=== PATIENT | female | born 1940 | race Caucasian/White ===

== ENCOUNTER 2017-09-12 12:08 | Inpatient (IN) | payer MEDICARE, SELFPAY ==
--- NOTE | 2017-09-12 11:11 | XR_ITS ---
XR chest 2V Ordering Physician: Tobias Healy Patient Age: 76 years: Female HISTORY: ITS.REASON: S/P FLU, COUGH, LT CHEST PAIN HISTORY of colon Ca & lungs CA TECHNIQUE: PA and lateral chest COMPARISON :July 04, 2017 FINDINGS Heart is normal in size if not slightly smaller than on previous June 2017 CXR . Tayla and mediastinal structures appear satisfactory. . Chest wall unremarkable. T-spine intact stable No pleural effusion. No pneumothorax. . Slight coarsening markings bilaterally particularly at the right midlung but this has a similar appearance to previous study from June 2014 with nothing definitely acute. Mild elevation right hemidiaphragm again noted. Appear to be postsurgical changes right lung base and possibly right midlung of these is seen on prior CT 2014 CT chest. . Postsurgical changes are seen at the right epigastric region. Unchanged. IMPRESSION: Stable chest with nothing definitely acute. Stable mild chronic changes . Stable postsurgical changesPosterior right lung base
[2017-09-12 12:56] VITALS: BP 141/60; PULSE 61; RESP 20; TEMP 36.3; O2SAT 96
[2017-09-12 13:25] VITALS: BMI 28.4
[2017-09-12 13:38] VITALS: BMI 25.7
[2017-09-12 15:06] LABS: Troponin I < 0.02 ng/ml (0.00-0.06)
--- NOTE | 2017-09-12 16:58 | HMH.HP ---
*Admission Date: 09/12/17 *Chief complaint: Fatigue/cough *History of present illness: 76-year-old white female, patient of Dr. Tobias Healy, who came to his office today with a chief complaint of coughing, back pain, malaise, orthostasis and fatigue. Last week she was treated for influenza type B with Tamiflu and defervesced, but continued to have lots of weakness and fatigue along with some low-grade fevers. In the office today she was found to have evidence of urinary tract infection, and admitted to hospital for IV antibiotics, IV fluids and supportive care. [facility] History I have reviewed the patient's past medical history: Yes Medical History: Reports:: Cancer (Liver (2000), Lung (2000), Colon (1996)), Hypertension, Myocardial Infarction Denies:: Diabetes Mellitus Type 1, Diabetes Mellitus Type 2, MRSA Other Medical History: Reports: Arthritis, Hypothyroidism, Liver Disease (Liver CA 2000), Thyroid Disease Other Surgeries: Yes: Cancer Surgery (Colon resection), Colon Resection, Hysterectomy-Total, Other (Cholecystectomy, laser surgery for kidney stones) Amputation: No Fractures: Yes ((L) wrist,) - *Social History Educational Level: Attended High School Smoking Status: Former smoker Tobacco Type: cigarettes #Yrs smoked (if former smoker): 20 Smoking End Date: 1979 Alcohol Intake: never Occupational Status: retired Housing: house Household Members: spouse - Psychiatric History Expresses thoughts of harming self/others: None Suicide Plan Description: No Plan *Family Hx:: Cancer, Coronary Artery Disease, Diabetes, Heart Attack, Hypertension Review of Systems - Review of Systems Review of systems:: unable to obtain, other, pertinent systems reviewed and negative unless documented below - Constitutional Reports body ache(s), Reports chills, Reports fatigue - *Respiratory Reports cough - *Gastrointestinal Reports abdominal pain, Denies change in bowel habits, Denies change in stools Meds Home Medications Medication Instructions Recorded Confirmed Type Aspirin [Aspirin 81mg EC Tab] 81 mg PO DAILY 09/12/17 09/12/17 History Atorvastatin Calcium [Lipitor 40mg 20 mg PO HS 09/12/17 09/12/17 History Tablet] LORazepam [Ativan] 1 mg PO BID 09/12/17 09/12/17 History Levothyroxine Sodium 50 mcg PO DAILY 09/12/17 09/12/17 History [Levothyroxine 50mcg (0.05mg) Tab] Lisinopril/Hydrochlorothiazide 1 tab PO DAILY 09/12/17 09/12/17 History [Lisinopril-Hctz 10-12.5 mg Tab] Nadolol [Corgard] 20 mg PO BID 09/12/17 09/12/17 History Pantoprazole Sodium [Protonix 40mg 40 mg PO HS 09/12/17 09/12/17 History tablet] Spironolactone [Spironolactone 25 mg PO DIRECTED 09/12/17 09/12/17 History 25mg Tab] Allergies Allergy/AdvReac Type Severity Reaction Status Date / Time codeine [CODEINE] Allergy Mild HEART RACE Verified 09/12/17 13:15 meloxicam [From MOBIC] Allergy Mild HEART RACE Verified 09/12/17 13:15 oxycodone [OXYCODONE] Allergy Mild HEART RACE Verified 09/12/17 13:15 propoxyphene Allergy Mild HEART RACE Verified 09/12/17 13:15 [From DARVOCET-N] sulfamethoxazole Allergy Mild HEART RACE Verified 09/12/17 13:15 [From BACTRIM] trimethoprim [From BACTRIM] Allergy Mild HEART RACE Verified 09/12/17 13:15 diphenhydramine Allergy Unknown HEART RACE Verified 09/12/17 13:15 [DIPHENHYDRAMINE] doxycycline [DOXYCYCLINE] Allergy Unknown HEART RACE Verified 09/12/17 13:15 levofloxacin [From LEVAQUIN] Allergy Unknown Heart Races Verified 09/12/17 13:15 metoclopramide [From REGLAN] Allergy Unknown HEART RACE Verified 09/12/17 13:15 phenazopyridine Allergy Unknown HEART RACE Verified 09/12/17 13:15 [From PYRIDIUM] QUINOLONES Allergy Unknown HEART RACE Uncoded 08/16/17 14:45 Exam Vital signs and Labs for Last 24 Hours: Temp Pulse Resp BP Pulse Ox 97.3 F L 61 20 141/60 96 09/12/17 12:56 09/12/17 12:56 09/12/17 12:56 09/12/17 12:56 09/12/17 12:56 Laboratory Results - last 24 hr
--- NOTE | 2017-09-12 18:02 | PC.NURSE ---
PT ADMITTED TO 201 VIA WHEELCHAIR. PT IS A&Ox3. PT C/O (L) SCAPULAR PAIN RANGING 3-10 ON A 0-10 PAIN SCALE. HEART RATE REG. LUNGS WITH RHONCHI SCATTERED. ABD SOFT AND NONTENDER /C ACTIVE BOWEL SOUNDS. (R) AC IV INFUSING D5NS @ 100 ML/HR; NO S/S OF INFECTION/INFILTRATION. K-THERMIA PAD IN PLACE TO (L) UPPER BACK TO ASSIST WITH PAIN MANAGEMENT. PT HAS BEEN MEDICATED PER MAR FOR MANAGMENT OF SYMPTOMS. PT AMBULATES TO BR WITH ASSISTANCE X1. PT REFUSES ALISE HOSE. WILL CONTINUE TO MONITOR.
[2017-09-12 20:00] VITALS: BP 137/53; PULSE 56; RESP 18; TEMP 36.3; O2SAT 96
[2017-09-12 23:35] VITALS: BP 121/70; PULSE 66; RESP 20; TEMP 37; O2SAT 94
--- NOTE | 2017-09-13 03:54 | PC.NURSE ---
PT C/O PAIN IN LT UPPER BACK T/O THE NIGHT, K PAP TO AREA AND PRN MEDICATION ADMINISTERED. PT HAS RESTED WELL THIS SHIFT. CANDY FEEDER LUNG AUSCULTATION. BS ACTIVE IN ALL 4 QAUDS. A&OX3. VSS. FAMILY AT BEDSIDE. NO ACUTE DISTRESS NOTED. WILL CONTINUE TO MONITOR.
[2017-09-13 04:00] VITALS: BP 107/51; PULSE 27; RESP 16; TEMP 36.8; O2SAT 94
--- NOTE | 2017-09-13 05:52 | PC.NURSE ---
PT WANTS HER BATH AFTER BREAKFAST. NURSE NOTIFIED
[2017-09-13 06:51] LABS: Basophils % 0.5 % (0.1-2.0); Eosinophils # 0.1 K/mm3 (0.0-0.4); Eosinophils % 1.2 % (0.1-12.0); Hemoglobin 10.6 g/dL (12.2-16.2); Lymphocytes # 1.2 K/mm3 (0.7-4.5); Lymphocytes % 18.8 K/mm3 (10-50); Mean Corpuscular HGB Conc 34.1 g/dL (31.8-35.4); Mean Corpuscular Hemoglobin 29.1 pg (27.0-31.2); Mean Corpuscular Volume 85.5 fl (81-99); Monocytes # 0.7 K/mm3 (0.1-1.0); Monocytes % 10.4 % (1.7-9.3); Neutrophils # 4.4 K/mm3 (1.8-7.8); Neutrophils % 69.2 % (37.0-80.0); Platelet Count 334 K/mm3 (142-424); Red Blood Count 3.63 M/mm3 (4.20-5.40); Red Cell Distribution Width 12.4 % (11.5-17.5); White Blood Count 6.4 K/mm3 (4.8-10.8)
[2017-09-13 06:58] LABS: Anion Gap 6.5 mEq/L (5-15); Blood Urea Nitrogen 8 mg/dL (7-18); Carbon Dioxide 32 mmol/L (21.0-32.0); Chloride 97 mmol/L (98-107); Creatinine Clearance Estimated 51 mL/min (0-300); Creatinine,Serum 0.84 mg/dL (0.55-1.02); Estimated Glomerular Filt Rate 66 ml/min (>60); GFR (African American) 80 ML/MIN (>60); Glucose 154 mg/dL (74-106); Sodium 133 mmol/L (136-145)
[2017-09-13 07:04] LABS: Potassium 2.5 mmoL/L (3.5-5.1)
--- NOTE | 2017-09-13 07:29 | PC.NURSE ---
REPORT GIVEN TO Chris QUINTANILLA
--- NOTE | 2017-09-13 07:34 | PC.NURSE ---
(WALTER) NOTIFIED OF CRITICAL K+ 2.5 BY Axel PRITCHARD, RN @ [phone]
--- NOTE | 2017-09-13 07:35 | PC.NURSE ---
REPORT GIVEN TO Axel PRITCHARD
--- NOTE | 2017-09-13 07:45 | P.PN_ITS ---
Internal Medicine - PN: Subj *Date: 09/13/17 *Time: 07:43 Interval history: States she feels better although is still somewhat grumpy about her sickness. Breathing well. Minimal coughing. Positive serology for influenza A noted last night. Exam Vital signs and Labs for Last 24 Hours: Temp Pulse Resp BP Pulse Ox 98.2 F 27 L 16 107/51 94 L 09/13/17 04:00 09/13/17 04:00 09/13/17 04:00 09/13/17 04:00 09/13/17 04:00 Laboratory Results - last 24 hr 09/12/17 14:30: Troponin I < 0.02 09/13/17 00:00: Influenza Type A Ag Positive A, Influenza Type B Ag Negative 09/13/17 06:15: WBC 6.4, RBC 3.63 L, Hgb 10.6 L, Hct 31.0 L, MCV 85.5, MCH 29.1 , MCHC 34.1, RDW 12.4, Plt Count 334, MPV 7.0 L, Neut % (Auto) 69.2, Lymph % ( Auto) 18.8, [place] % (Auto) 10.4 H, Eos % (Auto) 1.2, Baso % (Auto) 0.5, Neut # ( Auto) 4.4, Lymph # (Auto) 1.2, [place] # (Auto) 0.7, Eos # (Auto) 0.1, Baso # (Auto ) 0.0 09/13/17 06:15: Sodium 133 L, Potassium 2.5 L*, Chloride 97 L, Carbon Dioxide 32 , Anion Gap 6.5, BUN 8, Creatinine 0.84, Estimated Creat Clear 51, Estimated GFR 66, Est GFR ( Amer) 80, Glucose 154 H I & O for Last 24 hours: Intake & Output 09/10/17 09/11/17 09/12/17 09/13/17 11:59 11:59 11:59 11:59 Intake Total 1956 / 1956 Output Total 1200 / 1200 Balance 757 / 757 Weight 145 lb 7 oz Narrative: Patient with good air movement, minimal rhonchi, heart rate regular, abdomen soft. Assessment and Plan (1) Urinary tract infection Current visit: Yes Status: Acute Category: Medical Code(s): N39.0 - Urinary tract infection, site not specified (2) Influenza A Current visit: Yes Status: Acute Category: Medical Code(s): J10.1 - Influenza due to other identified influenza virus with other respiratory manifestations (3) Hypokalemia Current visit: Yes Status: Acute Category: Medical Code(s): E87.6 - Hypokalemia - Assessment and plan all Dx Assessment and Plan for all problems:: Patient is improving. Initiate Tamiflu for a second round given length of time after treatment of influenza B last week. Continue antibiotics, await UTI cultures. Replace potassium orally.
[2017-09-13 08:00] VITALS: BP 140/61; PULSE 64; PULSE 66; RESP 16; RESP 18; TEMP 36.8; O2SAT 96
--- NOTE | 2017-09-13 08:21 | HMH.PHAVTE ---
[facility] Pharm[facility] VTE Monitoring - Patient Demographics Admission date: 09/12/17 Report Date: 09/13/17 Time: 08:21 Allergies/Adverse Reactions: codeine [CODEINE] Allergy (Mild, Verified 09/12/17 13:15) HEART RACE meloxicam [From MOBIC] Allergy (Mild, Verified 09/12/17 13:15) HEART RACE oxycodone [OXYCODONE] Allergy (Mild, Verified 09/12/17 13:15) HEART RACE propoxyphene [From DARVOCET-N] Allergy (Mild, Verified 09/12/17 13:15) HEART RACE sulfamethoxazole [From BACTRIM] Allergy (Mild, Verified 09/12/17 13:15) HEART RACE trimethoprim [From BACTRIM] Allergy (Mild, Verified 09/12/17 13:15) HEART RACE diphenhydramine [DIPHENHYDRAMINE] Allergy (Unknown, Verified 09/12/17 13:15) HEART RACE doxycycline [DOXYCYCLINE] Allergy (Unknown, Verified 09/12/17 13:15) HEART RACE levofloxacin [From LEVAQUIN] Allergy (Unknown, Verified 09/12/17 13:15) Heart Races metoclopramide [From REGLAN] Allergy (Unknown, Verified 09/12/17 13:15) HEART RACE phenazopyridine [From PYRIDIUM] Allergy (Unknown, Verified 09/12/17 13:15) HEART RACE QUINOLONES Allergy (Unknown, Uncoded 08/16/17 14:45) HEART RACE Height: 1.6 m Weight: 65.969 kg Patient Problems: Current Active Problems Urinary tract infection (Acute) Influenza A (Acute) Hypokalemia (Acute) - VTE Risk Labs: VTE Related Lab Results Hgb 10.6 g/dL (12.2-16.2) L 09/13/17 06:15 Hct 31.0 % (37.0-47.0) L 09/13/17 06:15 Plt Count 334 K/mm3 (142-424) 09/13/17 06:15 BUN 8 mg/dL (7-18) 09/13/17 06:15 Creatinine 0.84 mg/dL (0.55-1.02) 09/13/17 06:15 Estimated Creat Clear 51 mL/min (0-300) 09/13/17 06:15 Was VTE Risk Assessment Performed: Yes VTE Score: 1 VTE Risk Level: Very Low Risk - Prophylaxis VTE Prophylaxis Ordered?: Yes Types of VTE Prophylaxis: TEDS Knee High Location of Applied Device: Bilateral Lower Extremeties - VTE Diagnosis Confirmed Treatment or plan recommended: Continue Current Treatment
[2017-09-13 11:46] VITALS: BP 106/52; PULSE 599; RESP 18; TEMP 36.8; O2SAT 92
[2017-09-13 15:37] VITALS: BP 144/71; PULSE 69; RESP 18; TEMP 36.6; O2SAT 94
--- NOTE | 2017-09-13 17:34 | PC.NURSE ---
Pt A&O x3. Rhonchi and wheezes noted to lungs. O2 sats remain in the 90's on room air. Pt has ambulated around her room independently. She states she has reflux from a hernia. notified and maalobarbara ordered prn. Pt also reports pain in her shoulder area from torn muscle . Kpad in place and prn flexerill and lortab administered x1. No other concerns at this time. Will continue to monitor.
--- NOTE | 2017-09-13 18:51 | PC.NURSE ---
report to be given to Maxine Cool RN
[2017-09-13 19:41] VITALS: BP 151/64; PULSE 76; RESP 20; TEMP 37.4; O2SAT 97
[2017-09-14] VITALS: BP 153/70; PULSE 69; RESP 18; TEMP 37; O2SAT 96
--- NOTE | 2017-09-14 03:10 | PC.NURSE ---
PT RESTED WELL THIS SHIFT. COMPLAINED OF PAIN IN LEFT UPPER BACK AT BEGINNING OF SHIFT. MEDICATED PER OCT. KPAD NOTED TO LEFT UPPER BACK. A&OX3. WHEEZING NOTED DURING LUNG AUSCULTATION. BOWEL SOUNDS ACTIVE IN ALL FOUR QUADRANTS. PATIENT CONTINUES TO REFUSE TEDS. VSS. NO ACUTE DISTRESS NOTED. CONTINUE TO MONITOR.
[2017-09-14 04:00] VITALS: BP 121/57; PULSE 67; RESP 20; TEMP 36.7; O2SAT 95
[2017-09-14 06:40] LABS: Basophils % 0.5 % (0.1-2.0); Eosinophils # 0.1 K/mm3 (0.0-0.4); Eosinophils % 1.3 % (0.1-12.0); Hematocrit 31.6 % (37.0-47.0); Hemoglobin 10.6 g/dL (12.2-16.2); Lymphocytes # 0.9 K/mm3 (0.7-4.5); Lymphocytes % 14.6 K/mm3 (10-50); Mean Corpuscular HGB Conc 33.6 g/dL (31.8-35.4); Mean Corpuscular Hemoglobin 28.9 pg (27.0-31.2); Monocytes # 0.5 K/mm3 (0.1-1.0); Monocytes % 7.9 % (1.7-9.3); Neutrophils # 4.5 K/mm3 (1.8-7.8); Neutrophils % 75.7 % (37.0-80.0); Platelet Count 341 K/mm3 (142-424); Red Blood Count 3.68 M/mm3 (4.20-5.40); Red Cell Distribution Width 12.3 % (11.5-17.5); White Blood Count 5.9 K/mm3 (4.8-10.8)
[2017-09-14 06:45] LABS: Anion Gap 5.1 mEq/L (5-15); Blood Urea Nitrogen 8 mg/dL (7-18); Carbon Dioxide 31 mmol/L (21.0-32.0); Chloride 102 mmol/L (98-107); Creatinine Clearance Estimated 51 mL/min (0-300); Creatinine,Serum 0.73 mg/dL (0.55-1.02); Estimated Glomerular Filt Rate 78 ml/min (>60); GFR (African American) 94 ML/MIN (>60); Glucose 128 mg/dL (74-106); Potassium 3.1 mmoL/L (3.5-5.1); Sodium 135 mmol/L (136-145)
--- NOTE | 2017-09-14 07:23 | PC.NURSE ---
REPORT GIVEN TO Julisa QUINTANILLA
--- NOTE | 2017-09-14 07:27 | PC.NURSE ---
REPORT GIVEN TO Chris PRITCHARD RN
[2017-09-14 07:43] VITALS: BP 149/79; PULSE 71; RESP 20; TEMP 36.6; O2SAT 97
[2017-09-14 08:00] VITALS: RESP 20; O2SAT 97
--- NOTE | 2017-09-14 08:17 | HMH.DCSUM ---
General - General Admission date: 09/12/17 Discharge date: 09/14/17 HPI HPI: 76-year-old white female, patient of Dr. Tobias Healy, who came to his office today with a chief complaint of coughing, back pain, malaise, orthostasis and fatigue. Last week she was treated for influenza type B with Tamiflu and defervesced, but continued to have lots of weakness and fatigue along with some low-grade fevers. In the office today she was found to have evidence of urinary tract infection, and admitted to hospital for IV antibiotics, IV fluids and supportive care. Objective Vital signs: Temp Pulse Resp BP Pulse Ox 97.8 F 71 20 149/79 97 09/14/17 07:43 09/14/17 07:43 09/14/17 07:43 09/14/17 07:43 09/14/17 07:43 Narrative: Patient's exam this morning is normalized, with better air movement, minimal back pain when she moves and twists. No fever. Heart rate regular, lungs clear, abdomen soft. Hospital Course Hospital Course: Patient was admitted, placed on antibiotics for urinary tract infection. Had gram-negative rods but no organism identification or sensitivities at this point. Tamiflu was readministered because serologic testing showed the presence of influenza A and she improved very nicely. This morning she was doing well, feeling better. Reached maximal medical improvement. She will be discharged home with antibiotics, antiviral, and short-term analgesia for her pain and cough respectively. Results Labs on day of discharge: Labs from last 24 hours 09/14/17 09/14/17 06:05 06:05 WBC 5.9 RBC 3.68 L Hgb 10.6 L Hct 31.6 L MCV 86.0 MCH 28.9 MCHC 33.6 RDW 12.3 Plt Count 341 MPV 7.0 L Neut % (Auto) 75.7 Lymph % (Auto) 14.6 [place] % (Auto) 7.9 Eos % (Auto) 1.3 Baso % (Auto) 0.5 Neut # (Auto) 4.5 Lymph # (Auto) 0.9 [place] # (Auto) 0.5 Eos # (Auto) 0.1 Baso # (Auto) 0.0 Sodium 135 L Potassium 3.1 L D Chloride 102 Carbon Dioxide 31 Anion Gap 5.1 BUN 8 Creatinine 0.73 Estimated Creat Clear 51 Estimated GFR 78 Est GFR ( Amer) 94 Glucose 128 H Preliminary micro results at discharge 09/12/17 15:00 Blood Culture - Preliminary Blood NO GROWTH AFTER 24 HOURS 09/12/17 14:30 Blood Culture - Preliminary Blood NO GROWTH AFTER 24 HOURS DS: Diagnosis - Discharge Diagnosis (1) Urinary tract infection Status: Acute (2) Influenza A Status: Acute (3) Hypokalemia Status: Acute Meds Home Medications Medication Instructions Recorded Confirmed Type Aspirin [Aspirin 81mg EC Tab] 81 mg PO DAILY 09/12/17 09/12/17 History Atorvastatin Calcium [Lipitor 40mg 20 mg PO HS 09/12/17 09/12/17 History Tablet] LORazepam [Ativan] 1 mg PO BID 09/12/17 09/12/17 History Levothyroxine Sodium 50 mcg PO DAILY 09/12/17 09/12/17 History [Levothyroxine 50mcg (0.05mg) Tab] Lisinopril/Hydrochlorothiazide 1 tab PO DAILY 09/12/17 09/12/17 History [Lisinopril-Hctz 10-12.5 mg Tab] Nadolol [Corgard] 20 mg PO BID 09/12/17 09/12/17 History Pantoprazole Sodium [Protonix 40mg 40 mg PO HS 09/12/17 09/12/17 History tablet] Spironolactone [Spironolactone 25 mg PO DIRECTED 09/12/17 09/12/17 History 25mg Tab] Allergies Allergy/AdvReac Type Severity Reaction Status Date / Time codeine [CODEINE] Allergy Mild HEART RACE Verified 09/12/17 13:15 meloxicam [From MOBIC] Allergy Mild HEART RACE Verified 09/12/17 13:15 oxycodone [OXYCODONE] Allergy Mild HEART RACE Verified 09/12/17 13:15 propoxyphene Allergy Mild HEART RACE Verified 09/12/17 13:15 [From DARVOCET-N] sulfamethoxazole Allergy Mild HEART RACE Verified 09/12/17 13:15 [From BACTRIM] trimethoprim [From BACTRIM] Allergy Mild HEART RACE Verified 09/12/17 13:15 diphenhydramine Allergy Unknown HEART RACE Verified 09/12/17 13:15 [DIPHENHYDRAMINE] doxycycline [DOXYCYCLINE] Allergy Unknown HEART RACE Verified 09/12/17 13:15
--- NOTE | 2017-09-14 08:23 | P.DS_ITS ---
General - General Admission date: 09/12/17 Discharge date: 09/14/17 HPI HPI: 76-year-old white female, patient of Dr. Tobias Healy, who came to his office today with a chief complaint of coughing, back pain, malaise, orthostasis and fatigue. Last week she was treated for influenza type B with Tamiflu and defervesced, but continued to have lots of weakness and fatigue along with some low-grade fevers. In the office today she was found to have evidence of urinary tract infection, and admitted to hospital for IV antibiotics, IV fluids and supportive care. Objective Vital signs: Temp Pulse Resp BP Pulse Ox 97.8 F 71 20 149/79 97 09/14/17 07:43 09/14/17 07:43 09/14/17 07:43 09/14/17 07:43 09/14/17 07:43 Narrative: Patient's exam this morning is normalized, with better air movement, minimal back pain when she moves and twists. No fever. Heart rate regular, lungs clear, abdomen soft. Hospital Course Hospital Course: Patient was admitted, placed on antibiotics for urinary tract infection. Had gram-negative rods but no organism identification or sensitivities at this point. Tamiflu was readministered because serologic testing showed the presence of influenza A and she improved very nicely. This morning she was doing well, feeling better. Reached maximal medical improvement. She will be discharged home with antibiotics, antiviral, and short -term analgesia for her pain and cough respectively. Results Labs on day of discharge: Labs from last 24 hours 09/14/17 09/14/17 06:05 06:05 WBC 5.9 RBC 3.68 L Hgb 10.6 L Hct 31.6 L MCV 86.0 MCH 28.9 MCHC 33.6 RDW 12.3 Plt Count 341 MPV 7.0 L Neut % (Auto) 75.7 Lymph % (Auto) 14.6 [place] % (Auto) 7.9 Eos % (Auto) 1.3 Baso % (Auto) 0.5 Neut # (Auto) 4.5 Lymph # (Auto) 0.9 [place] # (Auto) 0.5 Eos # (Auto) 0.1 Baso # (Auto) 0.0 Sodium 135 L Potassium 3.1 L D Chloride 102 Carbon Dioxide 31 Anion Gap 5.1 BUN 8 Creatinine 0.73 Estimated Creat Clear 51 Estimated GFR 78 Est GFR ( Amer) 94 Glucose 128 H Preliminary micro results at discharge 09/12/17 15:00 Blood Culture - Preliminary Blood NO GROWTH AFTER 24 HOURS 09/12/17 14:30 Blood Culture - Preliminary Blood NO GROWTH AFTER 24 HOURS DS: Diagnosis - Discharge Diagnosis (1) Urinary tract infection Status: Acute (2) Influenza A Status: Acute (3) Hypokalemia Status: Acute Meds Home Medications Medication Instructions Recorded Confirmed Type Aspirin [Aspirin 81mg EC Tab] 81 mg PO DAILY 09/12/17 09/12/17 History Atorvastatin Calcium [Lipitor 40mg 20 mg PO HS 09/12/17 09/12/17 History Tablet] LORazepam [Ativan] 1 mg PO BID 09/12/17 09/12/17 History Levothyroxine Sodium 50 mcg PO DAILY 09/12/17 09/12/17 History [Levothyroxine 50mcg (0.05mg) Tab] Lisinopril/Hydrochlorothiazide 1 tab PO DAILY 09/12/17 09/12/17 History [Lisinopril-Hctz 10-12.5 mg Tab] Nadolol [Corgard] 20 mg PO BID 09/12/17 09/12/17 History P
[2017-09-14 11:25] VITALS: BP 143/66; PULSE 67; RESP 18; TEMP 36.7; O2SAT 96
== END 2017-09-14 13:30 | disposition home or self-care (01) | DRG 194 ==
LOC: 2ND 12:11
PROVIDERS: Admitting Provider Internal Medicine Adolescent Medicine; PCP Internal Medicine; Visit Provider Internal Medicine Adolescent Medicine
DX: J10.1 Influenza due to other identified influenza virus with other respiratory manifestations; N39.0 Urinary tract infection, site not specified; E87.6 Hypokalemia
CPT/HCPCS: 36415; 71046; 80048; 84484; 85025; 87040; 87086; 87088; 87186; 87275; 87276; 93005; G0378

== ENCOUNTER → 2017-09-12 13:20 | Outpatient (REF) | payer MEDICARE, SELFPAY | LOC: LAB 13:20 | PROVIDERS: Visit Provider Internal Medicine | DX: N39.0 Urinary tract infection, site not specified (principal) | CPT/HCPCS: 87086 ==

== ENCOUNTER → 2017-09-19 11:19 | Outpatient (CLI) | payer MEDICARE, SELFPAY ==
--- NOTE | 2017-09-19 11:34 | XR_ITS ---
XR chest 2V Ordering Physician: Tobias Healy Patient Age: 76 years: Female HISTORY: ITS.REASON: COUGH,SPUTUM,S/P FLU SYNDROME Cough fluid. TECHNIQUE: 2 view chest PA and lateral COMPARISON :Previous September 12, 2017 CXR also CXR 07/04/2017 FINDINGS No prominent areas of consolidation, but but the patient appears to have may have developed minimal patchy area of lingular infiltrate, which now partially obscures the left cardiac apex. This is Change since prior listed comparison studies. The upper normal markings and subtle density seen at right infrahilar region which question early reflect a very subtle wispy infiltrate here right infrahilar area. Equivocal feature.. Postsurgical changes towards right base again noted. Upper lung dunlap are clear bilateral . Heart georgette and mediastinal structures stable.. Chest wall unremarkable. IMPRESSION: -------- New subtle minimal lingular infiltrate evident- which now partially obscures left cardiac apex shadow Question possible subtle wispy infiltrate right infrahilar region.
== END ==
PROVIDERS: PCP Internal Medicine; Visit Provider Internal Medicine
DX: R05 Cough (principal); Z09 Encounter for follow-up examination after completed treatment for conditions other than malignant neoplasm
CPT/HCPCS: 71046

== ENCOUNTER → 2017-10-11 14:13 | Outpatient (CLI) | payer MEDICARE, SELFPAY ==
--- NOTE | 2017-10-11 14:15 | CT_ITS ---
CT chest wo con HISTORY: Pulmonary nodule, follow-up abnormal radiograph ITS.REASON: COUGH, CHEST PAIN, productive cough, ORDERING PHYSICIAN: Tobias Healy PATIENT AGE: 76 years TECHNIQUE: Axial images obtained. Sagittal and coronal reformatted images are also generated and reviewed. CONTRAST: None COMPARISON: 09/19/[address] of -15 FINDINGS: Scattered small nodes are present in the mediastinum and georgette some of which are calcified. No adenopathy. Coronary artery calcifications are present. Normal heart size without pericardial effusion. There is a small hiatal hernia. Fibrotic changes are present in the lung apices. There is an 8 mm parenchymal opacity in the right upper lobe anteriorly this is not significantly changed from -. Patchy density is however present adjacent to this nodular area and posterior and right upper lobe suspicious for patchy infiltrate. Minimal atelectasis or infiltrate is present in the right middle lobe. There are fibrotic/postsurgical changes in the right lower lobe. Subpleural nodular density left apex at 3 mm. There are mild atelectatic changes within the inferior lingula accounting for the radiographic abnormality. Upper abdominal images show at least 2 hepatic isodense lesions the largest anterior in the right hepatic lobe at 16 mm. An additional lesion is present in the posterior aspect of the right hepatic lobe at 8 mm. These are nonspecific likely related to cyst not significant changed from prior abdomen CT of 03/24/2012. There are surgical clips in the right upper quadrant. IMPRESSION: 1. Overall stable appearance of subpleural nodular opacity in the right upper lobe. Radiographic abnormality in the lingula spelled to be due to atelectatic or fibrotic change 2. Patchy density is present in right upper lobe posteriorly suspicious for mild pneumonia. 3. Postsurgical changes right lower lobe. 4. No significant change hepatic cysts
== END ==
PROVIDERS: PCP Internal Medicine; Visit Provider Internal Medicine
DX: R05 Cough (principal); R07.9 Chest pain, unspecified; Z85.118 Personal history of other malignant neoplasm of bronchus and lung
CPT/HCPCS: 71250

== ENCOUNTER → 2017-11-10 08:02 | Outpatient (CLI) | payer MEDICARE, SELFPAY ==
--- NOTE | 2017-11-10 08:05 | CT_ITS ---
CT abdomen pelvis wo con CLINICAL INDICATION: Left-sided abdominal pain, history of colon cancer ITS.REASON: ABD PAIN ORDERING PHYSICIAN: Tobias Healy PATIENT AGE: 77 years COMPARISON: 04/23/2014 TECHNIQUE: Axial images obtained with sagittal and coronal reformats. PROCEDURE: Oral Contrast: None IV Contrast: None. FINDINGS: Postsurgical changes right lung base. Prior cholecystectomy. There are 2 isodense lesions of the liver the largest in the right hepatic lobe anteriorly at 19 x 16 mm previously 17 x 16 mm. There is been prior partial hepatectomy with left lobectomy. No new liver lesions are evident. There is a small hiatal hernia. The spleen, adrenal glands, and pancreas are unremarkable There is a nonobstructing 5 mm stone in the lower pole left kidney. No intestinal obstruction or free air. There is a lipomatous ileocecal valve as previously described. No evidence of appendicitis or diverticulitis. Prior hysterectomy. No pelvic mass or abnormal fluid collection. Postsurgical changes noted of the rectum No acute bony findings. IMPRESSION: 1. Overall stable CT appearance of the abdomen and pelvis. No significant change isodense lesions of the liver, prior partial hepatectomy, postsurgical changes of the rectum 2. Nonobstructing left renal stone. 3. No acute finding
== END ==
PROVIDERS: PCP Internal Medicine; Visit Provider Internal Medicine
DX: R10.9 Unspecified abdominal pain (principal)
CPT/HCPCS: 74176

== ENCOUNTER → 2018-01-30 12:10 | Outpatient (CLI) | payer MEDICARE, SELFPAY ==
[2018-01-30 12:33] LABS: Basophils % 0.5 % (0.1-2.0); Eosinophils # 0.1 K/mm3 (0.0-0.4); Eosinophils % 1.3 % (0.1-12.0); Hematocrit 42.6 % (37.0-47.0); Hemoglobin 13.9 g/dL (12.2-16.2); Lymphocytes # 1.2 K/mm3 (0.7-4.5); Lymphocytes % 17.9 K/mm3 (10-50); Mean Corpuscular HGB Conc 32.7 g/dL (31.8-35.4); Mean Corpuscular Hemoglobin 28.2 pg (27.0-31.2); Mean Corpuscular Volume 86.3 fl (81-99); Mean Platelet Volume 7.4 fl (7.4-10.4); Monocytes # 0.5 K/mm3 (0.1-1.0); Monocytes % 7.2 % (1.7-9.3); Neutrophils % 73.1 % (37.0-80.0); Platelet Count 235 K/mm3 (142-424); Red Blood Count 4.93 M/mm3 (4.20-5.40); Red Cell Distribution Width 13.5 % (11.5-17.5); White Blood Count 6.8 K/mm3 (4.8-10.8)
[2018-01-30 13:23] LABS: Alanine Aminotransferase 28 U/L (12-78); Albumin Level 3.8 gm/dL (3.4-5.0); Albumin/Globulin Ratio 1.2 (1.1-1.8); Alkaline Phosphatase 117 U/L (46-116); Anion Gap 11.5 mEq/L (5-15); Aspartate Amino Transferase 19 U/L (15-37); Bilirubin,Total 0.9 mg/dL (0.2-1.0); Blood Urea Nitrogen 14 mg/dL (7-18); Carbon Dioxide 30 mmol/L (21.0-32.0); Chloride 100 mmol/L (98-107); Chol/HDL Ratio 3.1 (1-3.5); Cholesterol 111 mg/dL (140-200); Creatinine,Serum 0.84 mg/dL (0.55-1.02); Estimated Glomerular Filt Rate 66 ml/min (>60); GFR (African American) 80 ML/MIN (>60); Globulin 3.1 gm/dl (1.3-3.2); Glucose 131 mg/dL (74-106); HDL Cholesterol 36 mg/dL (29-89); LDL Cholesterol 49 mg/dL (0-130); Potassium 3.5 mmoL/L (3.5-5.1); Sodium 138 mmol/L (136-145); Thyroid Stimulating Hormone 0.73 uIU/ml (0.358-3.740); Total Protein,Serum 6.9 gm/dL (6.4-8.2); Triglycerides 128 mg/dL (30-200); VLDL Cholesterol 26 mg/dL (0-40)
[2018-02-02 11:16] LABS: CEA 1.7 ng/mL (0.0-4.7)
== END ==
PROVIDERS: Visit Provider Internal Medicine
DX: I10 Essential (primary) hypertension (principal); E78.5 Hyperlipidemia, unspecified; E03.9 Hypothyroidism, unspecified; M15.0 Primary generalized (osteo)arthritis; Z85.038 Personal history of other malignant neoplasm of large intestine; Z85.118 Personal history of other malignant neoplasm of bronchus and lung
CPT/HCPCS: 36415; 80053; 80061; 82378; 84443; 85025

== ENCOUNTER → 2018-05-24 10:52 | Outpatient (CLI) | payer MEDICARE, SELFPAY ==
--- NOTE | 2018-05-24 11:03 | XR_ITS ---
XR chest 2V HISTORY: ITS.REASON: ATYPICAL CP, HX COLON CA ORDERING PHYSICIAN: Tobias Healy PATIENT AGE: 77 years COMPARISON: 09/19/2017 FINDINGS: Unremarkable cardiovascular structures. Postsurgical changes are present in the right lower lobe. Increasing faint opacity is noted in the right midlung laterally. Previous CT scan of 10/11/2017 showed a subpleural pleural density at this area. The fact that is more prominent on the radiograph is concerning for developing nodule. Chest CT therefore may be of more thorough evaluation. The remaining lungs are clear. IMPRESSION: Enlarging nodular opacity in the right midlung laterally at 2.8 x 1.[address] for further evaluation
== END ==
PROVIDERS: PCP Internal Medicine; Visit Provider Internal Medicine
DX: R07.89 Other chest pain (principal); Z85.038 Personal history of other malignant neoplasm of large intestine; Z90.49 Acquired absence of other specified parts of digestive tract
CPT/HCPCS: 71046; 93005

== ENCOUNTER → 2018-05-29 12:09 | Outpatient (CLI) | payer MEDICARE, SELFPAY ==
[2018-05-29 12:45] LABS: Blood Urea Nitrogen 13 mg/dL (7-18); Creatinine,Serum 0.86 mg/dL (0.55-1.02); Estimated Glomerular Filt Rate 64 ml/min (>60); GFR (African American) 78 ML/MIN (>60)
== END ==
PROVIDERS: PCP Internal Medicine; Visit Provider Internal Medicine
DX: N63.10 Unspecified lump in the right breast, unspecified quadrant (principal)
CPT/HCPCS: 36415; 82565; 84520

== ENCOUNTER → 2018-06-07 09:30 | Outpatient (CLI) | payer MEDICARE, SELFPAY ==
--- NOTE | 2018-06-07 09:34 | CT_ITS ---
CT chest w con HISTORY: Follow-up pulmonary nodule ITS.REASON: RT BREAST NODULE ORDERING PHYSICIAN: Tobias Healy PATIENT AGE: 77 years COMPARISON: 10/11/2017 TECHNIQUE: Axial images obtained following the administration of 75 mL of Isovue 370 . Sagittal, and coronal reformatted images are also generated and reviewed. All CT scans at the facility use one or more dose reduction, viz: automated exposure control, ma/kV adjustment per patient size (including targeted exams where dose is matched to indication, i.e. head), or iterative reconstruction technique. FINDINGS: No mediastinal or hilar mass or adenopathy. Small mediastinal lymph nodes which are stable. Normal heart size. No evidence of pericardial effusion. No evidence of aortic aneurysm or dissection or central pulmonary embolus. There is a new subpleural parenchymal opacity in the right upper lobe anteriorly which measures approximately 9 x 8 mm. The margins are slightly irregular medially. Persistent mixed parenchymal opacity is present in right upper lobe laterally. This is more prominent when compared to the previous exam with some lucency noted centrally and questionable bronchial thickening posteriorly. There are fibrotic changes in the right lung base posteriorly not significantly changed. Subpleural nodular opacity is present in the left upper lobe laterally at 4 mm unchanged. No effusions are evident. There is a small hiatal hernia. Upper abdominal images show a stable isodense lesion in the right hepatic lobe anteriorly at 1.3 cm and one in the right lobe of the liver posteriorly 7 mm.. There has been prior hepatic surgery. No acute bony anomalies. There is atheromatous plaque at the ostium of the brachiocephalic artery which is a common trunk to both the right brachiocephalic and left carotid. IMPRESSION: 1. New subpleural opacity in the right upper lobe 9 x 8 mm with increasing opacification in the right upper lobe laterally. These changes could be postinflammatory or fibrotic. Cannot exclude the possibility of neoplasm. Suggest 3 month follow up to confirm short-term stability. 2. Fibrotic changes in the right lung base.
== END ==
PROVIDERS: PCP Internal Medicine; Visit Provider Internal Medicine
DX: N63.10 Unspecified lump in the right breast, unspecified quadrant (principal)
CPT/HCPCS: 71260; Q9967

== ENCOUNTER → 2018-09-11 11:41 | Outpatient (CLI) | payer MEDICARE, SELFPAY ==
--- NOTE | 2018-09-11 14:09 | CT_ITS ---
CT abdomen pelvis wo con CLINICAL INDICATION: Left lower quadrant pain and constipation ITS.REASON: ABD PAIN,LT LOWER QUAD PAIN,CONSTIPATION ORDERING PHYSICIAN: Tobias Healy PATIENT AGE: 77 years COMPARISON: None TECHNIQUE: Axial images obtained with sagittal and coronal reformats. All CT scans at the facility use one or more dose reduction, viz: automated exposure control, ma/kV adjustment per patient size (including targeted exams where dose is matched to indication, i.e. head), or iterative reconstruction technique. PROCEDURE: Oral Contrast: Gastroview IV Contrast: None . FINDINGS: There are chronic changes in the lung bases with postsurgical changes in the right lower lobe. There is an 18 mm isodense lesion in the right hepatic lobe inferiorly. An additional 9 mm isodensity present in right hepatic lobe posteriorly. Postcholecystectomy changes. Prior left hepatectomy. Small hiatal hernia. Spleen, adrenal glands, and pancreas have an unremarkable appearance. There is a 5 mm nonobstructing stone in the lower pole the left kidney. No obstructing ureteral calculi. No hydronephrosis. No intestinal obstruction or free air. There is mild thickening of the terminal ileum. A small amount fluid is present in the pelvis.. There has been a prior hysterectomy. Small amount gas is present in the urinary bladder and could be due to recent catheterization. Please correlate with patient's history. No evidence of diverticulitis No acute bony anomalies. IMPRESSION: 1. No change in hypodense lesions of the liver. 2. Nonobstructing 5 mm left renal stone. 3. Mild thickening of the terminal ileum suggesting enteritis. There is a small amount fluid in the pelvis.
== END ==
PROVIDERS: PCP Internal Medicine; Visit Provider Internal Medicine
DX: R10.32 Left lower quadrant pain; K59.00 Constipation, unspecified
CPT/HCPCS: 74176

== ENCOUNTER → 2018-10-30 14:56 | Outpatient (CLI) | payer MEDICARE, SELFPAY ==
[2018-10-30 15:28] LABS: Troponin I < 0.02 ng/ml (0.00-0.06)
== END ==
PROVIDERS: Visit Provider Internal Medicine
DX: R07.9 Chest pain, unspecified (principal)
CPT/HCPCS: 36415; 84484; 93005

== ENCOUNTER → 2018-11-06 10:01 | Outpatient (CLI) | payer MEDICARE, SELFPAY ==
--- NOTE | 2018-11-06 | CA_ITS ---
PROCEDURE: 2-D M-mode and color Doppler study INDICATIONS FOR THE TEST: Chest pain + COPD Heart Murmur Tobacco Smoking Palpitations Fatigue Syncope Edema Hypertension+Diabetes Mellitus Rheumatic Fever SOB MARTINEZ Obesity Hyperlipidemia Family History HD Additional History PATIENT INFORMATION HEIGHT: 63 WEIGHT:150 GENDER: Female B/P:138/78 2-D/M-MODE INTERPRETATION: 2-D MEASUREMENTS OBSERVED VALUES IN CMS Right Ventricular Dimension (RVDd) 2.3 Interventricular Septum (Thickness)(IVsd) 0.6 Left Ventricular Internal Dimensions(LVIDd) 3.7 Left Ventricular Posterior Wall (Thickness)(LVPWd) 0.7 Aortic Root 2.8 Aortic Cusp Separation 2.3 Left Atrial Dimensions (LAD) 4.3 2D 1. Left atrium is mildly enlarged, left ventricle is normal size, mild concentric left ventricular hypertrophy, visually estimated ejection fraction 55% with no regional wall motion abnormality. 2. The right atrium and right ventricle are normal size and contractility. 3. The aortic valve is minimally thickened and fibrosed. 4. The mitral and tricuspid valve leaflets are minimally thickened. 5. The pulmonic valve is poorly visualized. 6. No significant pericardial effusion noted. DOPPLER INTERROGATION: Doppler interrogation of the aortic, mitral and tricuspid valvular presence of mild mitral and tricuspid regurgitation, tricuspid regurgitation jet velocity is inadequate for calculation of the right ventricular systolic pressure, grade 1 diastolic dysfunction seen without tissue Doppler evidence of raised left atrial pressure. CONCLUSION: 1. Mildly enlarged left atrium, normal left ventricular size, mild concentric left ventricular hypertrophy, visually estimated ejection fraction 55% with no regional wall motion abnormality, grade 1 diastolic dysfunction seen without tissue Doppler evidence of raised left atrial pressure. 2. Mild mitral and tricuspid regurgitation 3. No significant pericardial effusion noted.
== END ==
PROVIDERS: PCP Internal Medicine; Visit Provider Internal Medicine
DX: R07.9 Chest pain, unspecified (principal)
CPT/HCPCS: 93306

== ENCOUNTER → 2019-03-02 14:51 | Outpatient (CLI) | payer MEDICARE, SELFPAY ==
--- NOTE | 2019-03-02 14:54 | MR_ITS ---
MR head/brain wo con HISTORY: Severe headache on the left in the left frontal and temporal area ITS.REASON: HEADACHES, HX OF CANCER, TRIGEMINAL NEURALGIA ORDERING PHYSICIAN: Tobias Healy PATIENT AGE: 78 years Comparison: 04/25/2013 TECHNIQUE: Standard multiplanar multiecho sequences are performed without contrast. FINDINGS: No midline shift, mass effect, intracranial hemorrhage, or hydrocephalus is evident. There are scattered periventricular and subcortical T2 white matter hyperintensities. The largest of these areas is in the left parietal lobe measuring 12 x 8 mm and was present on the previous study. These findings are consistent with ischemic gliotic change from microvascular disease with some mild progression compared to the previous exam. The cerebellopontine angles, cerebellum, and brainstem are unremarkable. The pituitary, optic chiasm, and craniocervical junction are unremarkable. There are bilateral mastoid effusions. No sinus air-fluid level. IMPRESSION: 1. No acute intracranial findings. 2. Periventricular ischemic gliotic changes which is somewhat progressed compared to the previous exam. 3. Bilateral mastoid sinus disease IMPRESSION:
== END ==
PROVIDERS: PCP Internal Medicine; Visit Provider Internal Medicine
DX: R51 Headache (principal); G50.8 Other disorders of trigeminal nerve; Z85.9 Personal history of malignant neoplasm, unspecified
CPT/HCPCS: 70551

== ENCOUNTER → 2019-03-14 14:31 | Outpatient (POV) | payer MEDICARE, SELFPAY | DX: Z00.00 Encounter for general adult medical examination without abnormal findings (principal) ==

== ENCOUNTER → 2019-06-11 15:49 | Outpatient (CLI) | payer MEDICARE, SELFPAY ==
--- NOTE | 2019-06-11 | XR_ITS ---
PROCEDURE: XR KNEE LT 3V CLINICAL INDICATION: Knee pain COMPARISON: No exams were available for comparison FINDINGS: No fracture or dislocation. No lytic or blastic change. There is normal mineralization. There is mild tricompartmental osteoarthritic change Other findings:None. IMPRESSION: Mild osteoarthritic change otherwise negative Dictated by: Pantera Ayala MD 06/11/2019 16:37 Electronically signed by Pantera Ayala MD in [facility] 06/11/2019 16:37
--- NOTE | 2019-06-11 | XR_ITS ---
PROCEDURE: XR KNEE RT 3V CLINICAL INDICATION: Right knee pain COMPARISON: No exams were available for comparison FINDINGS: No fracture or dislocation. No lytic or blastic change. There is normal mineralization. There are mild osteoarthritic changes of the right knee at the medial and lateral compartment and patellofemoral joint. There is some minimal spurring. A small area of calcification is present along the lateral aspect of the medial joint space and may represent a small spur or loose body. Other findings:None. IMPRESSION: Mild osteoarthritic change Dictated by: Pantera Ayala MD 06/11/2019 16:37 Electronically signed by Pantera Ayala MD in [facility] 06/11/2019 16:37
[2019-06-11 17:46] LABS: Basophils % 0.7 % (0.1-2.0); Eosinophils # 0.1 K/mm3 (0.0-0.4); Hematocrit 40.8 % (37.0-47.0); Hemoglobin 13.3 g/dL (12.2-16.2); Lymphocytes # 1.1 K/mm3 (0.7-4.5); Lymphocytes % 18.9 % (10-50); Mean Corpuscular HGB Conc 32.5 g/dL (31.8-35.4); Mean Corpuscular Volume 89.1 fl (81-99); Mean Platelet Volume 7.9 fl (7.4-10.4); Monocytes # 0.4 K/mm3 (0.1-1.0); Monocytes % 7.1 % (1.7-9.3); Neutrophils # 4.3 K/mm3 (1.8-7.8); Neutrophils % 71.4 % (37.0-80.0); Platelet Count 227 K/mm3 (142-424); Red Blood Count 4.58 M/mm3 (4.20-5.40)
[2019-06-11 18:34] LABS: Erythrocyte Sedimentation Rate 20 mm/hr (0-30)
[2019-06-11 19:07] LABS: Alanine Aminotransferase 37 U/L (12-78); Albumin/Globulin Ratio 1.2 (1.1-1.8); Alkaline Phosphatase 118 U/L (46-116); Anion Gap 12.7 mEq/L (5-15); Aspartate Amino Transferase 29 U/L (15-37); Bilirubin,Total 0.9 mg/dL (0.2-1.0); Blood Urea Nitrogen 15 mg/dL (7-18); Calcium 8.9 mg/dL (8.5-10.1); Carbon Dioxide 30 mmol/L (21.0-32.0); Chloride 102 mmol/L (98-107); Chol/HDL Ratio 2.6 (1-3.5); Cholesterol 105 mg/dL (140-200); Creatinine,Serum 0.94 mg/dL (0.55-1.02); Estimated Glomerular Filt Rate 58 ml/min (>60); GFR (African American) 70 ML/MIN (>60); Globulin 3.3 gm/dl (1.3-3.2); Glucose 96 mg/dL (74-106); HDL Cholesterol 41 mg/dL (29-89); LDL Cholesterol 45 mg/dL (0-130); Potassium 3.7 mmoL/L (3.5-5.1); Sodium 141 mmol/L (136-145); Thyroid Stimulating Hormone 0.79 uIU/ml (0.358-3.740); Total Protein,Serum 7.3 gm/dL (6.4-8.2); Triglycerides 95 mg/dL (30-200); VLDL Cholesterol 19 mg/dL (0-40)
[2019-06-11 20:41] LABS: Hemoglobin A1C 6.2 % (0.0-7.0)
[2019-06-14 17:05] LABS: CEA 1.3 ng/mL (0.0-4.7)
== END ==
PROVIDERS: PCP Internal Medicine; Visit Provider Internal Medicine
DX: M25.562 Pain in left knee (principal); M25.561 Pain in right knee; I10 Essential (primary) hypertension; E78.5 Hyperlipidemia, unspecified; R73.01 Impaired fasting glucose; R07.9 Chest pain, unspecified; E03.9 Hypothyroidism, unspecified; M17.0 Bilateral primary osteoarthritis of knee; Z85.118 Personal history of other malignant neoplasm of bronchus and lung; Z85.038 Personal history of other malignant neoplasm of large intestine
CPT/HCPCS: 73562; 80053; 80061; 82378; 83036; 84443; 85025; 85651

== ENCOUNTER → 2019-06-18 08:49 | Outpatient (CLI) | payer MEDICARE, SELFPAY ==
--- NOTE | 2019-06-18 08:51 | FL_ITS ---
PROCEDURE: FL SMALL BOWEL FOLLOW THROUGH CLINICAL INDICATION: CHRONIC HEARTBURN, ABD PAIN, GAS, BLOATING COMPARISON: No exams were available for comparison FINDINGS: Fluoroscopy time: 33 seconds Catheter Builder exam shows surgical clips in the right upper quadrant. There is a 4 mm stone along the lower pole of the left kidney. Sclerosis is present at the symphysis pubis. Small bowel has an unremarkable appearance. No obstructing lesions, mucosal abnormalities, or masses are identified. Spot views of the terminal ileum are unremarkable. Incidental note is made of a small hiatal hernia with reflux. IMPRESSION: 1. Unremarkable small bowel series. 2. Small hiatal hernia with gastroesophageal reflux Dictated by: Pantera Ayala MD 06/18/2019 10:27 Electronically signed by Pantera Ayala MD in [facility] 06/18/2019 10:27
== END ==
PROVIDERS: PCP Internal Medicine; Visit Provider Internal Medicine
DX: K21.9 Gastro-esophageal reflux disease without esophagitis (principal); R12 Heartburn; R10.9 Unspecified abdominal pain; R14.0 Abdominal distension (gaseous)
CPT/HCPCS: 74250

== ENCOUNTER → 2019-08-01 14:00 | Outpatient (CLI) | payer MEDICARE, SELFPAY | PROVIDERS: Visit Provider Obstetrics & Gynecology | DX: R10.9 Unspecified abdominal pain (principal) | CPT/HCPCS: 87086 ==

== ENCOUNTER → 2019-10-24 09:54 | Outpatient (CLI) | payer MEDICARE, SELFPAY ==
--- NOTE | 2019-10-24 10:06 | XR_ITS ---
PROCEDURE: XR ACUTE ABDOMEN SERIES CLINICAL INDICATION: ABD PAIN, ABNORMAL LIVER TEST COMPARISON: CXR2V XR chest 2V from 05/24/[address] abdomen pelvis wo con from 11/11/2018 FINDINGS: Frontal view of the chest shows unremarkable cardiovascular structures. Postsurgical changes are present in the right lower lobe the and there are chronic changes in the right midlung laterally. Upright and supine views of the abdomen show surgical clips in the right upper quadrant. The bowel gas pattern is nonspecific. No intestinal obstruction or free air. Sutures are present over the symphysis pubis. There is sclerosis of the symphysis pubis with subarticular cystic changes. A 3 mm stone is present overlying the lower pole of the left kidney IMPRESSION: 1. No acute finding. 2. Left nephrolithiasis. Dictated by: Pantera Ayala MD 10/24/2019 11:33 Electronically signed by Pantera Ayala MD in [facility] 10/24/2019 11:33
[2019-10-24 10:23] LABS: Basophils % 0.5 % (0.1-2.0); Eosinophils # 0.1 K/mm3 (0.0-0.4); Eosinophils % 2.3 % (0.1-12.0); Hematocrit 42.4 % (37.0-47.0); Hemoglobin 14.1 g/dL (12.2-16.2); Lymphocytes # 0.8 K/mm3 (0.7-4.5); Lymphocytes % 17.8 % (10-50); Mean Corpuscular HGB Conc 33.2 g/dL (31.8-35.4); Mean Corpuscular Hemoglobin 29.1 pg (27.0-31.2); Mean Corpuscular Volume 87.6 fl (81-99); Mean Platelet Volume 8.1 fl (7.4-10.4); Monocytes # 0.4 K/mm3 (0.1-1.0); Monocytes % 9.3 % (1.7-9.3); Neutrophils # 3.2 K/mm3 (1.8-7.8); Platelet Count 241 K/mm3 (142-424); Red Blood Count 4.84 M/mm3 (4.20-5.40); Red Cell Distribution Width 13.3 % (11.5-17.5); White Blood Count 4.5 K/mm3 (4.8-10.8)
[2019-10-24 10:31] LABS: Chloride 99 mmol/L (98-107); Potassium 4.4 mmoL/L (3.5-5.1); Sodium 135 mmol/L (136-145)
[2019-10-24 10:34] LABS: Alanine Aminotransferase 61 U/L (12-78); Albumin Level 4.3 g/dl (3.5-5.0); Albumin/Globulin Ratio 1.4 (1.1-1.8); Alkaline Phosphatase 114 U/L (38-126); Anion Gap 10.4 mEq/L (5-15); Aspartate Amino Transferase 60 U/L (14-36); Bilirubin,Total 0.9 mg/dl (0.2-1.3); Blood Urea Nitrogen 13 mg/dl (7-17); Calcium 9.6 mg/dl (8.4-10.2); Carbon Dioxide 30 mmol/L (22.0-30.0); Estimated Glomerular Filt Rate 54 ml/min (>60); GFR (African American) 65 ML/MIN (>60); Globulin 3.1 g/dL (1.3-3.2); Glucose 136 mg/dl (74-100); Total Protein,Serum 7.4 g/dl (6.3-8.2)
== END ==
PROVIDERS: Visit Provider Internal Medicine
DX: R10.11 Right upper quadrant pain (principal); R10.32 Left lower quadrant pain; E87.6 Hypokalemia; R74.8 Abnormal levels of other serum enzymes
CPT/HCPCS: 36415; 74021; 80053; 85025

== ENCOUNTER → 2019-11-02 08:31 | Outpatient (CLI) | payer MEDICARE, SELFPAY ==
--- NOTE | 2019-11-02 08:36 | NM_ITS ---
PROCEDURE: NM BONE SCAN WHOLE BODY CLINICAL INDICATION: COLON CA,WIDESPREAD BODY PAIN COMPARISON: No exams were available for comparison TECHNIQUE: Dose: 25.5 mCi technetium MDP IV FINDINGS: Nonspecific periarticular activity is present in the shoulders, knees, and feet. There is slight increased activity involving the right facet region at L4-L5, C5-C6, and C3-C4 on the left consistent with arthritic changes. No convincing evidence of metastatic disease. IMPRESSION: No convincing evidence of metastatic disease Dictated by: Pantera Ayala MD 11/03/2019 08:48 Electronically signed by Pantera Ayala MD in [facility] 11/03/2019 08:48
== END ==
PROVIDERS: PCP Internal Medicine; Visit Provider Internal Medicine
DX: M79.18 Myalgia, other site (principal); Z85.038 Personal history of other malignant neoplasm of large intestine
CPT/HCPCS: 78306; 78803; A9503

== ENCOUNTER → 2020-03-28 11:37 | Outpatient (POV) | payer MEDICARE, SELFPAY ==
--- NOTE | 2020-03-28 11:49 | ECG_ITS ---
APPROVED REPORT Exam: Resting ECG HR:54 bpm ECG Measurements Heart Rate 54 AXES IA 228 P 22 QRSd 90 QRS 50 QT 408 T 56 QTc 386 <Conclusion> Sinus bradycardia with 1st degree AV block Otherwise normal ECG Electronically signed by : Tobias Healy, 03/28/2020 12:28:34
[2020-03-28 12:32] LABS: Troponin I < 0.01 ng/ml (0.00-0.034)
== END ==
PROVIDERS: PCP Internal Medicine; Visit Provider Internal Medicine
DX: R07.9 Chest pain, unspecified (principal)
CPT/HCPCS: 36415; 84484; 93005

== ENCOUNTER 2020-07-05 10:59 | Emergency (ER) | payer MEDICARE, SELFPAY ==
[2020-07-05 11:02] VITALS: BP 174/86; PULSE 68; RESP 16; TEMP 36.7; O2SAT 97; BMI 26.7
--- NOTE | 2020-07-05 11:12 | CT_ITS ---
PROCEDURE: CT CHEST W CON CLINCAL INDICATION: pain Lung liver and colon cancer with chest pain COMPARISON: CT CHESTW CT chest w con from 06/07/2018 TECHNIQUE: IV Contrast: 75ml Isovue 370 Axial images obtained with sagittal and coronal reformats. All CT scans at the facility use one or more dose reduction, viz: automated exposure control, ma/kV adjustment per patient size (including targeted exams where dose is matched to indication, i.e. head), or iterative reconstruction technique. FINDINGS: No mediastinal or hilar mass or adenopathy. No evidence of pulmonary embolus aortic aneurysm or dissection. There is mild right apical pleural thickening not significantly changed. Increased density is present in the right mid lung laterally. This was present on the previous exam and is somewhat more prominent on today's exam and may be due to progressive fibrotic changes. Scarring is present in the right lower lobe with a suture line in this area. There is a faint ground-glass nodule in the right lower lobe posteriorly at 5 mm. A 4 mm noncalcified nodules present in the left apex. Degenerative changes thoracic spine. Upper abdominal images demonstrates a 14 mm hypodensity in the right hepatic lobe anteriorly and may be due to cyst not significantly changed. There is a small hiatal hernia. Prior left martin hepatectomy IMPRESSION: Postsurgical changes on the right. There is an irregular area of increased density in the right upper lobe laterally which may be due to scarring but is slightly more prominent. PET CT may provide further evaluation. Dictated by: Pantera Ayala MD 07/05/2020 18:15 Pantera Ayala MD in [facility] 07/05/2020 18:15
--- NOTE | 2020-07-05 11:25 | PC.NURSE ---
notified rad of ct order
[2020-07-05 11:32] LABS: Basophils # 0.1 K/mm3 (0-0.2); Eosinophils # 0.1 K/mm3 (0.0-0.4); Eosinophils % 1.7 % (0.1-12.0); Hematocrit 42.5 % (37.0-47.0); Hemoglobin 14.4 g/dL (12.2-16.2); Lymphocytes # 0.7 K/mm3 (0.7-4.5); Mean Corpuscular Hemoglobin 29.9 pg (27.0-31.2); Mean Corpuscular Volume 88.1 fl (81-99); Mean Platelet Volume 15.8 fl (7.4-10.4); Monocytes # 0.4 K/mm3 (0.1-1.0); Monocytes % 6.5 % (1.7-9.3); Neutrophils # 4.5 K/mm3 (1.8-7.8); Neutrophils % 77.7 % (37.0-80.0); Platelet Count 228 K/mm3 (142-424); Red Blood Count 4.82 M/mm3 (4.20-5.40); Red Cell Distribution Width 16.9 % (11.5-17.5); White Blood Count 5.8 K/mm3 (4.8-10.8)
[2020-07-05 11:36] LABS: Potassium 4.2 mmoL/L (3.5-5.1); Sodium 134 mmol/L (136-145)
[2020-07-05 11:39] LABS: Alanine Aminotransferase 133 U/L (12-78); Albumin Level 4.4 g/dl (3.5-5.0); Albumin/Globulin Ratio 1.4 (1.1-1.8); Alkaline Phosphatase 145 U/L (38-126); Aspartate Amino Transferase 89 U/L (14-36); Blood Urea Nitrogen 13 mg/dl (7-17); Calcium 9.5 mg/dl (8.4-10.2); Carbon Dioxide 28 mmol/L (22.0-30.0); Creatinine Clearance Estimated 51 mL/min (50-200); Estimated Glomerular Filt Rate 54 ml/min (>60); GFR (African American) 65 ML/MIN (>60); Globulin 3.2 g/dL (1.3-3.2); Glucose 132 mg/dl (74-100); Total Protein,Serum 7.6 g/dl (6.3-8.2)
[2020-07-05 11:51] LABS: Anion Gap 11.2 mEq/L (5-15); Chloride 99 mmol/L (98-107)
--- NOTE | 2020-07-05 12:00 | PC.NURSE ---
pt to CT
--- NOTE | 2020-07-05 12:27 | [facility].EDGENADL ---
ED Disposition Clinical Impression: Degenerative disc disease, thoracic, Transaminitis Disposition: Home, Self-Care Condition on Discharge: Good Additional Instructions: You were seen on an emergency basis. It is very important that you follow up with your primary care provider and/or specialist as we discussed within 2 days. All labs and imaging were obtained and interpreted here to rule out life threatening emergencies, but your final results should be reviewed by your primary doctor at your follow up appointment. Please return to the emergency department if any of your symptoms worsen, or if they do not improve as we discussed. Referrals: Tobias Healy [Primary Care Provider] - - Critical Care Critical Care Time: No Attestation: On 07/05/20, the high probability of a clinically significant, sudden or life threatening deterioration of the following system(s) required my full and direct attention, intervention and personal management. The time I documented below is in addition to time spent performing reported procedures but includes the following listed in this critical care notation. Medical Decision Making - Medical Records Medical records reviewed: Yes: I reviewed the patient's medical records. - Pantera Inquiry Pt receiving controlled substance: No Vital Signs: 07/05/20 11:02 Temperature 98.0 F Temperature Source Oral Pulse Rate [Right Radial] 68 Respiratory Rate 16 Blood Pressure [Right Arm] 174/86 H Blood Pressure Mean [Right Arm] 115 Blood Pressure Source [Right Arm] Automatic Cuff Blood Pressure Position [Right Arm] Sitting 02 Sat by Pulse Oximetry 97 Oxygen Delivery Method Room Air - Lab Data Lab results reviewed: Yes: I reviewed the patient's lab results. Lab Results 07/05/20 11:26: WBC 5.8, RBC 4.82, Hgb 14.4, Hct 42.5, MCV 88.1, MCH 29.9, MCHC 34.0, RDW 16.9, Plt Count 228, MPV 15.8 H, Neut % (Auto) 77.7, Lymph % (Auto) 12.0, Worth % (Auto) 6.5, Eos % (Auto) 1.7, Baso % (Auto) 2.0, Neut # (Auto) 4.5, Lymph # (Auto) 0.7, Worth # (Auto) 0.4, Eos # (Auto) 0.1, Baso # (Auto) 0.1 07/05/20 11:26: Sodium 134 L, Potassium 4.2, Chloride 99, Carbon Dioxide 28, Anion Gap 11.2, BUN 13, Creatinine 1.00, Estimated Creat Clear 51, Estimated GFR 54 L, Est GFR ( Amer) 65, Glucose 132 H, Calcium 9.5, Total Bilirubin 1.0, AST 89 H, ALT 133 H, Alkaline Phosphatase 145 H, Total Protein 7.6, Albumin 4.4, Globulin 3.2, Albumin/Globulin Ratio 1.4 Result diagrams: 07/05/20 11:26 07/05/20 11:26 Orders (Tests/Meds): ED MEDICATIONS Discontinued Medications Generic Name Dose Route Start Last Admin Trade Name Freq PRN Reason Stop Dose Admin Iopamidol 75 ml 07/05/20 12:33 07/05/20 12:34 Iopamidol-370 (76%);100ml Bottle IV 07/05/20 12:34 75 ml ONCE ONE Administration Sodium Chloride 10 ml 07/05/20 12:33 07/05/20 12:34 Sodium Chloride 0.9% 10ml Syr (Rad Only) IV 07/05/20 12:34 10 ml ONCE ONE Administration ORDERS Category Date Time Status CT chest w con Stat Cat Scan 07/05/20 11:12 Taken Medical Decision Narrative: 79-year-old female with history of lung cancer, liver cancer, colon cancer presenting with mild thoracic back pain. She also has a known diagnosis of osteoarthritis. CT chest was obtained demonstrating arthritis of the T-spine for which she takes Tylenol at home and says this helps. She is declining additional pain medicine including Lidoderm patches. She, at discharge is mostly concerned with her electrolytes which are normal on her CMP here. She does have a transaminitis consistent with her known liver disease. Her labs are otherwise nonactionable and she is asymptomatic. Nontoxic, afebrile, hemodynamically stable. She has close follow-up but her oncologist and has a PET scan scheduled. Will follow up accordingly. General Adult HPI - General Chief complaint: PAIN Stated complaint: back pain, numb spine Time Seen by Provider: 07/05/20 11:02 Mode of
[2020-07-05 14:38] VITALS: BP 165/76; PULSE 70; RESP 17; TEMP 36.7; O2SAT 99
== END 2020-07-05 14:39 | disposition home or self-care (01) ==
PROVIDERS: Emergency Provider Physician Assistant; PCP Internal Medicine
DX: M51.34 Other intervertebral disc degeneration, thoracic region (principal); R74.01 Elevation of levels of liver transaminase levels; E03.9 Hypothyroidism, unspecified; F41.9 Anxiety disorder, unspecified; I25.2 Old myocardial infarction; I25.10 Atherosclerotic heart disease of native coronary artery without angina pectoris; I10 Essential (primary) hypertension; E78.5 Hyperlipidemia, unspecified; K21.9 Gastro-esophageal reflux disease without esophagitis; Z87.891 Personal history of nicotine dependence; Z87.442 Personal history of urinary calculi; Z85.038 Personal history of other malignant neoplasm of large intestine; Z85.05 Personal history of malignant neoplasm of liver; Z85.118 Personal history of other malignant neoplasm of bronchus and lung
CPT/HCPCS: 71260; 80053; 85025; 99282; Q9967

== ENCOUNTER → 2020-09-17 11:46 | Outpatient (CLI) | payer MEDICARE, SELFPAY ==
--- NOTE | 2020-09-17 11:53 | CT_ITS ---
PROCEDURE: CT ABDOMEN PELVIS WO CON CLINICAL INDICATION: LT FLANK PAIN, HX OF COLON CANCER, HX OF KIDNEY STONES COMPARISON: CT ABDPELWO CT abdomen pelvis wo con from 11/11/2018 TECHNIQUE: Axial images obtained with sagittal and coronal reformats. All CT scans at the facility use one or more dose reduction, viz: automated exposure control, ma/kV adjustment per patient size (including targeted exams where dose is matched to indication, i.e. head), or iterative reconstruction technique. FINDINGS: LOWER THORAX: There are postsurgical changes in the right lung base with some scarring. Scarring also noted in the left lung base. ABDOMEN & PELVIS: There is a 19 mm hypodensity in the right hepatic lobe anteriorly and may represent a hepatic cyst not significantly changed. There has been a prior left hepatectomy and cholecystectomy. There is a small hiatal hernia.. The spleen, adrenal glands, pancreas have an unremarkable appearance. There is a nonobstructing 5 mm stone in the lower pole of the left kidney. No ureteral calculi are evident. There is scarring in the upper pole of the left kidney. No intestinal obstruction or free air. The appendix is not clearly delineated. No evidence of appendicitis. No in evidence of diverticulitis. Prior hysterectomy. Multiple unopacified bowel loops in the abdomen or pelvis which could obscure or mimic pathology. If symptoms persist, consider repeat exam with IV and oral contrast. There are degenerative changes in the lumbar spine. IMPRESSION: 1. No acute finding. 2. Nonobstructing left nephrolithiasis. 3. Status post left hepatectomy and cholecystectomy with stable low-dense liver lesions 4. Multiple unopacified bowel loops in the abdomen or pelvis which could obscure or mimic pathology. If symptoms persist, consider repeat exam with IV and oral contrast. Dictated by: Pantera Ayala MD 09/17/2020 13:45 Pantera Ayala MD in [facility] 09/17/2020 13:45
== END ==
PROVIDERS: PCP Internal Medicine; Visit Provider Internal Medicine
DX: R10.814 Left lower quadrant abdominal tenderness (principal); Z85.038 Personal history of other malignant neoplasm of large intestine; Z87.442 Personal history of urinary calculi
CPT/HCPCS: 74176

== ENCOUNTER → 2020-10-01 11:15 | Outpatient (CLI) | payer MEDICARE, SELFPAY ==
--- NOTE | 2020-10-01 11:28 | XR_ITS ---
PROCEDURE: XR CHEST 2V CLINICAL HISTORY: COUGH,LOW grade FEVER COMPARISON: CR CXR2V XR chest 2V from 09/12/2017 CR CXR2V XR chest 2V from 09/19/2017 CR CXR2V XR chest 2V from 05/24/[address] CHEST W CON from 07/05/2020 FINDINGS: Borderline cardiomegaly without failure. Chronic changes are present in the right upper and right lower lobe with postsurgical changes and suture lines noted in the right lower lobe. Vertical clips are present in the right upper quadrant anteriorly. No acute bony abnormalities. IMPRESSION: As above, no acute finding Dictated by: Pantera Ayala MD 10/01/2020 12:13 Pantera Ayala MD in [facility] 10/01/2020 12:13
== END ==
PROVIDERS: PCP Internal Medicine; Visit Provider Internal Medicine
DX: R05 Cough (principal); R50.9 Fever, unspecified
CPT/HCPCS: 71046

== ENCOUNTER → 2020-11-10 14:57 | Outpatient (CLI) | payer MEDICARE, SELFPAY ==
--- NOTE | 2020-11-10 15:03 | CA_ITS ---
APPROVED REPORT Bilateral Lower Extremity Venous Study for DVT. Website Developer: [email or web address] Indications Lower Extremity Pain: Right ptatient complains of leg heaviness and right posterior knee pain. Findings Color flow duplex of the bilateral lower extremities demonstrates no evidence of superficial venous thrombophlebitis. Color flow duplex demonstrates no evidence of DVT of the following bilateral lower extremity Veins:Common Femoral Vein, Femoral Vein, Popliteal Vein, Posterior Tibial Veins, Peroneal Veins, Deep Femoral Veins. Negative for dvt. Conclusion Color flow duplex of the bilateral lower extremities demonstrates no evidence of superficial venous thrombophlebitis. Color flow duplex demonstrates no evidence of DVT of the following bilateral lower extremity Veins:Common Femoral Vein, Femoral Vein, Popliteal Vein, Posterior Tibial Veins, Peroneal Veins, Deep Femoral Veins. Negative for dvt. Electronically signed by : Pantera Ayala MD 11/11/2020 16:45:43
== END ==
PROVIDERS: PCP Internal Medicine; Visit Provider Internal Medicine
DX: M79.605 Pain in left leg (principal); M79.604 Pain in right leg
CPT/HCPCS: 93970

== ENCOUNTER → 2020-11-12 16:33 | Outpatient (CLI) | payer MEDICARE, SELFPAY ==
[2020-11-12 17:19] LABS: Potassium 3.8 mmoL/L (3.5-5.1)
== END ==
PROVIDERS: Visit Provider Internal Medicine
DX: E87.5 Hyperkalemia (principal)
CPT/HCPCS: 36415; 84132

== ENCOUNTER → 2020-11-13 10:33 | Outpatient (CLI) | payer MEDICARE, SELFPAY ==
--- NOTE | 2020-11-13 10:35 | XR_ITS ---
PROCEDURE: XR DEXA AXIAL SKELETON CLINICAL HISTORY: POST MENOPAUSAL COMPARISON: CR,DX BONE3 BONE DENSITOMETRY(HIP:LT SPINE from 07/11/2017 FINDINGS: The right hip BMD is 0.698 with a T-score of -1.4. The left hip BMD is 0.724 with a T-score of -1.8. The lumbar spine BMD is 1.000 with a T-score of -0.4. Previously the lowest density was in the right femoral neck with a T-score of -1.8 IMPRESSION: This patient is considered osteopenic according to the World Health Organization criteria. Bone density is between 10 and 25 percent below young normal. Fracture risk is moderate. Treatment is advised. Based on these results a follow-up exam is recommended in 2 year. Dictated by: Pantera Ayala MD 11/14/2020 11:51 Pantera Ayala MD in [facility] 11/14/2020 11:51
== END ==
PROVIDERS: PCP Internal Medicine; Visit Provider Internal Medicine
DX: Z78.0 Asymptomatic menopausal state (principal)
CPT/HCPCS: 77080

== ENCOUNTER → 2020-12-15 11:37 | Outpatient (CLI) | payer MEDICARE, SELFPAY ==
--- NOTE | 2020-12-15 11:42 | XR_ITS ---
PROCEDURE: XR CHEST 2V CLINICAL HISTORY: CHEST PAIN Left-sided chest pain, history of lung cancer COMPARISON: CR CXR2V XR chest 2V from 09/19/2017 CR CXR2V XR chest 2V from 05/24/[address] CHEST W CON from 07/05/2020 CR XR CHEST 2V from 10/01/2020 FINDINGS: The cardiomediastinal silhouette and pulmonary vascularity are within normal limits. Suture lines are present in the right lower lobe. Linear density is present in the right midlung laterally may be due to an area of scarring. Surgical clips are present in the right epigastric region. No lobar consolidation or collapse is evident. No acute bony abnormalities. IMPRESSION: Postsurgical change, no acute finding Dictated by: Pantera Ayala MD 12/15/2020 12:17 Pantera Ayala MD in [facility] 12/15/2020 12:17
--- NOTE | 2020-12-15 12:11 | ECG_ITS ---
APPROVED REPORT Exam: Resting ECG HR:49 bpm ECG Measurements Heart Rate 49 AXES SC 186 P 20 QRSd 98 QRS -1 QT 440 T 31 QTc 397 Conclusion Marked sinus bradycardia Otherwise a normal ekg Electronically signed by : Tobias Healy, 12/15/2020 12:23:32
== END ==
PROVIDERS: PCP Internal Medicine; Visit Provider Internal Medicine
DX: R07.9 Chest pain, unspecified (principal)
CPT/HCPCS: 71046; 93005

== ENCOUNTER → 2020-12-17 11:15 | Outpatient (CLI) | payer MEDICARE, SELFPAY ==
[2020-12-17 12:34] LABS: Free T4 (Free Thyroxine) 1.39 ng/dl (0.78-2.19)
[2020-12-17 12:47] LABS: Thyroid Stimulating Hormone 1.12 uIU/mL (0.465-4.68)
== END ==
PROVIDERS: Visit Provider Otolaryngology
DX: R13.10 Dysphagia, unspecified (principal)
CPT/HCPCS: 36415; 84439; 84443

== ENCOUNTER → 2021-01-20 13:41 | Outpatient (CLI) | payer MEDICARE, SELFPAY ==
--- NOTE | 2021-01-20 13:45 | US_ITS ---
PROCEDURE: US EXTREMITY RT LIMITED CLINICAL INDICATION: ?BAKERS CYST,RT KNEE PAIN COMPARISON: No exams were available for comparison FINDINGS: Ultrasound performed of the popliteal fossa shows no evidence of Morley's cyst or other significant anomaly. IMPRESSION: No evidence of Morley's cyst. Dictated by: Pantera Ayala MD 01/20/2021 17:14 Pantera Ayala MD in [facility] 01/20/2021 17:14
== END ==
PROVIDERS: PCP Internal Medicine; Visit Provider Internal Medicine
DX: M71.21 Synovial cyst of popliteal space [Baker], right knee (principal); M25.561 Pain in right knee
CPT/HCPCS: 76882

== ENCOUNTER → 2021-02-06 13:05 | Outpatient (CLI) | payer MEDICARE, SELFPAY ==
[2021-02-06 13:41] LABS: Basophils % 0.2 % (0.1-2.0); Eosinophils # 0.1 K/mm3 (0.0-0.4); Eosinophils % 1.7 % (0.1-12.0); Hemoglobin 12.7 g/dL (12.2-16.2); Lymphocytes # 0.6 K/mm3 (0.7-4.5); Lymphocytes % 12.3 % (10-50); Mean Corpuscular HGB Conc 35.3 g/dL (31.8-35.4); Mean Corpuscular Hemoglobin 29.1 pg (27.0-31.2); Mean Corpuscular Volume 82.4 fl (81-99); Mean Platelet Volume 7.4 fl (7.4-10.4); Monocytes # 0.4 K/mm3 (0.1-1.0); Monocytes % 6.8 % (1.7-9.3); Neutrophils # 4.1 K/mm3 (1.8-7.8); Neutrophils % 79.1 % (37.0-80.0); Platelet Count 194 K/mm3 (142-424); Red Blood Count 4.37 M/mm3 (4.20-5.40); Red Cell Distribution Width 13.2 % (11.5-17.5); White Blood Count 5.1 K/mm3 (4.8-10.8)
[2021-02-06 14:05] LABS: Alanine Aminotransferase 16 U/L (12-78); Albumin Level 4.1 g/dl (3.5-5.0); Albumin/Globulin Ratio 1.6 (1.1-1.8); Alkaline Phosphatase 103 U/L (38-126); Amylase 64 U/L (30-110); Aspartate Amino Transferase 27 U/L (14-36); Bilirubin,Total 1.1 mg/dl (0.2-1.3); Blood Urea Nitrogen 10 mg/dl (7-17); Calcium 8.9 mg/dl (8.4-10.2); Carbon Dioxide 31 mmol/L (22.0-30.0); Chloride 99 mmol/L (98-107); Estimated Glomerular Filt Rate 69 ml/min (>60); GFR (African American) 84 ML/MIN (>60); Globulin 2.6 g/dL (1.3-3.2); Glucose 110 mg/dl (74-100); Lipase 134 U/L (23-300); Sodium 136 mmol/L (136-145); Total Protein,Serum 6.7 g/dl (6.3-8.2)
[2021-02-06 14:13] LABS: C-Reactive Protein 8.4 mg/L (0-4)
[2021-02-06 14:37] LABS: Thyroid Stimulating Hormone 0.87 uIU/mL (0.465-4.68)
[2021-02-06 14:54] LABS: Vitamin B12 212 pg/mL (239-931)
[2021-02-07 18:01] LABS: Deamidated Gliadin Abs, IgA 4 units (0-19); Deamidated Gliadin Abs, IgG 2 units (0-19); Tissue Transglutaminase IgA Ab <2 U/mL (0-3); Tissue Transglutaminase IgG Ab 3 U/mL (0-5)
[2021-02-09 10:16] LABS: Endomysial IgA Antibody Negative (Negative)
[2021-02-11 07:03] LABS: Reticulin IgA Antibody Negative titer (Neg:<1:2.5)
== END ==
PROVIDERS: Visit Provider Internal Medicine Gastroenterology
DX: R10.9 Unspecified abdominal pain (principal); R19.7 Diarrhea, unspecified
CPT/HCPCS: 36415; 80053; 82150; 82607; 83516; 83690; 84443; 85025; 86140; 86255; 86256

== ENCOUNTER → 2021-02-18 15:47 | Outpatient (CLI) | payer MEDICARE, SELFPAY ==
--- NOTE | 2021-02-18 15:57 | XR_ITS ---
PROCEDURE: XR CHEST 2V CLINICAL HISTORY: PLEURISY, LT CHEST PAIN COMPARISON: CR CXR2V XR chest 2V from 05/24/[address] CHEST W CON from 07/05/2020 CR XR CHEST 2V from 10/01/2020 CR XR CHEST 2V from 12/15/2020 FINDINGS: The cardiomediastinal silhouette and pulmonary vascularity are within normal limits. The lungs are clear without infiltrates or suspicious nodules., there is minimal blunting of the left costophrenic angle and a tiny left pleural effusion is a possibility. There is minimal atelectasis or scarring at the right lung base laterally. No acute bony abnormalities. IMPRESSION: Minimal right basilar atelectasis or scarring, question a tiny left pleural effusion versus pleural scarring at the left costophrenic angle, otherwise unremarkable chest Dictated by: Dr. Fabiano Paredes MD 02/18/2021 16:20 Dr. Fabiano Paredes MD in [facility] 02/18/2021 16:20
[2021-02-18 16:08] LABS: Basophils % 0.6 % (0.1-2.0); Eosinophils # 0.1 K/mm3 (0.0-0.4); Eosinophils % 1.9 % (0.1-12.0); Hematocrit 35.7 % (37.0-47.0); Hemoglobin 12.6 g/dL (12.2-16.2); Lymphocytes # 0.8 K/mm3 (0.7-4.5); Lymphocytes % 12.4 % (10-50); Mean Corpuscular HGB Conc 35.1 g/dL (31.8-35.4); Mean Corpuscular Hemoglobin 29.4 pg (27.0-31.2); Mean Corpuscular Volume 83.8 fl (81-99); Mean Platelet Volume 7.5 fl (7.4-10.4); Monocytes # 0.4 K/mm3 (0.1-1.0); Monocytes % 5.7 % (1.7-9.3); Neutrophils % 79.3 % (37.0-80.0); Platelet Count 314 K/mm3 (142-424); Red Blood Count 4.26 M/mm3 (4.20-5.40); Red Cell Distribution Width 12.7 % (11.5-17.5); White Blood Count 6.4 K/mm3 (4.8-10.8)
[2021-02-18 16:16] LABS: Anion Gap 12.5 mEq/L (5-15); Blood Urea Nitrogen 15 mg/dl (7-17); Carbon Dioxide 32 mmol/L (22.0-30.0); Chloride 94 mmol/L (98-107); Estimated Glomerular Filt Rate 61 ml/min (>60); GFR (African American) 73 ML/MIN (>60); Glucose 98 mg/dl (74-100); Potassium 3.5 mmoL/L (3.5-5.1); Sodium 135 mmol/L (136-145)
[2021-02-18 16:22] LABS: D-Dimer 0.93 ug/mL (0.0-0.5)
--- NOTE | 2021-02-18 16:46 | CT_ITS ---
PROCEDURE INFORMATION: Exam: CTA Chest With Contrast Exam date and time: 02/18/2021 4:46 PM Age: 80 years old Clinical indication: On breathing and left-sided; Prior surgery; Surgery date: 6+ months; Surgery type: Lung surgery on right side; Patient HX: Left sided chest pain with breathing; Additional info: Lt velasco TECHNIQUE: Imaging protocol: Computed tomographic angiography of the chest with contrast. 3D rendering (Not supervised by radiologist): MIP and/or 3D reconstructed images were created by the technologist. Radiation optimization: All CT scans at this facility use at least one of these dose optimization techniques: automated exposure control; mA and/or kV adjustment per patient size (includes targeted exams where dose is matched to clinical indication); or iterative reconstruction. Contrast material: ISOVUE 370; Contrast volume: 70 ml; Contrast route: INTRAVENOUS (IV); COMPARISON: 1. CT CHEST W CON 07/05/2020 12:[address] chest w con 06/07/2018 9:43 AM FINDINGS: Pulmonary arteries: Normal. No pulmonary emboli. Aorta: The aorta demonstrates moderate atherosclerotic calcification. No acute aortic pathology. Other arteries: Left vertebral artery arises directly from the aortic arch, a normal variant. Thyroid: 1.8 cm nodule with internal calcification in the right thyroid lobe for which ultrasound correlation is recommended in a nonemergent setting. Lungs: Prior surgery and surgical sutures in the right lower lobe with associated scarring and atelectasis. Stable focal area of platelike scarring in the right middle lobe (image 131 series 2). This area has been stable since back to 2018 and is favored to be benign. Linear scarring and reticulation in the bilateral lung bases, as well as in the lingula. Chronic scarring in the bilateral lung apices with mild paraseptal emphysema. No acute interstitial or airspace disease is appreciated. Mild upper lobe predominant centrilobular emphysema is also noted. The airways are patent. Pleural spaces: Unremarkable. No pneumothorax. No pleural effusion. Heart: There is calcification of the aortic valve annulus. There is mild atherosclerotic calcification of the coronary arteries. The heart is mildly enlarged. No pericardial thickening or effusion. Mediastinal space: A small hiatal hernia is present. Lymph nodes: Unremarkable. No enlarged lymph nodes. Liver: Status post left liver lobectomy without discrete complications. Gallbladder and bile ducts: Prior cholecystectomy. Bones/joints: No acute skeletal pathology. Mild multilevel degenerative changes of the spine, as manifested by multilevel anterior osteophytes and multilevel decrease in intervertebral disc space. Focal linear area of sclerosis in the anterior vertebral body of T11 is chronic in etiology and of no concern. Soft tissues: Unremarkable. Other findings: The visualized intra-abdominal structures demonstrate no acute findings. IMPRESSION: 1. Negative for acute thoracic pathology. 2. Stable/incidental findings as detailed above. COMMENTS: Consistent with the [employer]'s Incidental Findings Committee white paper (J Am Juan Radiol 2015): In patients aged 35 years and older with an incidental thyroid nodule equal to or greater than 1.[address], MRI or extrathyroidal US, further evaluation with dedicated thyroid US is recommended for patients with normal life expectancy and without comorbidities. For smaller nodules without suspicious features, no further evaluation or follow up is recommended.
== END ==
PROVIDERS: Visit Provider Internal Medicine
DX: R09.1 Pleurisy (principal)
CPT/HCPCS: 36415; 71046; 71275; 80048; 85025; 85378; Q9967

== ENCOUNTER → 2021-03-03 11:37 | Outpatient (CLI) | payer MEDICARE, SELFPAY ==
[2021-03-03 12:21] LABS: Chloride 93 mmol/L (98-107); Potassium 4.2 mmoL/L (3.5-5.1); Sodium 127 mmol/L (136-145)
[2021-03-03 12:24] LABS: Anion Gap 13.2 mEq/L (5-15); Blood Urea Nitrogen 13 mg/dl (7-17); Calcium 8.4 mg/dl (8.4-10.2); Carbon Dioxide 25 mmol/L (22.0-30.0); Estimated Glomerular Filt Rate 69 ml/min (>60); GFR (African American) 84 ML/MIN (>60); Glucose 116 mg/dl (74-100)
[2021-03-03 12:55] LABS: Thyroid Stimulating Hormone 1.75 uIU/mL (0.465-4.68)
== END ==
PROVIDERS: Visit Provider Internal Medicine
DX: I10 Essential (primary) hypertension (principal); E87.1 Hypo-osmolality and hyponatremia
CPT/HCPCS: 36415; 80048; 82533; 84443

== ENCOUNTER → 2021-03-04 18:10 | Outpatient (CLI) | payer MEDICARE, SELFPAY ==
[2021-03-04 18:16] LABS: Adenovirus F 40/41, stool Not Detected (NotDetected); Astrovirus Not Detected (NotDetected); Campylobacter Not Detected (NotDetected); Cryptosporidium Not Detected (NotDetected); Cyclospora Cayetanesis Not Detected (NotDetected); Entamoeba histolytica Not Detected (NotDetected); Enteroaggregative E coli Not Detected (NotDetected); Enteropathogenic E coli Not Detected (NotDetected); Enterotoxigenic E coli Not Detected (NotDetected); Giardia lamblia Not Detected (NotDetected); Norovirus Not Detected (NotDetected); Plesimonas Shigalloides, PCR Not Detected (NotDetected); Rotavirus A Not Detected (NotDetected); Salmonella, PCR Not Detected (NotDetected); Sapovirus Not Detected (NotDetected); Shiga-like toxin E coli Not Detected (NotDetected); Shigella Enterovasive E coli Not Detected (NotDetected); Vibrio Cholerae Not Detected (NotDetected); Vibrio, PCR Not Detected (NotDetected); Yersinia Entercolitica, PCR Not Detected (NotDetected)
[2021-03-04 18:35] LABS: Anion Gap 14.4 mEq/L (5-15); Blood Urea Nitrogen 15 mg/dl (7-17); Carbon Dioxide 25 mmol/L (22.0-30.0); Chloride 92 mmol/L (98-107); Estimated Glomerular Filt Rate 81 ml/min (>60); GFR (African American) 98 ML/MIN (>60); Glucose 76 mg/dl (74-100); Potassium 4.4 mmoL/L (3.5-5.1); Sodium 127 mmol/L (136-145)
[2021-03-04 20:06] LABS: Clostridium Difficile A/B, PCR Detected (NotDetected)
== END ==
PROVIDERS: Visit Provider Internal Medicine
DX: R19.7 Diarrhea, unspecified (principal); A04.72 Enterocolitis due to Clostridium difficile, not specified as recurrent
CPT/HCPCS: 80048; 87506

== ENCOUNTER 2021-03-08 03:26 | Observation (INO) | payer MEDICARE, SELFPAY ==
[2021-03-08] VITALS (13 sets, daily range): BP systolic 123–171; BP diastolic 55–76; PULSE 60–79; RESP 16–24; TEMP 36.4–36.7; O2SAT 93–96; BMI 26.5; BMI 24.7
--- NOTE | 2021-03-08 03:43 | XR_ITS ---
PROCEDURE INFORMATION: Exam: XR Chest Exam date and time: 03/08/2021 3:43 AM Age: 80 years old Clinical indication: Shortness of breath; Patient HX: SOA TECHNIQUE: Imaging protocol: XR of the chest. Views: 2 views. COMPARISON: CR XR CHEST 2V 02/18/2021 4:04 PM FINDINGS: Lungs: Unremarkable. No consolidation. Pleural spaces: Unremarkable. No pleural effusion. No pneumothorax. Heart/Mediastinum: Unremarkable. No cardiomegaly. Bones/joints: Unremarkable. IMPRESSION: No acute findings.
--- NOTE | 2021-03-08 03:49 | ECG_ITS ---
APPROVED REPORT Exam: Resting ECG HR:73 bpm ECG Measurements Heart Rate 73 AXES MT 200 P 31 QRSd 96 QRS 9 QT 372 T 31 QTc 409 Conclusion Normal sinus rhythm Normal ECG Electronically signed by : Adonay Kaur, 03/08/2021 13:46:31
[2021-03-08 03:59] LABS: Basophils % 0.4 % (0.1-2.0); Eosinophils # 0.1 K/mm3 (0.0-0.4); Eosinophils % 1.9 % (0.1-12.0); Hematocrit 30.3 % (37.0-47.0); Hemoglobin 10.9 g/dL (12.2-16.2); Lymphocytes # 0.4 K/mm3 (0.7-4.5); Lymphocytes % 7.8 % (10-50); Mean Corpuscular HGB Conc 35.9 g/dL (31.8-35.4); Mean Corpuscular Hemoglobin 28.4 pg (27.0-31.2); Mean Corpuscular Volume 79.1 fl (81-99); Mean Platelet Volume 7.5 fl (7.4-10.4); Monocytes # 0.2 K/mm3 (0.1-1.0); Monocytes % 4.4 % (1.7-9.3); Neutrophils # 4.1 K/mm3 (1.8-7.8); Neutrophils % 85.5 % (37.0-80.0); Platelet Count 231 K/mm3 (142-424); Red Blood Count 3.83 M/mm3 (4.20-5.40); Red Cell Distribution Width 13.7 % (11.5-17.5); White Blood Count 4.8 K/mm3 (4.8-10.8)
[2021-03-08 04:00] LABS: Alanine Aminotransferase 16 U/L (12-78); Albumin Level 3.1 g/dl (3.5-5.0); Albumin/Globulin Ratio 1.1 (1.1-1.8); Alkaline Phosphatase 87 U/L (38-126); Amylase 87 U/L (30-110); Aspartate Amino Transferase 28 U/L (14-36); Bilirubin,Total 0.8 mg/dl (0.2-1.3); Blood Urea Nitrogen 11 mg/dl (7-17); Calcium 7.7 mg/dl (8.4-10.2); Carbon Dioxide 23 mmol/L (22.0-30.0); Chloride 88 mmol/L (98-107); Creatinine Clearance Estimated 50 mL/min (50-200); Estimated Glomerular Filt Rate 81 ml/min (>60); GFR (African American) 98 ML/MIN (>60); Globulin 2.9 g/dL (1.3-3.2); Glucose 84 mg/dl (74-100); Lipase 245 U/L (23-300); Sodium 120 mmol/L (136-145)
[2021-03-08 04:04] LABS: MANUAL DIFFERENTIAL MANUAL DIFFERENTIAL (MANUAL DIFF)
[2021-03-08 04:05] LABS: C-Reactive Protein 57.1 mg/L (0-4)
[2021-03-08 04:15] LABS: NT Pro Brain Natriuretic Pep. 396 pg/mL (0-450)
[2021-03-08 04:17] LABS: Troponin I < 0.01 ng/ml (0.00-0.034)
[2021-03-08 04:20] LABS: Procalcitonin 0.112 ng/mL (0.0-2.0); T4 (Thyroxine) 10.9 ug/dl (5.53-11.0)
[2021-03-08 04:21] LABS: Eosinophils % 1 % (0-3); Lymphocytes % 5 % (10-50); Monocytes % 2 % (2-9); Neutrophils % 92 % (42-76); Platelet Estimate Normal; RBC Morphology Normal; Total Cells Counted 100
[2021-03-08 04:29] LABS: Lactic Acid 0.9 mmol/L (0.7-2.1)
[2021-03-08 04:33] LABS: Thyroid Stimulating Hormone 1.55 uIU/mL (0.465-4.68)
[2021-03-08 04:34] LABS: Erythrocyte Sedimentation Rate 61 mm/hr (0-30)
[2021-03-08 06:40] LABS: Microscopic, Urine URINE MICROSCOPIC (MICROSCOPIC)
[2021-03-08 07:02] LABS: Appearance,Urine CLEAR (Clear); Bilirubin,Urine Negative (Negative); Blood, Urine Negative (Negative); Color,Urine YELLOW (Yellow); Glucose,Urine (UA) Negative (Negative); Ketones,Urine TRACE (Negative); Leukocyte Esterase,Urine Negative (Negative); Nitrate,Urine Negative (Negative); PH,Urine 6.5 (5.0-8.5); Protein,Urine Negative (Negative); Specific Gravity, Urine 1.015 (1.005-1.030); Urobilinogen,Urine 0.2 EU/dl (0.2)
[2021-03-08 07:13] LABS: RBC,Urine Occasional #/hpf (0-3); Squamous Epithelial Cell,Urine Occasional #/hpf (0-5)
[2021-03-08 07:24] LABS: Troponin I < 0.01 ng/ml (0.00-0.034)
[2021-03-08 07:31] LABS: Coronavirus 19, PCR Not Detected (NotDetected); Influenza A, PCR Not Detected (NotDetected); Influenza B, PCR Not Detected (NotDetected)
--- NOTE | 2021-03-08 07:50 | HMH.EDSOB ---
ED Disposition Clinical Impression: Hyponatremia Congestive heart failure Qualifiers: Heart failure type: unspecified Heart failure chronicity: acute on chronic Qualified Code(s): I50.9 - Heart failure, unspecified Anemia Qualifiers: Anemia type: unspecified type Qualified Code(s): D64.9 - Anemia, unspecified Disposition: Admitted as Observation Condition on Discharge: Good Referrals: Tobias Healy [Primary Care Provider] - - Critical Care Critical Care Time: No Attestation: On 03/08/21, the high probability of a clinically significant, sudden or life threatening deterioration of the following system(s) required my full and direct attention, intervention and personal management. The time I documented below is in addition to time spent performing reported procedures but includes the following listed in this critical care notation. Medical Decision Making - Medical Records Medical records reviewed: Yes: I reviewed the patient's medical records. - [place] Inquiry Pt receiving controlled substance: No Vital Signs: 03/08/21 03:30 03/08/21 03:32 03/08/21 04:00 Temperature 98.1 F Temperature Source Oral Pulse Rate 72 68 Pulse Rate [Right] 75 Respiratory Rate 16 24 16 Blood Pressure 138/59 L 147/62 H Blood Pressure [Right Arm] 171/76 H Blood Pressure Mean [Right Arm] 107 Blood Pressure Source Blood Pressure Source [Right Arm] Automatic Cuff Blood Pressure Position Blood Pressure Position [Right Arm] Supine 02 Sat by Pulse Oximetry 95 94 L 95 Oxygen Delivery Method Room Air 03/08/21 04:30 03/08/21 05:00 03/08/21 05:30 Temperature Temperature Source Pulse Rate 71 67 68 Pulse Rate [Right] Respiratory Rate Blood Pressure 151/75 H 140/65 133/55 L Blood Pressure [Right Arm] Blood Pressure Mean [Right Arm] Blood Pressure Source Blood Pressure Source [Right Arm] Blood Pressure Position Blood Pressure Position [Right Arm] 02 Sat by Pulse Oximetry 94 L 93 L 94 L Oxygen Delivery Method 03/08/21 06:00 03/08/21 07:42 Temperature Temperature Source Pulse Rate 71 79 Pulse Rate [Right] Respiratory Rate Blood Pressure 148/63 H 123/62 Blood Pressure [Right Arm] Blood Pressure Mean [Right Arm] Blood Pressure Source Automatic Cuff Blood Pressure Source [Right Arm] Blood Pressure Position Sitting Blood Pressure Position [Right Arm] 02 Sat by Pulse Oximetry 94 L 94 L Oxygen Delivery Method Room Air - Lab Data Lab results reviewed: Yes: I reviewed the patient's lab results. Lab Results 03/08/21 03:28: WBC 4.8, RBC 3.83 L, Hgb 10.9 L, Hct 30.3 L, MCV 79.1 L, MCH 28.4, MCHC 35.9 H, RDW 13.7, Plt Count 231, MPV 7.5, Neut % (Auto) 85.5 H, Lymph % (Auto) 7.8 L, [place] % (Auto) 4.4, Eos % (Auto) 1.9, Baso % (Auto) 0.4, Neut # (Auto) 4.1, Lymph # (Auto) 0.4 L, [place] # (Auto) 0.2, Eos # (Auto) 0.1, Baso # (Auto) 0.0, Total Counted 100, Neutrophils % (Manual) 92 H, Lymphocytes % (Manual) 5 L, Monocytes % (Manual) 2, Eosinophils % (Manual) 1, Platelet Estimate Normal, RBC Morphology Normal, ESR 61 H 03/08/21 03:28: Sodium 120 L, Potassium 4.0, Chloride 88 L, Carbon Dioxide 23, Anion Gap 13.0, BUN 11, Creatinine 0.70, Estimated Creat Clear 50, Estimated GFR 81, Est GFR ( Amer) 98, Glucose 84, Calcium 7.7 L, Total Bilirubin 0.8, AST 28, ALT 16, Alkaline Phosphatase 87, Troponin I < 0.01, C-Reactive Protein 57.1 H, NT-Pro-B Natriuret Pep 396, Total Protein 6.0 L, Albumin 3.1 L, Globulin 2.9, Albumin/Globulin Ratio 1.1, Amylase 87, Lipase 245, Procalcitonin 0.112, TSH 1.55, Thyroxine (T4) 10.9 03/08/21 03:28: Lactate 0.9 03/08/21 06:40: Urine Color Yellow, Urine Appearance Clear, Urine pH 6.5, Ur Specific [place] 1.015, Urine Protein Negative, Urine Glucose (UA) Negative, Urine Ketones Trace, Urine Blood Negative, Urine Nitrate Negative, Urine Bilirubin Negative, Urine Urobilinogen 0.2, Ur Leukocyte Esterase Negative, Urine RBC Occasional, Urine WBC 3
--- NOTE | 2021-03-08 09:06 | HMH.PHAVTE ---
[facility] Pharmacy VTE Monitoring - Patient Demographics Admission date: 03/08/21 Report Date: 03/08/21 Time: 09:06 Allergies/Adverse Reactions: Patient Allergies codeine [CODEINE] Allergy (Mild, Verified 01/01/21 10:23) HEART RACE meloxicam [From MOBIC] Allergy (Mild, Verified 01/01/21 10:23) HEART RACE oxycodone [OXYCODONE] Allergy (Mild, Verified 01/01/21 10:23) HEART RACE propoxyphene [From DARVOCET-N] Allergy (Mild, Verified 01/01/21 10:23) HEART RACE sulfamethoxazole [From BACTRIM] Allergy (Mild, Verified 01/01/21 10:23) HEART RACE trimethoprim [From BACTRIM] Allergy (Mild, Verified 01/01/21 10:23) HEART RACE diphenhydramine [DIPHENHYDRAMINE] Allergy (Unknown, Verified 01/01/21 10:23) HEART RACE doxycycline [DOXYCYCLINE] Allergy (Unknown, Verified 01/01/21 10:23) HEART RACE levofloxacin [From LEVAQUIN] Allergy (Unknown, Verified 01/01/21 10:23) Heart Races metoclopramide [From REGLAN] Allergy (Unknown, Verified 01/01/21 10:23) HEART RACE phenazopyridine [From PYRIDIUM] Allergy (Unknown, Verified 01/01/21 10:23) HEART RACE ciprofloxacin Allergy (Verified 01/01/21 10:23) Quinolones Allergy (Verified 01/01/21 10:23) QUINOLONES Allergy (Unknown, Uncoded 09/25/19 09:33) HEART RACE Height: 1.6 m Weight: 68.039 kg Patient Problems: Current Active Problems Congestive heart failure (Acute) Hyponatremia (Acute) Anemia (Acute) - VTE Risk Labs: VTE Related Lab Results Hgb 10.9 g/dL (12.2-16.2) L 03/08/21 03:28 Hct 30.3 % (37.0-47.0) L 03/08/21 03:28 Plt Count 231 K/mm3 (142-424) 03/08/21 03:28 BUN 11 mg/dl (7-17) 03/08/21 03:28 Creatinine 0.70 mg/dl (0.52-1.04) 03/08/21 03:28 Estimated Creat Clear 50 mL/min (50-200) 03/08/21 03:28 Clinical Trial Participant: No - Prophylaxis VTE Prophylaxis Ordered?: Yes Types of VTE Prophylaxis: TEDS Knee High
[2021-03-08 09:23] LABS: D-Dimer 1.84 ug/mL (0.0-0.5)
--- NOTE | 2021-03-08 10:14 | PC.NURSE ---
lab at bedside
--- NOTE | 2021-03-08 10:27 | PC.NURSE ---
report called to Lilly BENTLEY
--- NOTE | 2021-03-08 10:47 | PC.NURSE ---
Pt arrived to the floor at this time
[2021-03-08 10:51] LABS: Troponin I < 0.01 ng/ml (0.00-0.034)
--- NOTE | 2021-03-08 16:59 | HMH.HP ---
*Admission Date: 03/08/21 *Chief complaint: Leg swelling and dyspnea *History of present illness: 80-year-old female who has a history of CHF arrived at hospital with chief complaint of lower leg swelling and confusion and dyspnea. Work-up in the ER revealed that she had evidence of CHF with vascular congestion, hyponatremia and leg edema. Chest x-ray also revealed vascular congestion. She is unable to give much more of a history and her medical records are not accessible at this point. Patient was admitted to floor after diuresis with IV Lasix in the ER and some improvement. When I made rounds this afternoon she was able to tell me she felt much better but continued to be somewhat weak and is a bit confused about the details of the sequence of her illness. She seems fixated on some sort of at home colon Test that home health did and some type of medicine that was provided to her as an outpatient for possibly a UTI. [facility] History I have reviewed the patient's past medical history: Yes Medical History: Reports:: Anxiety, Cancer (colon,lung and liver cancer), Cardiomyopathy, Congestive Heart Failure, Coronary Artery Disease, Gastroesophageal Reflux Disease(GERD), Hiatal Hernia, Hyperlipidemia, Hypertension, Kidney Stones, Myocardial Infarction Denies:: Diabetes Mellitus Type 1, Diabetes Mellitus Type 2, Internal Pacemaker, Lung Disease, MRSA, Seizures *Have you ever received a pneumonia vaccine?: No *Have you received a flu vaccine this season?: No Other Medical History: Reports: Anemia, Arthritis, Hypothyroidism, Liver Disease, Thyroid Disease. Denies: Blood Transfusion Reaction Laterality Cases: Bilateral: Other Other Surgeries: Yes: Appendectomy, Cancer Surgery (Colon resection), Cardiac Catheterization, Cholecystectomy, Colonoscopy, Colon Resection, Hysterectomy-Total, Hysterectomy-Partial, Other. No: Pacemaker Amputation: No Fractures: No - *Social History Smoking Status: Never smoker Tobacco Type: cigarettes #Yrs smoked (if former smoker): 20 Alcohol Intake: never Substance Use Type: denies use *Occupational Status:: retired Housing: house Household Members: spouse *Travel in the last 8 weeks: None - Psychiatric History Pschychiatric History:: Reports:: Anxiety Family Hx:: No significant family history Review of Systems - Review of Systems Review of systems:: pertinent systems reviewed and negative unless documented below Patient is pleasant, a little bit confused about the course of her illness. Denies palpitations, chest pain, does report the leg swelling as above. Denies or GI symptoms. Otherwise 10 point review of systems negative except as outlined in the HPI - *Neurologic Denies seizure-like activity Meds Home Medications Medication Instructions Recorded Confirmed Type Atorvastatin Calcium [Lipitor 40mg 40 mg PO HS 09/12/17 03/08/21 History Tablet*] LORazepam [Lorazepam 1mg Tablet] 1 mg PO TIDP PRN 09/12/17 03/08/21 History Levothyroxine Sodium 50 mcg PO DAILY 09/12/17 03/08/21 History [Levothyroxine 50mcg (0.05mg) Tab] Lisinopril/Hydrochlorothiazide 1 tab PO DAILY 09/12/17 03/08/21 History [Lisinopril-Hctz 10-12.5 mg Tab*] nadoloL [Corgard] 20 mg PO BID 09/12/17 03/08/21 History spironolactone 25 mg tablet 25 mg PO .3 times weekly tab 08/08/19 03/08/21 History Allergies Allergy/AdvReac Type Severity Reaction Status Date / Time codeine [CODEINE] Allergy Mild HEART RACE Verified 01/01/21 10:23 meloxicam [From MOBIC] Allergy Mild HEART RACE Verified 01/01/21 10:23 oxycodone [OXYCODONE] Allergy Mild HEART RACE Verified 01/01/21 10:23 propoxyphene Allergy Mild HEART RACE Verified 01/01/21 10:23 [From DARVOCET-N] sulfamethoxazole Allergy Mild HEART RACE Verified 01/01/21 10:23 [From BACTRIM] trimethoprim [From BACTRIM] Allergy Mild HEART RACE Verified 01/01/21 10:23 diphenhydramine Allergy Unknown HEART RACE Verified 01/01/21 10:23 [DIPHENHYDRAMINE] doxycycline [DOXYCYCLINE]
--- NOTE | 2021-03-08 18:19 | PC.NURSE ---
PT IS RESTING IN BED. NO ISSUES SINCE ARRIVING TO THE FLOOR. NO COMPLAINTS OF DISCOMFORT OR SOA. ALERT AND ORIENTED X4. PT HAS DIURESED WELL THIS SHIFT. PT HAS AMBULATED TO THE BATHROOM WITH WALKER AND STANDBY ASSIST. LUNG SOUNDS DIMINISHED. ABDOMEN SOFT/NON TENDER WITH ACTIVE BOWEL SOUNDS. PT REFUSES TO EAT VERY MUCH B/C SHE FEARS AFTER SHE EATS SHE WILL HAVE AN ACCIDENT IN THE BED. VSS. WILL CONTINUE TO MONITOR.
--- NOTE | 2021-03-08 21:17 | PC.NURSE ---
RN went into patients room and patient verbalized that her family had brought her home medications. RN verified medications and lorazepam was among the medications. Lorazepam counted with Gissel Egan RN and patient. Patient verbalized no discrepancies. All home medications locked in drawer and patient verbalized no further concerns.
[2021-03-09] VITALS: BP 140/66; PULSE 50; PULSE 80; RESP 20; TEMP 36.9; O2SAT 98
--- NOTE | 2021-03-09 03:14 | PC.NURSE ---
Patient is A&Ox4. no complaints of pain. Patient seems very anxious when staff is around. VSS. Patient ambulated in room multiple times. Ghotra is still present. NO further concerns voiced to RN. Patient rested well throughout shift.
[2021-03-09 04:00] VITALS: BP 110/46; PULSE 50; PULSE 56; RESP 20; TEMP 36.4; O2SAT 96
[2021-03-09 05:18] VITALS: BMI 24.7
[2021-03-09 06:48] LABS: Anion Gap 10.7 mEq/L (5-15); Blood Urea Nitrogen 17 mg/dl (7-17); Carbon Dioxide 28 mmol/L (22.0-30.0); Chloride 90 mmol/L (98-107); Chol/HDL Ratio 3.5 (1-3.5); Cholesterol 67 mg/dl (140-200); Creatinine Clearance Estimated 46 mL/min (50-200); Estimated Glomerular Filt Rate 81 ml/min (>60); GFR (African American) 98 ML/MIN (>60); Glucose 136 mg/dl (74-100); HDL Cholesterol 19 mg/dl (40-60); Magnesium 1.8 mg/dl (1.6-2.3); Potassium 3.7 mmoL/L (3.5-5.1); Sodium 125 mmol/L (136-145); Triglycerides 97 mg/dl (30-150); VLDL Cholesterol 19 mg/dL (0-40)
[2021-03-09 06:51] LABS: Basophils % 0.1 % (0.1-2.0); Eosinophils % 0.2 % (0.1-12.0); Hematocrit 30.3 % (37.0-47.0); Hemoglobin 10.6 g/dL (12.2-16.2); Lymphocytes # 0.5 K/mm3 (0.7-4.5); Lymphocytes % 11.7 % (10-50); Mean Corpuscular Hemoglobin 27.7 pg (27.0-31.2); Mean Corpuscular Volume 79.2 fl (81-99); Mean Platelet Volume 7.6 fl (7.4-10.4); Monocytes # 0.3 K/mm3 (0.1-1.0); Monocytes % 6.3 % (1.7-9.3); Neutrophils # 3.6 K/mm3 (1.8-7.8); Neutrophils % 81.6 % (37.0-80.0); Platelet Count 274 K/mm3 (142-424); Red Blood Count 3.82 M/mm3 (4.20-5.40); Red Cell Distribution Width 13.9 % (11.5-17.5); White Blood Count 4.4 K/mm3 (4.8-10.8)
[2021-03-09 06:59] LABS: Direct LDL Cholesterol < 30.00 mg/dL (100-129)
[2021-03-09 08:00] VITALS: BP 149/73; PULSE 50; PULSE 55; RESP 19; TEMP 36.9; O2SAT 95
--- NOTE | 2021-03-09 08:00 | CA_ITS ---
APPROVED REPORT EXAM: Comprehensive 2D, Doppler, and color-flow Echocardiogram Interface Developer: Maryann Perdomo RVT Ht: 5 ft 3 in Wt: 150lbs BSA: 1.71 BP: 139/63 mmHg Indications: SOA,CHF,CAD,GERD,CA,EDEMA,HTN,HLD 2D Dimensions LVOT 2.50 cm (M/F) 1.5-2.5 LA Volume 31.00 mL LA Volume Index 18.12 mL/m2 (M/F) 16-34 M-Mode Dimensions LA Diam 4.30 cm (1.9-4.0) LVDd 5.90 cm (3.5-5.7) Ao Diam 3.20 cm (2.0-3.7) LVDs 4.20 cm (3.5-5.7) AV Cusp 2.10 cm (1.5-2.6) IVSd 0.70 cm (0.6-1.1) PWd 1.50 cm (0.6-1.1) EF (Teich) 54.60% FS 28.80% EDV (Teich) 173.00 mL ESV (Teich) 78.60 mL LV Diastology E/A Ratio 1.3 MED E' 5.17 (< 7 cm/sec) E'/MED E' Ratio 17.60 (>14) LAT E' 5.85 (<10 cm/sec) E/LAT E' Ratio 15.50 (>14) Aortic Valve AoV Peak Avinash. 114.00 (50-130 cm/s) AI PHT 596.00 ms AO Peak GR. 5.00 mmHg Mitral Valve MV E Max Avinash. 90.80 (40-130 cm/s) MV A Velocity 71.10 (40-130 cm/s) E/A Ratio 1.30 Pulmonary Valve PV Peak Velocity 74.00 (50-150 cm/s) Tricuspid Valve TR P. Velocity 225.00 cm/s RAP Estimate 10.00 mmHg RVSP 30.00 mmHg Left Ventricle Left atrium is mildly enlarged, left ventricle is normal size, mild concentric left ventricular hypertrophy, visually estimated ejection fraction 55% with no regional wall motion abnormality, grade 1 diastolic dysfunction seen with tissue Doppler evidence of raise left atrial pressure. Right Ventricle Right atrium and right ventricle are mildly enlarged with normal contractility. Aortic Valve Aortic valve is thickened and calcified without Doppler evidence of aortic stenosis, there is trace aortic insufficiency. Mitral Valve Mitral valve is grossly normal, there is mild mitral regurgitation. Tricuspid Valve Tricuspid valve grossly normal, there is mild tricuspid regurgitation, tricuspid regurgitation jet velocity is inadequate for calculation of the right ventricular systolic pressure. Pulmonic Valve Pulmonic valve is poorly visualized. Great Vessels Aortic root is normal size. Inferior vena cava is mildly dilated without significant inspiratory collapse. Pericardium No significant pericardial effusion noted. Conclusion 1. Mild biatrial enlargement, normal left ventricular size, mild concentric left ventricular hypertrophy, visually estimated ejection fraction 55% with no regional wall motion abnormality, grade 1 diastolic dysfunction seen with tissue Doppler evidence of raise left atrial pressure. 2. Mildly enlarged right ventricle with normal contractility. 3. Thickened and calcified aortic valve without aortic stenosis, there is trace aortic insufficiency. 4. Mild mitral and tricuspid regurgitation. 5. No significant pericardial effusion noted 6. Inferior vena cava is mildly enlarged without significant inspiratory collapse. Electronically signed by : Rodrigo Lopez, 03/09/2021 22:46:04
--- NOTE | 2021-03-09 08:19 | HMH.ACPN2 ---
Internal Medicine - PN: Subj *Date: 03/09/21 *Time: 08:19 Interval history: Patient reports that she feels better this morning. Has been up and around to the restroom without complications. Ghotra bag remains in place. On discussion with patient she informs me that she was actually hospitalized at [facility] in their observation unit perhaps as recently as a couple of days ago and she states she was there for hyponatremia. She states she left because she was down in the emergency department without a real hospital room and needed to get home. She states that they adjusted her medication and remembers that they stopped her lisinopril/HCTZ. I am not sure if she had still been taking that at home as it was on her reconciliation list. We have no records from this hospitalization and we will try to get those today. Otherwise feels better, breathing is much improved. Exam Vital signs and Labs for Last 24 Hours: Temp Pulse Resp BP Pulse Ox 97.6 F 56 L 20 110/46 L 96 03/09/21 04:00 03/09/21 04:00 03/09/21 04:00 03/09/21 04:00 03/09/21 04:00 Laboratory Results - last 24 hr 03/08/21 03:28: D-Dimer 1.84 H 03/08/21 10:10: Troponin I < 0.01 03/09/21 06:19: WBC 4.4 L, RBC 3.82 L, Hgb 10.6 L, Hct 30.3 L, MCV 79.2 L, MCH 27.7, MCHC 35.0, RDW 13.9, Plt Count 274, MPV 7.6, Neut % (Auto) 81.6 H, Lymph % (Auto) 11.7, [place] % (Auto) 6.3, Eos % (Auto) 0.2, Baso % (Auto) 0.1, Neut # (Auto) 3.6, Lymph # (Auto) 0.5 L, [place] # (Auto) 0.3, Eos # (Auto) 0.0, Baso # (Auto) 0.0 03/09/21 06:19: Sodium 125 L, Potassium 3.7, Chloride 90 L, Carbon Dioxide 28 D, Anion Gap 10.7, BUN 17 D, Creatinine 0.70, Estimated Creat Clear 46, Estimated GFR 81, Est GFR ( Amer) 98, Glucose 136 H, Calcium 8.0 L, Magnesium 1.8, Triglycerides 97, Cholesterol 67 L, LDL Cholesterol Direct < 30.00 L, VLDL Cholesterol 19, HDL Cholesterol 19 L, Cholesterol/HDL Ratio 3.5 I & O for Last 24 hours: Intake & Output 03/06/21 03/07/21 03/08/21 03/09/21 11:59 11:59 11:59 11:59 Intake Total 840 / 840 Output Total 650 / 650 1900 / 1900 Balance -650 / -650 -1060 / -1060 Weight 150 lb 140 lb - Constitutional no acute distress Comments: Patient is talkative and pleasant, her memory of events is somewhat scattered and she cannot recall dates of when she was at but overall seems to have a reasonable grasp of her medication list. - *Routine HEENT Exam Head: Present: normocephalic Eye: Present: EOMI, PERRL ENT: Present: mucous membranes moist - *Routine Neck Exam Present: supple. Absent: lymphadenopathy - *Routine Respiratory Exam Present: CTA bilaterally Comments: Lungs are much clearer with less crackles in the bases. - *Routine Cardiovascular Exam Present: RRR - *Routine Abdominal Exam Present: soft, normoactive bowel sounds. Absent: tenderness - *Routine Exam Comments: Ghotra catheter is draining clear yellow urine - *Routine Extremities Exam Absent: cyanosis, clubbing, edema - *Routine Skin Exam Present: warm. Absent: rash - *Routine Neurological Exam Present: alert Assessment and Plan (1) Congestive heart failure Status: Acute Qualifiers: Heart failure type: unspecified Heart failure chronicity: acute on chronic Qualified Code(s): I50.9 - Heart failure, unspecified Category: Medical Code(s): I50.9 - Heart failure, unspecified (2) Hyponatremia Status: Acute Category: Medical Code(s): E87.1 - Hypo-osmolality and hyponatremia - Assessment and plan all Dx Assessment and Plan for all problems:: Hyponatremia is improving. Plan will be to do very low-dose normal saline today as her volume status is better. We will stop lisinopril/HCTZ and change to plain lisinopril and review what other changes may have recommended. Check echo results today to evaluate cardiac function given her clinical scenario of CHF with pulmonary edema. Record deficit Re: admission-care manag
--- NOTE | 2021-03-09 09:02 | HMH.PTEV ---
Physical Therapy Evaluation Rehab PT IP Evaluation Start: 03/09/21 07:54 Freq: ONCE Status: Active Protocol: Document 03/09/21 08:58 MARLIN (Rec: 03/09/21 09:02 MARLIN [id number]) Subjective/History History History 80-year-old female who has a history of CHF arrived at hospital with chief complaint of lower leg swelling and confusion and dyspnea. Work-up in the ER revealed that she had evidence of CHF with vascular congestion, hyponatremia and leg edema. Chest x-ray also revealed vascular congestion. Copied from H&P Subjective Subjective Pt reports no complaints - reports she lives in [facility] w / - pt states she did not use assistive device for ambulation at home. Pt reports she was I w/ ADL's Rehab PT IP Eval Objective Appearance Patient Behavior Appropriate,Cooperative Patient Orientation Person,Place,Time Difficulty following instructions none Speech Pattern Clear,Appropriate Ambulation Patient Able to Ambulate Yes Ambulation Observation IP General Gait Pattern Observation No Deviations/Normal Ambulation Distance (feet) 100 Ambulation Assistive Device Rolling Walker Ambulation Ability Supervision/Stand by Balance Ability to Arise Able, uses arms to help Sitting Balance Steady, safe Standing Balance Narrow stance w/o support Dynamic Sitting Balance Ability Normal Dynamic Standing Balance Ability Good Transfers Bed Transfer Ability Independent Chair Transfer Ability Independent Sit to Stand Bed Transfer Ability Independent Sit to Stand Chair Transfer Ability Independent ROM All Extremities PT ROM Status WFL MMT All Extremities PT MMT WFL Rehab PT IP prob,goals,plan Problems Date of Evaluation: 03/09/21 Rehab Potential Rehab Potential Innapropriate for Skilled Therapy Equipment Needs Assistive Devices None / NA Discharge Plan PT Discharge Plan Pt safe to return home once medically stable - pt does not have need for skilled therapy at this time - if pt has a functional decline therapy
--- NOTE | 2021-03-09 09:48 | HMH.PHAINT ---
HOME MEDICATION LIST VERIFIED USING LIST FROM DR. BLACK' OFFICE
--- NOTE | 2021-03-09 10:08 | HMH.OTEV ---
OT Inpatient Evaluation Rehab OT IP Evaluation Start: 03/09/21 07:54 Freq: ONCE Status: Complete Protocol: Document 03/09/21 10:04 LUIS (Rec: 03/09/21 10:08 [facility] [id number]) Rehab OT IP Assessment Subjective History Pt oriented x 3 on arrival. Pt agreeable to engage in therapy evaluation. Pt was admitted via ED on 03/08/21 due to SOB, Dyspnea, and swelling of legs. Pt has a past medical history of Anxiety, Cancer, Cardiomyopathy, Coronary Artery Disease, Gastroesophageal Reflux Disease(GERD), Hiatal Hernia, Hyperlipidemia, Hypertension, Kidney Stones, Myocardial Infarction. Pt reports she lives at home with her . Pt claims she is still independent with all ADLs and IADLs up until recently when she started feeling bad. Pt claims she does not use a walker during ambulation. Subjective I have been doing fine, until my legs started swelling. Objective Patient Orientation Person,Place,Birthday Upper Extremity Gross ROM WFL Bed Mobility bed mobility-scooting,bed mobility - supine/sit,bed mobility - rolling Assist Level Supervision/Stand by Transfer Training Sit/Stand Transfer Assist Level Supervision/Stand by Feeding Ability Independent Lower Body Dressing Ability Standby Assistance Upper Body Dressing Ability Standby Assistance Rehab OT IP prob,goals,plan Problems Date of Evaluation: 03/09/21 Rehab Potential Rehab Potential Innapropriate for Skilled Therapy Discharge Plan OT Discharge Plan Pt appears to be at her functional baseline at this time. Pt is safe to return home once medically stable per physician. If pt does appear to decline functionally while in hosptial, OT can reassess. Eval Complexity Eval Charge Codes 96511 - Moderate Complexity G Codes G -code Required No
[2021-03-09 12:00] VITALS: BP 140/68; PULSE 55; PULSE 78; RESP 18; TEMP 37; O2SAT 97
--- NOTE | 2021-03-09 13:36 | HMH.PHAINT ---
POSITIVE BLOOD CULTURE RESULT FOR STAPHYLOCOCCUS CALLED TO DR WATSON'S OFFICE. DR WATSON ORDERED ONE TIME DOSE OF VANCOMYCIN TO BE DOSED BY PHARMACY. DOSED AT 20 MG/KG = 1270 MG, ROUNDED TO 1250 MG.
[2021-03-09 13:59] VITALS: BMI 25.0
--- NOTE | 2021-03-09 15:26 | PC.NURSE ---
PT IS AOX4, ABLE TO MAKE NEEDS KNOWN TO STAFF, SHE HAS BEEN UP TO CHAIR FOR MOST OF SHIFT, TOLERATING DIET WELL. LUNGS ARE CTA, SHE DENIES DIFFICULTY BREATHING. ESCOTO CATH REMOVED THIS AM AND PT HAS URINATED MULTIPLE TIMES SINCE REMOVAL. HER VSS AND SHE DENIES PAIN.
[2021-03-09 16:00] VITALS: BP 126/50; PULSE 52; PULSE 56; RESP 17; TEMP 36.6; O2SAT 96
[2021-03-09 20:00] VITALS: BP 146/71; PULSE 60; PULSE 61; RESP 16; TEMP 36.7; O2SAT 94
--- NOTE | 2021-03-09 20:37 | PC.NURSE ---
Trash pulled and snack offered at this time
[2021-03-10] VITALS: BP 160/67; PULSE 69; PULSE 70; RESP 18; TEMP 36.5; O2SAT 96
[2021-03-10 03:30] VITALS: BP 126/52; PULSE 58; RESP 16; TEMP 36.8; O2SAT 95
--- NOTE | 2021-03-10 04:48 | PC.NURSE ---
Patient is A&OX4. No complaints of pain. RN and SRNA in patients room multiple times throughout the night due to patients anxiety and restlessness. Patient is very fixated on IV and IV fluids to the point where she will not move her left arm or body at all and was soiling the bed because she fears the IV will mess up and she will not receive her fluids, so she does not want to get out of bed to go to bathroom or move her body at all. Patient states she doesn't have incontinent episodes at home and says she is pretty much independent. Also, the call light was in reach of patient to call out if she needed assistance going to the bathroom and she was A&O at this time. Patient was also reoriented to the call light multiple times as well. Patient will not reposition herself independently even though she states she is independent at home and requires little assistance. RN educated patient on the importance of ambulating to the bathroom, and maintaining as much independence as she physically can while here at the hospital. Patient was reassured multiple times the IV was functioning properly and the IV pump was not malfunctioning. Patient voiced bathroom needs towards end of shift and ambulated to bathroom with standby assist. VSS. No further concerns voiced to RN.
[2021-03-10 06:44] LABS: Basophils % 0.2 % (0.1-2.0); Eosinophils # 0.1 K/mm3 (0.0-0.4); Eosinophils % 0.8 % (0.1-12.0); Hematocrit 32.2 % (37.0-47.0); Hemoglobin 11.2 g/dL (12.2-16.2); Lymphocytes # 0.4 K/mm3 (0.7-4.5); Lymphocytes % 6.3 % (10-50); Mean Corpuscular HGB Conc 34.9 g/dL (31.8-35.4); Mean Corpuscular Volume 80.1 fl (81-99); Mean Platelet Volume 7.2 fl (7.4-10.4); Monocytes # 0.3 K/mm3 (0.1-1.0); Monocytes % 4.8 % (1.7-9.3); Neutrophils # 5.5 K/mm3 (1.8-7.8); Neutrophils % 87.9 % (37.0-80.0); Platelet Count 305 K/mm3 (142-424); Red Blood Count 4.02 M/mm3 (4.20-5.40); Red Cell Distribution Width 13.8 % (11.5-17.5); White Blood Count 6.3 K/mm3 (4.8-10.8)
[2021-03-10 06:45] LABS: MANUAL DIFFERENTIAL MANUAL DIFFERENTIAL (MANUAL DIFF)
[2021-03-10 06:50] LABS: Alanine Aminotransferase 20 U/L (12-78); Alkaline Phosphatase 89 U/L (38-126); Anion Gap 9.7 mEq/L (5-15); Aspartate Amino Transferase 29 U/L (14-36); Bilirubin,Total 0.6 mg/dl (0.2-1.3); Blood Urea Nitrogen 17 mg/dl (7-17); Calcium 7.7 mg/dl (8.4-10.2); Carbon Dioxide 29 mmol/L (22.0-30.0); Chloride 91 mmol/L (98-107); Creatinine Clearance Estimated 47 mL/min (50-200); Estimated Glomerular Filt Rate 81 ml/min (>60); GFR (African American) 98 ML/MIN (>60); Globulin 2.9 g/dL (1.3-3.2); Glucose 98 mg/dl (74-100); Potassium 3.7 mmoL/L (3.5-5.1); Sodium 126 mmol/L (136-145); Total Protein,Serum 5.9 g/dl (6.3-8.2)
[2021-03-10 07:58] VITALS: BP 152/65; PULSE 60; RESP 17; TEMP 36.6; O2SAT 94
[2021-03-10 08:20] LABS: Hypochromasia 1+; Lymphocytes % 6 % (10-50); Microcytosis 1+; Monocytes % 7 % (2-9); Neutrophils % 87 % (42-76); Platelet Estimate Normal; Total Cells Counted 100
--- NOTE | 2021-03-10 10:09 | SW/DCPLANNER ---
ATTEMPTED TO CALL THE SON MULTIPLE TIMES TO SEE WHAT THE DISCHARGE PLAN IS FOR HIS MOTHER... SHE IS ESTABLISHED WITH BRENDA AND WAS SET UP LAST WEEK FROM DR BLACK OFFICE.. WILL DO A RESUMPTION OF SERVICES AND I HAVE CALLED THE SINCE I COULDN'T GET AHOLD OF THE SON TO LET HIM KNOW SHE MAY DISCHARGE LATER IN THE AFTERNOON, HE STATED HE WOULD CALL HIS DAUGHTER IN LAW SINCE THE SON WORKS.. I WILL NOTIFY BRENDA OF HER DISCHARGING HOME FOR SERVICES TO START AND SEND A RESUMPTION OF CARE...
[2021-03-10 11:31] VITALS: BP 155/80; PULSE 65; RESP 17; TEMP 36.6; O2SAT 96
--- NOTE | 2021-03-10 12:05 | HMH.DCSUM ---
General - General Admission date:: 03/08/21 Discharge date: 03/10/21 HPI HPI: 80-year-old female who has a history of CHF arrived at hospital with chief complaint of lower leg swelling and confusion and dyspnea. Work-up in the ER revealed that she had evidence of CHF with vascular congestion, hyponatremia and leg edema. Chest x-ray also revealed vascular congestion. She is unable to give much more of a history and her medical records are not accessible at this point. Patient was admitted to floor after diuresis with IV Lasix in the ER and some improvement. When I made rounds this afternoon she was able to tell me she felt much better but continued to be somewhat weak and is a bit confused about the details of the sequence of her illness. She seems fixated on some sort of at home colon Test that home health did and some type of medicine that was provided to her as an outpatient for possibly a UTI. Hospital Course Hospital Course: 80-year-old female who admitted for hyponatremia, diarrhea, concern for mild CHF exacerbation. Hyponatremia improved during admission with holding HCTZ and giving normal saline fluid resuscitation -We will continue lisinopril at discharge. Close follow-up to assess response. Echo obtained during admission, findings as follows: Conclusion 1. Mild biatrial enlargement, normal left ventricular size, mild concentric left ventricular hypertrophy, visually estimated ejection fraction 55% with no regional wall motion abnormality, grade 1 diastolic dysfunction seen with tissue Doppler evidence of raise left atrial pressure. 2. Mildly enlarged right ventricle with normal contractility. 3. Thickened and calcified aortic valve without aortic stenosis, there is trace aortic insufficiency. 4. Mild mitral and tricuspid regurgitation. 5. No significant pericardial effusion noted 6. Inferior vena cava is mildly enlarged without significant inspiratory collapse. Blood culture was positive x1 bottle for gram-positive cocci. Positive at greater than 24 hours. Given single bottle and pathogen identified, suspect it is contaminant. No treatment initiated based on this finding. Of note, patient is also had regular diarrhea. Was diagnosed with C. difficile on 03/04 by her primary care in the outpatient setting. Metronidazole was ordered but she denies ever starting it. Will initiate vancomycin today for more appropriate goal-directed therapy. Plan to take 125 mg 4 times a day for 10 days. Close follow-up with her primary care. Recommend seeing him in the next week to assess response to vancomycin orally and adjustment in blood pressure regimen along with repeat labs to monitor hyponatremia. Resume home health at discharge. Case management assisted in care Objective Vital signs: Temp Pulse Resp BP Pulse Ox 97.9 F 65 17 155/80 H 96 03/10/21 11:31 03/10/21 11:31 03/10/21 11:31 03/10/21 11:31 03/10/21 11:31 Narrative: Asked numerous questions, fixated on her bowels and diarrhea. Pleasant on interview; confirmed return for some short-term memory impairment, does not recall things that were discussed yesterday - *Routine HEENT Exam Head: Present: normocephalic Eye: Present: EOMI, PERRL ENT: Present: mucous membranes moist - *Routine Neck Exam Present: supple. Absent: lymphadenopathy - *Routine Respiratory Exam Present: CTA bilaterally; no crackles in bases - *Routine Cardiovascular Exam Present: RRR - *Routine Abdominal Exam Present: soft, normoactive bowel sounds. Absent: tenderness - *Routine Extremities Exam Absent: cyanosis, clubbing, edema - *Routine Skin Exam Present: warm. Absent: rash - *Routine Neurological Exam Present: alert Results Labs on day of discharge: Labs from last 24 hours 03/10/21 03/10/21 06:19 06:19 WBC 6.3 D RBC 4.02 L Hgb 11.2 L Hct 32.2 L MCV 80.1 L MCH 28.0 MCHC 34.9 RDW 13.8 Plt Count 305 MPV
[2021-03-10 15:19] VITALS: BP 152/71; PULSE 70; RESP 16; TEMP 36.9; O2SAT 96
== END 2021-03-10 17:45 | disposition home health service (06) ==
LOC: ER 08:14 → 2ND 15:19
PROVIDERS: Admitting Provider Internal Medicine Adolescent Medicine; Emergency Provider Emergency Medicine; PCP Internal Medicine; Visit Provider Internal Medicine Adolescent Medicine
DX: I11.0 Hypertensive heart disease with heart failure (principal); I50.9 Heart failure, unspecified; I25.2 Old myocardial infarction; I42.9 Cardiomyopathy, unspecified; N39.0 Urinary tract infection, site not specified; Z88.8 Allergy status to other drugs, medicaments and biological substances; Z79.899 Other long term (current) drug therapy; Z20.822 Contact with and (suspected) exposure to COVID-19; A04.72 Enterocolitis due to Clostridium difficile, not specified as recurrent; D64.9 Anemia, unspecified; E87.1 Hypo-osmolality and hyponatremia
CPT/HCPCS: 36415; 71046; 80048; 80053; 80061; 81001; 82150; 83605; 83690; 83735; 83880; 84145; 84436; 84443; 84484; 85007; 85025; 85378; 85651; 86140; 87040; 87077; 93005; 93306; 96365; 96375; 97161; 97166; 99284; 99291; G0378; J2405; J3370; U0003

== ENCOUNTER → 2021-03-11 15:59 | Outpatient (CLI) | payer MEDICARE, SELFPAY ==
[2021-03-11 17:21] LABS: Blood Urea Nitrogen 16 mg/dl (7-17); Carbon Dioxide 29 mmol/L (22.0-30.0); Chloride 85 mmol/L (98-107); Estimated Glomerular Filt Rate 81 ml/min (>60); GFR (African American) 98 ML/MIN (>60); Glucose 96 mg/dl (74-100); Sodium 120 mmol/L (136-145)
== END ==
PROVIDERS: Visit Provider Internal Medicine
DX: R19.7 Diarrhea, unspecified (principal)
CPT/HCPCS: 80048

== ENCOUNTER 2021-03-15 18:51 | Inpatient (IN) | payer MEDICARE, SELFPAY ==
[2021-03-15] VITALS (7 sets, daily range): BP systolic 143–207; BP diastolic 74–95; PULSE 64–83; RESP 18–22; TEMP 36.7–37.1; O2SAT 93–97; BMI 24.7; BMI 26.5
--- NOTE | 2021-03-15 19:09 | ECG_ITS ---
APPROVED REPORT Exam: Resting ECG HR:71 bpm ECG Measurements Heart Rate 71 AXES QRSd 94 QRS -4 QT 366 T 23 QTc 397 Conclusion Accelerated Junctional rhythm Minimal voltage criteria for LVH, may be normal variant Abnormal ECG Electronically signed by : Adonay Kaur, 03/16/2021 22:11:14
--- NOTE | 2021-03-15 19:11 | XR_ITS ---
PROCEDURE INFORMATION: Exam: XR Chest Exam date and time: 03/15/2021 7:11 PM Age: 80 years old Clinical indication: Shortness of breath; Patient HX: SOA; Additional info: Dehydration TECHNIQUE: Imaging protocol: XR of the chest. Views: 1 view. COMPARISON: CR XR CHEST 2V 03/08/2021 4:12 AM FINDINGS: Lungs: The lungs are hyperinflated, consistent with underlying small airways disease. Atelectatic changes noted within both lung bases. Atelectasis and/or early infiltrative changes noted within the right upper lobe. Pleural spaces: Unremarkable. No pleural effusion. No pneumothorax. Heart/Mediastinum: Unremarkable. No cardiomegaly. Bones/joints: Unremarkable. IMPRESSION: 1. The lungs are hyperinflated, consistent with underlying small airways disease. 2. Atelectasis and/or early infiltrative changes noted within the right upper lobe.
--- NOTE | 2021-03-15 19:11 | CT_ITS ---
PROCEDURE INFORMATION: Exam: CT Abdomen And Pelvis With Contrast Exam date and time: 03/15/2021 7:11 PM Age: 80 years old Clinical indication: Abdominal pain; Prior surgery; Additional info: Abd discomfort TECHNIQUE: Imaging protocol: Computed tomography of the abdomen and pelvis with contrast. Radiation optimization: All CT scans at this facility use at least one of these dose optimization techniques: automated exposure control; mA and/or kV adjustment per patient size (includes targeted exams where dose is matched to clinical indication); or iterative reconstruction. Contrast material: ISOVUE; Contrast volume: 75 ml; Contrast route: IV; COMPARISON: CT ABDOMEN PELVIS WO CON 09/17/2020 12:02 PM FINDINGS: Lungs: Atelectatic changes noted within the right lung base. Heart: The heart demonstrates mild diffuse enlargement. Mediastinal space: A small hiatal hernia is present. Liver: There is a diffuse decrease in hepatic parenchymal density, consistent with mild fatty infiltration. Hepatic cysts again noted within the right lobe measuring up to 8 mm. Status post left hepatectomy. Gallbladder and bile ducts: There has been a cholecystectomy. Pancreas: Normal. No ductal dilation. Spleen: Normal. No splenomegaly. Adrenal glands: Normal. No mass. Kidneys and ureters: Nonobstructing 2 mm calcification present within the left kidney. The right kidney is normal. Bilateral renal scarring is noted. Stomach and bowel: Several fluid-filled large bowel loops are present consistent with ileus. No definite obstruction. Appendix: No evidence of appendicitis. Intraperitoneal space: There is a small amount of free pelvic fluid present. Vasculature: The vasculature demonstrates diffuse moderate atherosclerotic calcification. Lymph nodes: Unremarkable. No enlarged lymph nodes. Urinary bladder: Bladder is distended. Reproductive: There has been a hysterectomy. Bones/joints: The lumbar spine demonstrates mild degenerative changes at multiple levels. Soft tissues: Soft tissues are normal. IMPRESSION: 1. Nonobstructing 2 mm calcification present within the left kidney. 2. Bilateral renal scarring is noted. 3. There is a small amount of free pelvic fluid present. 4. Several fluid-filled large bowel loops are present consistent with ileus. No definite obstruction.
[2021-03-15 19:22] LABS: Basophils % 0.3 % (0.1-2.0); Eosinophils # 0.1 K/mm3 (0.0-0.4); Eosinophils % 2.1 % (0.1-12.0); Hematocrit 30.9 % (37.0-47.0); Hemoglobin 11.4 g/dL (12.2-16.2); Lymphocytes # 0.4 K/mm3 (0.7-4.5); Lymphocytes % 6.8 % (10-50); Mean Corpuscular HGB Conc 36.9 g/dL (31.8-35.4); Mean Corpuscular Hemoglobin 28.7 pg (27.0-31.2); Mean Corpuscular Volume 77.8 fl (81-99); Mean Platelet Volume 8.4 fl (7.4-10.4); Monocytes # 0.2 K/mm3 (0.1-1.0); Monocytes % 3.5 % (1.7-9.3); Neutrophils # 5.4 K/mm3 (1.8-7.8); Neutrophils % 87.2 % (37.0-80.0); Platelet Count 268 K/mm3 (142-424); Red Blood Count 3.98 M/mm3 (4.20-5.40); Red Cell Distribution Width 14.3 % (11.5-17.5); White Blood Count 6.2 K/mm3 (4.8-10.8)
[2021-03-15 19:24] LABS: MANUAL DIFFERENTIAL MANUAL DIFFERENTIAL (MANUAL DIFF)
[2021-03-15 19:34] LABS: Alanine Aminotransferase 17 U/L (12-78); Albumin Level 3.4 g/dl (3.5-5.0); Albumin/Globulin Ratio 1.1 (1.1-1.8); Alkaline Phosphatase 93 U/L (38-126); Amylase 128 U/L (30-110); Anion Gap 11.6 mEq/L (5-15); Aspartate Amino Transferase 34 U/L (14-36); Bilirubin,Total 1.1 mg/dl (0.2-1.3); Blood Urea Nitrogen 11 mg/dl (7-17); Carbon Dioxide 26 mmol/L (22.0-30.0); Creatinine Clearance Estimated 46 mL/min (50-200); Estimated Glomerular Filt Rate 97 ml/min (>60); GFR (African American) 117 ML/MIN (>60); Globulin 3.1 g/dL (1.3-3.2); Glucose 81 mg/dl (74-100); Lipase 421 U/L (23-300); Magnesium 1.3 mg/dl (1.6-2.3); Phosphorous 3.6 mg/dl (2.5-4.5); Potassium 4.6 mmoL/L (3.5-5.1); Total Protein,Serum 6.5 g/dl (6.3-8.2)
[2021-03-15 19:39] LABS: Eosinophils % 1 % (0-3); Lymphocytes % 7 % (10-50); Monocytes % 3 % (2-9); Neutrophils % 87 % (42-76); Platelet Estimate Normal; RBC Morphology Normal; Total Cells Counted 100
[2021-03-15 19:40] LABS: Chloride 79 mmol/L (98-107)
[2021-03-15 19:41] LABS: Sodium 112 mmol/L (136-145)
--- NOTE | 2021-03-15 19:42 | PC.NURSE ---
received critical notification of hyponatremia. seizure precautions in place.
[2021-03-15 19:51] LABS: Troponin I < 0.01 ng/ml (0.00-0.034)
[2021-03-15 19:56] LABS: C-Reactive Protein 49.3 mg/L (0-4)
--- NOTE | 2021-03-15 19:57 | PC.NURSE ---
received notification of IV not working from rad. house shorer up to attempt access
--- NOTE | 2021-03-15 20:10 | HMH.EDNVD ---
ED Disposition Clinical Impression: Hyponatremia, Clostridium difficile infection Disposition: Admitted as Observation Condition on Discharge: Good Referrals: Tobias Healy [Primary Care Provider] - - Critical Care Critical Care Time: No Attestation: On 03/15/21, the high probability of a clinically significant, sudden or life threatening deterioration of the following system(s) required my full and direct attention, intervention and personal management. The time I documented below is in addition to time spent performing reported procedures but includes the following listed in this critical care notation. Medical Decision Making - Medical Records Medical records reviewed: Yes: I reviewed the patient's medical records. - [facility] Inquiry Pt receiving controlled substance: No Vital Signs: 03/15/21 19:03 03/15/21 19:30 03/15/21 20:25 Temperature 98.1 F Temperature Source Oral Pulse Rate 64 83 Pulse Rate [Right Brachial] 75 Respiratory Rate 22 Blood Pressure 143/83 H 160/81 H Blood Pressure [Right Arm] 207/95 H Blood Pressure Mean [Right Arm] 132 Blood Pressure Source [Right Arm] Automatic Cuff Blood Pressure Position [Right Arm] Sitting 02 Sat by Pulse Oximetry 93 L 97 93 L Oxygen Delivery Method Room Air 03/15/21 20:45 Temperature Temperature Source Pulse Rate Pulse Rate [Right Brachial] Respiratory Rate 22 Blood Pressure 157/75 H Blood Pressure [Right Arm] Blood Pressure Mean [Right Arm] Blood Pressure Source [Right Arm] Blood Pressure Position [Right Arm] 02 Sat by Pulse Oximetry Oxygen Delivery Method - Lab Data Lab results reviewed: Yes: I reviewed the patient's lab results. Lab Results 03/15/21 19:10: WBC 6.2, RBC 3.98 L, Hgb 11.4 L, Hct 30.9 L, MCV 77.8 L, MCH 28.7, MCHC 36.9 H, RDW 14.3, Plt Count 268, MPV 8.4, Neut % (Auto) 87.2 H, Lymph % (Auto) 6.8 L, Barron % (Auto) 3.5, Eos % (Auto) 2.1, Baso % (Auto) 0.3, Neut # (Auto) 5.4, Lymph # (Auto) 0.4 L, Barron # (Auto) 0.2, Eos # (Auto) 0.1, Baso # (Auto) 0.0, Total Counted 100, Neutrophils % (Manual) 87 H, Band Neutrophils % 2.0, Lymphocytes % (Manual) 7 L, Monocytes % (Manual) 3, Eosinophils % (Manual) 1, Platelet Estimate Normal, RBC Morphology Normal 03/15/21 19:10: Sodium 112 L*, Potassium 4.6, Chloride 79 L, Carbon Dioxide 26, Anion Gap 11.6, BUN 11, Creatinine 0.60, Estimated Creat Clear 46, Estimated GFR 97, Est GFR ( Amer) 117, Glucose 81, Calcium 8.0 L, Phosphorus 3.6, Magnesium 1.3 L, Total Bilirubin 1.1, AST 34, ALT 17, Alkaline Phosphatase 93, Troponin I < 0.01, Total Protein 6.5, Albumin 3.4 L, Globulin 3.1, Albumin/Globulin Ratio 1.1, Amylase 128 H, Lipase 421 H 03/15/21 19:10: ESR 46 H 03/15/21 19:10: C-Reactive Protein 49.3 H 03/15/21 19:10: TSH 2.01, Thyroxine (T4) 12.6 H 03/15/21 19:10: NT-Pro-B Natriuret Pep 356 03/15/21 20:40: Urine Color Yellow, Urine Appearance Clear, Urine pH 6.0, Ur Specific [place] 1.015, Urine Protein Negative, Urine Glucose (UA) Negative, Urine Ketones Negative, Urine Blood Negative, Urine Nitrate Negative, Urine Bilirubin Negative, Urine Urobilinogen 0.2, Ur Leukocyte Esterase Negative Result diagrams: 03/15/21 19:10 03/15/21 19:10 Orders (Tests/Meds): ED MEDICATIONS Generic Name Dose Route Start Last Admin Trade Name Jose De Jesus PRN Reason Stop Dose Admin Sodium Chloride 1,000 mls @ 999 mls/hr 03/15/21 20:15 03/15/21 20:18 Sod Chlor 0.9% 1000ml Bag IV 03/15/21 21:15 999 mls/hr .Q1H1M JONY Administration Sodium Chloride 1,000 mls @ 100 mls/hr 03/15/21 20:30 Sod Chlor 0.45% 1000ml Bag IV 04/14/21 20:29 .Q10H JONY Sodium Chloride 8 ml 03/15/21 20:06 Sodium Chloride 0.9% 10ml Vial IV 04/14/21 20:05 NEEDED PRN dilute pepcid Discontinued Medications Generic Name Dose Route Start Last Admin Trade Name Freq PRN Reason Stop Dose Admin Famotidine 20 mg 03/15/21 20:06 03/15/21 20:18 Famotidine 20mg/2ml Vial IV 03/15/21 2
[2021-03-15 20:16] LABS: Erythrocyte Sedimentation Rate 46 mm/hr (0-30)
[2021-03-15 20:40] LABS: T4 (Thyroxine) 12.6 ug/dl (5.53-11.0)
[2021-03-15 20:42] LABS: NT Pro Brain Natriuretic Pep. 356 pg/mL (0-450)
[2021-03-15 20:47] LABS: Microscopic, Urine URINE MICROSCOPIC (MICROSCOPIC)
[2021-03-15 20:52] LABS: Appearance,Urine CLEAR (Clear); Bilirubin,Urine Negative (Negative); Blood, Urine Negative (Negative); Color,Urine YELLOW (Yellow); Glucose,Urine (UA) Negative (Negative); Ketones,Urine Negative (Negative); Leukocyte Esterase,Urine Negative (Negative); Nitrate,Urine Negative (Negative); Protein,Urine Negative (Negative); Specific Gravity, Urine 1.015 (1.005-1.030); Urobilinogen,Urine 0.2 EU/dl (0.2)
[2021-03-15 20:54] LABS: Thyroid Stimulating Hormone 2.01 uIU/mL (0.465-4.68)
--- NOTE | 2021-03-15 21:02 | PC.NURSE ---
MD Carol speaking with MD Kasi at this time
[2021-03-15 21:04] LABS: Bacteria,Urine Trace /lpf; Squamous Epithelial Cell,Urine Occasional #/hpf (0-5)
[2021-03-15 21:13] LABS: Coronavirus 19, PCR Not Detected (NotDetected); Influenza A, PCR Not Detected (NotDetected); Influenza B, PCR Not Detected (NotDetected)
--- NOTE | 2021-03-15 21:15 | PC.NURSE ---
pt on bedside commode.
--- NOTE | 2021-03-15 21:17 | PC.NURSE ---
Assisted pt to BSC
--- NOTE | 2021-03-15 22:17 | PC.NURSE ---
PT ARRIVED TO FLOOR VIA STRETCHER FROM ED W/STAFF AT [id number]
--- NOTE | 2021-03-16 00:28 | PC.NURSE ---
pt was unable to verify home meds, med rec was not completed.
--- NOTE | 2021-03-16 03:35 | PC.NURSE ---
Pt is A/O x4. Pt was restless and did not sleep well this shift. Ghotra draining yellow, clear, urine. Pt denies N/V. Pt is on room air with stats >90's. IV patent infusing 0.45% NS @ 75ml/hr. Pt had a productive cough t/o shift. Pt is able to make needs known to staff, VSS, No concerns at this time.
[2021-03-16 04:00] VITALS: BP 150/67; PULSE 65; RESP 24; TEMP 36.6; O2SAT 93
[2021-03-16 05:17] VITALS: BMI 26.6
--- NOTE | 2021-03-16 07:17 | HMH.HP ---
*Admission Date: 03/15/21 *Chief complaint: Weakness *History of present illness: 80-year-old female with recent hospitalization for hyponatremia believed to be due to hydrochlorothiazide and C. difficile diarrhea return to the ER yesterday with increasing weakness, nausea, vomiting, and continued diarrhea. Patient was brought in by family. Hyponatremia had worsened since discharge with sodium level now being 112. Patient complained of general malaise and aches. With her hyponatremia and inability to keep down solids or liquids decision was made to admit the patient for monitoring. Labs performed in the ER was suggestive of chronic hyponatremia. Patient was started on normal saline at 75 mL's per hour. This morning she reports not resting well overnight and hurting all over. She has a cough that she describes as bronchitis . Her cough has been present for the last 3 to 4 days and occurs primarily at night. She denies fevers or chills. She denies shortness of breath. [facility] History I have reviewed the patient's past medical history: Yes Medical History: Reports:: Anxiety, Cancer (Lung, Colon, Liver), Cardiomyopathy, Congestive Heart Failure, Coronary Artery Disease, Gastroesophageal Reflux Disease(GERD), Hiatal Hernia, Hyperlipidemia, Hypertension, Kidney Stones, Myocardial Infarction Denies:: Diabetes Mellitus Type 1, Diabetes Mellitus Type 2, Internal Pacemaker, Lung Disease, MRSA, Seizures *Have you ever received a pneumonia vaccine?: No *Have you received a flu vaccine this season?: No Other Medical History: Reports: Anemia, Arthritis, Cataracts, Hypothyroidism, Liver Disease, Thyroid Disease. Denies: Blood Transfusion Reaction Laterality Cases: Bilateral: Other Other Surgeries: Yes: Appendectomy, Cancer Surgery (Colon resection), Cardiac Catheterization, Cholecystectomy, Colonoscopy, Colon Resection, Hysterectomy-Total, Hysterectomy-Partial, Other. No: Pacemaker Amputation: No Fractures: No - *Social History Last grade of school completed: 9th or 10th Smoking Status: Never smoker Tobacco Type: cigarettes #Yrs smoked (if former smoker): 20 Alcohol Intake: never Substance Use Type: denies use *Occupational Status:: retired Housing: house Household Members: spouse *Travel in the last 8 weeks: None - Psychiatric History Pschychiatric History:: Reports:: Anxiety Family Hx:: No significant family history Review of Systems - Constitutional Reports body ache(s), Reports lack of energy, Denies chills - Eyes Denies blurry vision - ENT Denies bleeding gums, Denies difficulty swallowing - *Cardiovascular Denies chest pain, Denies chest pain at rest, Denies chest pain with activity, Denies shortness of breath with activity, Denies generalized swelling - *Respiratory Denies change in phlegm color - *Gastrointestinal Reports loose stools, Denies abdominal pain - *Genitourinary Denies painful urination - *Musculoskeletal Denies abnormal walking, Denies joint pain - Integumentary/Breasts Denies hair loss - *Neurologic Reports confusion, Reports weakness, Denies localized weakness, Denies headache(s), Denies seizure-like activity - Psychiatric Reports abnormal sleep pattern Meds Home Medications Medication Instructions Recorded Confirmed Type Atorvastatin Calcium [Lipitor 40mg 40 mg PO HS 09/12/17 03/15/21 History Tablet*] LORazepam [Lorazepam 1mg Tablet] 1 mg PO TIDP PRN 09/12/17 03/15/21 History Levothyroxine Sodium 50 mcg PO DAILY 09/12/17 03/15/21 History [Levothyroxine 50mcg (0.05mg) Tab] nadoloL [Corgard] 20 mg PO BID 09/12/17 03/15/21 History spironolactone 25 mg tablet 25 mg PO DAILY tab 08/08/19 03/15/21 History Vancomycin HCl [Vancomycin 500mg 125 mg PO QID 03/15/21 03/15/21 History vial] lisinopriL [Zestril 10mg Tab] 10 mg PO DAILY 03/15/21 03/15/21 History Allergies Allergy/AdvReac Type Severity Reaction Status Date / Time codeine [CODEINE] Allergy Mild HEART RACE Verified 05
--- NOTE | 2021-03-16 07:40 | HMH.PHAVTE ---
[facility] Pharmacy VTE Monitoring - Patient Demographics Admission date: 03/15/21 Report Date: 03/16/21 Time: 07:40 Allergies/Adverse Reactions: Patient Allergies codeine [CODEINE] Allergy (Mild, Verified 01/01/21 10:23) HEART RACE meloxicam [From MOBIC] Allergy (Mild, Verified 01/01/21 10:23) HEART RACE oxycodone [OXYCODONE] Allergy (Mild, Verified 01/01/21 10:23) HEART RACE propoxyphene [From DARVOCET-N] Allergy (Mild, Verified 01/01/21 10:23) HEART RACE sulfamethoxazole [From BACTRIM] Allergy (Mild, Verified 01/01/21 10:23) HEART RACE trimethoprim [From BACTRIM] Allergy (Mild, Verified 01/01/21 10:23) HEART RACE diphenhydramine [DIPHENHYDRAMINE] Allergy (Unknown, Verified 01/01/21 10:23) HEART RACE doxycycline [DOXYCYCLINE] Allergy (Unknown, Verified 01/01/21 10:23) HEART RACE levofloxacin [From LEVAQUIN] Allergy (Unknown, Verified 01/01/21 10:23) Heart Races metoclopramide [From REGLAN] Allergy (Unknown, Verified 01/01/21 10:23) HEART RACE phenazopyridine [From PYRIDIUM] Allergy (Unknown, Verified 01/01/21 10:23) HEART RACE ciprofloxacin Allergy (Verified 01/01/21 10:23) Quinolones Allergy (Verified 01/01/21 10:23) QUINOLONES Allergy (Unknown, Uncoded 09/25/19 09:33) HEART RACE Height: 1.6 m Weight: 68.1 kg Patient Problems: Current Active Problems Congestive heart failure (Chronic) Hyponatremia (Acute) Clostridium difficile infection (Acute) Hyponatremia (Acute) C. difficile diarrhea (Acute) Hypertensive disorder (Chronic) - VTE Risk Labs: VTE Related Lab Results Hgb 11.4 g/dL (12.2-16.2) L 03/15/21 19:10 Hct 30.9 % (37.0-47.0) L 03/15/21 19:10 Plt Count 268 K/mm3 (142-424) 03/15/21 19:10 BUN 11 mg/dl (7-17) 03/15/21 19:10 Creatinine 0.60 mg/dl (0.52-1.04) 03/15/21 19:10 Estimated Creat Clear 46 mL/min (50-200) 03/15/21 19:10 Was VTE Risk Assessment Performed: Yes VTE Score: 2 VTE Risk Level: Very Low Risk - Prophylaxis VTE Prophylaxis Ordered?: Yes Types of VTE Prophylaxis: TEDS Knee High Location of Applied Device: Bilateral Lower Extremeties
[2021-03-16 08:00] VITALS: BP 121/67; PULSE 67; RESP 18; TEMP 36.5; O2SAT 94
--- NOTE | 2021-03-16 08:06 | HMH.PHAINT ---
MEDICATION RECONCILIATION COMPLETED ON PATIENT USING EXTERNAL FILL HISTORY FROM PHARMACY AND DISCHARGE SUMMARY FROM PREVIOUS ADMISSION. -CHRISTINA MUROD
[2021-03-16 13:43] VITALS: BMI 26.5
[2021-03-16 15:05] LABS: Potassium 3.6 mmoL/L (3.5-5.1)
[2021-03-16 15:07] LABS: Blood Urea Nitrogen 6 mg/dl (7-17); Creatinine Clearance Estimated 50 mL/min (50-200); Estimated Glomerular Filt Rate 81 ml/min (>60); GFR (African American) 98 ML/MIN (>60)
[2021-03-16 15:08] LABS: Anion Gap 9.6 mEq/L (5-15); Calcium 7.2 mg/dl (8.4-10.2); Carbon Dioxide 30 mmol/L (22.0-30.0); Glucose 165 mg/dl (74-100)
[2021-03-16 15:39] VITALS: BP 153/77; PULSE 70; RESP 18; TEMP 37.1; O2SAT 96
[2021-03-16 15:52] LABS: Chloride 77 mmol/L (98-107)
[2021-03-16 15:54] LABS: Sodium 113 mmol/L (136-145)
--- NOTE | 2021-03-16 16:15 | PC.NURSE ---
1553-Spoke to Negra Schumacher from lab. Pt's Na+ is 113. Verified pt's name, , and room number. 1557- MD Notified of critical value. No new orders at this time.
--- NOTE | 2021-03-16 19:39 | PC.NURSE ---
Pt has had numerous complaints this shift regarding various ailments including cough, stiff toes, earaches, and nausea. Pt has been medicated w/ PRN zofran this shift and reported satisfactory outcomes after administration. Pt has used BSC to have BM's this shift. Ghotra cath is draining clear, light yellow urine per gravity. No other acute changes or concerns at this time. Will continue to monitor.
[2021-03-16 20:00] VITALS: BP 151/63; PULSE 67; RESP 18; TEMP 36.9; O2SAT 95
--- NOTE | 2021-03-17 03:53 | PC.NURSE ---
Pt is A/O x4. Pt has called out numerous times tonight c/o of right earache, feeling stiff and weak. Pt has a peck draining clear, yellow, urine. Pt uses BSC and has had multiple loose BM's this shift. pt denies N/V.
[2021-03-17 04:00] VITALS: BP 123/63; PULSE 57; RESP 16; TEMP 36.6; O2SAT 96
[2021-03-17 05:30] VITALS: BMI 25.0
--- NOTE | 2021-03-17 07:04 | HMH.ACPN2 ---
Internal Medicine - PN: Subj *Date: 03/17/21 *Time: 07:04 Interval history: Patient is extremely worried about her low sodium. Yesterday patient was given IV Lasix due to a noted 10 pound weight gain from last admission to current admission. Patient diuresed over 3 L over the last 24 hours. She did tolerate a liquid diet but denies hunger. She feels quite weak. She did not sleep well. She complains of right ear pain. Exam Vital signs and Labs for Last 24 Hours: Temp Pulse Resp BP Pulse Ox 97.9 F 57 L 16 123/63 96 03/17/21 04:00 03/17/21 04:00 03/17/21 04:00 03/17/21 04:00 03/17/21 04:00 Laboratory Results - last 24 hr 03/16/21 14:53: Sodium 113 L*, Potassium 3.6 D, Chloride 77 L, Carbon Dioxide 30, Anion Gap 9.6, BUN 6 L D, Creatinine 0.70, Estimated Creat Clear 50, Estimated GFR 81, Est GFR ( Amer) 98, Glucose 165 H D, Calcium 7.2 L I & O for Last 24 hours: Intake & Output 03/14/21 03/15/21 03/16/21 03/17/21 11:59 11:59 11:59 11:59 Intake Total 1003 / 1003 480 / 480 Output Total 2100 / 2100 4050 / 4050 Balance -1097 / -1097 -3570 / -3570 Weight 150 lb 2.157 oz 141 lb 0.2 oz Narrative: Patient appears comfortable. Right ear has some soft brown wax in the ear canal that is not obstructing the canal. Lungs are clear. Heart has a regular rate and rhythm. Abdomen is soft with active bowel sounds. Assessment and Plan (1) Hyponatremia Status: Acute Category: Medical Code(s): E87.1 - Hypo-osmolality and hyponatremia (2) C. difficile diarrhea Status: Acute Category: Medical Code(s): A04.72 - Enterocolitis due to Clostridium difficile, not specified as recurrent (3) Congestive heart failure Status: Chronic Qualifiers: Heart failure type: diastolic Heart failure chronicity: acute on chronic Qualified Code(s): I50.33 - Acute on chronic diastolic (congestive) heart failure Category: Medical Code(s): I50.9 - Heart failure, unspecified (4) Hypertensive disorder Status: Chronic Category: Medical Code(s): I10 - Essential (primary) hypertension - Assessment and plan all Dx Assessment and Plan for all problems:: 1. Await morning labs. Patient may be given additional Lasix. Due to her weakness her Ghotra catheter will be maintained. Once Lasix are discontinued Ghotra catheter will be removed 2. PT eval. 3. Continue oral vancomycin for C. difficile.
[2021-03-17 08:00] VITALS: BP 142/61; PULSE 66; RESP 19; TEMP 37; O2SAT 94
[2021-03-17 08:32] LABS: Anion Gap 10.1 mEq/L (5-15); Blood Urea Nitrogen 8 mg/dl (7-17); Calcium 7.3 mg/dl (8.4-10.2); Carbon Dioxide 30 mmol/L (22.0-30.0); Creatinine Clearance Estimated 47 mL/min (50-200); Estimated Glomerular Filt Rate 97 ml/min (>60); GFR (African American) 117 ML/MIN (>60); Glucose 74 mg/dl (74-100); Potassium 4.1 mmoL/L (3.5-5.1)
--- NOTE | 2021-03-17 08:54 | HMH.PTEV ---
Physical Therapy Evaluation Rehab PT IP Evaluation Start: 03/17/21 07:34 Freq: ONCE Status: Active Protocol: Document 03/17/21 08:50 MARLIN (Rec: 03/17/21 08:54 MARLIN [id number]) Subjective/History History History 80-year-old female with recent hospitalization for hyponatremia believed to be due to hydrochlorothiazide and C. difficile diarrhea return to the ER with increasing weakness, nausea, vomiting, and continued diarrhea. Subjective Subjective Pt reports she has been very weak and wishes she felt better - pt is slow to respond to questions Rehab PT IP Eval Objective Appearance Patient Behavior Cooperative Patient Orientation Person,Place,Time Difficulty following instructions none Speech Pattern Appropriate Ambulation Patient Able to Ambulate Yes Ambulation Observation IP General Gait Pattern Observation Shuffling Step Ambulation Distance (feet) 35 Ambulation Assistive Device Standard Walker,Rolling Walker Ambulation Ability Contact Guard/Hand Hold Balance Ability to Arise Able, uses arms to help Sitting Balance Steady, safe Standing Balance Steady, wide stance Dynamic Sitting Balance Ability Good Dynamic Standing Balance Ability Fair Transfers Bed Transfer Ability Independent Chair Transfer Ability Independent Sit to Stand Bed Transfer Ability Contact Guard/Hand Hold Sit to Stand Chair Transfer Ability Contact Guard/Hand Hold ROM All Extremities PT ROM Status WFL Rehab PT IP prob,goals,plan Problems Date of Evaluation: 03/17/21 PT IP Problems Transfers,Gait,Balance,Self care,Safety Rehab Potential Rehab Potential Fair Equipment Needs Assistive Devices Rolling / Wheeled Walker Plan PT Intervention Plan Transfers,Gait,Balance,Self care,Safety,Therapeutic Exercise PT Plan Frequency BID Duration LOS Discharge Goals Bed Transfer Ability Independent Sit to Stand Chair Transfer Ability Supervision/Stand by,Contact Guard/Hand Hold Ambulation Assistive Device Rolling Walker Ambulation Distance (feet) 50 Discharge Plan PT Discharge Plan Due to pt's low level of function and limited support
[2021-03-17 08:58] LABS: Chloride 75 mmol/L (98-107); Sodium 111 mmol/L (136-145)
--- NOTE | 2021-03-17 13:05 | SW/DCPLANNER ---
Addendum entered by Sejal Guerra 03/19/21 07:24: I have notified [facility] that this patient is medically stable for discharge today. Addendum entered by Sejal Guerra 03/18/21 12:30: Updates have been faxed to [facility]: including negative CDiff and COVID from yesterday. Patient is agreeable to discharging to [facility] due to [facility] not having beds. Patient may discharge tomorrow: [facility] is aware. Addendum entered by Sejal Guerra 03/17/21 13:16: Radha with [facility] stated they currently have no female beds available. [facility] has stated that she does have beds open: patient information has been faxed. Original Note: I spoke with this patient regarding discharge plans once medically stable for discharge. Patient stated that she currently resides at home with her . I explained to patient that PT has recommended short term placement at time of discharge. Patient states that she is agreeable to placement at [facility] and if no beds are available then [facility]. I will follow up with facilities then fax patient information. Discharge date is unknown at this time.
[2021-03-17 13:40] LABS: Sodium, Urine 37 mmol/L (Not Estab.)
--- NOTE | 2021-03-17 15:25 | PC.NURSE ---
Pt is A+Ox4. Pt has tolerated RA well t/o shift with sats above 90. Pt has had numerous c/o of earache, stomachache, pressure on bottom, weakness, and nausea. Pt was administered PRN Zofran once during shift at this time. Pt has had multiple loose BMs using BSC. Redness/irritation noted on bottom and powder has been applied to area after each BM. Ghotra catheter in place draining clear yellow urine. Pt is resting comfortably in bed at this time. Call light in reach. Will continue to monitor.
[2021-03-17 15:31] LABS: Coronavirus 19, PCR Not Detected (NotDetected); Influenza A, PCR Not Detected (NotDetected); Influenza B, PCR Not Detected (NotDetected)
[2021-03-17 15:52] VITALS: BP 154/68; PULSE 84; RESP 17; TEMP 36.9; O2SAT 94
[2021-03-17 17:19] LABS: Adenovirus F 40/41, stool Not Detected (NotDetected); Astrovirus Not Detected (NotDetected); Campylobacter Not Detected (NotDetected); Clostridium Difficile A/B, PCR Not Detected (NotDetected); Cryptosporidium Not Detected (NotDetected); Cyclospora Cayetanesis Not Detected (NotDetected); Entamoeba histolytica Not Detected (NotDetected); Enteroaggregative E coli Not Detected (NotDetected); Enteropathogenic E coli Not Detected (NotDetected); Enterotoxigenic E coli Not Detected (NotDetected); Giardia lamblia Not Detected (NotDetected); Norovirus Not Detected (NotDetected); Plesimonas Shigalloides, PCR Not Detected (NotDetected); Rotavirus A Not Detected (NotDetected); Salmonella, PCR Not Detected (NotDetected); Sapovirus Not Detected (NotDetected); Shiga-like toxin E coli Not Detected (NotDetected); Shigella Enterovasive E coli Not Detected (NotDetected); Vibrio Cholerae Not Detected (NotDetected); Vibrio, PCR Not Detected (NotDetected); Yersinia Entercolitica, PCR Not Detected (NotDetected)
--- NOTE | 2021-03-17 18:58 | PC.NURSE ---
Pt encouraged to sit up to recliner for supper, pt stated that her back hurt too much to sit up. Educated pt that getting up from bed may help w/ back pain and that it is good to get out of bed to prevent HCAP. Pt assisted x1 up to BSC then to chair. Pt sat about 1 hour, she hate a small portion of her meal. Pt asked for staff to use a warm wash cloth to wip her back and arms down, when asked if she would like a bath she said no just to be wiped off. Pt encouraged to do as much as she is able to do. Pt assisted back to bed w/ use of walker, repositioned on left side. Pt currently resting in bed, no complaints voiced. Call valdemar w/in reach.
[2021-03-17 20:00] VITALS: BP 147/69; PULSE 78; RESP 16; TEMP 36.9; O2SAT 95
[2021-03-17 21:11] LABS: Sodium 111 mmol/L (136-145)
--- NOTE | 2021-03-18 03:08 | PC.NURSE ---
Pt is A/Ox4. Pt has rested well this shift. Continues to have multiple loose BM's on BSC. IV is patent and infusing NS 3% at 30ml/hr. Lungs are CTA. Pt c/o of nausea x1 this shift admin meds per MAR with relief. VSS, pt is able to make needs known to staff. No concerns at this time.
[2021-03-18 04:00] VITALS: BP 136/70; PULSE 76; RESP 19; TEMP 36.7; O2SAT 95
[2021-03-18 05:08] VITALS: BMI 25.0
[2021-03-18 05:11] LABS: Osmolality, Urine 314 mOsmol/kg (.)
[2021-03-18 07:14] LABS: Anion Gap 10.3 mEq/L (5-15); Blood Urea Nitrogen 4 mg/dl (7-17); Calcium 7.4 mg/dl (8.4-10.2); Carbon Dioxide 25 mmol/L (22.0-30.0); Chloride 88 mmol/L (98-107); Creatinine Clearance Estimated 47 mL/min (50-200); Estimated Glomerular Filt Rate 119 ml/min (>60); GFR (African American) 144 ML/MIN (>60); Glucose 65 mg/dl (74-100); Potassium 4.3 mmoL/L (3.5-5.1); Sodium 119 mmol/L (136-145)
[2021-03-18 07:22] VITALS: BP 174/71; PULSE 69; RESP 18; TEMP 36.8; O2SAT 98
--- NOTE | 2021-03-18 08:02 | HMH.ACPN2 ---
Internal Medicine - PN: Subj *Date: 03/18/21 *Time: 08:02 Interval history: Patient has no new complaints this morning. She endorses weakness. She has been ambulating with assistance. PT evaluated the patient. SNF is a good option. Patient is considering this. Yesterday afternoon patient was started on hypertonic saline at 25 mL an hour after her sodium level had decreased and patient continued to have nausea with profound weakness. Exam Vital signs and Labs for Last 24 Hours: Temp Pulse Resp BP Pulse Ox 98.3 F 69 18 174/71 H 98 03/18/21 07:22 03/18/21 07:22 03/18/21 07:22 03/18/21 07:22 03/18/21 07:22 Laboratory Results - last 24 hr 03/15/21 19:10: Serum Osmolality 226 L 03/15/21 20:40: Urine Osmolality 314 03/15/21 20:40: Urine Sodium 37 03/17/21 07:51: Sodium 111 L*, Potassium 4.1, Chloride 75 L, Carbon Dioxide 30, Anion Gap 10.1, BUN 8 D, Creatinine 0.60, Estimated Creat Clear 47, Estimated GFR 97, Est GFR ( Amer) 117, Glucose 74 D, Calcium 7.3 L 03/17/21 15:24: SARS-CoV-2 (PCR) Not detected, Influenza A Untype (PCR) Not detected, Influenza Type B (PCR) Not detected 03/17/21 17:05: Stl Aeromonas (PCR) Not detected, Stl C. cayetanensis PCR Not detected, Stool Rotavirus (PCR) Not detected, Stl Adenov F 40/41 PCR Not detected, Stool Astrovirus (PCR) Not detected, Stool Campylobacter PCR Not detected, Stl C.difficile Tox PCR Not detected, Stool Cryptosporidium PCR Not detected, Stl E.coli Shiga Tox PCR Not detected, Stool E coli O157 PCR Not detected, Stl Enterotoxigenic E PCR Not detected, Stool EPEC (PCR) Not detected, Stool EAEC (PCR) Not detected, Stl E. histolytica PCR Not detected, Stool Giardia Lamblia PCR Not detected, Stool Salmonella PCR Not detected, Stool Sapovirus (PCR) Not detected, Stl P. shigelloides PCR Not detected, Stl Shigella/EIEC PCR Not detected, St Y.enterocolitica PCR Not detected, Stool Vibrio (PCR) Not detected, Stl Vibrio cholerae PCR Not detected, Stl Norovirus GI/GII PCR Not detected 03/17/21 19:58: Sodium 111 L* 03/18/21 06:58: Sodium 119 L, Potassium 4.3, Chloride 88 L, Carbon Dioxide 25, Anion Gap 10.3, BUN 4 L D, Creatinine 0.50 L, Estimated Creat Clear 47, Estimated GFR 119, Est GFR ( Amer) 144 D, Glucose 65 L, Calcium 7.4 L I & O for Last 24 hours: Intake & Output 03/15/21 03/16/21 03/17/21 03/18/21 11:59 11:59 11:59 11:59 Intake Total 1003 / 1003 480 / 480 1142 / 1142 Output Total 2100 / 2100 4050 / 4050 800 / 800 Balance -1097 / -1097 -3570 / -3570 342 / 342 Weight 150 lb 2.157 oz 141 lb 0.2 oz 141 lb - *Routine Respiratory Exam Present: CTA bilaterally - *Routine Cardiovascular Exam Present: RRR - *Routine Abdominal Exam Present: soft, normoactive bowel sounds. Absent: tenderness - *Routine Extremities Exam Absent: cyanosis, clubbing, edema Assessment and Plan (1) Hyponatremia Status: Acute Category: Medical Code(s): E87.1 - Hypo-osmolality and hyponatremia (2) C. difficile diarrhea Status: Acute Category: Medical Code(s): A04.72 - Enterocolitis due to Clostridium difficile, not specified as recurrent (3) Congestive heart failure Status: Chronic Qualifiers: Heart failure type: diastolic Heart failure chronicity: acute on chronic Qualified Code(s): I50.33 - Acute on chronic diastolic (congestive) heart failure Category: Medical Code(s): I50.9 - Heart failure, unspecified (4) Hypertensive disorder Status: Chronic Category: Medical Code(s): I10 - Essential (primary) hypertension - Assessment and plan all Dx Assessment and Plan for all problems:: 1. Patient sodium level is improving on hypertonic saline. Repeat sodium level around 1 PM. Discussed with patient that her level is improving and anticipate that patient will not require hypertonic saline much longer 2. Had a long discussion with patient about her disposition. There is potential she could be discharged tomorrow. She must choose [facility]
[2021-03-18 13:32] LABS: Sodium 119 mmol/L (136-145)
--- NOTE | 2021-03-18 15:27 | DIET.NUTRFU ---
PO intakes 25%, advanced to bland diet at lunch and tolerated well. Na up to 119. She is receiving Gatorade once daily per her request. She remains unopen to trying energy/protein supplements at this time, she has been encouraged to request them when not eating well. Pt continues with nausea and diarrhea every 3-6h, states she feels her symptoms are unchanged from admission other than decreased emesis. She has had a 9# weight loss rt diuresis. Of note pt states she was supposed to have a scan with her new [employer] before becoming ill, she states this MD thought she may have IBS or SBS rt ileocecal resection which pt had in the 80s dt colon cancer. Pt has received diet edu/counseling for N/V/D and managing adequate intakes, CHF, and altered GI function/possible SBS/IBS and encouraged to f/u with GI.
[2021-03-18 15:47] VITALS: BP 135/59; PULSE 68; RESP 17; TEMP 37.1; O2SAT 96
--- NOTE | 2021-03-18 18:09 | PC.NURSE ---
SHE IS AOX4, ABLE TO MAKE NEEDS KNOWN TO STAFF. SHE HAS AMBULATED MULTIPLE TIMES THIS SHIFT. SHE DENIES PAIN AND N/V/D. VITAL SIGNS HAVE REMAINED STABLE. NO NEEDS AT THIS TIME.
[2021-03-18 20:00] VITALS: BP 155/86; PULSE 70; RESP 18; TEMP 36.8; O2SAT 96
[2021-03-18 21:19] LABS: Anion Gap 7.5 mEq/L (5-15); Blood Urea Nitrogen 5 mg/dl (7-17); Calcium 7.4 mg/dl (8.4-10.2); Carbon Dioxide 24 mmol/L (22.0-30.0); Chloride 90 mmol/L (98-107); Creatinine Clearance Estimated 47 mL/min (50-200); Estimated Glomerular Filt Rate 119 ml/min (>60); GFR (African American) 144 ML/MIN (>60); Glucose 128 mg/dl (74-100); Potassium 4.5 mmoL/L (3.5-5.1); Sodium 117 mmol/L (136-145)
[2021-03-19 03:50] VITALS: BP 147/79; PULSE 56; RESP 18; TEMP 36.4; O2SAT 96
--- NOTE | 2021-03-19 04:00 | PC.NURSE ---
Pt A&O. Able to ambulate with walker to BR with standby assist. PT has requested tylenol x2 this shift. PT able to make needs known to staff. VSS, call light in reach, no concerns at this time.
[2021-03-19 04:57] VITALS: BMI 24.8
[2021-03-19 06:51] LABS: Anion Gap 10.3 mEq/L (5-15); Blood Urea Nitrogen 6 mg/dl (7-17); Calcium 7.5 mg/dl (8.4-10.2); Carbon Dioxide 25 mmol/L (22.0-30.0); Chloride 86 mmol/L (98-107); Creatinine Clearance Estimated 47 mL/min (50-200); Estimated Glomerular Filt Rate 154 ml/min (>60); GFR (African American) 187 ML/MIN (>60); Glucose 113 mg/dl (74-100); Potassium 4.3 mmoL/L (3.5-5.1); Sodium 117 mmol/L (136-145)
--- NOTE | 2021-03-19 07:20 | HMH.DCSUM ---
General - General Admission date:: 03/15/21 Discharge date: 03/19/21 HPI HPI: 80-year-old female with recent hospitalization for hyponatremia believed to be due to hydrochlorothiazide and C. difficile diarrhea return to the ER yesterday with increasing weakness, nausea, vomiting, and continued diarrhea. Patient was brought in by family. Hyponatremia had worsened since discharge with sodium level now being 112. Patient complained of general malaise and aches. With her hyponatremia and inability to keep down solids or liquids decision was made to admit the patient for monitoring. Labs performed in the ER was suggestive of chronic hyponatremia. Patient was started on normal saline at 75 mL's per hour. This morning she reports not resting well overnight and hurting all over. She has a cough that she describes as bronchitis . Her cough has been present for the last 3 to 4 days and occurs primarily at night. She denies fevers or chills. She denies shortness of breath. Hospital Course Hospital Course: Patient was admitted for hyponatremia. She was started on normal saline overnight with no change in patient's sodium level. Clinically patient appears hypervolemic due to pedal edema and presence of cough. Patient has a history of diastolic congestive heart failure. Decision was made to aggressively diurese the patient and over 36 hours patient put out over 3-1/2 L of urine. However patient sodium level remained unchanged. Because of patient's persistent weakness and nausea patient was given hypertonic saline at a low rate for approximately 24 hours which raised her sodium to 119. Patient's weakness improved. PT was consulted and patient participated with therapy but remained weak enough that it was felt she would benefit from [facility] stay. Patient was accepted at [facility]. Patient was discharged to [facility] on March 19. Just 1 month ago patient had normal sodium levels. I do believe the combination of hydrochlorothiazide the patient was on for couple of weeks and her recent C. difficile diarrhea have both contributed to patient's hyponatremia. Patient had low serum osmolality and low serum sodium. Urine sodium and urine osmolality were pending at discharge. Patient should have BMPs weekly beginning Tuesday, March 23. At patient's previous hospitalization the week prior she had been diagnosed with C. difficile diarrhea. Patient had been started on vancomycin. Upon presentation to the ER she reported persistence of diarrhea. Patient was admitted and placed on vancomycin. Her dose was increased to 250 mg every 6 hours. Patient's diarrhea improved and repeat stool study was negative. Patient will finish 3 additional days of vancomycin Objective Vital signs: Temp Pulse Resp BP Pulse Ox 97.5 F L 56 L 18 147/79 H 96 03/19/21 03:50 03/19/21 03:50 03/19/21 03:50 03/19/21 03:50 03/19/21 03:50 no acute distress - *Routine Respiratory Exam Present: CTA bilaterally - *Routine Cardiovascular Exam Present: RRR - *Routine Abdominal Exam Present: soft, normoactive bowel sounds. Absent: tenderness - *Routine Extremities Exam Absent: cyanosis, clubbing, edema Results Labs on day of discharge: Labs from last 24 hours 03/19/21 03/18/21 03/18/21 06:11 20:56 13:11 Sodium 117 L 117 L 119 L Potassium 4.3 4.5 Chloride 86 L 90 L Carbon Dioxide 25 24 Anion Gap 10.3 7.5 BUN 6 L 5 L Creatinine 0.40 L 0.50 L Estimated Creat Clear 47 47 Estimated GFR 154 119 Est GFR ( Amer) 187 D 144 Glucose 113 H 128 H D Calcium 7.5 L 7.4 L DS: Diagnosis - Discharge Diagnosis (1) Hyponatremia Status: Acute (2) C. difficile diarrhea Status: Acute (3) Congestive heart failure Status: Chronic (4) Hypertensive disorder Status: Chronic Discharge Plan - Patient Discharge Instructions ACTIVITY: Continue current activity DIET: continu
[2021-03-19 08:00] VITALS: BP 166/80; PULSE 61; RESP 18; TEMP 36.4; O2SAT 97
--- NOTE | 2021-03-19 08:20 | PC.NURSE ---
Attempted to call report to [facility] but they are unable to take report at this time. I spoke w/Lat[facility] who states they haven't received the discharge summary as of yet. They are having issues with the fax machine.
--- NOTE | 2021-03-19 10:40 | HMH.ACPN2 ---
Internal Medicine - PN: Subj *Date: 03/19/21 *Time: 10:40 Exam Vital signs and Labs for Last 24 Hours: Temp Pulse Resp BP Pulse Ox 97.6 F 61 18 166/80 H 97 03/19/21 08:00 03/19/21 08:00 03/19/21 08:00 03/19/21 08:00 03/19/21 08:00 Laboratory Results - last 24 hr 03/18/21 13:11: Sodium 119 L 03/18/21 20:56: Sodium 117 L, Potassium 4.5, Chloride 90 L, Carbon Dioxide 24, Anion Gap 7.5, BUN 5 L, Creatinine 0.50 L, Estimated Creat Clear 47, Estimated GFR 119, Est GFR ( Amer) 144, Glucose 128 H D, Calcium 7.4 L 03/19/21 06:11: Sodium 117 L, Potassium 4.3, Chloride 86 L, Carbon Dioxide 25, Anion Gap 10.3, BUN 6 L, Creatinine 0.40 L, Estimated Creat Clear 47, Estimated GFR 154, Est GFR ( Amer) 187 D, Glucose 113 H, Calcium 7.5 L I & O for Last 24 hours: Intake & Output 03/16/21 03/17/21 03/18/21 03/19/21 23:59 23:59 23:59 23:59 Intake Total 983 / 983 420 / 420 1198 / 1198 Output Total 4850 / 4850 1999 Balance -3867 / -3867 -1580 / -1580 1198 / 1198 Weight 68 kg 63.962 kg 63.957 kg 63.673 kg Assessment and Plan (1) Hyponatremia Status: Acute Category: Medical Code(s): E87.1 - Hypo-osmolality and hyponatremia (2) C. difficile diarrhea Status: Acute Category: Medical Code(s): A04.72 - Enterocolitis due to Clostridium difficile, not specified as recurrent (3) Congestive heart failure Status: Chronic Qualifiers: Heart failure type: diastolic Heart failure chronicity: acute on chronic Qualified Code(s): I50.33 - Acute on chronic diastolic (congestive) heart failure Category: Medical Code(s): I50.9 - Heart failure, unspecified (4) Hypertensive disorder Status: Chronic Category: Medical Code(s): I10 - Essential (primary) hypertension The patient's infection will respond to the chosen ABx?: Yes (TREATMENT FOR C.DIFF) Is the patient receiving the right drug, dose, and route?: Yes Could a more targeted ABx be ordered?: No
--- NOTE | 2021-03-19 11:45 | PC.NURSE ---
Notified [facility] at [facility] that patient needed a urine omolality and urine sodium as we were unable to collect urine before dc this morning.
== END 2021-03-19 11:00 | DRG 640 ==
LOC: ER 20:05 → 2ND 21:16
PROVIDERS: Emergency Medicine; Admitting Provider Family Medicine; Emergency Provider Emergency Medicine; PCP Internal Medicine; Visit Provider Family Medicine
DX: E87.1 Hypo-osmolality and hyponatremia (principal); I50.33 Acute on chronic diastolic (congestive) heart failure; I42.9 Cardiomyopathy, unspecified; A04.72 Enterocolitis due to Clostridium difficile, not specified as recurrent; F41.9 Anxiety disorder, unspecified; Z85.038 Personal history of other malignant neoplasm of large intestine; Z85.118 Personal history of other malignant neoplasm of bronchus and lung; I25.2 Old myocardial infarction; K21.9 Gastro-esophageal reflux disease without esophagitis; E03.9 Hypothyroidism, unspecified; I11.0 Hypertensive heart disease with heart failure; E78.5 Hyperlipidemia, unspecified; M19.90 Unspecified osteoarthritis, unspecified site; Z88.1 Allergy status to other antibiotic agents; Z88.5 Allergy status to narcotic agent; Z88.2 Allergy status to sulfonamides; Z88.8 Allergy status to other drugs, medicaments and biological substances; T50.2X5A Adverse effect of carbonic-anhydrase inhibitors, benzothiadiazides and other diuretics, initial encounter
CPT/HCPCS: 36415; 71045; 74177; 80048; 80053; 81001; 82150; 83690; 83735; 83880; 83930; 83935; 84100; 84295; 84300; 84436; 84443; 84484; 85007; 85025; 85651; 86140; 87506; 93005; 96365; 96375; 97116; 97162; 97530; 99285; J2405; J3370; Q9967; U0003

== ENCOUNTER → 2021-04-28 17:01 | Outpatient (CLI) | payer MEDICARE, SELFPAY ==
[2021-04-28 17:22] LABS: Basophils % 0.3 % (0.1-2.0); Eosinophils % 1.1 % (0.1-12.0); Hematocrit 25.5 % (37.0-47.0); Hemoglobin 8.1 g/dL (12.2-16.2); Lymphocytes # 0.4 K/mm3 (0.7-4.5); Lymphocytes % 11.5 % (10-50); Mean Corpuscular HGB Conc 31.7 g/dL (31.8-35.4); Mean Corpuscular Volume 85.2 fl (81-99); Mean Platelet Volume 8.5 fl (7.4-10.4); Monocytes # 0.2 K/mm3 (0.1-1.0); Monocytes % 4.8 % (1.7-9.3); Neutrophils # 2.9 K/mm3 (1.8-7.8); Neutrophils % 82.3 % (37.0-80.0); Platelet Count 220 K/mm3 (142-424); Red Blood Count 2.99 M/mm3 (4.20-5.40); Red Cell Distribution Width 17.5 % (11.5-17.5); White Blood Count 3.5 K/mm3 (4.8-10.8)
[2021-04-28 18:53] LABS: Chloride 95 mmol/L (98-107)
[2021-04-28 18:54] LABS: Potassium 3.4 mmoL/L (3.5-5.1); Sodium 125 mmol/L (136-145)
[2021-04-28 18:56] LABS: Alanine Aminotransferase 20 U/L (12-78); Albumin Level 1.9 g/dl (3.5-5.0); Alkaline Phosphatase 116 U/L (38-126); Anion Gap 8.4 mEq/L (5-15); Aspartate Amino Transferase 34 U/L (14-36); Bilirubin,Total 0.2 mg/dl (0.2-1.3); Blood Urea Nitrogen 17 mg/dl (7-17); Carbon Dioxide 25 mmol/L (22.0-30.0); Estimated Glomerular Filt Rate 97 ml/min (>60); GFR (African American) 117 ML/MIN (>60); Total Protein,Serum 3.9 g/dl (6.3-8.2)
[2021-04-28 18:57] LABS: Calcium 6.8 mg/dl (8.4-10.2); Glucose 72 mg/dl (74-100)
== END ==
PROVIDERS: Visit Provider Internal Medicine
DX: I10 Essential (primary) hypertension (principal); Z79.899 Other long term (current) drug therapy
CPT/HCPCS: 80053; 85025

== ENCOUNTER → 2021-05-08 12:02 | Outpatient (CLI) | payer MEDICARE, SELFPAY | PROVIDERS: PCP Internal Medicine; Visit Provider Internal Medicine | DX: Z20.822 Contact with and (suspected) exposure to COVID-19 (principal); U07.1 COVID-19 | CPT/HCPCS: U0003 ==

== ENCOUNTER 2021-05-12 14:08 | Outpatient (CLI) | payer MEDICARE, SELFPAY ==
[2021-05-12 14:00] VITALS: BP 118/49; PULSE 84; RESP 12; TEMP 37.2; O2SAT 93
[2021-05-12 14:15] VITALS: BP 113/51; PULSE 84; RESP 12; TEMP 37.2; O2SAT 93
[2021-05-12 14:30] VITALS: BP 112/50; PULSE 82; RESP 12; TEMP 37.2; O2SAT 92
[2021-05-12 14:45] VITALS: BP 122/52; PULSE 84; RESP 12; TEMP 37.1; O2SAT 94
[2021-05-12 15:00] VITALS: BP 126/65; PULSE 84; RESP 13; TEMP 36.8; O2SAT 92
[2021-05-12 15:15] VITALS: BP 125/55; PULSE 82; RESP 13; TEMP 36.7; O2SAT 93
== END 2021-05-12 15:37 | disposition home or self-care (01) ==
LOC: COVID.OUT 14:09
PROVIDERS: PCP Internal Medicine; Visit Provider Internal Medicine
DX: U07.1 COVID-19 (principal)
CPT/HCPCS: 96365

== ENCOUNTER → 2021-05-18 10:44 | Outpatient (CLI) | payer MEDICARE, SELFPAY ==
--- NOTE | 2021-05-18 10:53 | XR_ITS ---
PROCEDURE: XR CHEST 2V CLINICAL HISTORY: cough, covid COMPARISON: CR XR CHEST 2V from 02/18/[address] ANGIO CHEST from 02/18/2021 CR XR CHEST 2V from 03/08/2021 CR XR CHEST PORTABLE from 03/15/2021 FINDINGS: The cardiomediastinal silhouette and pulmonary vascularity are within normal limits. Postsurgical changes with suture lines in the right infrahilar region and right lung base with scarring in the right midlung laterally. Surgical clips right upper quadrant. No acute bony findings. IMPRESSION: Chronic changes. No change with no acute finding. Dictated by: Pantera Ayala MD 05/18/2021 11:27 Pantera Ayala MD in [facility] 05/18/2021 11:27
[2021-05-18 11:44] LABS: Basophils % 0.1 % (0.1-2.0); Hematocrit 32.2 % (37.0-47.0); Lymphocytes # 0.7 K/mm3 (0.7-4.5); Lymphocytes % 7.2 % (10-50); Mean Corpuscular HGB Conc 31.1 g/dL (31.8-35.4); Mean Corpuscular Volume 83.6 fl (81-99); Mean Platelet Volume 7.5 fl (7.4-10.4); Monocytes # 0.4 K/mm3 (0.1-1.0); Monocytes % 4.3 % (1.7-9.3); Neutrophils # 8.7 K/mm3 (1.8-7.8); Neutrophils % 88.4 % (37.0-80.0); Platelet Count 302 K/mm3 (142-424); Red Blood Count 3.85 M/mm3 (4.20-5.40); Red Cell Distribution Width 16.9 % (11.5-17.5); White Blood Count 9.9 K/mm3 (4.8-10.8)
[2021-05-18 11:48] LABS: MANUAL DIFFERENTIAL MANUAL DIFFERENTIAL (MANUAL DIFF)
[2021-05-18 12:30] LABS: Eosinophils % 1 % (0-3); Lymphocytes % 7 % (10-50); Monocytes % 4 % (2-9); Neutrophils % 85 % (42-76); Platelet Estimate Normal; Total Cells Counted 100
[2021-05-18 12:31] LABS: Hypochromasia 1+
[2021-05-18 12:32] LABS: Alanine Aminotransferase 14 U/L (12-78); Albumin Level 2.7 g/dl (3.5-5.0); Albumin/Globulin Ratio 0.9 (1.1-1.8); Alkaline Phosphatase 121 U/L (38-126); Anion Gap 10.3 mEq/L (5-15); Aspartate Amino Transferase 24 U/L (14-36); Bilirubin,Total 0.7 mg/dl (0.2-1.3); Blood Urea Nitrogen 14 mg/dl (7-17); Calcium 7.1 mg/dl (8.4-10.2); Carbon Dioxide 32 mmol/L (22.0-30.0); Chloride 87 mmol/L (98-107); Estimated Glomerular Filt Rate 81 ml/min (>60); GFR (African American) 98 ML/MIN (>60); Globulin 2.9 g/dL (1.3-3.2); Glucose 71 mg/dl (74-100); Potassium 4.3 mmoL/L (3.5-5.1); Sodium 125 mmol/L (136-145); Total Protein,Serum 5.6 g/dl (6.3-8.2)
[2021-05-18 12:33] LABS: Creatine Kinase < 20 U/L (30-135)
[2021-05-18 13:01] LABS: Thyroid Stimulating Hormone 2.41 uIU/mL (0.465-4.68)
[2021-05-18 13:35] LABS: Vitamin B12 568 pg/mL (239-931)
[2021-05-18 13:36] LABS: Folate 4.46 ng/mL
[2021-05-23 16:34] LABS: Antinuclear Antibodies (ANA) Positive
== END ==
PROVIDERS: PCP Internal Medicine; Visit Provider Nurse Practitioner Family
DX: D64.9 Anemia, unspecified (principal); E87.1 Hypo-osmolality and hyponatremia; G93.40 Encephalopathy, unspecified; R05 Cough; R53.1 Weakness; R63.0 Anorexia; R63.4 Abnormal weight loss; R93.89 Abnormal findings on diagnostic imaging of other specified body structures; U07.1 COVID-19; Z85.9 Personal history of malignant neoplasm, unspecified; Z87.891 Personal history of nicotine dependence
CPT/HCPCS: 36415; 71046; 80053; 82550; 82607; 82746; 84443; 85007; 85025; 86038; 94762

== ENCOUNTER → 2021-05-26 12:45 | Outpatient (CLI) | payer MEDICARE, SELFPAY ==
[2021-05-26 14:00] VITALS: PULSE 71; PULSE 74
== END ==
PROVIDERS: PCP Internal Medicine; Visit Provider Nurse Practitioner Family
DX: U07.1 COVID-19 (principal); R93.89 Abnormal findings on diagnostic imaging of other specified body structures; R05 Cough; R53.1 Weakness
CPT/HCPCS: 94060; 94618; 94640; 94727; 94729

== ENCOUNTER → 2021-06-01 11:37 | Outpatient (CLI) | payer MEDICARE, SELFPAY ==
[2021-06-01 12:24] LABS: Basophils % 0.3 % (0.1-2.0); Eosinophils # 0.1 K/mm3 (0.0-0.4); Hematocrit 31.5 % (37.0-47.0); Hemoglobin 9.7 g/dL (12.2-16.2); Lymphocytes # 1.2 K/mm3 (0.7-4.5); Lymphocytes % 15.8 % (10-50); Mean Corpuscular HGB Conc 30.9 g/dL (31.8-35.4); Mean Corpuscular Hemoglobin 25.6 pg (27.0-31.2); Mean Corpuscular Volume 82.9 fl (81-99); Mean Platelet Volume 9.3 fl (7.4-10.4); Monocytes # 0.3 K/mm3 (0.1-1.0); Monocytes % 3.6 % (1.7-9.3); Neutrophils # 5.8 K/mm3 (1.8-7.8); Neutrophils % 79.4 % (37.0-80.0); Platelet Count 262 K/mm3 (142-424); Red Blood Count 3.79 M/mm3 (4.20-5.40); Red Cell Distribution Width 17.3 % (11.5-17.5); White Blood Count 7.3 K/mm3 (4.8-10.8)
[2021-06-01 12:33] LABS: Chloride 92 mmol/L (98-107); Sodium 125 mmol/L (136-145)
[2021-06-01 12:34] LABS: Potassium 3.9 mmoL/L (3.5-5.1)
[2021-06-01 12:36] LABS: Alanine Aminotransferase 16 U/L (12-78); Alkaline Phosphatase 122 U/L (38-126); Amylase 110 U/L (30-110); Anion Gap 10.9 mEq/L (5-15); Aspartate Amino Transferase 29 U/L (14-36); Bilirubin,Total 0.4 mg/dl (0.2-1.3); Blood Urea Nitrogen 12 mg/dl (7-17); Carbon Dioxide 26 mmol/L (22.0-30.0); Estimated Glomerular Filt Rate 81 ml/min (>60); GFR (African American) 98 ML/MIN (>60)
[2021-06-01 12:37] LABS: Albumin Level 2.7 g/dl (3.5-5.0); Albumin/Globulin Ratio 0.9 (1.1-1.8); Calcium 7.1 mg/dl (8.4-10.2); Globulin 3.1 g/dL (1.3-3.2); Glucose 78 mg/dl (74-100); Lipase 303 U/L (23-300); Total Protein,Serum 5.8 g/dl (6.3-8.2)
[2021-06-01 12:42] LABS: C-Reactive Protein 39.3 mg/L (0-4)
--- NOTE | 2021-06-01 13:00 | MR_ITS ---
PROCEDURE: MR HEAD/BRAIN WO/W CON CLINICAL INDICATION: encephalopathy Headache, dizziness, blurred vision COMPARISON: No exams were available for comparison TECHNIQUE: Routine multiplanar multi echo sequences are performed without and with gadolinium enhancement. FINDINGS: No midline shift, mass effect, intracranial hemorrhage, or hydrocephalus is evident. There is generalized atrophy with scattered periventricular and subcortical T2 white matter hyperintensities suggesting ischemic gliotic changes from microvascular disease. There is slight increased diffusion signal in the left subcortical region of the left parietal lobe. This is felt to be due to T2 shine through in not restricted diffusion. No enhancing lesions are evident. The pituitary, optic chiasm, corpus callosum, and craniocervical junction have an unremarkable appearance. There are bilateral mastoid effusions. Tiny air-fluid levels are present within the maxillary sinuses. IMPRESSION: 1. No acute intracranial findings. 2. Scattered periventricular and subcortical T2 white matter hyperintensities most commonly seen with ischemic gliotic change from microvascular disease. Demyelinating process not excluded. Please correlate with clinical parameters 3. Bilateral mastoid effusions with tiny air-fluid levels in the maxillary sinuses. Dictated by: Pantera Ayala MD 06/02/2021 10:13 Pantera Ayala MD in [facility] 06/02/2021 10:13
[2021-06-01 13:12] LABS: Albumin Level 2.6 g/dl (3.5-5.0); Anion Gap 8.2 mEq/L (5-15); Blood Urea Nitrogen 12 mg/dl (7-17); Calcium 7.1 mg/dl (8.4-10.2); Carbon Dioxide 27 mmol/L (22.0-30.0); Chloride 93 mmol/L (98-107); Estimated Glomerular Filt Rate 97 ml/min (>60); GFR (African American) 117 ML/MIN (>60); Glucose 74 mg/dl (74-100); Phosphorous 3.2 mg/dl (2.5-4.5); Potassium 4.2 mmoL/L (3.5-5.1); Sodium 124 mmol/L (136-145)
[2021-06-01 13:23] LABS: Intact Parathyroid Hormone 75.1 pg/mL (7.5-53.5)
[2021-06-01 14:00] LABS: 25-OH Vitamin D, Total < 12.8 ng/mL (30-100)
[2021-06-01 18:08] LABS: Erythrocyte Sedimentation Rate 41 mm/hr (0-30)
== END ==
PROVIDERS: Internal Medicine Gastroenterology; Internal Medicine Nephrology; PCP Internal Medicine; Visit Provider Nurse Practitioner Family
DX: D64.9 Anemia, unspecified (principal); E87.1 Hypo-osmolality and hyponatremia; G93.40 Encephalopathy, unspecified; R53.1 Weakness; R63.0 Anorexia; R63.4 Abnormal weight loss; R93.89 Abnormal findings on diagnostic imaging of other specified body structures; U07.1 COVID-19; Z85.9 Personal history of malignant neoplasm, unspecified; Z87.891 Personal history of nicotine dependence; R05.9 Cough, unspecified; E55.9 Vitamin D deficiency, unspecified
CPT/HCPCS: 36415; 70553; 80053; 80069; 82150; 82306; 83690; 83930; 83970; 85025; 85651; 86140; A9576

== ENCOUNTER → 2021-06-03 09:48 | Outpatient (CLI) | payer MEDICARE, SELFPAY ==
[2021-06-03 09:57] LABS: Adenovirus F 40/41, stool Not Detected (NotDetected); Astrovirus Not Detected (NotDetected); Campylobacter Not Detected (NotDetected); Cryptosporidium Not Detected (NotDetected); Cyclospora Cayetanesis Not Detected (NotDetected); Entamoeba histolytica Not Detected (NotDetected); Enteroaggregative E coli Not Detected (NotDetected); Enteropathogenic E coli Not Detected (NotDetected); Enterotoxigenic E coli Not Detected (NotDetected); Giardia lamblia Not Detected (NotDetected); Norovirus Not Detected (NotDetected); Plesimonas Shigalloides, PCR Not Detected (NotDetected); Rotavirus A Not Detected (NotDetected); Salmonella, PCR Not Detected (NotDetected); Sapovirus Not Detected (NotDetected); Shiga-like toxin E coli Not Detected (NotDetected); Shigella Enterovasive E coli Not Detected (NotDetected); Vibrio Cholerae Not Detected (NotDetected); Vibrio, PCR Not Detected (NotDetected); Yersinia Entercolitica, PCR Not Detected (NotDetected)
[2021-06-03 09:59] LABS: Microscopic, Urine URINE MICROSCOPIC (MICROSCOPIC)
[2021-06-03 11:26] LABS: Appearance,Urine CLEAR (Clear); Bilirubin,Urine Negative (Negative); Blood, Urine 1+ (Negative); Color,Urine YELLOW (Yellow); Glucose,Urine (UA) Negative (Negative); Ketones,Urine Negative (Negative); Leukocyte Esterase,Urine 2+ (Negative); Nitrate,Urine POSITIVE (Negative); Protein,Urine Negative (Negative); Specific Gravity, Urine <= 1.005 (1.005-1.030); Urobilinogen,Urine 0.2 EU/dl (0.2)
[2021-06-03 11:31] LABS: Amorphous Sediment,Urine 1+ /lpf; Bacteria,Urine 4+ /lpf
[2021-06-03 12:21] LABS: Creatinine,Urine Random 35 mg/dL (Not Estab.)
[2021-06-04 03:36] LABS: Sodium, Urine <20 mmol/L (Not Estab.)
[2021-06-05 08:17] LABS: Osmolality, Urine 179 mOsmol/kg (.)
[2021-06-05 15:21] LABS: Calprotectin, Fecal 162 ug/g (0-120)
[2021-06-09 10:43] LABS: Clostridium Difficile A/B, PCR Detected (NotDetected)
== END ==
PROVIDERS: Visit Provider Internal Medicine Gastroenterology
DX: R10.30 Lower abdominal pain, unspecified (principal); R19.7 Diarrhea, unspecified; R15.9 Full incontinence of feces; A04.72 Enterocolitis due to Clostridium difficile, not specified as recurrent; E87.1 Hypo-osmolality and hyponatremia; E55.9 Vitamin D deficiency, unspecified; N39.0 Urinary tract infection, site not specified; B96.1 Klebsiella pneumoniae [K. pneumoniae] as the cause of diseases classified elsewhere
CPT/HCPCS: 81001; 82570; 83935; 83993; 84155; 84300; 87086; 87088; 87177; 87186; 87506

== ENCOUNTER 2021-06-05 21:00 | Emergency (ER) | payer MEDICARE, SELFPAY ==
[2021-06-05 20:50] VITALS: BP 152/60; PULSE 72; RESP 16; TEMP 36.8; O2SAT 98; BMI 19.5
--- NOTE | 2021-06-05 21:23 | CT_ITS ---
PROCEDURE INFORMATION: Exam: CT Abdomen And Pelvis Without Contrast Exam date and time: 06/05/2021 9:23 PM Age: 80 years old Clinical indication: Nausea and vomiting TECHNIQUE: Imaging protocol: Computed tomography of the abdomen and pelvis without contrast. Radiation optimization: All CT scans at this facility use at least one of these dose optimization techniques: automated exposure control; mA and/or kV adjustment per patient size (includes targeted exams where dose is matched to clinical indication); or iterative reconstruction. COMPARISON: CT ABDOMEN PELVIS W CON 03/15/2021 8:03 PM FINDINGS: Lungs: Mild bibasilar scarring. Mediastinal space: Small hiatal hernia. Distal esophagus appears dilated. Mucosal thickening could also have this appearance. Clinical correlation recommended. Liver: Left lobe resection the liver again noted. Gallbladder and bile ducts: Status post cholecystectomy. Pancreas: Normal. No ductal dilation. Spleen: Normal. No splenomegaly. Adrenal glands: Normal. No mass. Kidneys and ureters: A 5 mm nonobstructing stone is seen in the left kidney lower pole. Stomach and bowel: See Mediastinal space finding. Appendix: No evidence of appendicitis. Intraperitoneal space: Unremarkable. No free air. No significant fluid collection. Vasculature: Coronary artery calcifications. Lymph nodes: Unremarkable. No enlarged lymph nodes. Urinary bladder: Unremarkable as visualized. Reproductive: Unremarkable as visualized. Bones/joints: Unremarkable. No acute fracture. Soft tissues: Unremarkable. IMPRESSION: 1. No obstruction. 2. Dilated distal esophagus and small hiatal hernia. Consider non urgent barium swallow or endoscopy to exclude mucosal thickening.
--- NOTE | 2021-06-05 21:29 | HMH.EDNVD ---
ED Disposition Clinical Impression: Hyponatremia, Hypomagnesemia UTI (urinary tract infection) Qualifiers: Urinary tract infection type: site unspecified Hematuria presence: without hematuria Qualified Code(s): N39.0 - Urinary tract infection, site not specified Anemia Qualifiers: Anemia type: unspecified type Qualified Code(s): D64.9 - Anemia, unspecified Disposition: Home, Self-Care Condition on Discharge: Good Instructions: DI for Nausea -- Adult Additional Instructions: fluids and call pcp for follow up Prescriptions: ondansetron HCL [Zofran 4mg Tab] 4 mg PO TID #21 tab Transmission Status: Pending to Clinic [facility] Referrals: Provider,Referral, [Primary Care Provider] - - Critical Care Critical Care Time: No Attestation: On 06/05/21, the high probability of a clinically significant, sudden or life threatening deterioration of the following system(s) required my full and direct attention, intervention and personal management. The time I documented below is in addition to time spent performing reported procedures but includes the following listed in this critical care notation. Medical Decision Making - Medical Records Medical records reviewed: Yes: I reviewed the patient's medical records. - Pantera Inquiry Pt receiving controlled substance: No Vital Signs: 06/05/21 20:50 06/05/21 21:30 06/05/21 22:00 Temperature 98.2 F Temperature Source Oral Pulse Rate 71 68 Pulse Rate [Right] 72 Respiratory Rate 16 Blood Pressure 129/61 133/53 L Blood Pressure [Right Arm] 152/60 H Blood Pressure Mean [Right Arm] 90 Blood Pressure Source [Right Arm] Automatic Cuff Blood Pressure Position [Right Arm] Sitting 02 Sat by Pulse Oximetry 98 97 99 06/05/21 22:31 06/05/21 23:30 Temperature Temperature Source Pulse Rate 72 73 Pulse Rate [Right] Respiratory Rate Blood Pressure 142/54 H 138/58 L Blood Pressure [Right Arm] Blood Pressure Mean [Right Arm] Blood Pressure Source [Right Arm] Blood Pressure Position [Right Arm] 02 Sat by Pulse Oximetry 99 97 - Lab Data Lab results reviewed: Yes: I reviewed the patient's lab results. Lab Results 06/05/21 21:30: WBC 3.7 L, RBC 3.67 L, Hgb 9.5 L, Hct 30.1 L, MCV 82.1, MCH 25.8 L, MCHC 31.4 L, RDW 17.4, Plt Count 226, MPV 9.0, Neut % (Auto) 71.5, Lymph % (Auto) 23.1, [place] % (Auto) 4.4, Eos % (Auto) 0.4, Baso % (Auto) 0.6, Neut # (Auto) 2.7, Lymph # (Auto) 0.9, [place] # (Auto) 0.2, Eos # (Auto) 0.0, Baso # (Auto) 0.0, Total Counted 100, Neutrophils % (Manual) 74, Band Neutrophils % 5.0, Lymphocytes % (Manual) 19, Monocytes % (Manual) 2, Platelet Estimate Normal, Hypochromasia 1+, Anisocytosis 1+ 06/05/21 21:30: Sodium 125 L, Potassium 3.9, Chloride 94 L, Carbon Dioxide 23, Anion Gap 11.9, BUN 13, Creatinine 0.70, Estimated Creat Clear 37, Estimated GFR 81, Est GFR ( Amer) 98, Glucose 57 L, Calcium 7.2 L, Total Bilirubin 0.4, AST 27, ALT 16, Alkaline Phosphatase 123, Total Protein 5.6 L, Albumin 2.6 L, Globulin 3.0, Albumin/Globulin Ratio 0.9 L, Amylase 81, Lipase 167 06/05/21 21:30: Lactate 0.7 06/05/21 21:30: ESR 41 H 06/05/21 21:30: C-Reactive Protein 14.8 H, Procalcitonin 0.078 06/05/21 21:30: SARS-CoV-2 (PCR) Not detected, Influenza A Untype (PCR) Not detected, Influenza Type B (PCR) Not detected 06/05/21 21:30: Thyroxine (T4) 10.9 06/05/21 21:30: Magnesium 0.7 L, TSH 4.23 Result diagrams: 06/05/21 21:30 06/05/21 21:30 Orders (Tests/Meds): ED MEDICATIONS Generic Name Dose Route Start Last Admin Trade Name Freq PRN Reason Stop Dose Admin Ertapenem 1 gm/ Sodium 50 mls @ 100 mls/hr 06/06/21 01:45 06/06/21 02:37 Chloride IV 06/20/21 01:44 100 mls/hr Q24H JONY Administration Discontinued Medications Generic Name Dose Route Start Last Admin Trade Name Freq PRN Reason Stop Dose Admin Sodium Chloride 1,000 mls @ 999 mls/hr 06/05/21 21:30 06/05/21 21:25 Sod Chlor 0.9% 1000ml Bag IV
[2021-06-05 21:30] VITALS: BP 129/61; PULSE 71; O2SAT 97
[2021-06-05 21:43] LABS: MANUAL DIFFERENTIAL MANUAL DIFFERENTIAL (MANUAL DIFF)
[2021-06-05 21:48] LABS: Basophils % 0.6 % (0.1-2.0); Eosinophils % 0.4 % (0.1-12.0); Hematocrit 30.1 % (37.0-47.0); Hemoglobin 9.5 g/dL (12.2-16.2); Lymphocytes # 0.9 K/mm3 (0.7-4.5); Lymphocytes % 23.1 % (10-50); Mean Corpuscular HGB Conc 31.4 g/dL (31.8-35.4); Mean Corpuscular Hemoglobin 25.8 pg (27.0-31.2); Mean Corpuscular Volume 82.1 fl (81-99); Monocytes # 0.2 K/mm3 (0.1-1.0); Monocytes % 4.4 % (1.7-9.3); Neutrophils # 2.7 K/mm3 (1.8-7.8); Neutrophils % 71.5 % (37.0-80.0); Platelet Count 226 K/mm3 (142-424); Red Blood Count 3.67 M/mm3 (4.20-5.40); Red Cell Distribution Width 17.4 % (11.5-17.5); White Blood Count 3.7 K/mm3 (4.8-10.8)
[2021-06-05 22:00] VITALS: BP 133/53; PULSE 68; O2SAT 99
[2021-06-05 22:01] LABS: Alanine Aminotransferase 16 U/L (12-78); Albumin Level 2.6 g/dl (3.5-5.0); Albumin/Globulin Ratio 0.9 (1.1-1.8); Alkaline Phosphatase 123 U/L (38-126); Amylase 81 U/L (30-110); Anion Gap 11.9 mEq/L (5-15); Anisocytosis 1+; Aspartate Amino Transferase 27 U/L (14-36); Bilirubin,Total 0.4 mg/dl (0.2-1.3); Blood Urea Nitrogen 13 mg/dl (7-17); Calcium 7.2 mg/dl (8.4-10.2); Carbon Dioxide 23 mmol/L (22.0-30.0); Chloride 94 mmol/L (98-107); Creatinine Clearance Estimated 37 mL/min (50-200); Estimated Glomerular Filt Rate 81 ml/min (>60); GFR (African American) 98 ML/MIN (>60); Glucose 57 mg/dl (74-100); Hypochromasia 1+; Lipase 167 U/L (23-300); Lymphocytes % 19 % (10-50); Monocytes % 2 % (2-9); Neutrophils % 74 % (42-76); Platelet Estimate Normal; Potassium 3.9 mmoL/L (3.5-5.1); Sodium 125 mmol/L (136-145); Total Cells Counted 100; Total Protein,Serum 5.6 g/dl (6.3-8.2)
[2021-06-05 22:02] LABS: Lactic Acid 0.7 mmol/L (0.7-2.1)
[2021-06-05 22:04] LABS: C-Reactive Protein 14.8 mg/L (0-4)
[2021-06-05 22:13] LABS: Erythrocyte Sedimentation Rate 41 mm/hr (0-30)
[2021-06-05 22:18] LABS: Procalcitonin 0.078 ng/mL (0.0-2.0)
[2021-06-05 22:31] VITALS: BP 142/54; PULSE 72; O2SAT 99
--- NOTE | 2021-06-05 22:48 | PC.NURSE ---
Pt to CT at this time
--- NOTE | 2021-06-05 23:16 | PC.NURSE ---
Pt back from CT
[2021-06-05 23:30] VITALS: BP 138/58; PULSE 73; O2SAT 97
[2021-06-05 23:36] LABS: Coronavirus 19, PCR Not Detected (NotDetected); Influenza A, PCR Not Detected (NotDetected); Influenza B, PCR Not Detected (NotDetected)
[2021-06-06 00:01] VITALS: BP 121/58; PULSE 73; O2SAT 98
[2021-06-06 01:00] VITALS: BP 123/57; PULSE 70; O2SAT 97
[2021-06-06 01:27] LABS: Magnesium 0.7 mg/dl (1.6-2.3)
--- NOTE | 2021-06-06 01:28 | PC.NURSE ---
Critical mag 0.7. Repeated and verified with Baldomero from lab. Notified
[2021-06-06 01:34] LABS: T4 (Thyroxine) 10.9 ug/dl (5.53-11.0)
[2021-06-06 01:48] LABS: Thyroid Stimulating Hormone 4.23 uIU/mL (0.465-4.68)
[2021-06-06 02:00] VITALS: BP 129/54; PULSE 72; O2SAT 99
[2021-06-06 03:00] VITALS: BP 126/54; PULSE 64; O2SAT 97
[2021-06-06 03:30] VITALS: BP 134/58; PULSE 74; O2SAT 96
[2021-06-06 04:39] VITALS: BP 122/48; PULSE 68; RESP 18; TEMP 36.7; O2SAT 98
== END 2021-06-06 04:46 | disposition home or self-care (01) ==
PROVIDERS: Emergency Provider Emergency Medicine
DX: N30.00 Acute cystitis without hematuria (principal); E78.1 Pure hyperglyceridemia; E83.42 Hypomagnesemia; D64.9 Anemia, unspecified; I10 Essential (primary) hypertension; I25.2 Old myocardial infarction; E78.5 Hyperlipidemia, unspecified; E03.9 Hypothyroidism, unspecified; K21.9 Gastro-esophageal reflux disease without esophagitis; F41.9 Anxiety disorder, unspecified; I25.10 Atherosclerotic heart disease of native coronary artery without angina pectoris; Z79.899 Other long term (current) drug therapy; Z87.891 Personal history of nicotine dependence; Z20.822 Contact with and (suspected) exposure to COVID-19
CPT/HCPCS: 74176; 80053; 82150; 83605; 83690; 83735; 84145; 84436; 84443; 85007; 85014; 85018; 85048; 85049; 85651; 86140; 87040; 96365; 96367; 96375; 99284; C9803; J1335; J2405; U0003; U0005

== ENCOUNTER → 2021-06-24 14:08 | Outpatient (CLI) | payer MEDICARE, SELFPAY ==
[2021-06-24 14:59] LABS: Basophils % 0.3 % (0.1-2.0); Eosinophils % 0.5 % (0.1-12.0); Hematocrit 29.8 % (37.0-47.0); Hemoglobin 9.1 g/dL (12.2-16.2); Lymphocytes # 0.9 K/mm3 (0.7-4.5); Lymphocytes % 16.5 % (10-50); Mean Corpuscular HGB Conc 30.7 g/dL (31.8-35.4); Mean Corpuscular Hemoglobin 25.5 pg (27.0-31.2); Mean Corpuscular Volume 83.1 fl (81-99); Mean Platelet Volume 9.7 fl (7.4-10.4); Monocytes # 0.3 K/mm3 (0.1-1.0); Monocytes % 5.3 % (1.7-9.3); Neutrophils # 4.4 K/mm3 (1.8-7.8); Neutrophils % 77.5 % (37.0-80.0); Platelet Count 395 K/mm3 (142-424); Red Blood Count 3.58 M/mm3 (4.20-5.40); Red Cell Distribution Width 17.8 % (11.5-17.5); White Blood Count 5.6 K/mm3 (4.8-10.8)
[2021-06-24 15:14] LABS: Anion Gap 9.8 mEq/L (5-15); Blood Urea Nitrogen 17 mg/dl (7-17); Calcium 7.1 mg/dl (8.4-10.2); Carbon Dioxide 27 mmol/L (22.0-30.0); Chloride 96 mmol/L (98-107); Estimated Glomerular Filt Rate 97 ml/min (>60); GFR (African American) 117 ML/MIN (>60); Glucose 59 mg/dl (74-100); Potassium 3.8 mmoL/L (3.5-5.1); Sodium 129 mmol/L (136-145)
== END ==
PROVIDERS: Visit Provider Internal Medicine
DX: I10 Essential (primary) hypertension (principal); D64.9 Anemia, unspecified; R60.9 Edema, unspecified; E43 Unspecified severe protein-calorie malnutrition; E22.2 Syndrome of inappropriate secretion of antidiuretic hormone; R53.1 Weakness
CPT/HCPCS: 80048; 85025

== ENCOUNTER → 2021-07-21 13:12 | Outpatient (CLI) | payer MEDICARE, SELFPAY ==
[2021-07-21 13:55] LABS: Basophils % 0.1 % (0.1-2.0); Eosinophils % 0.5 % (0.1-12.0); Hematocrit 29.2 % (37.0-47.0); Hemoglobin 9.5 g/dL (12.2-16.2); Lymphocytes # 0.8 K/mm3 (0.7-4.5); Lymphocytes % 11.8 % (10-50); Mean Corpuscular HGB Conc 32.5 g/dL (31.8-35.4); Mean Corpuscular Hemoglobin 25.2 pg (27.0-31.2); Mean Corpuscular Volume 77.8 fl (81-99); Monocytes # 0.2 K/mm3 (0.1-1.0); Monocytes % 2.8 % (1.7-9.3); Neutrophils # 5.4 K/mm3 (1.8-7.8); Neutrophils % 84.8 % (37.0-80.0); Platelet Count 338 K/mm3 (142-424); Red Blood Count 3.76 M/mm3 (4.20-5.40); Red Cell Distribution Width 17.1 % (11.5-17.5); Reticulocyte % (Auto) 2.1 % (0.9-3.2); White Blood Count 6.4 K/mm3 (4.8-10.8)
[2021-07-21 15:12] LABS: Albumin Level 2.6 g/dl (3.5-5.0); Albumin/Globulin Ratio 0.9 (1.1-1.8); Alkaline Phosphatase 80 U/L (38-126); Anion Gap 8.5 mEq/L (5-15); Aspartate Amino Transferase 31 U/L (14-36); Bilirubin,Total 0.4 mg/dl (0.2-1.3); Blood Urea Nitrogen 15 mg/dl (7-17); Calcium 6.3 mg/dl (8.4-10.2); Carbon Dioxide 35 mmol/L (22.0-30.0); Chloride 89 mmol/L (98-107); Estimated Glomerular Filt Rate 81 ml/min (>60); GFR (African American) 98 ML/MIN (>60); Glucose 61 mg/dl (74-100); Potassium 3.5 mmoL/L (3.5-5.1); Sodium 129 mmol/L (136-145); Total Protein,Serum 5.6 g/dl (6.3-8.2)
[2021-07-21 15:13] LABS: Alanine Aminotransferase < 4 U/L (12-78)
[2021-07-21 15:58] LABS: Vitamin B12 298 pg/mL (239-931)
[2021-07-21 16:34] LABS: Iron 35 ug/dL (37-170)
[2021-07-21 16:45] LABS: Total Iron Binding Capacity 191 ug/dL (265-497)
[2021-07-21 17:11] LABS: Ferritin 384 ng/ml (11.1-264)
[2021-07-24 16:01] LABS: Albumin 2.1 g/dL (2.9-4.4); Alpha-1-Globulin 0.3 g/dL (0.0-0.4); Alpha-2-Globulin 1.1 g/dL (0.4-1.0); Gamma Globulin 1.5 g/dL (0.4-1.8); Protein, Total 5.6 g/dL (6.0-8.5)
== END ==
PROVIDERS: Visit Provider Internal Medicine
DX: I10 Essential (primary) hypertension (principal); R60.9 Edema, unspecified; A04.72 Enterocolitis due to Clostridium difficile, not specified as recurrent; D64.9 Anemia, unspecified; E22.2 Syndrome of inappropriate secretion of antidiuretic hormone; Z85.118 Personal history of other malignant neoplasm of bronchus and lung
CPT/HCPCS: 80053; 82607; 82728; 83540; 83550; 84155; 84165; 85025; 85044

== ENCOUNTER → 2021-08-07 12:43 | Outpatient (CLI) | payer MEDICARE, SELFPAY ==
[2021-08-07 13:44] LABS: Basophils % 0.2 % (0.1-2.0); Eosinophils % 0.6 % (0.1-12.0); Hematocrit 27.9 % (37.0-47.0); Hemoglobin 9.3 g/dL (12.2-16.2); Lymphocytes # 0.6 K/mm3 (0.7-4.5); Mean Corpuscular HGB Conc 33.2 g/dL (31.8-35.4); Mean Corpuscular Hemoglobin 25.4 pg (27.0-31.2); Mean Corpuscular Volume 76.4 fl (81-99); Mean Platelet Volume 8.1 fl (7.4-10.4); Monocytes # 0.3 K/mm3 (0.1-1.0); Monocytes % 5.4 % (1.7-9.3); Neutrophils % 80.9 % (37.0-80.0); Platelet Count 375 K/mm3 (142-424); Red Blood Count 3.65 M/mm3 (4.20-5.40); Red Cell Distribution Width 16.1 % (11.5-17.5)
[2021-08-07 15:29] LABS: Anion Gap 8.2 mEq/L (5-15); Blood Urea Nitrogen 16 mg/dl (7-17); Calcium 6.4 mg/dl (8.4-10.2); Carbon Dioxide 32 mmol/L (22.0-30.0); Chloride 87 mmol/L (98-107); Estimated Glomerular Filt Rate 81 ml/min (>60); GFR (African American) 98 ML/MIN (>60); Glucose 72 mg/dl (74-100); Potassium 3.2 mmoL/L (3.5-5.1); Sodium 124 mmol/L (136-145)
== END ==
PROVIDERS: Visit Provider Internal Medicine
DX: I10 Essential (primary) hypertension (principal); E53.8 Deficiency of other specified B group vitamins; D64.9 Anemia, unspecified; K21.9 Gastro-esophageal reflux disease without esophagitis
CPT/HCPCS: 80048; 85025

== ENCOUNTER 2021-08-25 16:34 | Inpatient (IN) | payer MEDICARE, SELFPAY ==
[2021-08-25 16:35] VITALS: BP 130/62; PULSE 61; RESP 16; TEMP 36.6; O2SAT 95; BMI 19.2
--- NOTE | 2021-08-25 16:48 | CT_ITS ---
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 Radiation optimization: All CT scans at this facility use at least one of these dose optimization techniques: automated exposure control; mA and/or kV adjustment per patient size (includes targeted exams where dose is matched to clinical indication); or iterative reconstruction. COMPARISON: MR HEAD/BRAIN WO/W CON 06/01/2021 1:16 PM FINDINGS: Brain: There is age-appropriate cerebral atrophy. Moderate changes of chronic small vessel ischemia within the cerebral white matter regions bilaterally. No acute infarct or hemorrhage. Cerebral ventricles: No ventriculomegaly. Paranasal sinuses: Visualized sinuses are unremarkable. No fluid levels. Mastoid air cells: Visualized mastoid air cells are well aerated. Bones/joints: Unremarkable. No acute fracture. Soft tissues: Unremarkable. IMPRESSION: No acute intracranial abnormality.
--- NOTE | 2021-08-25 16:50 | HMH.EDGENADL ---
ED Disposition Clinical Impression: Hypokalemia, Weakness Disposition: Admitted as Observation Condition on Discharge: Good Referrals: Tobias Healy [Primary Care Provider] - - Critical Care Critical Care Time: No Attestation: On , the high probability of a clinically significant, sudden or life threatening deterioration of the following system(s) required my full and direct attention, intervention and personal management. The time I documented below is in addition to time spent performing reported procedures but includes the following listed in this critical care notation. Medical Decision Making - Pantera Inquiry Pt receiving controlled substance: No Vital Signs: 08/25/21 16:35 08/25/21 18:05 08/25/21 18:06 Temperature 97.9 F Temperature Source Oral Pulse Rate [Right Radial] 61 61 61 Respiratory Rate 16 Blood Pressure [Orthostatic Lying Right Arm] 131/59 L 131/59 L Blood Pressure [Orthostatic Sitting] 125/59 L Blood Pressure [Orthostatic Standing] 116/54 L Blood Pressure [Right Arm] 130/62 Blood Pressure Mean [Right Arm] 84 Blood Pressure Source [Right Arm] Automatic Cuff Blood Pressure Position [Right Arm] Sitting 02 Sat by Pulse Oximetry 95 Oxygen Delivery Method Room Air - Lab Data Lab Results 08/25/21 16:55: WBC 3.5 L, RBC 3.30 L, Hgb 8.3 L, Hct 25.6 L, MCV 77.4 L, MCH 25.1 L, MCHC 32.5, RDW 18.9 H, Plt Count 220, MPV 8.2, Neut % (Auto) 83.0 H, Lymph % (Auto) 11.3, [place] % (Auto) 4.3, Eos % (Auto) 0.9, Baso % (Auto) 0.5, Neut # (Auto) 2.9, Lymph # (Auto) 0.4 L, [place] # (Auto) 0.2, Eos # (Auto) 0.0, Baso # (Auto) 0.0 08/25/21 16:55: Sodium 124 L, Potassium 2.4 L*, Chloride 83 L, Carbon Dioxide 37 H, Anion Gap 6.4, BUN 11, Creatinine 0.70, Estimated Creat Clear 35, Estimated GFR 81, Est GFR ( Amer) 98, Glucose 79, Calcium 7.0 L, Total Bilirubin 0.6, AST 29, ALT 8 L, Alkaline Phosphatase 96, Total Protein 5.6 L, Albumin 2.5 L, Globulin 3.1, Albumin/Globulin Ratio 0.8 L Result diagrams: 08/25/21 16:55 08/25/21 16:55 Orders (Tests/Meds): ED MEDICATIONS Discontinued Medications Generic Name Dose Route Start Last Admin Trade Name Freq PRN Reason Stop Dose Admin Potassium Chloride 40 meq 08/25/21 17:28 08/25/21 17:45 Potassium Chloride 20meq Tab PO 08/25/21 17:29 40 meq ONCE ONE Administration ORDERS Category Date Time Status Magnesium Stat Lab 08/25/21 18:00 Ordered Urinalysis and Microscopic Stat Lab 08/25/21 18:00 Received Medical Decision Narrative: ekg by me, nsr, qrs narrow, no st e;ev General Adult HPI - General Stated complaint: VOMITING Time Seen by Provider: 08/25/21 16:51 Source of Information: Patient, EMS Limitations: No Limitations - History of Present Illness HPI narrative: sudden onset blurry viz and confusion while on commode today, feels betetr now Onset (ago): hour(s) Radiation: non-radiation Severity: moderate Relieving factors: none Exacerbating factors: none Associated symptoms: denies other symptoms - Related Data Home Medications Medication Instructions Recorded Confirmed Atorvastatin Calcium [Lipitor 40mg 40 mg PO HS 09/12/17 05/18/21 Tablet*] Levothyroxine Sodium 50 mcg PO DAILY 09/12/17 05/18/21 [Levothyroxine 50mcg (0.05mg) Tab] nadoloL [Corgard] 20 mg PO BID 09/12/17 05/18/21 lisinopriL [Zestril 10mg Tab] 10 mg PO DAILY 03/15/21 05/18/21 potassium chloride 10 mEq 10 meq PO ONCE tab 05/18/21 05/18/21 tablet,extended release(part/cryst) torsemide 20 mg tablet 10 mg PO DAILY tab 05/18/21 06/05/21 Previous Rx's Medication Instructions Recorded Acetaminophen [Acetaminophen 8 650 mg PO TID #90 tablet.er 03/19/21 Hour] LORazepam [Lorazepam 1mg Tablet] 1 mg PO TIDP PRN #90 tab 03/19/21 ondansetron HCL [Zofran 4mg Tab] 4 mg PO TID #21 tab 06/06/21 Allergies Allergy/AdvReac Type Severity Reaction Status Date / Time codeine [CODEINE] Allergy Mild HEART RACE Verif
[2021-08-25 17:16] LABS: Basophils % 0.5 % (0.1-2.0); Eosinophils % 0.9 % (0.1-12.0); Hematocrit 25.6 % (37.0-47.0); Hemoglobin 8.3 g/dL (12.2-16.2); Lymphocytes # 0.4 K/mm3 (0.7-4.5); Lymphocytes % 11.3 % (10-50); Mean Corpuscular HGB Conc 32.5 g/dL (31.8-35.4); Mean Corpuscular Hemoglobin 25.1 pg (27.0-31.2); Mean Corpuscular Volume 77.4 fl (81-99); Mean Platelet Volume 8.2 fl (7.4-10.4); Monocytes # 0.2 K/mm3 (0.1-1.0); Monocytes % 4.3 % (1.7-9.3); Neutrophils # 2.9 K/mm3 (1.8-7.8); Platelet Count 220 K/mm3 (142-424); Red Cell Distribution Width 18.9 % (11.5-17.5); White Blood Count 3.5 K/mm3 (4.8-10.8)
[2021-08-25 17:19] LABS: Alanine Aminotransferase 8 U/L (12-78); Albumin Level 2.5 g/dl (3.5-5.0); Albumin/Globulin Ratio 0.8 (1.1-1.8); Alkaline Phosphatase 96 U/L (38-126); Anion Gap 6.4 mEq/L (5-15); Aspartate Amino Transferase 29 U/L (14-36); Bilirubin,Total 0.6 mg/dl (0.2-1.3); Blood Urea Nitrogen 11 mg/dl (7-17); Carbon Dioxide 37 mmol/L (22.0-30.0); Chloride 83 mmol/L (98-107); Creatinine Clearance Estimated 35 mL/min (50-200); Estimated Glomerular Filt Rate 81 ml/min (>60); GFR (African American) 98 ML/MIN (>60); Globulin 3.1 g/dL (1.3-3.2); Glucose 79 mg/dl (74-100); Sodium 124 mmol/L (136-145); Total Protein,Serum 5.6 g/dl (6.3-8.2)
[2021-08-25 17:24] LABS: Potassium 2.4 mmoL/L (3.5-5.1)
--- NOTE | 2021-08-25 17:27 | PC.NURSE ---
Joshua Huggins spoke with Sonny in the lab, whom reported a potassium of 2.4. notified.
[2021-08-25 18:05] VITALS: BP 131/59; PULSE 61
[2021-08-25 18:06] VITALS: BP 116/54; BP 125/59; BP 131/59; PULSE 61
[2021-08-25 18:06] LABS: Microscopic, Urine URINE MICROSCOPIC (MICROSCOPIC)
[2021-08-25 18:13] LABS: Appearance,Urine CLEAR (Clear); Bilirubin,Urine Negative (Negative); Blood, Urine Negative (Negative); Color,Urine YELLOW (Yellow); Glucose,Urine (UA) Negative (Negative); Ketones,Urine Negative (Negative); Leukocyte Esterase,Urine 1+ (Negative); Nitrate,Urine Negative (Negative); Protein,Urine Negative (Negative); Urobilinogen,Urine 0.2 EU/dl (0.2)
[2021-08-25 18:41] LABS: Coronavirus 19, PCR Not Detected (NotDetected); Influenza A, PCR Not Detected (NotDetected); Influenza B, PCR Not Detected (NotDetected)
[2021-08-25 19:00] LABS: Squamous Epithelial Cell,Urine Occasional #/hpf (0-5)
[2021-08-25 19:01] LABS: Magnesium 0.8 mg/dl (1.6-2.3)
[2021-08-25 19:30] VITALS: BP 125/58; PULSE 62; O2SAT 97
[2021-08-25 20:24] VITALS: BP 130/65; PULSE 60; RESP 20; TEMP 36.8; O2SAT 96
--- NOTE | 2021-08-25 20:24 | PC.NURSE ---
Report called to [facility] Perdomo at this time
[2021-08-25 20:25] LABS: Alanine Aminotransferase 6 U/L (12-78); Albumin Level 2.3 g/dl (3.5-5.0); Albumin/Globulin Ratio 0.8 (1.1-1.8); Alkaline Phosphatase 77 U/L (38-126); Aspartate Amino Transferase 26 U/L (14-36); Bilirubin,Total 0.5 mg/dl (0.2-1.3); Blood Urea Nitrogen 11 mg/dl (7-17); Calcium 6.7 mg/dl (8.4-10.2); Carbon Dioxide 36 mmol/L (22.0-30.0); Chloride 85 mmol/L (98-107); Creatinine Clearance Estimated 35 mL/min (50-200); Estimated Glomerular Filt Rate 97 ml/min (>60); GFR (African American) 117 ML/MIN (>60); Globulin 2.9 g/dL (1.3-3.2); Glucose 67 mg/dl (74-100); Sodium 123 mmol/L (136-145); Total Protein,Serum 5.2 g/dl (6.3-8.2)
[2021-08-25 20:45] VITALS: BP 147/62; PULSE 63; RESP 16; TEMP 36.6; O2SAT 95; BMI 20.2
[2021-08-26] VITALS (25 sets, daily range): BP systolic 110–163; BP diastolic 50–91; PULSE 59–98; RESP 16–18; TEMP 36.5–37.1; O2SAT 95–99; BMI 20.2; BMI 21.2
--- NOTE | 2021-08-26 02:52 | PC.NURSE ---
A&OX4. TOLERATING RA WELL. HAS SLEPT SINCE ARRIVAL TO FLOOR. STANDBY ASSIST IN ROOM. VSS WILL CONTINUE TO MONITOR.
[2021-08-26 05:40] LABS: Basophils % 0.4 % (0.1-2.0); Eosinophils % 0.6 % (0.1-12.0); Hemoglobin 7.8 g/dL (12.2-16.2); Lymphocytes # 0.6 K/mm3 (0.7-4.5); Mean Corpuscular Hemoglobin 25.2 pg (27.0-31.2); Mean Corpuscular Volume 81.1 fl (81-99); Mean Platelet Volume 8.7 fl (7.4-10.4); Monocytes # 0.2 K/mm3 (0.1-1.0); Monocytes % 7.2 % (1.7-9.3); Neutrophils # 1.7 K/mm3 (1.8-7.8); Neutrophils % 68.7 % (37.0-80.0); Platelet Count 228 K/mm3 (142-424); Red Blood Count 3.08 M/mm3 (4.20-5.40); Red Cell Distribution Width 19.1 % (11.5-17.5); White Blood Count 2.4 K/mm3 (4.8-10.8)
--- NOTE | 2021-08-26 07:31 | P.CONPHA_ITS ---
[facility] [place] Pharmacy VTE Monitoring - Patient Demographics Admission date: 08/25/21 Report Date: 08/26/21 Time: 07:31 Allergies/Adverse Reactions: Patient Allergies codeine [CODEINE] Allergy (Mild, Verified 05/18/21 08:14) HEART RACE meloxicam [From MOBIC] Allergy (Mild, Verified 05/18/21 08:14) HEART RACE oxycodone [OXYCODONE] Allergy (Mild, Verified 05/18/21 08:14) HEART RACE propoxyphene [From DARVOCET-N] Allergy (Mild, Verified 05/18/21 08:14) HEART RACE sulfamethoxazole [From BACTRIM] Allergy (Mild, Verified 05/18/21 08:14) HEART RACE trimethoprim [From BACTRIM] Allergy (Mild, Verified 05/18/21 08:14) HEART RACE diphenhydramine [DIPHENHYDRAMINE] Allergy (Unknown, Verified 05/18/21 08:14) HEART RACE doxycycline [DOXYCYCLINE] Allergy (Unknown, Verified 05/18/21 08:14) HEART RACE levofloxacin [From LEVAQUIN] Allergy (Unknown, Verified 05/18/21 08:14) Heart Races metoclopramide [From REGLAN] Allergy (Unknown, Verified 05/18/21 08:14) HEART RACE phenazopyridine [From PYRIDIUM] Allergy (Unknown, Verified 05/18/21 08:14) HEART RACE ciprofloxacin Allergy (Verified 05/18/21 08:14) Quinolones Allergy (Verified 05/18/21 08:14) QUINOLONES Allergy (Unknown, Uncoded 09/25/19 09:33) HEART RACE Height: 1.57 m Weight: 49.895 kg Patient Problems: Current Active Problems Weakness (Acute) Hypokalemia (Acute) - VTE Risk Labs: VTE Related Lab Results Hgb 7.8 g/dL (12.2-16.2) L 08/26/21 04:57 Hct 25.0 % (37.0-47.0) L 08/26/21 04:57 Plt Count 228 K/mm3 (142-424) 08/26/21 04:57 BUN 11 mg/dl (7-17) 08/25/21 19:47 Creatinine 0.60 mg/dl (0.52-1.04) 08/25/21 19:47 Estimated Creat Clear 35 mL/min (50-200) 08/25/21 19:47 - Prophylaxis VTE Prophylaxis Ordered?: Yes Types of VTE Prophylaxis: TEDS Knee High Location of Applied Device: Bilateral Lower Extremeties
--- NOTE | 2021-08-26 10:20 | HMH.HP ---
*Admission Date: 08/25/21 *Chief complaint: weakness *History of present illness: 80-year-old white female who presented to the emergency department with complaints of dizziness and weakness. She states that she was on the commode yesterday when she got very blurry vision and felt dizzy. Patient states her was talking to her but she felt like she was in a tunnel and could not comprehend what he was saying. Patient states the weakness became worse with the confusion and she was brought to ed for eval. She denies passing out or syncope. She denies any chest pain or pressure. She denies shortness of breath or edema. She denies any fever, chills, nausea, vomiting, diarrhea, PND or orthopnea. Patient admitted for weakness, uti, anemia H History I have reviewed the patient's past medical history: Yes Medical History: Reports:: Anxiety, Cancer, Cardiomyopathy, Congestive Heart Failure, Coronary Artery Disease, Gastroesophageal Reflux Disease(GERD), Hiatal Hernia, Hyperlipidemia, Hypertension, Kidney Stones, Myocardial Infarction Denies:: Diabetes Mellitus Type 1, Diabetes Mellitus Type 2, Internal Pacemaker, Lung Disease, MRSA, Seizures *Have you ever received a pneumonia vaccine?: No *Have you received a flu vaccine this season?: No Other Medical History: Reports: Anemia, Arthritis, Cataracts, Hypothyroidism, Liver Disease, Thyroid Disease. Denies: Blood Transfusion Reaction Laterality Cases: Bilateral: Other Other Surgeries: Yes: Appendectomy, Cancer Surgery, Cardiac Catheterization, Cholecystectomy, Colonoscopy, Colon Resection, Hysterectomy-Total, Hysterectomy-Partial, Other. No: Pacemaker Amputation: No Fractures: No - *Social History Smoking Status: Former smoker Tobacco Type: cigarettes #Yrs smoked (if former smoker): 20 Alcohol Intake: never Substance Use Type: denies use *Occupational Status:: retired Housing: house Household Members: spouse *Travel in the last 8 weeks: None - Psychiatric History Pschychiatric History:: Reports:: Anxiety Family Hx:: No significant family history Review of Systems - Review of Systems Review of systems:: pertinent systems reviewed and negative unless documented below - Constitutional Reports fatigue, Reports weakness, Denies body ache(s) - Eyes Denies blurry vision - ENT Denies abnormal hearing - *Cardiovascular Denies chest pain, Denies excessive sweating - *Respiratory Denies change in phlegm color - *Gastrointestinal Denies abdominal pain, Denies nausea, Denies vomiting - *Genitourinary Denies abnormal periods - *Musculoskeletal Denies abnormal walking, Denies back pain - Integumentary/Breasts Denies acne - *Neurologic Denies abnormal walking - Psychiatric Denies lack of enjoyment, Denies anxiety - Endocrine Denies cold intolerance - Hematologic/Lymphatic Denies easy bruising - Allergic/Immunologic Denies GI upset with certain foods Meds Home Medications Medication Instructions Recorded Confirmed Type Atorvastatin Calcium [Lipitor 40mg 40 mg PO HS 09/12/17 08/25/21 History Tablet*] Levothyroxine Sodium 50 mcg PO DAILY 09/12/17 08/25/21 History [Levothyroxine 50mcg (0.05mg) Tab] lisinopriL [Zestril 10mg Tab] 10 mg PO DAILY 03/15/21 08/25/21 History potassium chloride 10 mEq 20 meq PO BID tab 05/18/21 08/26/21 History tablet,extended release(part/cryst) torsemide 20 mg tablet 20 mg PO DAILY tab 05/18/21 08/26/21 History Acetaminophen [Acetaminophen 8 650 mg PO TIDP PRN 08/25/21 08/26/21 History Hour] LORazepam [Lorazepam 0.5mg Tablet] 0.5 mg PO TIDP PRN 08/26/21 08/26/21 History Metoprolol Tartrate [Lopressor 50 mg PO BID 08/26/21 08/26/21 History 25mg tablet] Allergies Allergy/AdvReac Type Severity Reaction Status Date / Time codeine [CODEINE] Allergy Mild HEART RACE Verified 05/18/21 08:14 meloxicam [From MOBIC] Allergy Mild HEART RACE Verified 05/18/21 08:14 oxycodone [OXYCODONE] Allergy Mild HEART RACE
--- NOTE | 2021-08-26 10:23 | HMH.PHAINT ---
home medication list verified using list from outpatient pharmacy and Dr Healy' office
--- NOTE | 2021-08-26 10:36 | PC.NURSE ---
Spoke to CLINTON Desai. Pt has had x4 small, watery BM's since the beginning of this RN's shift. Diarrhea panel order put in and stool has been collected and sent to lab at this time.
--- NOTE | 2021-08-26 10:48 | HMH.PTEV ---
Physical Therapy Evaluation Rehab PT IP Evaluation Start: 08/26/21 10:18 Freq: ONCE Status: Active Protocol: Document 08/26/21 10:39 [facility] (Rec: 08/26/21 10:47 [facility] [id number]) Subjective/History History History this is the initial IP PT evaluation for Chidi Matamoros. Pt is a 80 y/o female admitted to [facility] for UTI, weakness and hypokalemia. Pt had complaints of falls at home from possible syncopal episodes Subjective Subjective Pt c/o loose stools and inability to control them. Pt reports she lives w/ at home and uses walker as ambulatory aid. Pt reports she has had trouble walking since whatever happened to me in January Rehab PT IP Eval Objective Appearance Patient Behavior Appropriate,Cooperative, Anxious Patient Orientation Person,Place,Time,Name, Birthday,Year,Situation Difficulty following instructions none Speech Pattern Clear,Appropriate Ambulation Patient Able to Ambulate Yes Ambulation Observation IP General Gait Pattern Observation No Deviations/Normal Ambulation Distance (feet) 5 Ambulation Assistive Device None Ambulation Ability Contact Guard/Hand Hold Balance Ability to Arise Able, uses arms to help Sitting Balance Steady, safe Standing Balance Narrow stance w/o support Dynamic Sitting Balance Ability Normal Dynamic Standing Balance Ability Fair Transfers Bed Transfer Ability Independent Chair Transfer Ability Independent Sit to Stand Bed Transfer Ability Independent Sit to Stand Chair Transfer Ability Independent ROM All Extremities PT ROM Status WFL MMT All Extremities PT MMT WFL Rehab PT IP prob,goals,plan Problems Date of Evaluation: 08/26/21 PT IP Problems Transfers,Gait,Balance,Self care,Safety Rehab Potential Rehab Potential Good Equipment Needs Assistive Devices Rolling / Wheeled Walker Plan PT Intervention Plan Bed Mobility,Transfers,Gait, Self care,Safety,Therapeutic Exercise PT Plan Frequency BID Duration Goals Met Discharge Goals Bed Transf
[2021-08-26 11:29] LABS: Adenovirus F 40/41, stool Not Detected (NotDetected); Astrovirus Not Detected (NotDetected); Campylobacter Not Detected (NotDetected); Cryptosporidium Not Detected (NotDetected); Cyclospora Cayetanesis Not Detected (NotDetected); Entamoeba histolytica Not Detected (NotDetected); Enteroaggregative E coli Not Detected (NotDetected); Enteropathogenic E coli Not Detected (NotDetected); Enterotoxigenic E coli Not Detected (NotDetected); Giardia lamblia Not Detected (NotDetected); Norovirus Not Detected (NotDetected); Plesimonas Shigalloides, PCR Not Detected (NotDetected); Rotavirus A Not Detected (NotDetected); Salmonella, PCR Not Detected (NotDetected); Sapovirus Not Detected (NotDetected); Shiga-like toxin E coli Not Detected (NotDetected); Shigella Enterovasive E coli Not Detected (NotDetected); Vibrio Cholerae Not Detected (NotDetected); Vibrio, PCR Not Detected (NotDetected); Yersinia Entercolitica, PCR Not Detected (NotDetected)
--- NOTE | 2021-08-26 12:13 | HMH.CNCARD ---
History of Present Illness Consult date: 08/26/21 Requesting physician: Hardeep Null Consult reason: known to you Chief complaint: dizziness History of present illness: This is a 80-year-old white female who presented to the emergency department with complaints of dizziness. She states that she was on the commode yesterday when she got very blurry vision and felt dizzy. She denies passing out or syncope. She denies any chest pain or pressure. She denies shortness of breath or edema. She denies any fever, chills, nausea, vomiting, diarrhea, PND or orthopnea. She denies having edema but she does have edema in her bilateral lower extremities on exam. She is somewhat confused. But she is pleasant and reorients very easily and is able to answer most of my questions appropriately. [facility] History I have reviewed the patient's past medical history: Yes Medical History: Reports:: Anxiety, Cancer, Cardiomyopathy, Congestive Heart Failure, Coronary Artery Disease, Gastroesophageal Reflux Disease(GERD), Hiatal Hernia, Hyperlipidemia, Hypertension, Kidney Stones, Myocardial Infarction Denies:: Diabetes Mellitus Type 1, Diabetes Mellitus Type 2, Internal Pacemaker, Lung Disease, MRSA, Seizures *Have you ever received a pneumonia vaccine?: No *Have you received a flu vaccine this season?: No Other Medical History: Reports: Anemia, Arthritis, Cataracts, Hypothyroidism, Liver Disease, Thyroid Disease. Denies: Blood Transfusion Reaction Laterality Cases: Bilateral: Other Other Surgeries: Yes: Appendectomy, Cancer Surgery, Cardiac Catheterization, Cholecystectomy, Colonoscopy, Colon Resection, Hysterectomy-Total, Hysterectomy-Partial, Other. No: Pacemaker Amputation: No Fractures: No - *Social History Smoking Status: Former smoker Tobacco Type: cigarettes #Yrs smoked (if former smoker): 20 Alcohol Intake: never Substance Use Type: denies use *Occupational Status:: retired Housing: house Household Members: spouse *Travel in the last 8 weeks: None - Psychiatric History Pschychiatric History:: Reports:: Anxiety Family Hx:: No significant family history Meds Home Medications Medication Instructions Recorded Confirmed Type Atorvastatin Calcium [Lipitor 40mg 40 mg PO HS 09/12/17 08/25/21 History Tablet*] Levothyroxine Sodium 50 mcg PO DAILY 09/12/17 08/25/21 History [Levothyroxine 50mcg (0.05mg) Tab] lisinopriL [Zestril 10mg Tab] 10 mg PO DAILY 03/15/21 08/25/21 History potassium chloride 10 mEq 20 meq PO BID tab 05/18/21 08/26/21 History tablet,extended release(part/cryst) torsemide 20 mg tablet 20 mg PO DAILY tab 05/18/21 08/26/21 History Acetaminophen [Acetaminophen 8 650 mg PO TIDP PRN 08/25/21 08/26/21 History Hour] LORazepam [Lorazepam 0.5mg Tablet] 0.5 mg PO TIDP PRN 08/26/21 08/26/21 History Metoprolol Tartrate [Lopressor 50 mg PO BID 08/26/21 08/26/21 History 25mg tablet] Allergies Allergy/AdvReac Type Severity Reaction Status Date / Time codeine [CODEINE] Allergy Mild HEART RACE Verified 05/18/21 08:14 meloxicam [From MOBIC] Allergy Mild HEART RACE Verified 05/18/21 08:14 oxycodone [OXYCODONE] Allergy Mild HEART RACE Verified 05/18/21 08:14 propoxyphene Allergy Mild HEART RACE Verified 05/18/21 08:14 [From DARVOCET-N] sulfamethoxazole Allergy Mild HEART RACE Verified 05/18/21 08:14 [From BACTRIM] trimethoprim [From BACTRIM] Allergy Mild HEART RACE Verified 05/18/21 08:14 diphenhydramine Allergy Unknown HEART RACE Verified 05/18/21 08:14 [DIPHENHYDRAMINE] doxycycline [DOXYCYCLINE] Allergy Unknown HEART RACE Verified 05/18/21 08:14 levofloxacin [From LEVAQUIN] Allergy Unknown Heart Races Verified 05/18/21 08:14 metoclopramide [From REGLAN] Allergy Unknown HEART RACE Verified 05/18/21 08:14 phenazopyridine Allergy Unknown HEART RACE Verified 05/18/21 08:14 [From PYRIDIUM] ciprofloxacin Allergy Verified 05/18/21 08:14 Quinolones Allergy Verified 05/18/21 08:14 QUINOLONES Allergy Unknown HEA
[2021-08-26 13:31] LABS: Reticulocyte % (Auto) 2.4 % (0.9-3.2)
[2021-08-26 13:38] LABS: Clostridium Difficile A/B, PCR Detected (NotDetected)
--- NOTE | 2021-08-26 14:03 | PC.NURSE ---
Addendum entered by Tyra Cuevas RN 08/26/21 15:10: 1420-spoke to Conor Oshea APRN- new results being sent to pharmacy Original Note: 1336- result received from Luzma in lab verified name, and room number [id number]-This RN has attempted to call MD Null' office multiple times and has only been able to get medical assistants voicemail. Will continue to attempt to report this result to providers office
[2021-08-26 14:32] LABS: Troponin I < 0.01 ng/ml (0.00-0.034)
[2021-08-26 15:50] LABS: Vitamin B12 890 pg/mL (239-931)
[2021-08-26 15:54] LABS: Folate 3.58 ng/mL
[2021-08-26 16:01] LABS: Iron 56 ug/dL (37-170)
--- NOTE | 2021-08-26 16:02 | HMH.OTEV ---
OT Inpatient Evaluation Rehab OT IP Evaluation Start: 08/26/21 10:18 Freq: ONCE Status: Complete Protocol: Document 08/26/21 15:55 [facility] (Rec: 08/26/21 16:02 [facility] [id number]) Rehab OT IP Assessment Subjective History Pt was oriented x 3 on arrival . Pt agreeable to engage in therapy evaluation. Pt was admitted via ED on 08/25/21 due to weakness and hypokalemia. Pt has a past medical history of Anxiety, Cancer, Cardiomyopathy, Congestive Heart Failure, Coronary Artery Disease, Gastroesophageal Reflux Disease(GERD), Hiatal Hernia, Hyperlipidemia, Hypertension, Kidney Stones, Myocardial Infarction. Pt reports prior to being in the hospital she lived at home with her . Pt claims she was independent with all ADLs such as dressing, bathing, and eating. Pt reports her family usually cleaned her house for her. However, she was able to cook small meals and complete the laundry. Pt did use a walker during ambulation . Subjective I don't have my walker with me. Pt completed supine to sit in bed with cga. Pt sat at eob with good dynamic sitting balance sba. Pt stood from eob with cga. Pt stood for ~ 20 seconds before sitting back down at eob with cga. Min assist required to go from sitting to supine. Pt was left with call aldrich and all other needs in reach. Objective Patient Orientation Person,Place,Birthday Upper Extremity Gross ROM Min Limitation <25% Shoulder ROM Limitations Muscle Weakness Elbow ROM Limitations Muscle Weakness Wrist Limitations of Range of Motion Muscle Weakness Bed Mobility bed mobility-scooting,bed mobility - supine/sit,bed
[2021-08-26 16:10] LABS: Total Iron Binding Capacity 174 ug/dL (265-497)
[2021-08-26 16:38] LABS: Ferritin 403 ng/ml (11.1-264)
[2021-08-26 17:18] LABS: Troponin I < 0.01 ng/ml (0.00-0.034)
--- NOTE | 2021-08-26 18:49 | PC.NURSE ---
pt has been very anxious this shift and has needed frequent reassurance letting her know that everything was ok. Pt has been a standby assist to and from the bedside commode. Since sending her stool sample earlier this shift, pt has has no other loose BM's. 2nd unit of PRBC's are transfusing at this time, no blood transfusion reactions noted. VSS. No other acute changes or complaints, will continue to monitor.
[2021-08-26 19:40] LABS: Troponin I < 0.01 ng/ml (0.00-0.034)
[2021-08-26 22:09] LABS: Hematocrit 36.8 % (37.0-47.0)
[2021-08-26 22:22] LABS: Hemoglobin 12.3 g/dL (12.2-16.2)
[2021-08-27 04:00] VITALS: BP 153/78; PULSE 72; RESP 18; TEMP 36.9; O2SAT 96
--- NOTE | 2021-08-27 04:24 | PC.NURSE ---
A&OX4. TOLERATING RA WELL. PT HAS SLEPT INTERMITTENTLY T/O SHIFT. HAS GOTTEN UP MULTIPLE TIMES TO USE B/C. NO BM THIS SHIFT THUS FAR. PT IS REQUIRING ENCOURAGEMENT TO HELP NURSE WITH TRANSFER AND MOVEMENT IN BED. NO C/O THUS FAR. CONTACT PRECAUTIONS IN PLACE. BLOOD ADMINISTRATION TOLERATED WELL AT BEGINNING OF SHIFT. VSS WILL CONTINUE TO MONITOR.
[2021-08-27 07:35] LABS: Chloride 98 mmol/L (98-107)
[2021-08-27 07:36] LABS: Potassium 4.4 mmoL/L (3.5-5.1); Sodium 128 mmol/L (136-145)
[2021-08-27 07:38] LABS: Blood Urea Nitrogen 7 mg/dl (7-17); Creatinine Clearance Estimated 38 mL/min (50-200); Estimated Glomerular Filt Rate 119 ml/min (>60); GFR (African American) 144 ML/MIN (>60)
[2021-08-27 07:39] LABS: Anion Gap 5.4 mEq/L (5-15); Calcium 6.9 mg/dl (8.4-10.2); Carbon Dioxide 29 mmol/L (22.0-30.0); Glucose 67 mg/dl (74-100)
[2021-08-27 08:00] VITALS: BP 151/71; PULSE 78; RESP 17; TEMP 36.6; O2SAT 96
[2021-08-27 08:38] LABS: Basophils % 0.9 % (0.1-2.0); Eosinophils % 0.7 % (0.1-12.0); Hematocrit 34.6 % (37.0-47.0); Hemoglobin 11.4 g/dL (12.2-16.2); Lymphocytes # 0.6 K/mm3 (0.7-4.5); Lymphocytes % 15.2 % (10-50); Mean Corpuscular Hemoglobin 27.4 pg (27.0-31.2); Mean Corpuscular Volume 83.1 fl (81-99); Mean Platelet Volume 10.1 fl (7.4-10.4); Monocytes # 0.3 K/mm3 (0.1-1.0); Monocytes % 6.2 % (1.7-9.3); Neutrophils # 3.1 K/mm3 (1.8-7.8); Neutrophils % 77.1 % (37.0-80.0); Platelet Count 200 K/mm3 (142-424); Red Blood Count 4.17 M/mm3 (4.20-5.40); White Blood Count 4.1 K/mm3 (4.8-10.8)
--- NOTE | 2021-08-27 09:31 | HMH.ACPN2 ---
Internal Medicine - PN: [place]ila *Date: 08/27/21 *Time: 19:37 Interval history: 80-year-old female patient up in chair, oxygen saturation 94% on room air. She did test positive for C. difficile and vancomycin p.o. was started, urine culture grew Klebsiella pneumonia and she is on ceftriaxone for that. She received 2 units of red blood cells yesterday for a low H&H this morning H/H 11.4/34.5. She reports she is feeling better today than yesterday, no loose bowel movements during the night. She does have a red raised nonitchy/nonpainful rash to upper body, she reports she did not even know she had the rash until found by staff. We believe this may be allergic reaction and will start Benadryl. Patient does report she lives at home alone with her , and he has multiple medical problems such as weakness, diabetes, uses walker. She expresses she would like to be discharged home we will discuss possible short stay at [facility] in future for rehabilitation Exam Vital signs and Labs for Last 24 Hours: Temp Pulse Resp BP Pulse Ox 98.5 F 72 18 153/78 H 96 08/27/21 04:00 08/27/21 04:00 08/27/21 04:00 08/27/21 04:00 08/27/21 04:00 Laboratory Results - last 24 hr 08/26/21 04:57: Blood Type Confirm O Positive 08/26/21 10:30: Stl Aeromonas (PCR) Not detected, Stl C. cayetanensis PCR Not detected, Stool Rotavirus (PCR) Not detected, Stl Adenov F 40/41 PCR Not detected, Stool Astrovirus (PCR) Not detected, Stool Campylobacter PCR Not detected, Stl C.difficile Tox PCR Detected A, Stool Cryptosporidium PCR Not detected, Stl E.coli Shiga Tox PCR Not detected, Stool E coli O157 PCR Not detected, Stl Enterotoxigenic E PCR Not detected, Stool EPEC (PCR) Not detected, Stool EAEC (PCR) Not detected, Stl E. histolytica PCR Not detected, Stool Giardia Lamblia PCR Not detected, Stool Salmonella PCR Not detected, Stool Sapovirus (PCR) Not detected, Stl P. shigelloides PCR Not detected, Stl Shigella/EIEC PCR Not detected, St Y.enterocolitica PCR Not detected, Stool Vibrio (PCR) Not detected, Stl Vibrio cholerae PCR Not detected, Stl Norovirus GI/GII PCR Not detected 08/26/21 11:45: Blood Type O Positive, Antibody Screen Negative, Crossmatch (AHG) See Detail 08/26/21 11:45: Troponin I < 0.01 08/26/21 11:45: Retic Count (auto) 2.4 08/26/21 11:45: Iron 56, TIBC 174 L, Iron Saturation 32.53461, Ferritin 403 H, Vitamin B12 890, Folate 3.58 08/26/21 13:50: Troponin I < 0.01 08/26/21 16:30: Troponin I < 0.01 08/26/21 22:00: Hgb 12.3 D, Hct 36.8 L 08/27/21 06:35: WBC 4.1 L D, RBC 4.17 L D, Hgb 11.4 L, Hct 34.6 L, MCV 83.1, MCH 27.4, MCHC 33.0, RDW 19.0 H, Plt Count 200, MPV 10.1, Neut % (Auto) 77.1, Lymph % (Auto) 15.2, [place] % (Auto) 6.2, Eos % (Auto) 0.7, Baso % (Auto) 0.9, Neut # (Auto) 3.1, Lymph # (Auto) 0.6 L, [place] # (Auto) 0.3, Eos # (Auto) 0.0, Baso # (Auto) 0.0 08/27/21 06:35: Sodium 128 L, Potassium 4.4 D, Chloride 98, Carbon Dioxide 29, Anion Gap 5.4, BUN 7 D, Creatinine 0.50 L, Estimated Creat Clear 38, Estimated GFR 119, Est GFR ( Amer) 144 D, Glucose 67 L, Calcium 6.9 L I & O for Last 24 hours: Intake & Output 08/24/21 08/25/21 08/26/21 08/27/21 23:59 23:59 23:59 23:59 Intake Total 790 / 790 Output Total 200 / 200 Balance 590 / 590 Weight 110 lb 115 lb 11.2 oz Microbiology Reports for the Last 24 Hours: Microbiology 08/25/21 18:00 Urine,Clean Catch Urine Culture - Final Klebsiella pneumoniae - Constitutional no acute distress, chronically ill appearing - *Routine HEENT Exam Head: Present: normocephalic Eye: Present: EOMI ENT: Present: mucous membranes moist - *Routine Neck Exam Present: trachea midline. Absent: tracheal deviation - *Routine Respiratory Exam Present: CTA bilaterally. Absent: accessory muscle use - *Routine Cardiovascular Exam Present: RRR - *Routine Abdominal Exam Present: soft, normoactive bowel sounds. Absent: tenderness, firm - *Rout
--- NOTE | 2021-08-27 10:43 | PC.NURSE ---
report given to antolin anders at this time
--- NOTE | 2021-08-27 11:36 | HMH.PNCARD ---
Subjective Date: 08/27/21 Time: 11:15 Interval history: This is a 80-year-old white female who presented to the emergency department with complaints of dizziness. She states that she was on the commode when she got blurry vision and got really dizzy. She denied any passing out or syncope. She denies any chest pain or pressure. She denies any shortness of breath or edema. She denies any fever, chills, vomiting, diarrhea, PND or orthopnea. She does complain of a little bit of nausea today And just feeling weak and tired. Exam Vital signs and Labs for Last 24 Hours: Temp Pulse Resp BP Pulse Ox 97.9 F 78 17 151/71 H 96 08/27/21 08:00 08/27/21 08:00 08/27/21 08:00 08/27/21 08:00 08/27/21 08:00 Laboratory Results - last 24 hr 08/26/21 04:57: Blood Type Confirm O Positive 08/26/21 10:30: Stl Aeromonas (PCR) Not detected, Stl C. cayetanensis PCR Not detected, Stool Rotavirus (PCR) Not detected, Stl Adenov F 40/41 PCR Not detected, Stool Astrovirus (PCR) Not detected, Stool Campylobacter PCR Not detected, Stl C.difficile Tox PCR Detected A, Stool Cryptosporidium PCR Not detected, Stl E.coli Shiga Tox PCR Not detected, Stool E coli O157 PCR Not detected, Stl Enterotoxigenic E PCR Not detected, Stool EPEC (PCR) Not detected, Stool EAEC (PCR) Not detected, Stl E. histolytica PCR Not detected, Stool Giardia Lamblia PCR Not detected, Stool Salmonella PCR Not detected, Stool Sapovirus (PCR) Not detected, Stl P. shigelloides PCR Not detected, Stl Shigella/EIEC PCR Not detected, St Y.enterocolitica PCR Not detected, Stool Vibrio (PCR) Not detected, Stl Vibrio cholerae PCR Not detected, Stl Norovirus GI/GII PCR Not detected 08/26/21 11:45: Blood Type O Positive, Antibody Screen Negative, Crossmatch (AHG) See Detail 08/26/21 11:45: Troponin I < 0.01 08/26/21 11:45: Retic Count (auto) 2.4 08/26/21 11:45: Iron 56, TIBC 174 L, Iron Saturation 32.44177, Ferritin 403 H, Vitamin B12 890, Folate 3.58 08/26/21 13:50: Troponin I < 0.01 08/26/21 16:30: Troponin I < 0.01 08/26/21 22:00: Hgb 12.3 D, Hct 36.8 L 08/27/21 06:35: WBC 4.1 L D, RBC 4.17 L D, Hgb 11.4 L, Hct 34.6 L, MCV 83.1, MCH 27.4, MCHC 33.0, RDW 19.0 H, Plt Count 200, MPV 10.1, Neut % (Auto) 77.1, Lymph % (Auto) 15.2, [place] % (Auto) 6.2, Eos % (Auto) 0.7, Baso % (Auto) 0.9, Neut # (Auto) 3.1, Lymph # (Auto) 0.6 L, [place] # (Auto) 0.3, Eos # (Auto) 0.0, Baso # (Auto) 0.0 08/27/21 06:35: Sodium 128 L, Potassium 4.4 D, Chloride 98, Carbon Dioxide 29, Anion Gap 5.4, BUN 7 D, Creatinine 0.50 L, Estimated Creat Clear 38, Estimated GFR 119, Est GFR ( Amer) 144 D, Glucose 67 L, Calcium 6.9 L I & O for Last 24 hours: Intake & Output 08/24/21 08/25/21 08/26/21 08/27/21 23:59 23:59 23:59 23:59 Intake Total 790 / 790 240 / 240 Output Total 200 / 200 600 / 600 Balance 590 / 590 -360 / -360 Weight 110 lb 115 lb 11.2 oz Microbiology Reports for the Last 24 Hours: Microbiology 08/25/21 18:00 Urine,Clean Catch Urine Culture - Final Klebsiella pneumoniae - Constitutional no acute distress, average body habitus - *Routine HEENT Exam Head: Present: normocephalic, atraumatic Eye: Present: EOMI, PERRL ENT: Present: mucous membranes moist - *Routine Neck Exam Present: supple, full ROM, normal carotid upstroke. Absent: JVD, carotid bruit, lymphadenopathy - *Routine Respiratory Exam Present: CTA bilaterally - *Routine Cardiovascular Exam Present: RRR, Normal S1, Normal S2, murmur - *Routine Abdominal Exam Present: soft, normoactive bowel sounds. Absent: tenderness, distended - *Routine Extremities Exam Present: edema, full ROM, pulses intact, normal capillary refill. Absent: cyanosis, clubbing - *Routine Skin Exam Present: intact, warm. Absent: erythema, rash - *Routine Neurological Exam Present: alert, oriented X3, CN II-XII intact. Absent: sensory deficit, motor deficit Progress Note: A&P (1) UTI (urinary tract infection)
[2021-08-27 11:39] VITALS: BP 155/77; PULSE 78; RESP 19; TEMP 36.7; O2SAT 98
[2021-08-27 14:14] VITALS: BMI 21.2
[2021-08-27 16:00] VITALS: BP 151/77; PULSE 83; RESP 16; TEMP 36.9; O2SAT 94
[2021-08-27 20:00] VITALS: BP 155/94; PULSE 99; RESP 16; TEMP 36.9; O2SAT 97
[2021-08-27 23:37] VITALS: BP 160/95; PULSE 98; RESP 14; TEMP 36.8; O2SAT 95
[2021-08-28 04:00] VITALS: BP 164/77; PULSE 98; RESP 16; TEMP 36.9; O2SAT 97
[2021-08-28 05:04] VITALS: BMI 20.4
[2021-08-28 06:54] LABS: Basophils % 0.7 % (0.1-2.0); Eosinophils % 0.8 % (0.1-12.0); Lymphocytes # 0.6 K/mm3 (0.7-4.5); Lymphocytes % 11.3 % (10-50); Mean Corpuscular HGB Conc 33.4 g/dL (31.8-35.4); Mean Corpuscular Hemoglobin 27.4 pg (27.0-31.2); Mean Corpuscular Volume 81.9 fl (81-99); Mean Platelet Volume 9.8 fl (7.4-10.4); Monocytes # 0.3 K/mm3 (0.1-1.0); Monocytes % 5.3 % (1.7-9.3); Neutrophils # 4.2 K/mm3 (1.8-7.8); Neutrophils % 81.8 % (37.0-80.0); Platelet Count 131 K/mm3 (142-424); Red Blood Count 5.13 M/mm3 (4.20-5.40); Red Cell Distribution Width 18.8 % (11.5-17.5); White Blood Count 5.1 K/mm3 (4.8-10.8)
--- NOTE | 2021-08-28 06:59 | PC.NURSE ---
No acute changes. Pt requires encouragement to be independent. No BM t/o shift. No complaints voiced to staff. Call aldrich in reach.
[2021-08-28 07:03] LABS: Chloride 100 mmol/L (98-107); Sodium 126 mmol/L (136-145)
[2021-08-28 07:06] LABS: Blood Urea Nitrogen 8 mg/dl (7-17); Creatinine Clearance Estimated 37 mL/min (50-200); Estimated Glomerular Filt Rate 119 ml/min (>60); GFR (African American) 144 ML/MIN (>60)
[2021-08-28 07:07] LABS: Carbon Dioxide 24 mmol/L (22.0-30.0); Glucose 77 mg/dl (74-100)
[2021-08-28 07:47] VITALS: BP 161/87; PULSE 100; RESP 18; TEMP 36.6; O2SAT 97
[2021-08-28 08:00] VITALS: PULSE 100; RESP 18; O2SAT 97
--- NOTE | 2021-08-28 09:48 | HMH.ACPN2 ---
Internal Medicine - PN: Subj *Date: 08/28/21 *Time: 13:16 Interval history: 80-year-old female patient sitting up in room she reports she is feeling better today than yesterday denies any loose bowel movements during the night. She does complain of some mouth and throat soreness, there are no visible issues. Urine has grown Klebsiella pneumoniae and she is on ceftriaxone IV. Discussed possibility of discharging to rehab facility before home, she is agreeable to this and we are currently planning discharge. Exam Vital signs and Labs for Last 24 Hours: Temp Pulse Resp BP Pulse Ox 97.8 F 100 H 18 161/87 H 97 08/28/21 07:47 08/28/21 07:47 08/28/21 07:47 08/28/21 07:47 08/28/21 07:47 Laboratory Results - last 24 hr 08/28/21 06:17: WBC 5.1, RBC 5.13, Hgb 14.0 D, Hct 42.0, MCV 81.9, MCH 27.4, MCHC 33.4, RDW 18.8 H, Plt Count 131 L D, MPV 9.8, Neut % (Auto) 81.8 H, Lymph % (Auto) 11.3, [place] % (Auto) 5.3, Eos % (Auto) 0.8, Baso % (Auto) 0.7, Neut # (Auto) 4.2, Lymph # (Auto) 0.6 L, [place] # (Auto) 0.3, Eos # (Auto) 0.0, Baso # (Auto) 0.0 08/28/21 06:17: Sodium 126 L, Potassium 5.0, Chloride 100, Carbon Dioxide 24, Anion Gap 7.0, BUN 8, Creatinine 0.50 L, Estimated Creat Clear 37, Estimated GFR 119, Est GFR ( Amer) 144, Glucose 77, Calcium 7.0 L I & O for Last 24 hours: Intake & Output 08/25/21 08/26/21 08/27/21 08/28/21 23:59 23:59 23:59 23:59 Intake Total 790 / 790 780 / 780 120 / 120 Output Total 200 / 200 600 / 600 Balance 590 / 590 180 / 180 120 / 120 Weight 110 lb 115 lb 11.2 oz 115 lb 11.177 oz 111 lb Microbiology Reports for the Last 24 Hours: Microbiology 08/25/21 18:00 Urine,Clean Catch Urine Culture - Final Klebsiella pneumoniae - Constitutional no acute distress, chronically ill appearing - *Routine HEENT Exam Head: Present: normocephalic Eye: Present: EOMI ENT: Present: mucous membranes moist - *Routine Neck Exam Present: trachea midline. Absent: tracheal deviation - *Routine Respiratory Exam Present: decreased breath sounds. Absent: accessory muscle use - *Routine Cardiovascular Exam Present: RRR - *Routine Abdominal Exam Present: soft, normoactive bowel sounds. Absent: tenderness - *Routine Extremities Exam Present: full ROM, pulses intact. Absent: cyanosis, clubbing - *Routine Skin Exam Present: intact, dry. Absent: cyanosis, erythema - *Routine Neurological Exam Present: alert, oriented X3. Absent: motor deficit - Routine Psychiatric Exam Present: normal affect, normal thought process. Absent: auditory hallucinations Assessment and Plan (1) UTI (urinary tract infection) Start date: 08/25/21 ( klebsiella pneumonia ) Status: Acute Qualifiers: Urinary tract infection type: acute cystitis Category: Medical Code(s): N39.0 - Urinary tract infection, site not specified (2) Dizziness Status: Acute Category: Medical Code(s): R42 - Dizziness and giddiness (3) Hypokalemia Status: Acute Category: Medical Code(s): E87.6 - Hypokalemia (4) Weakness Status: Acute Category: Medical Code(s): R53.1 - Weakness (5) Anemia Status: Chronic Qualifiers: Anemia type: unspecified type Qualified Code(s): D64.9 - Anemia, unspecified Category: Medical Code(s): D64.9 - Anemia, unspecified (6) C. difficile colitis Status: Acute Category: Medical Code(s): A04.72 - Enterocolitis due to Clostridium difficile, not specified as recurrent (7) Severe protein-calorie malnutrition Status: Acute Category: Medical Code(s): E43 - Unspecified severe protein-calorie malnutrition - Assessment and plan all Dx Assessment and Plan for all problems:: Rounded with Dr. Null, all orders per Dr. Null: 1. Continue current medical regimen 2. Magic mouthwash 3. Plan for discharge to rehab facility
--- NOTE | 2021-08-28 10:07 | SW/DCPLANNER ---
Addendum entered by Latonia De Souza 09/01/21 14:19: PATIENT WAS ACCEPTED TO [facility] BUT HER COVID SWAB CAME BACK POSITIVE.. [facility] CAN NOT TAKE HER SO I HAVE SENT IT TO [facility] AND WAITING TO HEAR BACK.. Addendum entered by Latonia De Souza 09/01/21 06:53: SON REQUESTED [facility] AND I DID SEND REFERRAL AND SHE WAS DECLINED THERE STATING SHE WAS THERE BEFORE AND WANTED TO LEAVE STATING THE CARE WAS HORRIBLE.. WILL SEND IT TO [facility]... Addendum entered by Latonia De Souza 08/31/21 13:13: [facility] DECLINED PATIENT, I ASKED SON ABOUT [facility] AND CALLED THEM AND THEY DON'T HAVE A BED.. SENT IT TO [facility] [place] AND WAITING TO HEAR BACK FROM THEM.. I SENT IT TO [facility] AND WAITING TO HEAR TO WHETHER THEY HAVE A BED OR NOT...PATIENT WAS ADMANT SHE WASN'T GOING ANYWHERE BUT [facility] BUT WHEN I CALLED THE SON HE STATED SHE CAN NOT GO HOME AND HE WORKS AND SHE HAS TO GO SOMEWHERE SO HE RECOMMENDED ME TO TRY AND FIND A BED AND HE WILL COME AND TALK TO HER... Addendum entered by Latonia De Souza 08/31/21 10:01: SENT UPDATES ON THIS PATIENT IN HOPES SHE WILL BE ABLE TO GO TODAY.. WAITING TO HEAR BACK. Addendum entered by Latonia De Souza 08/28/21 13:48: [facility] STATED THEY ARE INTERESTED WHEN A BED OPENS UP.. SHE SAID SHE WILL BE IN TOUCH WITH ME THE FIRST OF NEXT WEEK.. Original Note: SENT REFERRAL TO [facility] TO EVALUATE FOR SHORT TERM PLACEMENT PER PATIENT REQUEST.. MD DISCUSSED PATIENT BEING CLOSE TO READY FOR A DISPOSITION HOWEVER PATIENT STATED SHE WAS NOT ABLE TO GO HOME AND CARE FOR HERSELF... I DID SPEAK WITH [facility] AND SHE SAID THEY DIDN'T HAVE ANY BEDS BUT WOULD HAVE ONE THE FIRST OF THE WEEK. I SENT IT FOR REVIEW AND UPDATES CAN BE GIVEN ON TUESDAY AND IF ACCEPTED AND BED AVAILABLE SHE MAY DISCHARGE PENDING SHE HAS NO SETBACKS OVER THE WEEKEND..
--- NOTE | 2021-08-28 12:53 | DIET.NUTRFU ---
Patient at risk for malnutrition due to previous wt loss of 12% in 6months plus poor po intake during stay secondary to diarrhea and throat hurting. She refuses to try supplements afraid they will cause diarrhea or stomach upset. RD also suggested high calorie choices on trays. She agreed to try sherbet with lunch.
--- NOTE | 2021-08-28 14:48 | PC.NURSE ---
Pt has been pleasant and cooperative this shift, although pt is extremely hesitant to be independent. A&O X4. No complaints of pain. Pt is currently on room air with sats. >90%. Lungs CTA. 1+ pitting edema noted to BLE. Skin is C/D/I. Pt ambulates with stand-by assistance and sat up in the chair for a couple of hours today. Pt uses the BSC to void clear, yellow urine without issue. No BM thus far today. Appetite is fair pt eats about 25-50% of all meals. 20 G peripheral IV in the LT forearm is patent and infusing NS w/ 20 K+ @ 75 ML/HR. VSS. Call light within reach. Will continue to monitor.
[2021-08-28 15:28] VITALS: BP 145/76; PULSE 67; RESP 18; TEMP 36.8; O2SAT 97
[2021-08-28 20:00] VITALS: BP 132/70; PULSE 77; RESP 14; TEMP 36.8; O2SAT 95
[2021-08-29] VITALS: BP 135/75; PULSE 75; RESP 16; TEMP 37.3; O2SAT 94
[2021-08-29 05:24] VITALS: BP 150/72; PULSE 67; RESP 14; TEMP 37.3; O2SAT 95; BMI 20.4
[2021-08-29 06:45] LABS: Occult Blood,Stool Negative (Negative)
[2021-08-29 08:00] VITALS: BP 150/69; PULSE 69; RESP 16; TEMP 36.7; O2SAT 97
[2021-08-29 09:29] LABS: Basophils % 0.6 % (0.1-2.0); Eosinophils # 0.1 K/mm3 (0.0-0.4); Eosinophils % 2.1 % (0.1-12.0); Hematocrit 38.8 % (37.0-47.0); Hemoglobin 12.8 g/dL (12.2-16.2); Lymphocytes # 0.7 K/mm3 (0.7-4.5); Lymphocytes % 10.5 % (10-50); Mean Corpuscular HGB Conc 32.9 g/dL (31.8-35.4); Mean Corpuscular Hemoglobin 27.6 pg (27.0-31.2); Mean Corpuscular Volume 83.8 fl (81-99); Mean Platelet Volume 10.2 fl (7.4-10.4); Monocytes # 0.3 K/mm3 (0.1-1.0); Monocytes % 4.6 % (1.7-9.3); Neutrophils # 5.1 K/mm3 (1.8-7.8); Neutrophils % 82.1 % (37.0-80.0); Platelet Count 164 K/mm3 (142-424); Red Blood Count 4.63 M/mm3 (4.20-5.40); White Blood Count 6.2 K/mm3 (4.8-10.8)
[2021-08-29 10:02] LABS: Anion Gap 10.7 mEq/L (5-15); Blood Urea Nitrogen 7 mg/dl (7-17); Calcium 6.9 mg/dl (8.4-10.2); Carbon Dioxide 21 mmol/L (22.0-30.0); Chloride 98 mmol/L (98-107); Creatinine Clearance Estimated 37 mL/min (50-200); Estimated Glomerular Filt Rate 119 ml/min (>60); GFR (African American) 144 ML/MIN (>60); Glucose 67 mg/dl (74-100); Potassium 5.7 mmoL/L (3.5-5.1); Sodium 124 mmol/L (136-145)
--- NOTE | 2021-08-29 11:22 | HMH.ACPN ---
Internal Medicine - PN: Subj *Date: 08/29/21 *Time: 11:22 Exam Vital signs and Labs for Last 24 Hours: Temp Pulse Resp BP Pulse Ox 98.1 F 69 16 150/69 H 97 08/29/21 08:00 08/29/21 08:00 08/29/21 08:00 08/29/21 08:00 08/29/21 08:00 Laboratory Results - last 24 hr 08/29/21 06:20: Stool Occult Blood Negative 08/29/21 09:10: WBC 6.2, RBC 4.63, Hgb 12.8, Hct 38.8, MCV 83.8, MCH 27.6, MCHC 32.9, RDW 19.0 H, Plt Count 164 D, MPV 10.2, Neut % (Auto) 82.1 H, Lymph % (Auto) 10.5, [place] % (Auto) 4.6, Eos % (Auto) 2.1, Baso % (Auto) 0.6, Neut # (Auto) 5.1, Lymph # (Auto) 0.7, [place] # (Auto) 0.3, Eos # (Auto) 0.1, Baso # (Auto) 0.0 08/29/21 09:10: Sodium 124 L, Potassium 5.7 H, Chloride 98, Carbon Dioxide 21 L, Anion Gap 10.7, BUN 7, Creatinine 0.50 L, Estimated Creat Clear 37, Estimated GFR 119, Est GFR ( Amer) 144, Glucose 67 L, Calcium 6.9 L I & O for Last 24 hours: Intake & Output 08/26/21 08/27/21 08/28/21 08/29/21 23:59 23:59 23:59 23:59 Intake Total 790 / 790 780 / 780 2755 / 2755 Output Total 200 / 200 600 / 600 Balance 590 / 590 180 / 180 2755 / 2755 Weight 52.481 kg 52.48 kg 50.349 kg 50.34 kg Assessment and Plan (1) UTI (urinary tract infection) Start date: 08/25/21 ( klebsiella pneumonia ) Status: Acute Qualifiers: Urinary tract infection type: acute cystitis Category: Medical Code(s): N39.0 - Urinary tract infection, site not specified (2) Dizziness Status: Acute Category: Medical Code(s): R42 - Dizziness and giddiness (3) Hypokalemia Status: Acute Category: Medical Code(s): E87.6 - Hypokalemia (4) Weakness Status: Acute Category: Medical Code(s): R53.1 - Weakness (5) Anemia Status: Chronic Qualifiers: Anemia type: unspecified type Qualified Code(s): D64.9 - Anemia, unspecified Category: Medical Code(s): D64.9 - Anemia, unspecified (6) C. difficile colitis Status: Acute Category: Medical Code(s): A04.72 - Enterocolitis due to Clostridium difficile, not specified as recurrent (7) Severe protein-calorie malnutrition Status: Acute Category: Medical Code(s): E43 - Unspecified severe protein-calorie malnutrition The patient's infection will respond to the chosen ABx?: Yes Is the patient receiving the right drug, dose, and route?: Yes Could a more targeted ABx be ordered?: No (KLEBSIELLA SENSITIVE TO ROCEPHIN)
--- NOTE | 2021-08-29 15:49 | HMH.ACPN2 ---
Internal Medicine - PN: Subj *Date: 08/29/21 *Time: 15:49 Interval history: Patient had a fairly uneventful night. She continues to be globally weak but generally looks better. Urine culture is growing Klebsiella sensitive to Rocephin. Differential is being treated. We are correcting electrolyte aberrations We had discussed with the patient yesterday the possibility of the short-term rehab Exam Vital signs and Labs for Last 24 Hours: Temp Pulse Resp BP Pulse Ox 98.1 F 69 16 150/69 H 97 08/29/21 08:00 08/29/21 08:00 08/29/21 08:00 08/29/21 08:00 08/29/21 08:00 Laboratory Results - last 24 hr 08/29/21 06:20: Stool Occult Blood Negative 08/29/21 09:10: WBC 6.2, RBC 4.63, Hgb 12.8, Hct 38.8, MCV 83.8, MCH 27.6, MCHC 32.9, RDW 19.0 H, Plt Count 164 D, MPV 10.2, Neut % (Auto) 82.1 H, Lymph % (Auto) 10.5, [place] % (Auto) 4.6, Eos % (Auto) 2.1, Baso % (Auto) 0.6, Neut # (Auto) 5.1, Lymph # (Auto) 0.7, [place] # (Auto) 0.3, Eos # (Auto) 0.1, Baso # (Auto) 0.0 08/29/21 09:10: Sodium 124 L, Potassium 5.7 H, Chloride 98, Carbon Dioxide 21 L, Anion Gap 10.7, BUN 7, Creatinine 0.50 L, Estimated Creat Clear 37, Estimated GFR 119, Est GFR ( Amer) 144, Glucose 67 L, Calcium 6.9 L I & O for Last 24 hours: Intake & Output 08/26/21 08/27/21 08/28/21 08/29/21 23:59 23:59 23:59 23:59 Intake Total 790 / 790 780 / 780 2755 / 2755 240 / 240 Output Total 200 / 200 600 / 600 Balance 590 / 590 180 / 180 2755 / 2755 240 / 240 Weight 115 lb 11.2 oz 115 lb 11.177 oz 111 lb 110 lb 15.691 oz - Constitutional no acute distress, thin, chronically ill appearing - *Routine HEENT Exam Head: Present: normocephalic Eye: Present: EOMI, PERRL ENT: Present: mucous membranes moist - *Routine Neck Exam Present: supple. Absent: lymphadenopathy - *Routine Respiratory Exam Present: CTA bilaterally - *Routine Cardiovascular Exam Present: RRR - *Routine Abdominal Exam Present: soft, normoactive bowel sounds. Absent: tenderness - *Routine Extremities Exam Absent: cyanosis, clubbing, edema - *Routine Skin Exam Present: warm. Absent: rash - *Routine Neurological Exam Present: alert, oriented X3, vision grossly intact, hearing grossly intact, normal speech. Absent: tremors Assessment and Plan (1) UTI (urinary tract infection) Start date: 08/25/21 ( klebsiella pneumonia ) Status: Acute Qualifiers: Urinary tract infection type: acute cystitis Category: Medical Code(s): N39.0 - Urinary tract infection, site not specified (2) Dizziness Status: Acute Category: Medical Code(s): R42 - Dizziness and giddiness (3) Hypokalemia Status: Acute Category: Medical Code(s): E87.6 - Hypokalemia (4) Weakness Status: Acute Category: Medical Code(s): R53.1 - Weakness (5) Anemia Status: Chronic Qualifiers: Anemia type: unspecified type Qualified Code(s): D64.9 - Anemia, unspecified Category: Medical Code(s): D64.9 - Anemia, unspecified (6) C. difficile colitis Status: Acute Category: Medical Code(s): A04.72 - Enterocolitis due to Clostridium difficile, not specified as recurrent (7) Severe protein-calorie malnutrition Status: Acute Category: Medical Code(s): E43 - Unspecified severe protein-calorie malnutrition - Assessment and plan all Dx Assessment and Plan for all problems:: Will continue patient's current regimen. Klebsiella pneumonia is source of her UTI and she has had multiple bouts of C. difficile. See chart for further details
[2021-08-29 16:00] VITALS: BP 163/75; PULSE 71; RESP 16; TEMP 37.1; O2SAT 99
[2021-08-29 17:07] LABS: Chloride 99 mmol/L (98-107); Sodium 126 mmol/L (136-145)
[2021-08-29 17:08] LABS: Potassium 5.1 mmoL/L (3.5-5.1)
[2021-08-29 17:10] LABS: Anion Gap 9.1 mEq/L (5-15); Blood Urea Nitrogen 9 mg/dl (7-17); Carbon Dioxide 23 mmol/L (22.0-30.0); Creatinine Clearance Estimated 37 mL/min (50-200); Estimated Glomerular Filt Rate 97 ml/min (>60); GFR (African American) 117 ML/MIN (>60)
[2021-08-29 17:11] LABS: Calcium 6.8 mg/dl (8.4-10.2); Glucose 70 mg/dl (74-100)
[2021-08-29 17:48] LABS: Magnesium 0.9 mg/dl (1.6-2.3)
--- NOTE | 2021-08-29 19:12 | PC.NURSE ---
RN called lab and requested AM lab draw; patients potassium had been trending upward overnight; patient fluids turned off. Provider notified and fluids reordered. Please refer to eMAR. Patient continue to complain of intermittent cramping throughout shift. Labs ordered. Critical Magnesium level of 0.9 was reported to MD Tennille; 2 grams of IV magnesium sulfate were then ordered. Patient continued to have steady bowel movements throughout shift.
--- NOTE | 2021-08-30 01:57 | PC.WOUNDNOTE ---
stage 2 left gluteal. approx. 1cm x 1 cm round in shape. opening in center. reddened gluteal fold
[2021-08-30 04:00] VITALS: BP 140/74; PULSE 61; RESP 15; TEMP 36.9; O2SAT 98
[2021-08-30 06:54] LABS: Basophils % 0.6 % (0.1-2.0); Eosinophils % 1.1 % (0.1-12.0); Hematocrit 30.1 % (37.0-47.0); Lymphocytes # 0.5 K/mm3 (0.7-4.5); Lymphocytes % 12.5 % (10-50); Mean Corpuscular HGB Conc 34.3 g/dL (31.8-35.4); Mean Corpuscular Hemoglobin 28.6 pg (27.0-31.2); Mean Corpuscular Volume 83.4 fl (81-99); Mean Platelet Volume 10.9 fl (7.4-10.4); Monocytes # 0.2 K/mm3 (0.1-1.0); Monocytes % 6.3 % (1.7-9.3); Neutrophils # 3.1 K/mm3 (1.8-7.8); Neutrophils % 79.5 % (37.0-80.0); Platelet Count 162 K/mm3 (142-424); Red Blood Count 3.61 M/mm3 (4.20-5.40); Red Cell Distribution Width 19.3 % (11.5-17.5); White Blood Count 3.9 K/mm3 (4.8-10.8)
[2021-08-30 06:58] LABS: Anion Gap 6.6 mEq/L (5-15); Blood Urea Nitrogen 8 mg/dl (7-17); Calcium 6.7 mg/dl (8.4-10.2); Carbon Dioxide 23 mmol/L (22.0-30.0); Chloride 97 mmol/L (98-107); Creatinine Clearance Estimated 37 mL/min (50-200); Estimated Glomerular Filt Rate 119 ml/min (>60); GFR (African American) 144 ML/MIN (>60); Glucose 69 mg/dl (74-100); Hemoglobin 10.3 g/dL (12.2-16.2); Potassium 4.6 mmoL/L (3.5-5.1); Sodium 122 mmol/L (136-145)
[2021-08-30 08:00] VITALS: BP 127/51; PULSE 68; RESP 16; TEMP 36.9; O2SAT 96
--- NOTE | 2021-08-30 13:52 | HMH.ACPN2 ---
Internal Medicine - PN: Subj *Date: 08/30/21 *Time: 13:52 Interval history: Patient had no significant events overnight. She was noted to have some involuntary muscle twitching yesterday, magnesium was critically low, replaced with 2 g. Muscular symptoms resolved. Overall she feels better, is eating well but continues to be globally weak. Urine has grown out Klebsiella pneumonia sensitive to Rocephin. We are also aware of her recurrent C. difficile situation. Exam Vital signs and Labs for Last 24 Hours: Temp Pulse Resp BP Pulse Ox 98.5 F 68 16 127/51 L 96 08/30/21 08:00 08/30/21 08:00 08/30/21 08:00 08/30/21 08:00 08/30/21 08:00 Laboratory Results - last 24 hr 08/29/21 16:25: Sodium 126 L, Potassium 5.1, Chloride 99, Carbon Dioxide 23, Anion Gap 9.1, BUN 9 D, Creatinine 0.60, Estimated Creat Clear 37, Estimated GFR 97, Est GFR ( Amer) 117, Glucose 70 L, Calcium 6.8 L, Magnesium 0.9 L 08/30/21 06:05: WBC 3.9 L D, RBC 3.61 L, Hgb 10.3 L D, Hct 30.1 L, MCV 83.4, MCH 28.6, MCHC 34.3, RDW 19.3 H, Plt Count 162, MPV 10.9 H, Neut % (Auto) 79.5, Lymph % (Auto) 12.5, [place] % (Auto) 6.3, Eos % (Auto) 1.1, Baso % (Auto) 0.6, Neut # (Auto) 3.1, Lymph # (Auto) 0.5 L, [place] # (Auto) 0.2, Eos # (Auto) 0.0, Baso # (Auto) 0.0 08/30/21 06:05: Sodium 122 L, Potassium 4.6, Chloride 97 L, Carbon Dioxide 23, Anion Gap 6.6, BUN 8, Creatinine 0.50 L, Estimated Creat Clear 37, Estimated GFR 119, Est GFR ( Amer) 144 D, Glucose 69 L, Calcium 6.7 L I & O for Last 24 hours: Intake & Output 08/27/21 08/28/21 08/29/21 08/30/21 23:59 23:59 23:59 23:59 Intake Total 780 / 780 2755 / 2755 1320 / 1320 1500 / 1500 Output Total 600 / 600 200 / 200 Balance 180 / 180 2755 / 2755 1320 / 1320 1300 / 1300 Weight 115 lb 11.177 oz 111 lb 110 lb 15.691 oz - Constitutional no acute distress, chronically ill appearing, cooperative - *Routine HEENT Exam Head: Present: normocephalic Eye: Present: EOMI, PERRL ENT: Present: mucous membranes moist - *Routine Neck Exam Present: supple. Absent: lymphadenopathy - *Routine Respiratory Exam Present: CTA bilaterally - *Routine Cardiovascular Exam Present: RRR - *Routine Abdominal Exam Present: soft, normoactive bowel sounds. Absent: tenderness - *Routine Extremities Exam Absent: cyanosis, clubbing, edema - *Routine Skin Exam Present: warm. Absent: rash - *Routine Neurological Exam Present: alert, oriented X3, normal speech. Absent: clonus, facial asymmetry, tremors Assessment and Plan (1) UTI (urinary tract infection) Start date: 08/25/21 ( klebsiella pneumonia ) Status: Acute Qualifiers: Urinary tract infection type: acute cystitis Category: Medical Code(s): N39.0 - Urinary tract infection, site not specified (2) Dizziness Status: Acute Category: Medical Code(s): R42 - Dizziness and giddiness (3) Hypokalemia Status: Acute Category: Medical Code(s): E87.6 - Hypokalemia (4) Weakness Status: Acute Category: Medical Code(s): R53.1 - Weakness (5) Anemia Status: Chronic Qualifiers: Anemia type: unspecified type Qualified Code(s): D64.9 - Anemia, unspecified Category: Medical Code(s): D64.9 - Anemia, unspecified (6) C. difficile colitis Status: Acute Category: Medical Code(s): A04.72 - Enterocolitis due to Clostridium difficile, not specified as recurrent (7) Severe protein-calorie malnutrition Status: Acute Category: Medical Code(s): E43 - Unspecified severe protein-calorie malnutrition - Assessment and plan all Dx Assessment and Plan for all problems:: Will continue current regimen. See chart for further orders
[2021-08-30 16:00] VITALS: BP 136/71; PULSE 67; RESP 16; TEMP 36.7; O2SAT 96
[2021-08-30 20:00] VITALS: O2SAT 98
[2021-08-31 05:00] VITALS: BP 131/61; PULSE 63; RESP 15; TEMP 36.7; O2SAT 100; BMI 21.4
[2021-08-31 07:33] LABS: Eosinophils # 0.1 K/mm3 (0.0-0.4); Eosinophils % 1.5 % (0.1-12.0); Hematocrit 35.2 % (37.0-47.0); Hemoglobin 11.8 g/dL (12.2-16.2); Lymphocytes # 0.8 K/mm3 (0.7-4.5); Lymphocytes % 20.4 % (10-50); Mean Corpuscular HGB Conc 33.6 g/dL (31.8-35.4); Mean Corpuscular Hemoglobin 27.5 pg (27.0-31.2); Mean Corpuscular Volume 81.8 fl (81-99); Mean Platelet Volume 10.2 fl (7.4-10.4); Monocytes # 0.2 K/mm3 (0.1-1.0); Monocytes % 5.6 % (1.7-9.3); Neutrophils # 2.8 K/mm3 (1.8-7.8); Neutrophils % 71.5 % (37.0-80.0); Platelet Count 165 K/mm3 (142-424); Red Cell Distribution Width 18.9 % (11.5-17.5)
[2021-08-31 08:00] VITALS: BP 138/74; PULSE 64; RESP 17; TEMP 36.4; O2SAT 99
[2021-08-31 08:27] LABS: Alanine Aminotransferase 5 U/L (12-78); Albumin/Globulin Ratio 0.7 (1.1-1.8); Alkaline Phosphatase 69 U/L (38-126); Anion Gap 8.2 mEq/L (5-15); Aspartate Amino Transferase 41 U/L (14-36); Bilirubin,Total 0.7 mg/dl (0.2-1.3); Blood Urea Nitrogen 8 mg/dl (7-17); Calcium 7.1 mg/dl (8.4-10.2); Carbon Dioxide 22 mmol/L (22.0-30.0); Chloride 100 mmol/L (98-107); Creatinine Clearance Estimated 39 mL/min (50-200); Estimated Glomerular Filt Rate 119 ml/min (>60); GFR (African American) 144 ML/MIN (>60); Globulin 2.9 g/dL (1.3-3.2); Glucose 63 mg/dl (74-100); Magnesium 1.3 mg/dl (1.6-2.3); Potassium 4.2 mmoL/L (3.5-5.1); Sodium 126 mmol/L (136-145); Total Protein,Serum 4.9 g/dl (6.3-8.2)
[2021-08-31 15:40] VITALS: BP 143/71; PULSE 67; RESP 16; TEMP 36.4; O2SAT 92
--- NOTE | 2021-08-31 17:13 | P.PN_ITS ---
Internal Medicine - PN: Subj *Date: 08/31/21 *Time: 08:45 Interval history: pt laying in bed states doing well Exam Vital signs and Labs for Last 24 Hours: Temp Pulse Resp BP Pulse Ox 97.6 F 67 16 143/71 H 92 L 08/31/21 15:40 08/31/21 15:40 08/31/21 15:40 08/31/21 15:40 08/31/21 15:40 Laboratory Results - last 24 hr 08/31/21 06:30: WBC 4.0 L, RBC 4.30, Hgb 11.8 L, Hct 35.2 L, MCV 81.8, MCH 27.5, MCHC 33.6, RDW 18.9 H, Plt Count 165, MPV 10.2, Neut % (Auto) 71.5, Lymph % (Auto) 20.4, [place] % (Auto) 5.6, Eos % (Auto) 1.5, Baso % (Auto) 1.0, Neut # (Auto) 2.8, Lymph # (Auto) 0.8, [place] # (Auto) 0.2, Eos # (Auto) 0.1, Baso # (Auto) 0.0 08/31/21 06:30: Sodium 126 L, Potassium 4.2, Chloride 100, Carbon Dioxide 22, Anion Gap 8.2, BUN 8, Creatinine 0.50 L, Estimated Creat Clear 39, Estimated GFR 119, Est GFR ( Amer) 144, Glucose 63 L, Calcium 7.1 L, Magnesium 1.3 L D, Total Bilirubin 0.7, AST 41 H, ALT 5 L, Alkaline Phosphatase 69, Total Protein 4.9 L, Albumin 2.0 L, Globulin 2.9, Albumin/Globulin Ratio 0.7 L I & O for Last 24 hours: Intake & Output 08/29/21 08/30/21 08/31/21 09/01/21 11:59 11:59 11:59 11:59 Intake Total 2875 / 2875 2580 / 2580 960 / 960 Output Total 200 / 200 Balance 2875 / 2875 2380 / 2380 960 / 960 Weight 110 lb 15.691 oz 116 lb 3.2 oz - Constitutional no acute distress - *Routine HEENT Exam Head: Present: normocephalic Eye: Present: PERRL ENT: Present: mucous membranes moist - *Routine Neck Exam Present: supple. Absent: lymphadenopathy - *Routine Respiratory Exam Present: CTA bilaterally - *Routine Cardiovascular Exam Present: RRR - *Routine Abdominal Exam Present: soft, normoactive bowel sounds. Absent: tenderness - *Routine Extremities Exam Absent: cyanosis, clubbing, edema - *Routine Skin Exam Present: warm. Absent: rash - *Routine Neurological Exam Present: alert, oriented X3 Assessment and Plan (1) UTI (urinary tract infection) Start date: 08/25/21 ( klebsiella pneumonia ) Status: Acute Qualifiers: Urinary tract infection type: acute cystitis Category: Medical Code(s): N39.0 - Urinary tract infection, site not specified (2) Dizziness Status: Acute Category: Medical Code(s): R42 - Dizziness and giddiness (3) Hypokalemia Status: Acute Category: Medical Code(s): E87.6 - Hypokalemia (4) Weakness Status: Acute Category: Medical Code(s): R53.1 - Weakness (5) Anemia Status: Chronic Qualifiers: Anemia type: unspecified type Qualified Code(s): D64.9 - Anemia, unspecified Category: Medical Code(s): D64.9 - Anemia, unspecified (6) C. difficile colitis Status: Acute Category: Medical Code(s): A04.72 - Enterocolitis due to Clostridium difficile, not specified as recurrent (7) Severe protein-calorie malnutrition Status: Acute Category: Medical Code(s): E43 - Unspecified severe protein- calorie malnutrition - Assessment and plan all Dx Assessment and Plan for all problems:: rounded with dr tracey all orders per dr tracey waiting for rehab placement at [facility]
[2021-08-31 20:00] VITALS: BP 147/63; PULSE 62; RESP 17; TEMP 36.6; O2SAT 99
[2021-09-01 04:00] VITALS: BP 138/74; PULSE 62; RESP 17; TEMP 36.7; O2SAT 96
[2021-09-01 05:00] VITALS: BMI 21.3
--- NOTE | 2021-09-01 05:31 | PC.NURSE ---
pt alert and oriented with no c/o pain or SOA t/o shift, remains on RA, vital signs stable. Pt has had multiple loose stools t/o shift. Patient is currently without IV access and refuses to let this RN start new IV or get a.m. labs. She states that she will talk to the Dr today but does not need the IV at this time. Pt was educated on the need for labs and fluids but still declines. Call aldrich in reach will continue to monitor.
[2021-09-01 08:00] VITALS: BP 151/68; PULSE 68; RESP 14; TEMP 36.4; O2SAT 98
[2021-09-01 10:20] LABS: Chloride 98 mmol/L (98-107); Potassium 4.1 mmoL/L (3.5-5.1); Sodium 126 mmol/L (136-145)
[2021-09-01 10:23] LABS: Anion Gap 8.1 mEq/L (5-15); Blood Urea Nitrogen 12 mg/dl (7-17); Calcium 7.6 mg/dl (8.4-10.2); Carbon Dioxide 24 mmol/L (22.0-30.0); Creatinine Clearance Estimated 38 mL/min (50-200); Estimated Glomerular Filt Rate 97 ml/min (>60); GFR (African American) 117 ML/MIN (>60); Glucose 100 mg/dl (74-100)
--- NOTE | 2021-09-01 10:28 | HMH.DCSUM ---
General - General Admission date:: 08/26/21 Discharge date: 09/01/21 HPI HPI: 80-year-old white female who presented to the emergency department with complaints of dizziness and weakness. She states that she was on the commode yesterday when she got very blurry vision and felt dizzy. Patient states her was talking to her but she felt like she was in a tunnel and could not comprehend what he was saying. Patient states the weakness became worse with the confusion and she was brought to ed for eval. She denies passing out or syncope. She denies any chest pain or pressure. She denies shortness of breath or edema. She denies any fever, chills, nausea, vomiting, diarrhea, PND or orthopnea. Patient admitted for weakness, uti, anemia Hospital Course Hospital Course: Laboratory Tests 08/25/21 08/25/21 08/25/21 16:50 16:55 16:55 WBC 3.5 L RBC 3.30 L Hgb 8.3 L Hct 25.6 L MCV 77.4 L MCH 25.1 L MCHC 32.5 RDW 18.9 H Plt Count 220 MPV 8.2 Neut % (Auto) 83.0 H Lymph % (Auto) 11.3 [place] % (Auto) 4.3 Eos % (Auto) 0.9 Baso % (Auto) 0.5 Neut # (Auto) 2.9 Lymph # (Auto) 0.4 L [place] # (Auto) 0.2 Eos # (Auto) 0.0 Baso # (Auto) 0.0 Retic Count (auto) Sodium 124 L Potassium 2.4 L* Chloride 83 L Carbon Dioxide 37 H Anion Gap 6.4 BUN 11 Creatinine 0.70 Estimated Creat Clear 35 Estimated GFR 81 Est GFR ( Amer) 98 Glucose 79 Calcium 7.0 L Magnesium 0.8 L Iron TIBC Iron Saturation Ferritin Total Bilirubin 0.6 AST 29 ALT 8 L Alkaline Phosphatase 96 Troponin I Total Protein 5.6 L Albumin 2.5 L Globulin 3.1 Albumin/Globulin Ratio 0.8 L Vitamin B12 Folate Urine Color Urine Appearance Urine pH Ur Specific [place] Urine Protein Urine Glucose (UA) Urine Ketones Urine Blood Urine Nitrate Urine Bilirubin Urine Urobilinogen Ur Leukocyte Esterase Urine RBC Urine WBC Ur Squamous Epith Cells Urine Bacteria Stool Occult Blood Stl Aeromonas (PCR) Stl C. cayetanensis PCR Stool Rotavirus (PCR) Stl Adenov F 40 PCR Stool Astrovirus (PCR) Stool Campylobacter PCR Stl C.difficile Tox PCR Stool Cryptosporidium PCR Stl E.coli Shiga Tox PCR Stool E coli O157 PCR Stl Enterotoxigenic E PCR Stool EPEC (PCR) Stool EAEC (PCR) Stl E. histolytica PCR Stool Giardia Lamblia PCR Stool Salmonella PCR Stool Sapovirus (PCR) Stl P. shigelloides PCR Stl Shigella/EIEC PCR St Y.enterocolitica PCR Stool Vibrio (PCR) Stl Vibrio cholerae PCR Stl Norovirus GI/GII PCR SARS-CoV-2 (PCR) Influenza A Untype (PCR) Influenza Type B (PCR) Blood Type Blood Type Confirm Antibody Screen Crossmatch (AHG) 08/25/21 08/25/21 08/25/21 18:00 18:36 19:47 WBC RBC Hgb Hct MCV MCH MCHC RDW Plt Count MPV Neut % (Auto) Lymph % (Auto) [place] % (Auto) Eos % (Auto) Baso % (Auto) Neut # (Auto) Lymph # (Auto) [place] # (Auto) Eos # (Auto) Baso # (Auto) Retic Count (auto) Sodium 123 L Potassium 3.0 L D Chloride 85 L Carbon Dioxide 36 H Anion Gap 5.0 BUN 11 Creatinine 0.60 Estimated Creat Clear 35 Estimated GFR 97 Est GFR ( Amer) 117 Glucose 67 L Calcium 6.7 L Magnesium Iron TIBC Iron Saturation Ferritin Total Bilirubin 0.5 AST 26 ALT 6 L Alkaline Phosphatase 77 Troponin I Total Protein 5.2 L Albumin 2.3 L Globulin 2.9 Albumin/Globulin Ratio 0.8 L Vitamin B12 Folate Urine Color Yellow Urine Appearance Clear Urine pH 7.0 Ur Specific [place] 1.010 Urine Protein Negative Urine Glucose (UA) Negative Urine Ketones Negative Urine Blood Negative Urine Nitrate Ne
[2021-09-01 11:43] LABS: Basophils % 0.7 % (0.1-2.0); Hematocrit 37.8 % (37.0-47.0); Hemoglobin 12.3 g/dL (12.2-16.2); Lymphocytes # 0.7 K/mm3 (0.7-4.5); Lymphocytes % 17.2 % (10-50); Mean Corpuscular HGB Conc 32.6 g/dL (31.8-35.4); Mean Platelet Volume 11.6 fl (7.4-10.4); Monocytes # 0.2 K/mm3 (0.1-1.0); Monocytes % 5.1 % (1.7-9.3); Neutrophils # 2.9 K/mm3 (1.8-7.8); Neutrophils % 76.1 % (37.0-80.0); Platelet Count 149 K/mm3 (142-424); Red Blood Count 4.55 M/mm3 (4.20-5.40); Red Cell Distribution Width 18.7 % (11.5-17.5); White Blood Count 3.9 K/mm3 (4.8-10.8)
--- NOTE | 2021-09-01 12:39 | PC.NURSE ---
report called to Anastacia at [facility]
[2021-09-01 12:59] LABS: Influenza A, PCR Not Detected (NotDetected); Influenza B, PCR Not Detected (NotDetected)
[2021-09-01 13:31] LABS: Coronavirus 19, PCR Detected (NotDetected)
--- NOTE | 2021-09-01 15:30 | PC.NURSE ---
report called to emmanuel at [facility]
--- NOTE | 2021-09-01 15:31 | PC.NURSE ---
Notified [facility] of need for transport, they stated their truck is on a run at this time but they will be up when they get back
== END 2021-09-01 16:16 | disposition short-term general hospital (02) | DRG 811 ==
LOC: ER 18:09 → ICU 18:25 → 2ND 08-27 15:13
PROVIDERS: Nurse Practitioner Family; Admitting Provider Family Medicine; Emergency Provider Emergency Medicine; PCP Internal Medicine; Visit Provider Family Medicine
DX: D64.9 Anemia, unspecified; E43 Unspecified severe protein-calorie malnutrition; U07.1 COVID-19; N39.0 Urinary tract infection, site not specified; A04.72 Enterocolitis due to Clostridium difficile, not specified as recurrent; I51.81 Takotsubo syndrome; I42.9 Cardiomyopathy, unspecified; E87.6 Hypokalemia; I34.0 Nonrheumatic mitral (valve) insufficiency; I50.9 Heart failure, unspecified; Z68.21 Body mass index [BMI] 21.0-21.9, adult; I11.0 Hypertensive heart disease with heart failure; E03.9 Hypothyroidism, unspecified; I25.2 Old myocardial infarction; Z87.891 Personal history of nicotine dependence; K21.9 Gastro-esophageal reflux disease without esophagitis; B96.1 Klebsiella pneumoniae [K. pneumoniae] as the cause of diseases classified elsewhere; Z88.5 Allergy status to narcotic agent; Z88.1 Allergy status to other antibiotic agents; Z88.8 Allergy status to other drugs, medicaments and biological substances
CPT/HCPCS: 36415; 70450; 80048; 80053; 81001; 82272; 82607; 82728; 82746; 83540; 83550; 83735; 84484; 85014; 85018; 85025; 85044; 86850; 87086; 87088; 87186; 87507; 93005; 93306; 96365; 96375; 97110; 97116; 97162; 97166; 97530; 97535; 99284; C9803; G0328; G0378; J0696; J2405; J3370; P9016; U0003; U0005

== ENCOUNTER 2021-09-16 11:00 | Inpatient (IN) | payer MEDICARE, SELFPAY ==
--- NOTE | 2021-09-16 11:13 | XR_ITS ---
FINAL REPORT CLINICAL HISTORY: concern for infection FINDINGS: The heart size is normal. The mediastinum is normal. There is postoperative change in the right lung base. There is mild scarring. There is a linear opacity in the right mid lung. There are no pleural effusions. There is no pneumothorax. There is no osseous abnormality. IMPRESSION: Right mid lung linear opacity favors atelectasis or scarring over pneumonia. Follow-up radiographs may be helpful. Reviewed, Interpreted and Dictated by Karan Christensen III, MD Transcribed by [place] Authenticated by Karan Christensen III, MD on 09/16/2021 12:34:04 PM [facility]
--- NOTE | 2021-09-16 11:15 | HMH.EDGENADL ---
ED Disposition Clinical Impression: JANETTE (acute kidney injury) Disposition: Admitted As Inpatient Condition on Discharge: Fair - Critical Care Critical Care Time: No Attestation: On 09/16/21, the high probability of a clinically significant, sudden or life threatening deterioration of the following system(s) required my full and direct attention, intervention and personal management. The time I documented below is in addition to time spent performing reported procedures but includes the following listed in this critical care notation. Medical Decision Making - Medical Records Medical records reviewed: Yes: I reviewed the patient's medical records. - [place] Inquiry Pt receiving controlled substance: No Vital Signs: 09/16/21 11:36 09/16/21 15:40 Temperature 97.8 F 98.2 F Temperature Source Oral Oral Pulse Rate 75 Pulse Rate [Left Radial] 66 Respiratory Rate 16 14 Blood Pressure 103/56 L Blood Pressure [Right Arm] 83/40 L Blood Pressure Mean [Right Arm] 54 02 Sat by Pulse Oximetry 96 Oxygen Delivery Method Room Air Room Air - Lab Data Lab results reviewed: Yes: I reviewed the patient's lab results. Lab Results 09/16/21 11:45: WBC 4.3 L, RBC 3.01 L, Hgb 8.4 L, Hct 23.7 L, MCV 78.6 L, MCH 27.9, MCHC 35.4, RDW 18.0 H, Plt Count 212, MPV 9.7, Neut % (Auto) 85.7 H, Lymph % (Auto) 9.3 L, [place] % (Auto) 3.8, Eos % (Auto) 0.7, Baso % (Auto) 0.4, Neut # (Auto) 3.7, Lymph # (Auto) 0.4 L, [place] # (Auto) 0.2, Eos # (Auto) 0.0, Baso # (Auto) 0.0, Total Counted 100, Neutrophils % (Manual) 87 H, Lymphocytes % (Manual) 12, Monocytes % (Manual) 1 L, Platelet Estimate Normal, Poikilocytosis 2+, Microcytosis 1+ 09/16/21 11:45: Sodium 116 L, Potassium 3.0 L, Chloride 80 L, Carbon Dioxide 38 H, Anion Gap 1.0 L, BUN 24 H, Creatinine 1.30 H, Estimated Creat Clear 26, Estimated GFR 40 L, Est GFR ( Amer) 48 L, Glucose 81, Calcium 7.2 L, Total Bilirubin 0.7, AST 26, ALT 10 L, Alkaline Phosphatase 79, Troponin I < 0.01, Total Protein 4.8 L, Albumin 2.1 L, Globulin 2.7, Albumin/Globulin Ratio 0.8 L, Lipase 189 09/16/21 11:45: Magnesium 1.4 L 09/16/21 14:25: Lactate 1.3 09/16/21 14:25: Troponin I < 0.01 09/16/21 14:53: SARS-CoV-2 (PCR) Not detected, Influenza A Untype (PCR) Not detected, Influenza Type B (PCR) Not detected Result diagrams: 09/16/21 11:45 09/16/21 11:45 Orders (Tests/Meds): ED MEDICATIONS Generic Name Dose Route Start Last Admin Trade Name Freq PRN Reason Stop Dose Admin Acetaminophen 650 mg 09/16/21 15:37 Acetaminophen 325mg Tab PO 10/16/21 15:36 Q4HP PRN Fever or Mild Pain Atorvastatin Calcium 40 mg 09/16/21 21:00 09/16/21 20:39 Atorvastatin 40mg Tablet PO 10/16/21 20:59 40 mg HS JONY Administration Enoxaparin Sodium 30 mg 09/17/21 09:00 Enoxaparin 30mg/0.3ml Syringe SQ 10/17/21 08:59 DAILY JONY Lactated Ringer's 1,000 mls @ 75 mls/hr 09/16/21 15:37 09/16/21 18:06 Lactated Ringer's 1000 Ml Bag IV 10/16/21 15:36 75 mls/hr .[id number] JONY Administration Levothyroxine Sodium 50 mcg 09/17/21 07:00 Levothyroxine 50mcg (0.05mg) Tab PO 10/17/21 06:59 DAILYDM JONY Lisinopril 10 mg 09/17/21 09:00 Lisinopril 10mg Tablet PO 10/17/21 08:59 DAILY JONY Lorazepam 0.5 mg 09/16/21 15:37 Lorazepam 0.5mg Tablet PO 10/16/21 15:36 BIDP PRN Anxiety Metoprolol Tartrate 50 mg 09/16/21 21:00 09/16/21 20:39 Metoprolol Tartrate 50mg Tablet PO 10/16/21 20:59 50 mg BID JONY Administration Ondansetron HCl 4 mg 09/16/21 15:37 Ondansetron 4mg/2ml Vial IV 10/16/21 15:36 Q8HP PRN Nausea Torsemide 20 mg 09/17/21 09:00 Torsemide 20mg Tablet PO 10/17/21 08:59 DAILY JONY Discontinued Medications Generic Name Dose Route Start Last Admin Trade Name Freq PRN Reason Stop Dose Admin Lactated Ringer's 1,000 mls @ 999 mls/hr 09/16/21 11:15 09/16/21 12:07 Lactated Ringer's 1000 Ml Bag IV 09/16/21 13:15 99
[2021-09-16 11:36] VITALS: BP 83/40; PULSE 66; RESP 16; TEMP 36.6; O2SAT 96; BMI 17.6
--- NOTE | 2021-09-16 11:59 | ECG_ITS ---
APPROVED REPORT Exam: Resting ECG HR:66 bpm ECG Measurements Heart Rate 66 AXES IN 215 P 70 QRSd 101 QRS 2 QT 425 T 25 QTc 439 Conclusion SINUS RHYTHM WITH FIRST DEGREE AV BLOCK ABNORMAL ECG UNCONFIRMED REPORT Electronically signed by : Adonay Kaur MD 09/16/2021 22:20:06
[2021-09-16 12:02] LABS: Chloride 80 mmol/L (98-107); Sodium 116 mmol/L (136-145)
[2021-09-16 12:05] LABS: Alanine Aminotransferase 10 U/L (12-78); Albumin Level 2.1 g/dl (3.5-5.0); Albumin/Globulin Ratio 0.8 (1.1-1.8); Alkaline Phosphatase 79 U/L (38-126); Aspartate Amino Transferase 26 U/L (14-36); Bilirubin,Total 0.7 mg/dl (0.2-1.3); Blood Urea Nitrogen 24 mg/dl (7-17); Calcium 7.2 mg/dl (8.4-10.2); Carbon Dioxide 38 mmol/L (22.0-30.0); Creatinine Clearance Estimated 26 mL/min (50-200); Estimated Glomerular Filt Rate 40 ml/min (>60); GFR (African American) 48 ML/MIN (>60); Globulin 2.7 g/dL (1.3-3.2); Glucose 81 mg/dl (74-100); Lipase 189 U/L (23-300); Total Protein,Serum 4.8 g/dl (6.3-8.2)
--- NOTE | 2021-09-16 12:08 | PC.NURSE ---
Charu from lab called Critical on patient, Potassium of 3.0, Information was repeated back and verified
[2021-09-16 12:18] LABS: Troponin I < 0.01 ng/ml (0.00-0.034)
[2021-09-16 12:21] LABS: Basophils % 0.4 % (0.1-2.0); Eosinophils % 0.7 % (0.1-12.0); Hematocrit 23.7 % (37.0-47.0); Hemoglobin 8.4 g/dL (12.2-16.2); Lymphocytes # 0.4 K/mm3 (0.7-4.5); Lymphocytes % 9.3 % (10-50); Mean Corpuscular HGB Conc 35.4 g/dL (31.8-35.4); Mean Corpuscular Hemoglobin 27.9 pg (27.0-31.2); Mean Corpuscular Volume 78.6 fl (81-99); Mean Platelet Volume 9.7 fl (7.4-10.4); Monocytes # 0.2 K/mm3 (0.1-1.0); Monocytes % 3.8 % (1.7-9.3); Neutrophils # 3.7 K/mm3 (1.8-7.8); Neutrophils % 85.7 % (37.0-80.0); Platelet Count 212 K/mm3 (142-424); Red Blood Count 3.01 M/mm3 (4.20-5.40); White Blood Count 4.3 K/mm3 (4.8-10.8)
[2021-09-16 12:26] LABS: MANUAL DIFFERENTIAL MANUAL DIFFERENTIAL (MANUAL DIFF)
[2021-09-16 12:27] LABS: Magnesium 1.4 mg/dl (1.6-2.3)
[2021-09-16 13:12] LABS: Lymphocytes % 12 % (10-50); Monocytes % 1 % (2-9); Neutrophils % 87 % (42-76); Platelet Estimate Normal; Total Cells Counted 100
[2021-09-16 13:13] LABS: Microcytosis 1+; Poikilocytosis 2+
--- NOTE | 2021-09-16 14:29 | HMH.PHAINT ---
HOME MEDICATION LIST VERIFIED USING LIST FROM PREVIOUS FACILITY DISCHARGE ON 09/01/21
[2021-09-16 15:00] LABS: Coronavirus 19, PCR Not Detected (NotDetected); Influenza A, PCR Not Detected (NotDetected); Influenza B, PCR Not Detected (NotDetected)
--- NOTE | 2021-09-16 15:01 | SW/DCPLANNER ---
I received notification from Merle Mejia that the plan is for this patient to discharge to [facility] once medically stable for discharge. I will follow up with Miracle at [facility] prior to discharge.
[2021-09-16 15:03] LABS: Lactic Acid 1.3 mmol/L (0.7-2.1)
[2021-09-16 15:20] LABS: Troponin I < 0.01 ng/ml (0.00-0.034)
[2021-09-16 15:40] VITALS: BP 103/56; PULSE 75; RESP 14; TEMP 36.8; O2SAT 97
--- NOTE | 2021-09-16 15:48 | PC.NURSE ---
STAFF HERE TO TRANSPORT PATIENT TO ROOM.
[2021-09-16 16:00] VITALS: BP 117/65; PULSE 75; RESP 19; TEMP 36.6; O2SAT 96; BMI 18.6
--- NOTE | 2021-09-16 16:09 | HMH.PHAVTE ---
[facility] Pharmacy VTE Monitoring - Patient Demographics Admission date: 09/16/21 Report Date: 09/16/21 Time: 16:09 Allergies/Adverse Reactions: Patient Allergies codeine [CODEINE] Allergy (Mild, Verified 05/18/21 08:14) HEART RACE meloxicam [From MOBIC] Allergy (Mild, Verified 05/18/21 08:14) HEART RACE oxycodone [OXYCODONE] Allergy (Mild, Verified 05/18/21 08:14) HEART RACE propoxyphene [From DARVOCET-N] Allergy (Mild, Verified 05/18/21 08:14) HEART RACE sulfamethoxazole [From BACTRIM] Allergy (Mild, Verified 05/18/21 08:14) HEART RACE trimethoprim [From BACTRIM] Allergy (Mild, Verified 05/18/21 08:14) HEART RACE diphenhydramine [DIPHENHYDRAMINE] Allergy (Unknown, Verified 05/18/21 08:14) HEART RACE doxycycline [DOXYCYCLINE] Allergy (Unknown, Verified 05/18/21 08:14) HEART RACE levofloxacin [From LEVAQUIN] Allergy (Unknown, Verified 05/18/21 08:14) Heart Races metoclopramide [From REGLAN] Allergy (Unknown, Verified 05/18/21 08:14) HEART RACE phenazopyridine [From PYRIDIUM] Allergy (Unknown, Verified 05/18/21 08:14) HEART RACE ciprofloxacin Allergy (Verified 05/18/21 08:14) Quinolones Allergy (Verified 05/18/21 08:14) QUINOLONES Allergy (Unknown, Uncoded 09/25/19 09:33) HEART RACE Height: 1.6 m Weight: 45.359 kg Patient Problems: Current Active Problems JANETTE (acute kidney injury) (Acute) - VTE Risk Labs: VTE Related Lab Results Hgb 8.4 g/dL (12.2-16.2) L 09/16/21 11:45 Hct 23.7 % (37.0-47.0) L 09/16/21 11:45 Plt Count 212 K/mm3 (142-424) 09/16/21 11:45 BUN 24 mg/dl (7-17) H 09/16/21 11:45 Creatinine 1.30 mg/dl (0.52-1.04) H 09/16/21 11:45 Estimated Creat Clear 26 mL/min (50-200) 09/16/21 11:45 - Prophylaxis VTE Prophylaxis Ordered?: Yes Types of VTE Prophylaxis: TEDS Knee High, Pharmacological Location of Applied Device: Bilateral Lower Extremeties Pharmacologic Type: Enoxaparin
[2021-09-16 18:16] LABS: Troponin I < 0.01 ng/ml (0.00-0.034)
--- NOTE | 2021-09-16 20:05 | PC.NURSE ---
ED RN Jose stated one bolus had infused and the 2nd was infusing when pt in ED. Mag hung when pt arrived to floor per oct. CB in reach.
--- NOTE | 2021-09-16 20:24 | PC.NURSE ---
Pt confused and poor historian. No information sent in RE to pt's meds of hx from nsg home. CB in reach. VSS
[2021-09-17] VITALS: BP 101/50; PULSE 74; RESP 16; TEMP 36.6; O2SAT 90
[2021-09-17 06:00] VITALS: BMI 17.8
[2021-09-17 07:38] LABS: Adenovirus F 40/41, stool Not Detected (NotDetected); Astrovirus Not Detected (NotDetected); Campylobacter Not Detected (NotDetected); Cryptosporidium Not Detected (NotDetected); Cyclospora Cayetanesis Not Detected (NotDetected); Entamoeba histolytica Not Detected (NotDetected); Enteroaggregative E coli Not Detected (NotDetected); Enteropathogenic E coli Not Detected (NotDetected); Enterotoxigenic E coli Not Detected (NotDetected); Giardia lamblia Not Detected (NotDetected); Norovirus Not Detected (NotDetected); Plesimonas Shigalloides, PCR Not Detected (NotDetected); Rotavirus A Not Detected (NotDetected); Salmonella, PCR Not Detected (NotDetected); Sapovirus Not Detected (NotDetected); Shiga-like toxin E coli Not Detected (NotDetected); Shigella Enterovasive E coli Not Detected (NotDetected); Vibrio Cholerae Not Detected (NotDetected); Vibrio, PCR Not Detected (NotDetected); Yersinia Entercolitica, PCR Not Detected (NotDetected)
[2021-09-17 07:52] LABS: Basophils # 0.1 K/mm3 (0-0.2); Basophils % 1.7 % (0.1-2.0); Eosinophils # 0.1 K/mm3 (0.0-0.4); Eosinophils % 1.4 % (0.1-12.0); Hemoglobin 7.8 g/dL (12.2-16.2); Lymphocytes # 0.8 K/mm3 (0.7-4.5); Lymphocytes % 19.9 % (10-50); Mean Corpuscular Hemoglobin 26.9 pg (27.0-31.2); Mean Corpuscular Volume 79.1 fl (81-99); Mean Platelet Volume 10.7 fl (7.4-10.4); Monocytes # 0.3 K/mm3 (0.1-1.0); Monocytes % 6.4 % (1.7-9.3); Neutrophils # 2.9 K/mm3 (1.8-7.8); Neutrophils % 72.3 % (37.0-80.0); Platelet Count 207 K/mm3 (142-424); Red Cell Distribution Width 18.3 % (11.5-17.5); White Blood Count 4.1 K/mm3 (4.8-10.8)
[2021-09-17 08:00] VITALS: BP 109/49; PULSE 68; RESP 18; TEMP 36.8; O2SAT 94
[2021-09-17 08:31] LABS: Alanine Aminotransferase 8 U/L (12-78); Albumin Level 2.1 g/dl (3.5-5.0); Albumin/Globulin Ratio 0.8 (1.1-1.8); Alkaline Phosphatase 76 U/L (38-126); Anion Gap 4.7 mEq/L (5-15); Aspartate Amino Transferase 31 U/L (14-36); Bilirubin,Total 0.7 mg/dl (0.2-1.3); Blood Urea Nitrogen 20 mg/dl (7-17); Calcium 7.5 mg/dl (8.4-10.2); Carbon Dioxide 28 mmol/L (22.0-30.0); Chloride 93 mmol/L (98-107); Creatinine Clearance Estimated 33 mL/min (50-200); Estimated Glomerular Filt Rate 69 ml/min (>60); GFR (African American) 84 ML/MIN (>60); Globulin 2.5 g/dL (1.3-3.2); Glucose 62 mg/dl (74-100); Potassium 4.7 mmoL/L (3.5-5.1); Sodium 121 mmol/L (136-145); Total Protein,Serum 4.6 g/dl (6.3-8.2)
--- NOTE | 2021-09-17 08:55 | HMH.HP ---
*Admission Date: 09/16/21 *Chief complaint: Weakness *History of present illness: Patient 80-year-old female presenting to emergency department with chief complaint hypotension, weakness, impaired p.o. Report of skilled nursing patient has been declining food and drink for the past few days, and had a lower blood pressure. Today patient called for help with putting on her clothes because she felt too weak to put them on. Patient's son Hilario called and states that she has some psychiatric issues where she is concerned that she has terminal illness and will sometimes stop eating and drinking due to this. Patient is denying headache, nausea, vomiting, dysuria, chest pain, shortness of air. Patient only states that she feels weak all over, denies focal weakness. 09/16/21 CXR: FINDINGS: The heart size is normal. The mediastinum is normal. There is postoperative change in the right lung base. There is mild scarring. There is a linear opacity in the right mid lung. There are no pleural effusions. There is no pneumothorax. There is no osseous abnormality. IMPRESSION: Right mid lung linear opacity favors atelectasis or scarring over pneumonia. Follow-up radiographs may be helpful. Reviewed, Interpreted and Dictated by Karan Christensen III, MD 80-year-old female patient resting quietly in bed she denies any chest pain or shortness of breath during the night. Today's hemoglobin is 7.8 we will transfuse 2 units of packed red blood cells. Creatinine has decreased from 1.3-0.8 [facility] History I have reviewed the patient's past medical history: Yes Medical History: Reports:: Anxiety, Cancer, Cardiomyopathy, Congestive Heart Failure, Coronary Artery Disease, Gastroesophageal Reflux Disease(GERD), Hiatal Hernia, Hyperlipidemia, Hypertension, Kidney Stones, Myocardial Infarction Denies:: Diabetes Mellitus Type 1, Diabetes Mellitus Type 2, Internal Pacemaker, Lung Disease, MRSA, Seizures *Have you ever received a pneumonia vaccine?: Yes (unknown) *Have you received a flu vaccine this season?: Yes (unknown) Other Medical History: Reports: Anemia, Arthritis, Cataracts, Hypothyroidism, Liver Disease, Thyroid Disease. Denies: Blood Transfusion Reaction Laterality Cases: Bilateral: Other Other Surgeries: Yes: Appendectomy, Cancer Surgery, Cardiac Catheterization, Cholecystectomy, Colonoscopy, Colon Resection, Hysterectomy-Total, Hysterectomy-Partial, Other. No: Pacemaker Amputation: No Fractures: No - *Social History Smoking Status: Former smoker Tobacco Type: cigarettes # Packs/Day (cigarettes): 1 #Yrs smoked (if former smoker): 20 Alcohol Intake: former Substance Use Type: denies use *Occupational Status:: other Housing: house Household Members: spouse *Travel in the last 8 weeks: None - Psychiatric History Pschychiatric History:: Reports:: Anxiety Family Hx:: No significant family history Review of Systems - Review of Systems Review of systems:: pertinent systems reviewed and negative unless documented below - Constitutional Reports fatigue, Reports lack of energy - Eyes Denies blurry vision, Denies double vision - ENT Denies dental pain, Denies difficulty swallowing - *Cardiovascular Reports shortness of breath, Reports shortness of breath with activity, Denies chest pain, Denies chest pain at rest - *Respiratory Reports chest congestion, Reports cough, Reports shortness of breath, Reports shortness of breath with activity - *Gastrointestinal Denies abdominal pain, Denies change in bowel habits - *Musculoskeletal Denies joint pain, Denies decreased muscle mass - Integumentary/Breasts Denies hair loss, Denies changing lesions - *Neurologic Denies abnormal walking, Denies abnormal speech - Psychiatric Denies lack of enjoyment, Denies change in appetite - Endocrine Denies cold intolerance, Denies excessive sweating - Hematologic/Lymphatic Denies easy bleeding, Denies easy bruising - Allergic/Immunologic Denies G
[2021-09-17 10:38] VITALS: BMI 17.8
--- NOTE | 2021-09-17 13:04 | DIET.NUTRFU ---
RD saw pt, reviewed previous intake at rehab facility where she was receiving fortified foods and Medpass. Upon visit, pt expressed concern with putting in dentures in order to eat, nursing staff aware. Pt reluctant to receive milk products d/t fear of loose stools. Pt will receive oatmeal with Beneprotein at all breakfasts and mashed potatoes with Beneprotein at all dinners.
[2021-09-17 14:40] LABS: Clostridium Difficile A/B, PCR Detected (NotDetected)
[2021-09-17 16:00] VITALS: BP 112/58; PULSE 77; RESP 21; TEMP 36.8; O2SAT 95
[2021-09-17 17:55] LABS: Microscopic, Urine URINE MICROSCOPIC (MICROSCOPIC)
[2021-09-17 18:11] LABS: Appearance,Urine CLEAR (Clear); Bilirubin,Urine Negative (Negative); Blood, Urine Negative (Negative); Color,Urine YELLOW (Yellow); Glucose,Urine (UA) Negative (Negative); Ketones,Urine Negative (Negative); Leukocyte Esterase,Urine Negative (Negative); Nitrate,Urine Negative (Negative); PH,Urine 6.5 (5.0-8.5); Protein,Urine Negative (Negative); Urobilinogen,Urine 0.2 EU/dl (0.2)
[2021-09-17 18:47] LABS: WBC,Urine Occasional #/hpf (0-3)
[2021-09-17 18:48] LABS: Bacteria,Urine Trace /lpf; RBC,Urine Occasional #/hpf (0-3); Squamous Epithelial Cell,Urine Occasional #/hpf (0-5)
[2021-09-17 20:00] VITALS: BP 124/59; PULSE 74; RESP 18; TEMP 36.9; O2SAT 95; O2SAT 96
--- NOTE | 2021-09-17 22:09 | PC.NURSE ---
scheduled vancomycin dose at 2100 late due to other meds hanging
[2021-09-18] VITALS (27 sets, daily range): BP systolic 91–136; BP diastolic 36–83; PULSE 67–97; RESP 15–22; TEMP 36.4–37.4; O2SAT 94–98
--- NOTE | 2021-09-18 01:14 | PC.NURSE ---
0008 - lab notification that blood was ready for issue. 0015 - spoke to patient regarding this. informed her that she would need a 2nd IV d/t her currently receiving 3% sodium. pt refused to be stuck at this time, stated i am trying to sleep, let me sleep . Explained to patient that the blood was ordered, and discussed blood consent form at this time pt states I'm not going to be a pin cushion, I am trying to sleep . Informed distribution warehouse manager in delay of blood administration.
--- NOTE | 2021-09-18 03:12 | PC.NURSE ---
0145 - Notified Dr Medina at this time of pts refusal to have a 2nd IV started so that she could receive her blood. stated it was ok to wait to transfuse PRBC's until after the 3% Sodium solution has finished infusing. Informed this would be around 0600, he stated that was fine.
--- NOTE | 2021-09-18 03:32 | PC.NURSE ---
Blood consent signed at this time by pts granddaughter Chelsi [facility]
--- NOTE | 2021-09-18 03:35 | PC.NURSE ---
Pt has rested on and off this shift. Was alert and oriented at beginning of shift, but has frequent periods of confusing t/o shift. Pt needs frequent reorienting. Once staff reorients patient, the confusion improves. Pt stil had a dinner tray at beginning of shift, and ate very little stating if she ate anymore it would make her sick. Has had no complaints of nausea, no vomiting this shift. No bm noted. F/c patent and draining at the bedside. Pt has been turned and repositioned frequently. VSS. LS CTA. Denies any soa or chest pain. Will continue to monitor.
--- NOTE | 2021-09-18 07:44 | PC.NURSE ---
blood started at 0645; verified with Rula Ramírez, RN and Ghulam Fields RN. Unable to verify unit and begin due to vital sign charting time lapse. 0635- Pre vitals 111/46; T 99.4 HR 97, RR 15, 96% RA 0645 - start 91/37; T 99.9 HR 68, RR 16, 98% RA 0650 - 5 min 98/39; T 99.2, HR 69 RR 16, 97% RA 0700 - 15 min 96/43; T 98.7, HR 69, RR 16 96% RA 0715 - 30 min 106/40; T 98.6; HR 71, RR 16 98% RA
--- NOTE | 2021-09-18 09:33 | HMH.ACPN2 ---
Internal Medicine - PN: Subj *Date: 09/18/21 *Time: 08:15 Interval history: pt states she is feeling better and ate a good breakfast Exam Vital signs and Labs for Last 24 Hours: Temp Pulse Resp BP Pulse Ox 98.7 F 69 16 96/43 L 96 09/18/21 07:00 09/18/21 07:00 09/18/21 07:00 09/18/21 07:00 09/18/21 07:00 Laboratory Results - last 24 hr 09/17/21 07:00: Stl Aeromonas (PCR) Not detected, Stl C. cayetanensis PCR Not detected, Stool Rotavirus (PCR) Not detected, Stl Adenov F 40/41 PCR Not detected, Stool Astrovirus (PCR) Not detected, Stool Campylobacter PCR Not detected, Stl C.difficile Tox PCR Detected A, Stool Cryptosporidium PCR Not detected, Stl E.coli Shiga Tox PCR Not detected, Stool E coli O157 PCR Not detected, Stl Enterotoxigenic E PCR Not detected, Stool EPEC (PCR) Not detected, Stool EAEC (PCR) Not detected, Stl E. histolytica PCR Not detected, Stool Giardia Lamblia PCR Not detected, Stool Salmonella PCR Not detected, Stool Sapovirus (PCR) Not detected, Stl P. shigelloides PCR Not detected, Stl Shigella/EIEC PCR Not detected, St Y.enterocolitica PCR Not detected, Stool Vibrio (PCR) Not detected, Stl Vibrio cholerae PCR Not detected, Stl Norovirus GI/GII PCR Not detected 09/17/21 10:11: Blood Type O Positive, Antibody Screen Positive, Crossmatch (AHG) See Detail 09/17/21 17:48: Urine Color Yellow, Urine Appearance Clear, Urine pH 6.5, Ur Specific Cummings 1.010, Urine Protein Negative, Urine Glucose (UA) Negative, Urine Ketones Negative, Urine Blood Negative, Urine Nitrate Negative, Urine Bilirubin Negative, Urine Urobilinogen 0.2, Ur Leukocyte Esterase Negative, Urine RBC Occasional, Urine WBC Occasional, Ur Squamous Epith Cells Occasional, Urine Bacteria Trace I & O for Last 24 hours: Intake & Output 09/15/21 09/16/21 09/17/21 09/18/21 11:59 11:59 11:59 11:59 Intake Total 60 / 60 600 / 600 Output Total 0 / 0 1650 / 1650 Balance 60 / 60 -1050 / -1050 Weight 100 lb 100 lb 8.493 oz - Constitutional no acute distress, chronically ill appearing - *Routine HEENT Exam Head: Present: normocephalic Eye: Present: PERRL ENT: Present: mucous membranes moist - *Routine Neck Exam Present: supple. Absent: lymphadenopathy - *Routine Respiratory Exam Present: CTA bilaterally - *Routine Cardiovascular Exam Present: RRR - *Routine Abdominal Exam Present: soft, normoactive bowel sounds. Absent: tenderness - *Routine Extremities Exam Absent: cyanosis, clubbing, edema - *Routine Skin Exam Present: warm. Absent: rash - *Routine Neurological Exam Present: alert, oriented X3 Assessment and Plan (1) C. difficile colitis Status: Acute Category: Medical Code(s): A04.72 - Enterocolitis due to Clostridium difficile, not specified as recurrent (2) JANETTE (acute kidney injury) Status: Acute Category: Medical Code(s): N17.9 - Acute kidney failure, unspecified (3) Anemia Status: Chronic Qualifiers: Anemia type: unspecified type Qualified Code(s): D64.9 - Anemia, unspecified Category: Medical Code(s): D64.9 - Anemia, unspecified (4) Congestive heart failure Status: Chronic Qualifiers: Heart failure type: diastolic Heart failure chronicity: acute on chronic Qualified Code(s): I50.33 - Acute on chronic diastolic (congestive) heart failure Category: Medical Code(s): I50.9 - Heart failure, unspecified (5) Coronary arteriosclerosis Status: Chronic Category: Medical Code(s): I25.10 - Atherosclerotic heart disease of [place] coronary artery without angina pectoris - Assessment and plan all Dx Assessment and Plan for all problems:: rounded with dr harley all orders per dr harley transfuse blood pt refused to have another iv and was getting high sodium iv fluids
--- NOTE | 2021-09-18 12:41 | SW/DCPLANNER ---
PATIENT PRESENTED INTO THE HOSPITAL FROM [facility] WITH ACUTE KIDNEY INJURY AND DEHYDRATION. PATIENTS SON HAS CALLED [facility] TO SEE IF THEY CAN ACCEPT PATIENT WHEN READY FOR A DISPOSITION FROM THE HOSPITAL. SON STATED IT IS TO FAR FOR THEM TO BE ABLE TO SEE HER SO HE INQUIRED ABOUT [facility] AND THEY ARE INTERESTED. I SPOKE WITH SKYLAR AT [facility] AND SHE STATED THEY ARE INTERESTED AND SHE WILL SPEAK WITH SON AND SHE WILL PLAN TO TAKE PATIENT THE FIRST OF NEXT WEEK..I SENT A PACKET TO [facility] AND WILL DO UPDATES ON TUESDAY.. PATIENT HAS MEDICARE AND AARP A SUPPLEMENT.
--- NOTE | 2021-09-18 15:36 | PC.NURSE ---
Per Marilyn ARCE blood may be transfused over 4 hours instead of 3 hours. [id number]
[2021-09-18 22:51] LABS: Basophils % 0.4 % (0.1-2.0); Eosinophils % 0.5 % (0.1-12.0); Hematocrit 30.6 % (37.0-47.0); Hemoglobin 10.4 g/dL (12.2-16.2); Lymphocytes # 0.5 K/mm3 (0.7-4.5); Lymphocytes % 17.7 % (10-50); Mean Corpuscular HGB Conc 33.9 g/dL (31.8-35.4); Mean Corpuscular Hemoglobin 27.3 pg (27.0-31.2); Mean Corpuscular Volume 80.5 fl (81-99); Mean Platelet Volume 7.9 fl (7.4-10.4); Monocytes # 0.2 K/mm3 (0.1-1.0); Monocytes % 6.8 % (1.7-9.3); Neutrophils % 74.6 % (37.0-80.0); Platelet Count 255 K/mm3 (142-424); Red Blood Count 3.81 M/mm3 (4.20-5.40); Red Cell Distribution Width 17.2 % (11.5-17.5); White Blood Count 2.7 K/mm3 (4.8-10.8)
[2021-09-18 22:56] LABS: Anion Gap 4.3 mEq/L (5-15); Blood Urea Nitrogen 15 mg/dl (7-17); Calcium 7.1 mg/dl (8.4-10.2); Carbon Dioxide 32 mmol/L (22.0-30.0); Chloride 93 mmol/L (98-107); Creatinine Clearance Estimated 33 mL/min (50-200); Estimated Glomerular Filt Rate 81 ml/min (>60); GFR (African American) 98 ML/MIN (>60); Glucose 86 mg/dl (74-100); Potassium 3.3 mmoL/L (3.5-5.1); Sodium 126 mmol/L (136-145)
[2021-09-19 04:00] VITALS: BP 109/53; PULSE 92; RESP 18; TEMP 37.1; O2SAT 93
--- NOTE | 2021-09-19 04:25 | PC.NURSE ---
Pt has rested well this shift. Received 2nd unit of blood with no issues. Around 0300 pt rang out and stated she had urinated on her self. Pt was changed, and omar care performed. Buttocks and omar area excoriated. Aquaphor applied. Polymem dressing applied to stage 2 on buttocks. Pt noted to be flushed at this time and warm to touch. Pt reports i think I just got too hot under the blankets . Several blankets removed, at this time. VSS. No c/o soa or chest pain. No acute changes from initial assessment. Will continue to monitor.
--- NOTE | 2021-09-19 04:28 | PC.NURSE ---
redness to back and flushed skin has improved since removing multiple blankets from patient.
[2021-09-19 05:19] VITALS: BMI 19.5
[2021-09-19 06:39] LABS: Basophils % 0.3 % (0.1-2.0); Eosinophils % 0.4 % (0.1-12.0); Hematocrit 28.6 % (37.0-47.0); Hemoglobin 9.5 g/dL (12.2-16.2); Lymphocytes # 0.5 K/mm3 (0.7-4.5); Mean Corpuscular HGB Conc 33.1 g/dL (31.8-35.4); Mean Corpuscular Hemoglobin 26.7 pg (27.0-31.2); Mean Corpuscular Volume 80.8 fl (81-99); Mean Platelet Volume 7.7 fl (7.4-10.4); Monocytes # 0.1 K/mm3 (0.1-1.0); Monocytes % 3.9 % (1.7-9.3); Neutrophils # 2.6 K/mm3 (1.8-7.8); Neutrophils % 79.4 % (37.0-80.0); Platelet Count 250 K/mm3 (142-424); Red Blood Count 3.54 M/mm3 (4.20-5.40); Red Cell Distribution Width 17.5 % (11.5-17.5); White Blood Count 3.3 K/mm3 (4.8-10.8)
[2021-09-19 06:53] LABS: Blood Urea Nitrogen 14 mg/dl (7-17); Carbon Dioxide 30 mmol/L (22.0-30.0); Chloride 94 mmol/L (98-107); Creatinine Clearance Estimated 37 mL/min (50-200); Estimated Glomerular Filt Rate 97 ml/min (>60); GFR (African American) 117 ML/MIN (>60); Glucose 71 mg/dl (74-100); Potassium 3.2 mmoL/L (3.5-5.1)
[2021-09-19 07:02] LABS: Anion Gap 3.2 mEq/L (5-15); Sodium 124 mmol/L (136-145)
[2021-09-19 08:00] VITALS: BP 138/58; PULSE 85; RESP 16; TEMP 36.7; O2SAT 93; O2SAT 96
--- NOTE | 2021-09-19 08:01 | PC.NURSE ---
Report given to Ghulam Alvarez RN
--- NOTE | 2021-09-19 09:32 | HMH.ACPN2 ---
Internal Medicine - PN: Subj *Date: 09/19/21 *Time: 09:35 Interval history: Patient with nonspecific complaints this morning, mostly being cold not sleeping well. Her diarrhea is abating. Patient remains in a chronically debilitated state. Sickle therapy and mobilization are strongly encouraged. Patient got 2 units of packed red cells today, hemoglobin is 9.5. We are correcting electrolyte aberrations although she still continues to be mildly hyponatremia and hypokalemic. She has a stage II lesion on her buttocks. She is a patient of Dr. Healy Exam Vital signs and Labs for Last 24 Hours: Temp Pulse Resp BP Pulse Ox 98.0 F 85 16 138/58 L 96 09/19/21 08:00 09/19/21 08:00 09/19/21 08:00 09/19/21 08:00 09/19/21 08:00 Laboratory Results - last 24 hr 09/17/21 10:11: Blood Type O Positive, Antibody Screen Positive, Crossmatch (AHG) See Detail 09/17/21 10:11: Antibody Identification Anti-Jka 09/18/21 22:35: WBC 2.7 L D, RBC 3.81 L D, Hgb 10.4 L, Hct 30.6 L, MCV 80.5 L, MCH 27.3, MCHC 33.9, RDW 17.2, Plt Count 255, MPV 7.9, Neut % (Auto) 74.6, Lymph % (Auto) 17.7, [place] % (Auto) 6.8, Eos % (Auto) 0.5, Baso % (Auto) 0.4, Neut # (Auto) 2.0, Lymph # (Auto) 0.5 L, [place] # (Auto) 0.2, Eos # (Auto) 0.0, Baso # (Auto) 0.0 09/18/21 22:35: Sodium 126 L, Potassium 3.3 L D, Chloride 93 L, Carbon Dioxide 32 H, Anion Gap 4.3 L, BUN 15, Creatinine 0.70, Estimated Creat Clear 33, Estimated GFR 81, Est GFR ( Amer) 98, Glucose 86, Calcium 7.1 L 09/19/21 06:19: WBC 3.3 L, RBC 3.54 L, Hgb 9.5 L, Hct 28.6 L, MCV 80.8 L, MCH 26.7 L, MCHC 33.1, RDW 17.5, Plt Count 250, MPV 7.7, Neut % (Auto) 79.4, Lymph % (Auto) 16.0, [place] % (Auto) 3.9, Eos % (Auto) 0.4, Baso % (Auto) 0.3, Neut # (Auto) 2.6, Lymph # (Auto) 0.5 L, [place] # (Auto) 0.1, Eos # (Auto) 0.0, Baso # (Auto) 0.0 09/19/21 06:19: Sodium 124 L, Potassium 3.2 L, Chloride 94 L, Carbon Dioxide 30, Anion Gap 3.2 L, BUN 14, Creatinine 0.60, Estimated Creat Clear 37, Estimated GFR 97, Est GFR ( Amer) 117, Glucose 71 L, Calcium 7.0 L I & O for Last 24 hours: Intake & Output 09/16/21 09/17/21 09/18/21 09/19/21 23:59 23:59 23:59 23:59 Intake Total 300 / 300 980 / 1180 440 / 440 Output Total 1300 / 1300 1550 / 1750 200 / 200 Balance -1000 / -1000 -570 / -570 240 / 240 Weight 105 lb 5 oz 100 lb 8.493 oz 110 lb 4.8 oz - Constitutional thin, chronically ill appearing - *Routine HEENT Exam Head: Present: normocephalic Eye: Present: EOMI, PERRL ENT: Present: mucous membranes moist - *Routine Neck Exam Present: supple. Absent: lymphadenopathy - *Routine Respiratory Exam Present: CTA bilaterally - *Routine Cardiovascular Exam Present: RRR - *Routine Abdominal Exam Present: soft, normoactive bowel sounds. Absent: tenderness - *Routine Extremities Exam Absent: cyanosis, clubbing, edema - *Routine Skin Exam Present: warm. Absent: rash - *Routine Neurological Exam Present: alert, oriented X3 Assessment and Plan (1) C. difficile colitis Status: Acute Category: Medical Code(s): A04.72 - Enterocolitis due to Clostridium difficile, not specified as recurrent (2) JANETTE (acute kidney injury) Status: Acute Category: Medical Code(s): N17.9 - Acute kidney failure, unspecified (3) Anemia Status: Chronic Qualifiers: Anemia type: unspecified type Qualified Code(s): D64.9 - Anemia, unspecified Category: Medical Code(s): D64.9 - Anemia, unspecified (4) Congestive heart failure Status: Chronic Qualifiers: Heart failure type: diastolic Heart failure chronicity: acute on chronic Qualified Code(s): I50.33 - Acute on chronic diastolic (congestive) heart failure Category: Medical Code(s): I50.9 - Heart failure, unspecified (5) Coronary arteriosclerosis Status: Chronic Category: Medical Code(s): I25.10 - Atherosclerotic heart disease of [place] coronary artery without angina pectoris (6) Hyponatremia Status: Acute Categ
--- NOTE | 2021-09-19 15:55 | HMH.PTEV ---
Physical Therapy Evaluation Rehab PT IP Evaluation Start: 09/19/21 09:44 Freq: ONCE Status: Active Protocol: Document 09/19/21 15:37 PDESEROUX (Rec: 09/19/21 15:55 [email or web address] [id number]) Subjective/History History History Pt. is a 80 year old female who was admitted to [facility] Inpatient for the Physical Therapy initial evaluation this date(09/19/21) w/ c/o confusion and BLE numbness and weakness. Pt. reports initial onset of BLE numbness and weakness was back in January 2021 after getting sick. However, pt. states participating in ADLs independently w/o assistance nor any AD prior to getting sick, but required assistance and a FWW afterwards. Pt. reports rehabilitating at a SNF prior to admitting to [facility]. Pt. reports she lives here in [place] with her spouse at home where she ambulates w/ a FWW. However, pt. reports being too weak and her not being strong enough to help her to go home after leaving [facility]. PMH includes Anxiety, Cancer, Cardiomyopathy, Congestive Heart Failure, Coronary Artery Disease, Gastroesophageal Reflux Disease(GERD), Hiatal Hernia, Hyperlipidemia, Hypertension, Kidney Stones, and Myocardial Infarction. Subjective Subjective Pt. reports, I don't think I can walk because my legs are so weak. Pt. refused to walk secondary to fatigue and weakness, but stated ambulating w/ FWW over to the chair this morning with the Nurse's help. Pt. was left in chair w/ call light in reach. Rehab PT IP Eval Objective Appearance Patient Behavior Appropriate,Cooperative, Anxious,Fatigued,Fearful,
[2021-09-19 16:00] VITALS: BP 129/59; PULSE 78; RESP 18; TEMP 37; O2SAT 97
[2021-09-19 20:00] VITALS: BP 123/50; PULSE 79; RESP 18; TEMP 37.1; O2SAT 95
[2021-09-20 04:00] VITALS: BP 106/53; PULSE 71; RESP 18; TEMP 37.2; O2SAT 95
[2021-09-20 04:56] VITALS: BMI 20.5
[2021-09-20 08:00] VITALS: BP 132/70; PULSE 79; RESP 16; TEMP 36.6; O2SAT 95; O2SAT 96
[2021-09-20 08:17] LABS: Basophils % 0.3 % (0.1-2.0); Eosinophils % 0.6 % (0.1-12.0); Hematocrit 29.4 % (37.0-47.0); Hemoglobin 9.9 g/dL (12.2-16.2); Lymphocytes # 0.6 K/mm3 (0.7-4.5); Lymphocytes % 18.5 % (10-50); Mean Corpuscular HGB Conc 33.7 g/dL (31.8-35.4); Mean Corpuscular Hemoglobin 26.8 pg (27.0-31.2); Mean Corpuscular Volume 79.6 fl (81-99); Mean Platelet Volume 7.8 fl (7.4-10.4); Monocytes # 0.2 K/mm3 (0.1-1.0); Monocytes % 6.1 % (1.7-9.3); Neutrophils # 2.3 K/mm3 (1.8-7.8); Neutrophils % 74.5 % (37.0-80.0); Platelet Count 259 K/mm3 (142-424); Red Blood Count 3.69 M/mm3 (4.20-5.40); Red Cell Distribution Width 17.8 % (11.5-17.5)
[2021-09-20 08:22] LABS: Chloride 95 mmol/L (98-107)
[2021-09-20 08:23] LABS: Potassium 3.1 mmoL/L (3.5-5.1); Sodium 127 mmol/L (136-145)
[2021-09-20 08:26] LABS: Anion Gap 4.1 mEq/L (5-15); Blood Urea Nitrogen 11 mg/dl (7-17); Calcium 6.5 mg/dl (8.4-10.2); Carbon Dioxide 31 mmol/L (22.0-30.0); Creatinine Clearance Estimated 39 mL/min (50-200); Estimated Glomerular Filt Rate 97 ml/min (>60); GFR (African American) 117 ML/MIN (>60); Glucose 67 mg/dl (74-100)
--- NOTE | 2021-09-20 09:30 | HMH.ACPN2 ---
Internal Medicine - PN: Subj *Date: 09/20/21 *Time: 09:30 Interval history: Patient with fairly uneventful night. Her only complaint is being chilly in the room. She had less diarrhea yesterday. She is noted to be markedly weak and deconditioned. Hemoglobin this morning 9.9 following transfusion. 9596% on room air. uro wick is currently in place. She will require placement in a rehab facility. She has a condition to a marked extent. Physical therapy is working with her staff is encouraging mobility Recurrent C. difficile is noted Exam Vital signs and Labs for Last 24 Hours: Temp Pulse Resp BP Pulse Ox 97.9 F 79 16 132/70 96 09/20/21 08:00 09/20/21 08:00 09/20/21 08:00 09/20/21 08:00 09/20/21 08:00 Laboratory Results - last 24 hr 09/20/21 07:34: WBC 3.0 L, RBC 3.69 L, Hgb 9.9 L, Hct 29.4 L, MCV 79.6 L, MCH 26.8 L, MCHC 33.7, RDW 17.8 H, Plt Count 259, MPV 7.8, Neut % (Auto) 74.5, Lymph % (Auto) 18.5, [place] % (Auto) 6.1, Eos % (Auto) 0.6, Baso % (Auto) 0.3, Neut # (Auto) 2.3, Lymph # (Auto) 0.6 L, [place] # (Auto) 0.2, Eos # (Auto) 0.0, Baso # (Auto) 0.0 09/20/21 07:34: Sodium 127 L, Potassium 3.1 L, Chloride 95 L, Carbon Dioxide 31 H, Anion Gap 4.1 L, BUN 11, Creatinine 0.60, Estimated Creat Clear 39, Estimated GFR 97, Est GFR ( Amer) 117, Glucose 67 L, Calcium 6.5 L I & O for Last 24 hours: Intake & Output 09/17/21 09/18/21 09/19/21 09/20/21 23:59 23:59 23:59 23:59 Intake Total 300 / 300 980 / 1180 680 / 740 300 / 300 Output Total 1300 / 1300 1550 / 1750 200 / 200 250 / 250 Balance -1000 / -1000 -570 / -570 480 / 540 50 / 50 Weight 100 lb 8.493 oz 110 lb 4.8 oz 116 lb 1.6 oz - Constitutional no acute distress, thin, chronically ill appearing, cooperative - *Routine HEENT Exam Head: Present: normocephalic Eye: Present: EOMI, PERRL ENT: Present: mucous membranes moist - *Routine Neck Exam Present: supple. Absent: lymphadenopathy - *Routine Respiratory Exam Present: CTA bilaterally - *Routine Cardiovascular Exam Present: RRR - *Routine Abdominal Exam Present: soft, normoactive bowel sounds. Absent: tenderness - *Routine Extremities Exam Absent: cyanosis, edema, calf tenderness, extremity cold to touch - *Routine Skin Exam Present: warm. Absent: cyanosis, jaundice, rash - *Routine Neurological Exam Present: alert, oriented X3. Absent: altered mental status, normal tone Assessment and Plan (1) C. difficile colitis Status: Acute Category: Medical Code(s): A04.72 - Enterocolitis due to Clostridium difficile, not specified as recurrent (2) JANETTE (acute kidney injury) Status: Acute Category: Medical Code(s): N17.9 - Acute kidney failure, unspecified (3) Anemia Status: Chronic Qualifiers: Anemia type: unspecified type Qualified Code(s): D64.9 - Anemia, unspecified Category: Medical Code(s): D64.9 - Anemia, unspecified (4) Congestive heart failure Status: Chronic Qualifiers: Heart failure type: diastolic Heart failure chronicity: acute on chronic Qualified Code(s): I50.33 - Acute on chronic diastolic (congestive) heart failure Category: Medical Code(s): I50.9 - Heart failure, unspecified (5) Coronary arteriosclerosis Status: Chronic Category: Medical Code(s): I25.10 - Atherosclerotic heart disease of [place] coronary artery without angina pectoris (6) Hyponatremia Status: Acute Category: Medical Code(s): E87.1 - Hypo-osmolality and hyponatremia (7) Hypokalemia Status: Acute Category: Medical Code(s): E87.6 - Hypokalemia - Assessment and plan all Dx Assessment and Plan for all problems:: We will continue current regimen events and plans for placement.
--- NOTE | 2021-09-20 15:32 | P.PN_ITS ---
Internal Medicine - PN: Subj *Date: 09/20/21 *Time: 15:32 Exam Vital signs and Labs for Last 24 Hours: Temp Pulse Resp BP Pulse Ox 97.9 F 79 16 132/70 96 09/20/21 08:00 09/20/21 08:00 09/20/21 08:00 09/20/21 08:00 09/20/21 08:00 Laboratory Results - last 24 hr 09/20/21 07:34: WBC 3.0 L, RBC 3.69 L, Hgb 9.9 L, Hct 29.4 L, MCV 79.6 L, MCH 26.8 L, MCHC 33.7, RDW 17.8 H, Plt Count 259, MPV 7.8, Neut % (Auto) 74.5, Lymph % (Auto) 18.5, [place] % (Auto) 6.1, Eos % (Auto) 0.6, Baso % (Auto) 0.3, Neut # (Auto) 2.3, Lymph # (Auto) 0.6 L, [place] # (Auto) 0.2, Eos # (Auto) 0.0, Baso # (Auto) 0.0 09/20/21 07:34: Sodium 127 L, Potassium 3.1 L, Chloride 95 L, Carbon Dioxide 31 H, Anion Gap 4.1 L, BUN 11, Creatinine 0.60, Estimated Creat Clear 39, Estimated GFR 97, Est GFR ( Amer) 117, Glucose 67 L, Calcium 6.5 L I & O for Last 24 hours: Intake & Output 09/17/21 09/18/21 09/19/21 09/20/21 23:59 23:59 23:59 23:59 Intake Total 300 / 300 980 / 1180 680 / 740 300 / 300 Output Total 1300 / 1300 1550 / 1750 200 / 200 250 / 250 Balance -1000 / -1000 -570 / -570 480 / 540 50 / 50 Weight 45.6 kg 50.031 kg 52.662 kg Assessment and Plan (1) C. difficile colitis Status: Acute Category: Medical Code(s): A04.72 - Enterocolitis due to Clostridium difficile, not specified as recurrent (2) JANETTE (acute kidney injury) Status: Acute Category: Medical Code(s): N17.9 - Acute kidney failure, unspecified (3) Anemia Status: Chronic Qualifiers: Anemia type: unspecified type Qualified Code(s): D64.9 - Anemia, unspec ified Category: Medical Code(s): D64.9 - Anemia, unspecified (4) Congestive heart failure Status: Chronic Qualifiers: Heart failure type: diastolic Heart failure chronicity: acute on chronic Qualified Code(s): I50.33 - Acute on chronic diastolic (congestive) heart failure Category: Medical Code(s): I50.9 - Heart failure, unspecified (5) Coronary arteriosclerosis Status: Chronic Category: Medical Code(s): I25.10 - Atherosclerotic heart disease of [place] coronary artery without angina pectoris (6) Hyponatremia Status: Acute Category: Medical Code(s): E87.1 - Hypo-osmolality and hyponatremia (7) Hypokalemia Status: Acute Category: Medical Code(s): E87.6 - Hypokalemia The patient's infection will respond to the chosen ABx?: Yes Is the patient receiving the right drug, dose, and route?: Yes Could a more targeted ABx be ordered?: No (PO VANC FOR C DIFF)
[2021-09-20 16:00] VITALS: BP 145/80; PULSE 84; RESP 16; TEMP 36.9; O2SAT 96
[2021-09-20 20:00] VITALS: BP 145/75; PULSE 87; RESP 16; TEMP 36.9; O2SAT 94
[2021-09-21 04:00] VITALS: BP 138/62; PULSE 82; RESP 16; TEMP 36.6; O2SAT 95
[2021-09-21 05:18] VITALS: BMI 20.5
[2021-09-21 07:19] LABS: Basophils % 0.2 % (0.1-2.0); Eosinophils % 0.9 % (0.1-12.0); Hematocrit 31.4 % (37.0-47.0); Hemoglobin 10.5 g/dL (12.2-16.2); Lymphocytes # 0.5 K/mm3 (0.7-4.5); Lymphocytes % 10.9 % (10-50); Mean Corpuscular HGB Conc 33.3 g/dL (31.8-35.4); Mean Corpuscular Hemoglobin 27.1 pg (27.0-31.2); Mean Corpuscular Volume 81.5 fl (81-99); Mean Platelet Volume 8.4 fl (7.4-10.4); Monocytes # 0.3 K/mm3 (0.1-1.0); Monocytes % 5.8 % (1.7-9.3); Neutrophils # 3.5 K/mm3 (1.8-7.8); Neutrophils % 82.2 % (37.0-80.0); Platelet Count 209 K/mm3 (142-424); Red Blood Count 3.86 M/mm3 (4.20-5.40); Red Cell Distribution Width 17.7 % (11.5-17.5); White Blood Count 4.3 K/mm3 (4.8-10.8)
[2021-09-21 08:00] VITALS: BP 143/69; PULSE 76; RESP 20; TEMP 36.5; O2SAT 95
[2021-09-21 08:15] LABS: Anion Gap 5.8 mEq/L (5-15); Blood Urea Nitrogen 12 mg/dl (7-17); Calcium 6.6 mg/dl (8.4-10.2); Carbon Dioxide 25 mmol/L (22.0-30.0); Chloride 96 mmol/L (98-107); Creatinine Clearance Estimated 38 mL/min (50-200); Estimated Glomerular Filt Rate 97 ml/min (>60); GFR (African American) 117 ML/MIN (>60); Glucose 60 mg/dl (74-100); Potassium 3.8 mmoL/L (3.5-5.1); Sodium 123 mmol/L (136-145)
--- NOTE | 2021-09-21 09:56 | HMH.DCSUM ---
General - General Admission date:: 09/16/21 Discharge date: 09/21/21 HPI HPI: Patient 80-year-old female presenting to emergency department with chief complaint hypotension, weakness, impaired p.o. Report of long-term patient has been declining food and drink for the past few days, and had a lower blood pressure. Today patient called for help with putting on her clothes because she felt too weak to put them on. Patient's son Hilario called and states that she has some psychiatric issues where she is concerned that she has terminal illness and will sometimes stop eating and drinking due to this. Patient is denying headache, nausea, vomiting, dysuria, chest pain, shortness of air. Patient only states that she feels weak all over, denies focal weakness. 09/16/21 CXR: FINDINGS: The heart size is normal. The mediastinum is normal. There is postoperative change in the right lung base. There is mild scarring. There is a linear opacity in the right mid lung. There are no pleural effusions. There is no pneumothorax. There is no osseous abnormality. IMPRESSION: Right mid lung linear opacity favors atelectasis or scarring over pneumonia. Follow-up radiographs may be helpful. Reviewed, Interpreted and Dictated by Karan Christensen III, MD 80-year-old female patient resting quietly in bed she denies any chest pain or shortness of breath during the night. Today's hemoglobin is 7.8 we will transfuse 2 units of packed red blood cells. Creatinine has decreased from 1.3-0.8 Hospital Course Hospital Course: Laboratory Results - last 24 hr 09/21/21 06:55: WBC 4.3 L D, RBC 3.86 L, Hgb 10.5 L, Hct 31.4 L, MCV 81.5, MCH 27.1, MCHC 33.3, RDW 17.7 H, Plt Count 209, MPV 8.4, Neut % (Auto) 82.2 H, Lymph % (Auto) 10.9, [place] % (Auto) 5.8, Eos % (Auto) 0.9, Baso % (Auto) 0.2, Neut # (Auto) 3.5, Lymph # (Auto) 0.5 L, [place] # (Auto) 0.3, Eos # (Auto) 0.0, Baso # (Auto) 0.0 09/21/21 06:55: Sodium 123 L, Potassium 3.8 D, Chloride 96 L, Carbon Dioxide 25, Anion Gap 5.8, BUN 12, Creatinine 0.60, Estimated Creat Clear 38, Estimated GFR 97, Est GFR ( Amer) 117, Glucose 60 L, Calcium 6.6 L Ordering Physician: Gricel Todd MD Date of Service: 09/16/21 Procedure(s): XR chest portable Accession Number(s): [id number] cc: Karan Christensen MD; Tobias Healy ~ FINAL REPORT CLINICAL HISTORY: concern for infection FINDINGS: The heart size is normal. The mediastinum is normal. There is postoperative change in the right lung base. There is mild scarring. There is a linear opacity in the right mid lung. There are no pleural effusions. There is no pneumothorax. There is no osseous abnormality. IMPRESSION: Right mid lung linear opacity favors atelectasis or scarring over pneumonia. Follow-up radiographs may be helpful. Discharge Plan- 1. c diff- chronic reoccurrence- positive 03/04/21,06/03/21,08/26/21,09/17/21- will do vancomyacin po 125mg qid 14days then vancomyacin 125mg po bid 14 days, then vancomycin 125mg po daily for 14 days. to complete 6 week course 2. JANETTE: labs improved- BUN 20 on admit, 12 today 3. anemia: 2 units prbc,h/h 7.8/23 on admit-10.5/31.4 today 4. cad: continue meds 5. hyponatremia: sodium improving NA 116 on admit , NA 123 today- will continue iv fluids and recheck cbc,bmp on Tuesday. will see pt at long-term on to evaluated the need to continue iv fluids. 6. decrease appetite: remeron 15mg po to improve intake 7. Hypokalemia: kcl 3.8 today 09/21/21 Discharge to [facility] for senior care for iv fluids, Physical therapy and ot for weakness. Objective Vital signs: Temp Pulse Resp BP Pulse Ox 97.7 F 76 20 143/69 H 95 09/21/21 08:00 09/21/21 08:00 09/21/21 08:00 09/21/21 08:00 09/21/21 08:00 no acute distress, chronically ill appearing - *Routine HEENT Exam Head: Present: normocephalic Eye: Present: PERRL ENT: Present: mucous membranes
--- NOTE | 2021-09-21 10:21 | DIET.NUTRFU ---
During rounds today patient's po intake continues to fluctuate. Last Tuesday intake appeared to have improved but over weekend it declined. She is still having loose stools and is on ABT tx for C-diff. This morning she did report she had Boost over weekend and consumed and willing to try again. She is also on fortified oatmeal and mashed potatoes. Recommended remeron to help with appetite, plans to start today. Possible discharge to [facility] today.
--- NOTE | 2021-09-21 10:40 | SW/DCPLANNER ---
The plan is for this patient to discharge to [facility]. Patient will be SNF level of care and per Miracle will not require a COVID swab prior to discharge.
--- NOTE | 2021-09-21 10:55 | HMH.OTEV ---
OT Inpatient Evaluation Rehab OT IP Evaluation Start: 09/21/21 08:36 Freq: ONCE Status: Complete Protocol: Document 09/21/21 10:39 JANE (Rec: 09/21/21 10:55 JANE [id number]) Rehab OT IP Assessment Subjective History Patient 80-year-old female presenting to emergency department with chief complaint hypotension, weakness, impaired p.o. Report of [facility] patient has been declining food and drink for the past few days, and had a lower blood pressure . Today patient called for help with putting on her clothes because she felt too weak to put them on. Patient' s son Hilario called and states that she has some psychiatric issues where she is concerned that she has terminal illness and will sometimes stop eating and drinking due to this. Patient is denying headache, nausea, vomiting, dysuria, chest pain, shortness of air. Patient only states that she feels weak all over, denies focal weakness. PMH: Anxiety, Cancer, Cardiomyopathy, Congestive Heart Failure, Coronary Artery Disease, Gastroesophageal Reflux Disease(GERD), Hiatal Hernia, Hyperlipidemia, Hypertension, Kidney Stones, Myocardial Infarction Patient is a resident at a [facility]. Patient used RW to ambulate within facility. Subjective Patient required Min A and max encouragement to complete supine->sit @ EOB->SPT to recliner. No LOB noted. RW was used during transition to prevent fall risk. Left Patient sitting up in recliner with needs mets. Objective Patient Orientation Person,Place,Age Upper Extremity Gross ROM WFL Transfer Training Sit/Stand/Step
== END 2021-09-21 13:20 | DRG 683 ==
LOC: ER 11:04 → 2ND 14:13 → ICU 09-18 06:55 → 2ND 09-18 07:09
PROVIDERS: Nurse Practitioner Family; Admitting Provider Emergency Medicine; Emergency Provider Emergency Medicine; PCP Internal Medicine; Visit Provider Family Medicine
DX: N17.9 Acute kidney failure, unspecified (principal); I42.9 Cardiomyopathy, unspecified; A04.71 Enterocolitis due to Clostridium difficile, recurrent; I50.32 Chronic diastolic (congestive) heart failure; E87.1 Hypo-osmolality and hyponatremia; E86.0 Dehydration; Z88.1 Allergy status to other antibiotic agents; Z88.5 Allergy status to narcotic agent; Z88.8 Allergy status to other drugs, medicaments and biological substances; Z79.899 Other long term (current) drug therapy; I11.0 Hypertensive heart disease with heart failure; I25.10 Atherosclerotic heart disease of native coronary artery without angina pectoris; Z20.822 Contact with and (suspected) exposure to COVID-19; F41.9 Anxiety disorder, unspecified; Z87.891 Personal history of nicotine dependence; E87.6 Hypokalemia; I95.9 Hypotension, unspecified
CPT/HCPCS: 36415; 71045; 80048; 80053; 81001; 83605; 83690; 83735; 84484; 85007; 85025; 86850; 86870; 87507; 93005; 96365; 96367; 97110; 97161; 97165; 99284; C9803; J2405; J3370; P9016; U0003; U0005

== ENCOUNTER → 2021-10-24 14:05 | Outpatient (CLI) | payer MEDICARE, SELFPAY ==
[2021-10-24 14:59] LABS: Basophils % 0.2 % (0.1-2.0); Eosinophils % 0.5 % (0.1-12.0); Hematocrit 27.8 % (37.0-47.0); Hemoglobin 9.4 g/dL (12.2-16.2); Lymphocytes # 0.9 K/mm3 (0.7-4.5); Mean Corpuscular HGB Conc 33.8 g/dL (31.8-35.4); Mean Corpuscular Hemoglobin 27.1 pg (27.0-31.2); Mean Corpuscular Volume 80.2 fl (81-99); Mean Platelet Volume 7.8 fl (7.4-10.4); Monocytes # 0.4 K/mm3 (0.1-1.0); Neutrophils % 85.4 % (37.0-80.0); Platelet Count 273 K/mm3 (142-424); Red Blood Count 3.46 M/mm3 (4.20-5.40); Red Cell Distribution Width 16.6 % (11.5-17.5); White Blood Count 9.4 K/mm3 (4.8-10.8)
[2021-10-24 15:09] LABS: MANUAL DIFFERENTIAL MANUAL DIFFERENTIAL (MANUAL DIFF)
[2021-10-24 15:16] LABS: Chloride 91 mmol/L (98-107); Sodium 123 mmol/L (136-145)
[2021-10-24 15:19] LABS: Blood Urea Nitrogen 51 mg/dl (7-17); Estimated Glomerular Filt Rate 31 ml/min (>60); GFR (African American) 38 ML/MIN (>60)
[2021-10-24 15:20] LABS: Calcium 6.6 mg/dl (8.4-10.2); Carbon Dioxide 28 mmol/L (22.0-30.0); Glucose 78 mg/dl (74-100)
[2021-10-24 15:21] LABS: Microscopic, Urine URINE MICROSCOPIC (MICROSCOPIC)
[2021-10-24 16:09] LABS: Anisocytosis 1+; Lymphocytes % 2 % (10-50); Monocytes % 7 % (2-9); Neutrophils % 85 % (42-76); Nucleated Red Blood Cells 1; Platelet Estimate Normal; Total Cells Counted 100
[2021-10-24 16:10] LABS: Acanthocytes 1+; Hypochromasia 1+
[2021-10-24 16:15] LABS: Appearance,Urine CLEAR (Clear); Bilirubin,Urine Negative (Negative); Blood, Urine 3+ (Negative); Color,Urine YELLOW (Yellow); Glucose,Urine (UA) Negative (Negative); Ketones,Urine Negative (Negative); Leukocyte Esterase,Urine 2+ (Negative); Nitrate,Urine Negative (Negative); Protein,Urine 1+ (Negative); Specific Gravity, Urine 1.015 (1.005-1.030); Urobilinogen,Urine 0.2 EU/dl (0.2)
[2021-10-24 16:28] LABS: RBC,Urine TNTC #/hpf (0-3)
[2021-10-24 16:29] LABS: Bacteria,Urine 2+ /lpf; Squamous Epithelial Cell,Urine Occasional #/hpf (0-5)
== END ==
LOC: LAB 14:07 → LAB.DROPOF 15:15
PROVIDERS: Visit Provider Emergency Medicine
DX: R53.83 Other fatigue (principal); N39.0 Urinary tract infection, site not specified; B96.1 Klebsiella pneumoniae [K. pneumoniae] as the cause of diseases classified elsewhere
CPT/HCPCS: 80048; 81001; 85007; 85025; 87086; 87088; 87186

== ENCOUNTER → 2021-11-01 17:19 | Outpatient (CLI) | payer MEDICARE, SELFPAY ==
[2021-11-01 18:00] LABS: Anion Gap 7.7 mEq/L (5-15); Blood Urea Nitrogen 37 mg/dl (7-17); Calcium 7.4 mg/dl (8.4-10.2); Carbon Dioxide 32 mmol/L (22.0-30.0); Chloride 97 mmol/L (98-107); Estimated Glomerular Filt Rate 43 ml/min (>60); GFR (African American) 52 ML/MIN (>60); Glucose 82 mg/dl (74-100); Potassium 3.7 mmoL/L (3.5-5.1); Sodium 133 mmol/L (136-145)
== END ==
PROVIDERS: Visit Provider Emergency Medicine
DX: I10 Essential (primary) hypertension (principal)
CPT/HCPCS: 80048

== ENCOUNTER 2021-11-02 15:26 | Inpatient (IN) | payer MEDICARE, SELFPAY ==
[2021-11-02] VITALS (8 sets, daily range): BP systolic 98–111; BP diastolic 47–81; PULSE 71–82; RESP 14–18; TEMP 36.6–36.8; O2SAT 94–97; BMI 27.3; BMI 16.2
--- NOTE | 2021-11-02 15:54 | ECG_ITS ---
APPROVED REPORT Exam: Resting ECG HR:76 bpm ECG Measurements Heart Rate 76 AXES QRSd 94 QRS 37 QT 363 T 11 QTc 393 Conclusion SUPRAVENTRICULAR RHYTHM NONSPECIFIC T-WAVE ABNORMALITY ABNORMAL RHYTHM ECG UNCONFIRMED REPORT Electronically signed by : Adonay Kaur MD 11/02/2021 19:45:34
--- NOTE | 2021-11-02 16:01 | XR_ITS ---
FINAL REPORT TECHNIQUE: Single view chest CLINICAL HISTORY: hyptension COMPARISON: 09/16/2021 FINDINGS: A single view of the chest was obtained. The heart and mediastinum are within normal limits. There is posterior to change the right lower thorax. Mild scarring is seen in the right lung. Lungs are otherwise clear. There is no pneumothorax. Osseous structures are unremarkable. IMPRESSION: No acute cardiopulmonary process. Reviewed, Interpreted and Dictated by Karan Christensen III, MD Transcribed by Mouna Zepeda Authenticated by Karan Christensen III, MD on 11/02/2021 04:38:13 PM [facility]
[2021-11-02 16:19] LABS: Basophils % 0.6 % (0.1-2.0); Eosinophils % 0.7 % (0.1-12.0); Hematocrit 25.1 % (37.0-47.0); Hemoglobin 7.9 g/dL (12.2-16.2); Lymphocytes % 16.3 % (10-50); Mean Corpuscular HGB Conc 31.6 g/dL (31.8-35.4); Mean Corpuscular Hemoglobin 26.9 pg (27.0-31.2); Mean Corpuscular Volume 85.2 fl (81-99); Mean Platelet Volume 8.1 fl (7.4-10.4); Monocytes # 0.2 K/mm3 (0.1-1.0); Neutrophils % 79.4 % (37.0-80.0); Platelet Count 280 K/mm3 (142-424); Red Blood Count 2.95 M/mm3 (4.20-5.40); Red Cell Distribution Width 18.3 % (11.5-17.5); White Blood Count 6.3 K/mm3 (4.8-10.8)
[2021-11-02 16:23] LABS: Chloride 97 mmol/L (98-107); Potassium 3.3 mmoL/L (3.5-5.1); Sodium 129 mmol/L (136-145)
[2021-11-02 16:26] LABS: Alanine Aminotransferase 13 U/L (12-78); Albumin/Globulin Ratio 0.7 (1.1-1.8); Alkaline Phosphatase 118 U/L (38-126); Anion Gap 6.3 mEq/L (5-15); Aspartate Amino Transferase 33 U/L (14-36); Bilirubin,Total 0.3 mg/dl (0.2-1.3); Blood Urea Nitrogen 37 mg/dl (7-17); Carbon Dioxide 29 mmol/L (22.0-30.0); Creatinine Clearance Estimated 39 mL/min (50-200); Estimated Glomerular Filt Rate 40 ml/min (>60); GFR (African American) 48 ML/MIN (>60); Globulin 2.8 g/dL (1.3-3.2); Total Protein,Serum 4.8 g/dl (6.3-8.2)
[2021-11-02 16:27] LABS: Calcium 6.6 mg/dl (8.4-10.2); Glucose 91 mg/dl (74-100)
[2021-11-02 17:21] LABS: Coronavirus 19, PCR Not Detected (NotDetected); Influenza A, PCR Not Detected (NotDetected); Influenza B, PCR Not Detected (NotDetected)
--- NOTE | 2021-11-02 17:43 | PC.NURSE ---
mic [facility] health services information specialist for admission
--- NOTE | 2021-11-02 17:51 | HMH.EDGENADL ---
ED Disposition Clinical Impression: UTI (urinary tract infection), Anemia Disposition: Admitted as Observation Condition on Discharge: Good - Critical Care Critical Care Time: No Attestation: On 11/02/21, the high probability of a clinically significant, sudden or life threatening deterioration of the following system(s) required my full and direct attention, intervention and personal management. The time I documented below is in addition to time spent performing reported procedures but includes the following listed in this critical care notation. Medical Decision Making - Medical Records Medical records reviewed: Yes: I reviewed the patient's medical records. - Pnatera Inquiry Pt receiving controlled substance: No Vital Signs: 11/02/21 15:26 11/02/21 16:00 11/02/21 16:23 Temperature 98.2 F Temperature Source Oral Pulse Rate 71 79 Pulse Rate [Left Radial] 82 Respiratory Rate 16 18 14 Blood Pressure 109/52 L 109/52 L Blood Pressure [Right Arm] 111/81 Blood Pressure Mean [Right Arm] 91 Blood Pressure Source Automatic Cuff Automatic Cuff Blood Pressure Source [Right Arm] Automatic Cuff Blood Pressure Position Supine Supine Blood Pressure Position [Right Arm] Sitting 02 Sat by Pulse Oximetry 95 96 96 Oxygen Delivery Method Room Air Room Air Room Air 11/02/21 16:45 11/02/21 18:00 11/02/21 18:52 Temperature Temperature Source Pulse Rate 74 74 75 Pulse Rate [Left Radial] Respiratory Rate 18 18 18 Blood Pressure 98/48 L 99/47 L 101/58 L Blood Pressure [Right Arm] Blood Pressure Mean [Right Arm] Blood Pressure Source Automatic Cuff Automatic Cuff Automatic Cuff Blood Pressure Source [Right Arm] Blood Pressure Position Sitting Sitting Supine Blood Pressure Position [Right Arm] 02 Sat by Pulse Oximetry 97 95 94 L Oxygen Delivery Method Room Air Room Air 11/02/21 19:49 11/02/21 20:00 Temperature 98.2 F 98 F Temperature Source Oral Pulse Rate 72 Pulse Rate [Left Radial] 73 Respiratory Rate 18 17 Blood Pressure 100/61 L Blood Pressure [Right Arm] 100/49 L Blood Pressure Mean [Right Arm] 66 Blood Pressure Source Blood Pressure Source [Right Arm] Automatic Cuff Blood Pressure Position Blood Pressure Position [Right Arm] Supine 02 Sat by Pulse Oximetry 97 Oxygen Delivery Method Room Air - Lab Data Lab results reviewed: Yes: I reviewed the patient's lab results. Lab Results 11/02/21 16:10: WBC 6.3, RBC 2.95 L, Hgb 7.9 L, Hct 25.1 L, MCV 85.2, MCH 26.9 L, MCHC 31.6 L, RDW 18.3 H, Plt Count 280, MPV 8.1, Neut % (Auto) 79.4, Lymph % (Auto) 16.3, Yates % (Auto) 3.0, Eos % (Auto) 0.7, Baso % (Auto) 0.6, Neut # (Auto) 5.0, Lymph # (Auto) 1.0, Yates # (Auto) 0.2, Eos # (Auto) 0.0, Baso # (Auto) 0.0 11/02/21 16:10: Sodium 129 L, Potassium 3.3 L, Chloride 97 L, Carbon Dioxide 29, Anion Gap 6.3, BUN 37 H, Creatinine 1.30 H, Estimated Creat Clear 39, Estimated GFR 40 L, Est GFR ( Amer) 48 L, Glucose 91, Calcium 6.6 L, Total Bilirubin 0.3, AST 33, ALT 13, Alkaline Phosphatase 118, Total Protein 4.8 L, Albumin 2.0 L, Globulin 2.8, Albumin/Globulin Ratio 0.7 L 11/02/21 17:15: SARS-CoV-2 (PCR) Not detected, Influenza A Untype (PCR) Not detected, Influenza Type B (PCR) Not detected 11/02/21 18:00: Urine Color Yellow, Urine Appearance Clear, Urine pH 5.5, Ur Specific [place] 1.015, Urine Protein Negative, Urine Glucose (UA) Negative, Urine Ketones Negative, Urine Blood Negative, Urine Nitrate Negative, Urine Bilirubin Negative, Urine Urobilinogen 0.2, Ur Leukocyte Esterase Trace, Urine RBC Occasional, Urine WBC 3-5, Ur Squamous Epith Cells 3-5, Urine Bacteria None Result diagrams: 11/02/21 16:10 11/02/21 16:10 Orders (Tests/Meds): ED MEDICATIONS Generic Name Dose Route Start Last Admin Trade Name Freq PRN Reason Stop Dose Admin Ertapenem 1 gm/ Sodium 50 mls @ 100 mls/hr 11/03/21 18:30 Chloride IV 11/16/21 18:29 Q24H JONY Levothyroxine Sodium 50
[2021-11-02 18:08] LABS: Microscopic, Urine URINE MICROSCOPIC (MICROSCOPIC)
[2021-11-02 18:11] LABS: Appearance,Urine CLEAR (Clear); Bilirubin,Urine Negative (Negative); Blood, Urine Negative (Negative); Color,Urine YELLOW (Yellow); Glucose,Urine (UA) Negative (Negative); Ketones,Urine Negative (Negative); Leukocyte Esterase,Urine TRACE (Negative); Nitrate,Urine Negative (Negative); PH,Urine 5.5 (5.0-8.5); Protein,Urine Negative (Negative); Specific Gravity, Urine 1.015 (1.005-1.030); Urobilinogen,Urine 0.2 EU/dl (0.2)
[2021-11-02 18:47] LABS: RBC,Urine Occasional #/hpf (0-3)
--- NOTE | 2021-11-02 20:32 | PC.NURSE ---
PT ARRIVED TO FLOOR VIA STRETCHER FROM EDW/STAFF @2030
--- NOTE | 2021-11-02 20:53 | PC.NURSE ---
pt admitted to 217 from ED via stretcher, bath given to pt and photos taken of pt's wounds on admission (pt confused so unable to sign and no family present to sign), see nurse wound notes for photos
[2021-11-03] VITALS (19 sets, daily range): BP systolic 71–101; BP diastolic 34–54; PULSE 70–97; RESP 14–19; TEMP 36.2–36.6; O2SAT 95–100; BMI 16.2
--- NOTE | 2021-11-03 07:28 | HMH.PHAVTE ---
[facility] Pharmacy VTE Monitoring - Patient Demographics Admission date: 11/02/21 Report Date: 11/03/21 Time: 07:28 Allergies/Adverse Reactions: Patient Allergies codeine [CODEINE] Allergy (Mild, Verified 05/18/21 08:14) HEART RACE meloxicam [From MOBIC] Allergy (Mild, Verified 05/18/21 08:14) HEART RACE oxycodone [OXYCODONE] Allergy (Mild, Verified 05/18/21 08:14) HEART RACE propoxyphene [From DARVOCET-N] Allergy (Mild, Verified 05/18/21 08:14) HEART RACE sulfamethoxazole [From BACTRIM] Allergy (Mild, Verified 05/18/21 08:14) HEART RACE trimethoprim [From BACTRIM] Allergy (Mild, Verified 05/18/21 08:14) HEART RACE diphenhydramine [DIPHENHYDRAMINE] Allergy (Unknown, Verified 05/18/21 08:14) HEART RACE doxycycline [DOXYCYCLINE] Allergy (Unknown, Verified 05/18/21 08:14) HEART RACE levofloxacin [From LEVAQUIN] Allergy (Unknown, Verified 05/18/21 08:14) Heart Races metoclopramide [From REGLAN] Allergy (Unknown, Verified 05/18/21 08:14) HEART RACE phenazopyridine [From PYRIDIUM] Allergy (Unknown, Verified 05/18/21 08:14) HEART RACE ciprofloxacin Allergy (Verified 05/18/21 08:14) Quinolones Allergy (Verified 05/18/21 08:14) QUINOLONES Allergy (Unknown, Uncoded 09/25/19 09:33) HEART RACE Height: 1.6 m Weight: 41.64 kg Patient Problems: Current Active Problems UTI (urinary tract infection) (Acute) Anemia (Acute) - VTE Risk Labs: VTE Related Lab Results Hgb 7.9 g/dL (12.2-16.2) L 11/02/21 16:10 Hct 25.1 % (37.0-47.0) L 11/02/21 16:10 Plt Count 280 K/mm3 (142-424) 11/02/21 16:10 BUN 37 mg/dl (7-17) H 11/02/21 16:10 Creatinine 1.30 mg/dl (0.52-1.04) H 11/02/21 16:10 Estimated Creat Clear 39 mL/min (50-200) 11/02/21 16:10 - Prophylaxis VTE Prophylaxis Ordered?: Yes Types of VTE Prophylaxis: TEDS Knee High Location of Applied Device: Bilateral Lower Extremeties
[2021-11-03 08:00] LABS: Basophils % 0.6 % (0.1-2.0); Eosinophils % 0.6 % (0.1-12.0); Hemoglobin 7.6 g/dL (12.2-16.2); Lymphocytes # 0.9 K/mm3 (0.7-4.5); Lymphocytes % 21.1 % (10-50); Mean Corpuscular HGB Conc 31.5 g/dL (31.8-35.4); Mean Corpuscular Hemoglobin 26.8 pg (27.0-31.2); Mean Corpuscular Volume 85.1 fl (81-99); Monocytes # 0.1 K/mm3 (0.1-1.0); Monocytes % 3.2 % (1.7-9.3); Neutrophils # 3.1 K/mm3 (1.8-7.8); Neutrophils % 74.4 % (37.0-80.0); Platelet Count 250 K/mm3 (142-424); Red Blood Count 2.82 M/mm3 (4.20-5.40); Red Cell Distribution Width 18.4 % (11.5-17.5); White Blood Count 4.2 K/mm3 (4.8-10.8)
--- NOTE | 2021-11-03 08:02 | HMH.PHAINT ---
MEDICATION RECONCILIATION COMPLETED ON PATIENT USING MAR FROM INTERMEDIATE. -RODOLFO ZHANG, CHRISTINAD
[2021-11-03 08:10] LABS: Blood Urea Nitrogen 35 mg/dl (7-17); Calcium 6.8 mg/dl (8.4-10.2); Carbon Dioxide 31 mmol/L (22.0-30.0); Chloride 101 mmol/L (98-107); Creatinine Clearance Estimated 30 mL/min (50-200); Estimated Glomerular Filt Rate 60 ml/min (>60); GFR (African American) 73 ML/MIN (>60); Glucose 63 mg/dl (74-100); Sodium 133 mmol/L (136-145)
--- NOTE | 2021-11-03 09:35 | HMH.HP ---
*Admission Date: 11/02/21 *Chief complaint: Altered Mental Status *History of present illness: 81-year-old female patient arrived to the [facility] emergency department via EMS for reports of ongoing UTI at alf. She currently has been treated with ertapenem and family wanted her evaluated for confusion. In the emergency department she denied any pain, nausea/vomiting, bloody stools, fever/chills/body aches other or complaints. She recently finished vancomycin for C. difficile on 11/01. 11/02/21 CXR: FINDINGS: A single view of the chest was obtained. The heart and mediastinum are within normal limits. There is posterior to change the right lower thorax. Mild scarring is seen in the right lung. Lungs are otherwise clear. There is no pneumothorax. Osseous structures are unremarkable. IMPRESSION: No acute cardiopulmonary process. Reviewed, Interpreted and Dictated by Karan Christensen III, MD 81-year-old female patient resting quietly in bed she is alert and oriented to person and place she denies any shortness of breath or pain during the night. She does have a stage II wound to her coccyx area with dressing intact and reddened in her knees with skin intact [facility] History I have reviewed the patient's past medical history: Yes Medical History: Reports:: Anxiety, Cancer, Cardiomyopathy, Congestive Heart Failure, Coronary Artery Disease, Gastroesophageal Reflux Disease(GERD), Hiatal Hernia, Hyperlipidemia, Hypertension, Kidney Stones, Myocardial Infarction Denies:: Diabetes Mellitus Type 1, Diabetes Mellitus Type 2, Internal Pacemaker, Lung Disease, MRSA, Seizures *Have you ever received a pneumonia vaccine?: (unknown, pt confused) *Have you received a flu vaccine this season?: (unknown, pt confused) Other Medical History: Reports: Anemia, Arthritis, Cataracts, Hypothyroidism, Liver Disease, Thyroid Disease. Denies: Blood Transfusion Reaction Laterality Cases: Bilateral: Other Other Surgeries: Yes: Appendectomy, Cancer Surgery, Cardiac Catheterization, Cholecystectomy, Colonoscopy, Colon Resection, Hysterectomy-Total, Hysterectomy-Partial, Other. No: Pacemaker Amputation: No Fractures: No - *Social History Smoking Status: Former smoker Tobacco Type: cigarettes # Packs/Day (cigarettes): 1 #Yrs smoked (if former smoker): 20 Alcohol Intake: never Substance Use Type: denies use *Occupational Status:: retired Housing: house Household Members: spouse *Travel in the last 8 weeks: None - Psychiatric History Pschychiatric History:: Reports:: Anxiety Family Hx:: No significant family history Review of Systems - Review of Systems Review of systems:: pertinent systems reviewed and negative unless documented below Patient is a very poor historian obtain much of information from ED record - Constitutional Reports weakness - Eyes Denies loss of vision - ENT Denies dental pain, Denies dizziness - *Cardiovascular Denies chest pain, Denies shortness of breath - *Respiratory Denies chest congestion, Denies shortness of breath - *Gastrointestinal Reports loose stools, Denies abdominal pain, Denies bright, red blood in stools - Endocrine Denies excessive sweating, Denies rapid, pounding, or irregular heartbeat Meds Home Medications Medication Instructions Recorded Confirmed Type Atorvastatin Calcium [Lipitor 40mg 40 mg PO HS 09/12/17 11/02/21 History Tablet*] Levothyroxine Sodium 50 mcg PO DAILY 09/12/17 11/03/21 History [Levothyroxine 50mcg (0.05mg) Tab] lisinopriL [Zestril 10mg Tab] 10 mg PO DAILY 03/15/21 11/02/21 History torsemide 20 mg tablet 20 mg PO DAILY tab 05/18/21 11/02/21 History Acetaminophen [Acetaminophen 8 650 mg PO TIDP PRN 08/25/21 11/02/21 History Hour] Metoprolol Tartrate [Lopressor 50 mg PO BID 08/26/21 11/02/21 History 25mg tablet] Mirtazapine [Remeron 15mg tablet] 30 mg PO HS 11/02/21 11/02/21 History Calcium Carbonate [Tums 500mg 500 mg PO
--- NOTE | 2021-11-03 10:02 | SW/DCPLANNER ---
Addendum entered by [facility] 11/12/21 09:37: The plan for this patient is to discharge back to [facility] [place] under Hospice care. I have informed Sherrie casas/ Marge and Miracle with [facility] [place]. Miracle has stated that patient will not require an additional covid swab prior to discharge. Addendum entered by Josephine Duque RN 11/11/21 10:31: Spoke with Hilario and Alessandra regarding admission to Hospice. Alessandra will meet Hospice at the hospital today and will coordinate time with Sherrie from Hospice. Patient will likely discharge tomorrow. MC Campuzano Addendum entered by [facility] 11/10/21 15:24: Patient is fine with Hospice services: Sherrie casas/ Hospice is reviewing information and will contact patients family. Addendum entered by [facility] 11/10/21 14:32: I spoke with Hilario today regarding discharge plans for this patient. Hilaroi stated that he is out of town but his sister in law (Alessandra) listed in demographics could assist with discharge planning. Hilario is agreeable with Hospice services at time of discharge. Hilario also stated that he was interested in placement at [facility]: I explained that they do not have any Medicaid beds available at this time. Hilario is now agreeable to discharge back to [facility] [place] under Hospice care if needed. I called and spoke with Alessandra and she is agreeable with discharge plan back to [facility] [place] once medically stable for discharge. Alessandra is also agreeable with Hospice services and would be willing to discuss services with Hospice. Patient information will be faxed to Sherrie with Hospice this afternoon. Addendum entered by [facility] 11/09/21 10:38: Updated patient information has been faxed to Miracle at [facility] [place]. Discharge date is unknown at this time. Addendum entered by [facility] 11/03/21 10:08: Son has stated the plan for this patient to return to [facility] [place] at time of discharge. Original Note: This patient currently resides at [facility] [place]: per Miracle patient is [facility] level of care. I have attempted to contact patients son (Hilario) regarding discharge plans: no answer at this time. Discharge date is unknown. I will continue to follow up with diana, , Vincent Liriano and patients family.
--- NOTE | 2021-11-03 10:58 | DIET.NUTRFU ---
Addendum entered by Daylin Avendaño RD, LD 11/03/21 11:03: Patient also has some skin redness to bottom, PT was consulted for tx. Increased protein needs to promote healing Original Note: Patient has been here multiple times in the past, triggers for significant wt loss in past 60 days of 8#. MNA score of 7- malnourished, will notify provider. Called [place] where she lives and she was receiving regular diet there with poor po intake. They tried multiple supplements and none were successful. She was also started on remeron last visit, shows no increase in appetite at this time. Today she plans to get scoped for questionable bleed therefore she is NPO. IVF in place. Once oral diet feasible will start regular ith thin liquids and ensure TID with yogurt at breakfast and fortified cereal and mashed potatoes to help maintain current wt. She is also on diuretic tx which may effect weight based on fluid/kidney status.
--- NOTE | 2021-11-03 11:06 | HMH.PTWOUND ---
Rehab Inpt Wound Evaluation Rehab IP Wound Evaluation Start: 11/03/21 09:51 Freq: ONCE Status: Active Protocol: Document 11/03/21 10:58 [email or web address] (Rec: 11/03/21 11:06 [email or web address] [id number]) Rehab PT Wound Assessment Patient Status Premedicated Prior to Dressing Change Yes Subjective Subjective This is the initial IP Wound care evaluation for Ruben Matamoros. Pt is a 81 y/o female admitted from SNF for weakness and altered electrolyte levels, pt also has c-diff Wound Lower Sacrum Wound Type Pressure Ulcer Wound Staging Stage II Query Text:Stage I - Unbroken, red skin, no blanching. Stage II - Skin broken, superficial skin loss involving epidermis alone or also dermis. Partial loss of skin layers. Stage III - Pressure area involves epidermis, dermis and subcutaneous tissue, full thickness skin loss. Stage IV - Pressure area involves epidermis, subcutaneous tissue, bone and other supportive tissue. Full thickness skin loss with extensive destruction of underlying tissue and structures. Wound Length (cm) 3.0 Wound Width (cm) 1.0 Wound Bed Appearance Beefy Red,Dusky Red Percentage Granulated (%) 100 Wound Margins Description Indistinct Surrounding Tissue Appearance Bright Red Wound Drainage Description Serous Drainage Amount Scant Drainage Odor No Odor Dressing Status Dry & Intact Primary Dressing Medicated Gauze Pad Comment betadyne gauze Wound Secondary Dressing Type Absorbant Pad Comment optifoam sacral Wound Debridement Amount of Tissue None Removed Dressing Change Date 11/03/21 Dressing Change Patient Tolerance Tolerated Poorly Right Lower Sacrum Wound Type Pressure Ulcer Wound Staging Stage II Query Text:Stage I - Unbroken, red skin, no blanching. Stage II - Skin broken, superficial skin loss involving epidermis alone or also dermis. Partial loss of skin layers. Stage III - Pressure area involves epidermis, dermis and subcutaneous tissue, full thickness skin loss. Stage IV - Pressure area involves epidermis, subcutaneous tissue, bone and other supportive tissue. Full thickness skin loss with extens
--- NOTE | 2021-11-03 12:14 | P.PN_ITS ---
[facility] Anesthesia Checklist - Patient Identification Patient Identification: Arm Band - Structural Data Admitted From: Home Planned Operative Procedure/s: EGD Consent for Planned Operative Procedure(s) Verified: Yes - NPO Status Verified Time NPO: 00:00 - Additional verifications Anesthesia Reactions: Yes Hx Blood Transfusions: No Blood Transfusion Reaction: No - Airway Assessment C-Spine Mobility Assessed: Yes TMJ Mobility Assessed: Yes Dentition: Edentulous - Neurological Assessment Level of Consciousness: Drowsy Hx Seizures: No Numbness or tingling in extremities: No - Anesthesia Plan Anesthesia Risk discussed: Yes Anesthesia Plan: Verified ASA Class: IV Anesthesia Type: MAC [facility] History I have reviewed the patient's past medical history: Yes Medical History: Reports:: Anxiety, Cancer, Cardiomyopathy, Congestive Heart Failure, Coronary Artery Disease, Gastroesophageal Reflux Disease(GERD), Hiatal Hernia, Hyperlipidemia, Hypertension, Kidney Stones, Myocardial Infarction, Supraventricular Tachycardia Denies:: Diabetes Mellitus Type 1, Diabetes Mellitus Type 2, Internal Pacemaker, Lung Disease, MRSA, Seizures *Have you ever received a pneumonia vaccine?: (unknown, pt confused) *Have you received a flu vaccine this season?: (unknown, pt confused) Other Medical History: Reports: Anemia, Arthritis, Cataracts, Hypothyroidism, Liver Disease, Thyroid Disease. Denies: Blood Transfusion Reaction Anesthesia experience/problems:: None Laterality Cases: Bilateral: Other Other Surgeries: Yes: Appendectomy, Cancer Surgery, Cardiac Catheterization, Cholecystectomy, Colonoscopy, Colon Resection, Hysterectomy-Total, Hysterectomy- Partial, Other. No: Pacemaker Amputation: No Fractures: No - *Social History Smoking Status: Former smoker Tobacco Type: cigarettes # Packs/Day (cigarettes): 1 #Yrs smoked (if former smoker): 20 Alcohol Intake: never Substance Use Type: denies use *Occupational Status:: retired Housing: house Household Members: spouse *Travel in the last 8 weeks: None - Psychiatric History Pschychiatric History:: Reports:: Anxiety Family Hx:: No significant family history
--- NOTE | 2021-11-03 14:16 | HMH.GSCON ---
*Admission Date: 11/02/21 *Reason for consult:: Anemia *History of present illness: This is a 81-year-old female seen in consultation from Dr. Medina for evaluation regarding anemia. She has a history of chronic/intermittent anemia. She did undergo esophagogastroduodenoscopy in April [address] Solis Christensen. Nonerosive GERD with moderate esophageal dysmotility and small hiatal hernia noted. Some bile reflux was noted. The esophagogastroduodenoscopy note did report that she had undergone colonoscopy in October 2018 revealing 3 tubular adenomas. Prior colonoscopy in April 2017 revealed 2 tubular adenomas. Also was notation of history of partial colon resection in 1995 for carcinoma. Review of Systems - Review of Systems Review of systems:: unable to obtain [facility] History Medical History: Reports:: Anxiety, Cancer, Cardiomyopathy, Congestive Heart Failure, Coronary Artery Disease, Gastroesophageal Reflux Disease(GERD), Hiatal Hernia, Hyperlipidemia, Hypertension, Kidney Stones, Myocardial Infarction, Supraventricular Tachycardia Denies:: Diabetes Mellitus Type 1, Diabetes Mellitus Type 2, Internal Pacemaker, Lung Disease, MRSA, Seizures *Have you ever received a pneumonia vaccine?: (unknown, pt confused) *Have you received a flu vaccine this season?: (unknown, pt confused) Other Medical History: Reports: Anemia, Arthritis, Cataracts, Hypothyroidism, Liver Disease, Thyroid Disease. Denies: Blood Transfusion Reaction Anesthesia experience/problems:: None Laterality Cases: Bilateral: Other Other Surgeries: Yes: Appendectomy, Cancer Surgery, Cardiac Catheterization, Cholecystectomy, Colonoscopy, Colon Resection, Hysterectomy-Total, Hysterectomy-Partial, Other. No: Pacemaker Amputation: No Fractures: No - *Social History Smoking Status: Former smoker Tobacco Type: cigarettes # Packs/Day (cigarettes): 1 #Yrs smoked (if former smoker): 20 Alcohol Intake: never Substance Use Type: denies use *Occupational Status:: retired Housing: house Household Members: spouse *Travel in the last 8 weeks: None - Psychiatric History Pschychiatric History:: Reports:: Anxiety Family Hx:: No significant family history Meds Home Medications Medication Instructions Recorded Confirmed Type Atorvastatin Calcium [Lipitor 40mg 40 mg PO HS 09/12/17 11/02/21 History Tablet*] Levothyroxine Sodium 50 mcg PO DAILY 09/12/17 11/03/21 History [Levothyroxine 50mcg (0.05mg) Tab] lisinopriL [Zestril 10mg Tab] 10 mg PO DAILY 03/15/21 11/02/21 History torsemide 20 mg tablet 20 mg PO DAILY tab 05/18/21 11/02/21 History Acetaminophen [Acetaminophen 8 650 mg PO TIDP PRN 08/25/21 11/02/21 History Hour] Metoprolol Tartrate [Lopressor 50 mg PO BID 08/26/21 11/02/21 History 25mg tablet] Mirtazapine [Remeron 15mg tablet] 30 mg PO HS 11/02/21 11/02/21 History Calcium Carbonate [Tums 500mg 500 mg PO TIDP PRN 11/03/21 11/03/21 History chewtab] Omeprazole Magnesium [Prilosec Otc 20 mg PO DAILY 11/03/21 11/03/21 History 20mg Tab] Allergies Allergy/AdvReac Type Severity Reaction Status Date / Time codeine [CODEINE] Allergy Mild HEART RACE Verified 05/18/21 08:14 meloxicam [From MOBIC] Allergy Mild HEART RACE Verified 05/18/21 08:14 oxycodone [OXYCODONE] Allergy Mild HEART RACE Verified 05/18/21 08:14 propoxyphene Allergy Mild HEART RACE Verified 05/18/21 08:14 [From DARVOCET-N] sulfamethoxazole Allergy Mild HEART RACE Verified 05/18/21 08:14 [From BACTRIM] trimethoprim [From BACTRIM] Allergy Mild HEART RACE Verified 05/18/21 08:14 diphenhydramine Allergy Unknown HEART RACE Verified 05/18/21 08:14 [DIPHENHYDRAMINE] doxycycline [DOXYCYCLINE] Allergy Unknown HEART RACE Verified 05/18/21 08:14 levofloxacin [From LEVAQUIN] Allergy Unknown Heart Races Verified 05/18/21 08:14 metoclopramide [From REGLAN] Allergy Unknown HEART RACE Verified 05/18/21 08:14 phenazopyridine Allergy Unknown HEART RACE Verified 05/18/21 08:14 [From PYRIDI
--- NOTE | 2021-11-03 14:17 | HMH.SCOPE ---
- Procedure: Date: 11/03/21 Patient Date of :: 1940 Procedure Performed:: Esophagogastroduodenoscopy with biopsy Indications:: Anemia Performing Provider:: Valdez Zhang MD Referring Provider:: Dr. Medina Sedation:: Monitored anesthesia care Procedure:: After informed consent was obtained the patient was taken to the endoscopy suite. Sedation ensued after the patient was transferred to the left lateral decubitus position. Pulse, blood pressure, and oxygen saturation were monitored throughout the procedure. The endoscope was advanced beyond the duodenal bulb. Retroflexion within the gastric lumen was accomplished. The gastroscope was carefully removed and the patient was transferred to recovery in stable condition. Please see findings and specimens below for detail. Findings:: Sliding hiatal hernia Punctate/patchy gastritis No sign of active hemorrhage Linear ulceration along duodenal bulb without signs of active/recent hemorrhage. The ulceration was shallow and showed signs of healing. Specimens:: Antral biopsy Recommendations:: Continue proton pump inhibition Add Carafate Continue serial hemoglobin/hematocrit Repeat EGD in 6-8 weeks May require additional evaluation for possible other source of blood loss (possible UGI/SBFT followed by capsule endoscopy; possible repeat colonoscopy) Complications:: No immediate Estimated blood obtained (mL): 1
--- NOTE | 2021-11-03 15:20 | SUR.PHASEII ---
1445- anesthesia contact concerning hypotension. order for ephederine 20mg and given. per Kimberly Clark CRNA
--- NOTE | 2021-11-03 15:43 | ECG_ITS ---
APPROVED REPORT Exam: Resting ECG HR:76 bpm ECG Measurements Heart Rate 76 AXES ME 200 P 70 QRSd 100 QRS 49 QT 380 T -43 QTc 411 Conclusion SINUS RHYTHM WITH OCCASIONAL SUPRAVENTRICULAR PREMATURE COMPLEXES MODERATE T-WAVE ABNORMALITY, CONSIDER INFERIOR ISCHEMIA [-0.1+ mV T-WAVE IN II/aVF] ABNORMAL ECG UNCONFIRMED REPORT Electronically signed by : Adonay Kaur MD 11/04/2021 17:50:51
--- NOTE | 2021-11-03 15:57 | PC.NURSE ---
1540- Patient continues to be hypotensive despite fluid bolus, current BP 76/37 MAP 50, HR 76, RR 16, O2 saturations 98% on RA, Temp 97.9 oral, Dr Medina contacted at this time, given order for stat CBC, BMP, Troponin, and EKG.
[2021-11-03 16:30] LABS: Anion Gap 7.1 mEq/L (5-15); Blood Urea Nitrogen 31 mg/dl (7-17); Calcium 6.4 mg/dl (8.4-10.2); Carbon Dioxide 28 mmol/L (22.0-30.0); Chloride 103 mmol/L (98-107); Creatinine Clearance Estimated 30 mL/min (50-200); Estimated Glomerular Filt Rate 60 ml/min (>60); GFR (African American) 73 ML/MIN (>60); Glucose 52 mg/dl (74-100); Potassium 3.1 mmoL/L (3.5-5.1); Sodium 135 mmol/L (136-145)
[2021-11-03 16:48] LABS: Troponin I < 0.01 ng/ml (0.00-0.034)
--- NOTE | 2021-11-03 16:53 | PC.NURSE ---
Patient resting in bed with eyes closed at this time, easily arousable, has been hypotensive since arriving back to floor from EGD, MD is aware, patient denies any cp or soa, NSR on telemetry, on RA, FC patent and draining clear yellow urine at bedside, vss, will continue to monitor.
[2021-11-04] VITALS (39 sets, daily range): BP systolic 64–157; BP diastolic 23–118; PULSE 75–151; RESP 13–41; TEMP 36.3–38.7; O2SAT 94–100; BMI 16.3
--- NOTE | 2021-11-04 00:54 | PC.NURSE ---
called lab at this time to check status of blood, stated that it still has not arrived to our facility
[2021-11-04 01:33] LABS: POC Glucose,Bedside 65 (70-110)
--- NOTE | 2021-11-04 04:35 | PC.NURSE ---
pt alert to self, has been awake t/o shift, has remained on room air with O2 sats 96-100%, HR 83-102, pt has continued to be hypotensive with systolic BPs have been 75-101, pt denies any chest pain or SOA, peck remains in place, is receiving one unit of blood currently w/ no s/s of transfusion reaction, pt has been turned Q2
[2021-11-04 07:28] LABS: POC Glucose,Bedside 54 (70-110)
--- NOTE | 2021-11-04 07:45 | ECG_ITS ---
APPROVED REPORT Exam: Resting ECG HR:165 bpm ECG Measurements Heart Rate 165 AXES QRSd 108 QRS -1 QT 273 T 123 QTc 364 Conclusion SUPRAVENTRICULAR TACHYCARDIA LOW QRS VOLTAGE IN EXTREMITY LEADS [QRS DEFLECTION < 0.5 mV IN LIMB LEADS] POSSIBLE ANTERIOR MYOCARDIAL INFARCTION , OF INDETERMINATE AGE [30 ms Q WAVE IN V3/V4, OR R < 0.2 mV IN V4] MODERATE T-WAVE ABNORMALITY, CONSIDER LATERAL ISCHEMIA [-0.1+ mV T-WAVE IN I/aVL/V5/V6] CRITICAL TEST RESULT UNCONFIRMED REPORT Electronically signed by : Adonay Kaur MD 11/04/2021 17:50:01
--- NOTE | 2021-11-04 07:57 | PC.NURSE ---
Dr. Medina and Rula Hernandez notified of SVT 160s. EKG obtained confirming SVT. Both will be at BS soon.
--- NOTE | 2021-11-04 08:10 | PC.NURSE ---
Dr. Medina and Rula Hernandez @ . [facility] bolus and gtt ordered. Pt is now step down.
--- NOTE | 2021-11-04 08:20 | P.PN_ITS ---
Subjective Narrative: The patient has been hypotensive and tachycardic over the past few hours. She has received 1 unit of packed red blood cells per primary service. Esophagogastroduodenoscopy yesterday revealed no sign of active hemorrhage; however, a linear duodenal ulceration noted. She is currently on proton pump inhibition. Carafate has been ordered. Progress Note: A&P (1) Anemia Status: Chronic Assessment and plan: Transfuse as per primary service Follow-up morning labs (2) Duodenal ulcer Status: Acute Assessment and plan: Continue current medical therapy. Exam Vital signs and Labs for Last 24 Hours: Temp Pulse Resp BP Pulse Ox 100.2 F H 150 H 18 106/58 L 99 11/04/21 08:00 11/04/21 08:00 11/04/21 08:00 11/04/21 08:00 11/04/21 08:00 Laboratory Results - last 24 hr 11/03/21 07:42: Sodium 133 L, Potassium 3.0 L, Chloride 101, Carbon Dioxide 31 H , Anion Gap 4.0 L, BUN 35 H, Creatinine 0.90 D, Estimated Creat Clear 30, Estimated GFR 60, Est GFR ( Amer) 73 D, Glucose 63 L D, Calcium 6.8 L 11/03/21 12:16: Blood Type O Positive, Antibody Screen Positive, Crossmatch (AHG) See Detail 11/03/21 12:16: Antibody Identification Anti-Jka 11/03/21 16:00: Sodium 135 L, Potassium 3.1 L, Chloride 103, Carbon Dioxide 28, Anion Gap 7.1, BUN 31 H, Creatinine 0.90, Estimated Creat Clear 30, Estimated GFR 60, Est GFR ( Amer) 73, Glucose 52 L, Calcium 6.4 L, Troponin I < 0.01 11/03/21 17:04: POC Glucose 65 L 11/04/21 07:20: POC Glucose 54 L I & O for Last 24 hours: Intake & Output 11/01/21 11/02/21 11/03/21 11/04/21 11:59 11:59 11:59 11:59 Intake Total 2232 / 2232 Output Total 600 / 600 650 / 650 Balance -600 / -600 1582 / 1582 Weight 91 lb 12.808 oz 92 lb 4 oz - Constitutional no acute distress - *Routine Respiratory Exam Absent: respiratory distress - *Routine Cardiovascular Exam Present: tachycardia
--- NOTE | 2021-11-04 08:24 | PC.NURSE ---
md rounded at [facility] and stated patient could come out of suicide precautions and needed a peck and abg
[2021-11-04 09:06] LABS: Alanine Aminotransferase 20 U/L (12-78); Albumin Level 2.1 g/dl (3.5-5.0); Albumin/Globulin Ratio 0.7 (1.1-1.8); Alkaline Phosphatase 101 U/L (38-126); Anion Gap 10.5 mEq/L (5-15); Aspartate Amino Transferase 47 U/L (14-36); Bilirubin,Total 2.1 mg/dl (0.2-1.3); Blood Urea Nitrogen 30 mg/dl (7-17); Calcium 6.9 mg/dl (8.4-10.2); Carbon Dioxide 24 mmol/L (22.0-30.0); Chloride 108 mmol/L (98-107); Creatinine Clearance Estimated 30 mL/min (50-200); Estimated Glomerular Filt Rate 60 ml/min (>60); GFR (African American) 73 ML/MIN (>60); Globulin 3.1 g/dL (1.3-3.2); Glucose 141 mg/dl (74-100); Potassium 4.5 mmoL/L (3.5-5.1); Sodium 138 mmol/L (136-145); Total Protein,Serum 5.2 g/dl (6.3-8.2)
[2021-11-04 09:14] LABS: Basophils # 0.1 K/mm3 (0-0.2); Basophils % 0.4 % (0.1-2.0); Hematocrit 32.4 % (37.0-47.0); Hemoglobin 10.4 g/dL (12.2-16.2); Lymphocytes # 0.5 K/mm3 (0.7-4.5); Lymphocytes % 3.1 % (10-50); Mean Corpuscular Hemoglobin 27.5 pg (27.0-31.2); Mean Corpuscular Volume 85.9 fl (81-99); Monocytes # 0.3 K/mm3 (0.1-1.0); Monocytes % 1.9 % (1.7-9.3); Neutrophils # 14.4 K/mm3 (1.8-7.8); Neutrophils % 94.5 % (37.0-80.0); Platelet Count 276 K/mm3 (142-424); Red Blood Count 3.77 M/mm3 (4.20-5.40); Red Cell Distribution Width 17.2 % (11.5-17.5); White Blood Count 15.3 K/mm3 (4.8-10.8)
[2021-11-04 09:16] LABS: MANUAL DIFFERENTIAL MANUAL DIFFERENTIAL (MANUAL DIFF)
--- NOTE | 2021-11-04 09:41 | HMH.ACPN2 ---
Internal Medicine - PN: Subj *Date: 11/05/21 *Time: 05:41 Interval history: 81 YOF lying in bed, monitor showing fast atrial rhythm, EKG obtained and Cardiology reports Atrial flutter, Cardizem bolus and drip started. She received 1 unit packed red blood cells yesterday due to hemoglobin 7.6 with cardiac history and this morning hemoglobin 10.4. She also underwent an EGD yesterday with findings of: -Sliding hiatal hernia -Punctate/patchy gastritis -No sign of active hemorrhage -Linear ulceration along duodenal bulb without signs of active/recent hemorrhage. The ulceration was shallow and showed signs of healing. General Surgery recommends: Continue proton pump inhibition Exam Vital signs and Labs for Last 24 Hours: Temp Pulse Resp BP Pulse Ox 100.2 F H 150 H 18 106/58 L 99 11/04/21 08:00 11/04/21 08:00 11/04/21 08:00 11/04/21 08:00 11/04/21 08:00 Laboratory Results - last 24 hr 11/03/21 12:16: Blood Type O Positive, Antibody Screen Positive, Crossmatch (AHG) See Detail 11/03/21 12:16: Antibody Identification Anti-Jka 11/03/21 16:00: Sodium 135 L, Potassium 3.1 L, Chloride 103, Carbon Dioxide 28, Anion Gap 7.1, BUN 31 H, Creatinine 0.90, Estimated Creat Clear 30, Estimated GFR 60, Est GFR ( Amer) 73, Glucose 52 L, Calcium 6.4 L, Troponin I < 0.01 11/03/21 17:04: POC Glucose 65 L 11/04/21 07:20: POC Glucose 54 L 11/04/21 08:38: WBC 15.3 H D, RBC 3.77 L D, Hgb 10.4 L, Hct 32.4 L, MCV 85.9, MCH 27.5, MCHC 32.0, RDW 17.2, Plt Count 276, MPV 8.0, Neut % (Auto) 94.5 H, Lymph % (Auto) 3.1 L, Jerome % (Auto) 1.9, Eos % (Auto) 0.0 L, Baso % (Auto) 0.4, Neut # (Auto) 14.4 H, Lymph # (Auto) 0.5 L, Jerome # (Auto) 0.3, Eos # (Auto) 0.0, Baso # (Auto) 0.1 11/04/21 08:38: Sodium 138, Potassium 4.5 D, Chloride 108 H, Carbon Dioxide 24, Anion Gap 10.5, BUN 30 H, Creatinine 0.90, Estimated Creat Clear 30, Estimated GFR 60, Est GFR ( Amer) 73, Glucose 141 H D, Calcium 6.9 L, Total Bilirubin 2.1 H, AST 47 H D, ALT 20 D, Alkaline Phosphatase 101, Total Protein 5.2 L, Albumin 2.1 L, Globulin 3.1, Albumin/Globulin Ratio 0.7 L I & O for Last 24 hours: Intake & Output 11/01/21 11/02/21 11/03/21 11/04/21 23:59 23:59 23:59 23:59 Intake Total 1173 / 1173 1299 / 1299 Output Total 600 / 600 650 / 650 Balance 573 / 573 649 / 649 Weight 91 lb 12.8 oz 91 lb 12.808 oz 92 lb 4 oz - Constitutional no acute distress, cachectic, chronically ill appearing - *Routine Respiratory Exam Present: CTA bilaterally. Absent: accessory muscle use - *Routine Cardiovascular Exam Present: irregularly irregular - *Routine Abdominal Exam Present: soft, normoactive bowel sounds. Absent: tenderness - *Routine Extremities Exam Present: pulses intact. Absent: edema - *Routine Skin Exam Present: dry, wounds Comments: Stage II to coccyx with dressing C/D/I - *Routine Neurological Exam Present: alert, altered mental status - Routine Psychiatric Exam Present: unable to assess Assessment and Plan (1) Anemia Status: Chronic Qualifiers: Anemia type: unspecified type Qualified Code(s): D64.9 - Anemia, unspecified Category: Medical Code(s): D64.9 - Anemia, unspecified (2) Duodenal ulcer Status: Acute Category: Medical Code(s): K26.9 - Duodenal ulcer, unspecified as acute or chronic, without hemorrhage or perforation (3) Atrial flutter Status: Acute Category: Medical Code(s): I48.92 - Unspecified atrial flutter (4) C. difficile colitis Status: Acute Category: Medical Code(s): A04.72 - Enterocolitis due to Clostridium difficile, not specified as recurrent (5) Decubitus ulcer of coccyx, stage 2 Status: Acute Category: Medical Code(s): L89.152 - Pressure ulcer of sacral region, stage 2 (6) Cachectic Status: Acute Category: Medical Code(s): R64 - Cachexia - Assessment and plan all Dx Assessment and Plan for all problems:: Rounded with Dr. Medina, all orders per
--- NOTE | 2021-11-04 09:44 | HMH.CNCARD ---
History of Present Illness Consult date: 11/04/21 Requesting physician: Matthew Medina Chief complaint: A. flutter with 2:1 block Additional Medical History:: 1. Coronary artery disease A. [facility] for suspected NSTEMI, 2017, ANGIOGRAPHIC RESULTS: 1. The left main artery has a mild ostial 5-10% stenosis 2. The left anterior descending artery is proximally normal however after the first septal auditor there is a concentric 30-40% stenosis followed by an additional 30% stenosis 3. The circumflex artery is a nondominant vessel and has mild proximal 10-20% luminal irregularities 4. The right coronary artery is a very large dominant vessel and has proximal long 20% stenoses with mid vessel 20 and 30% stenoses. 5. The HUBBARD ventriculogram reveals normal 65% 6. The left ventricular end-diastolic pressure 10 mmHg IMPRESSION: 1. Mild to moderate nonflow limiting coronary artery disease as described above 2. Normal ejection fraction 3. Normal left ventricular end-diastolic pressure Plan: Dual antiplatelet therapy for 1 year 2. History of colon cancer status post surgery, chemotherapy and radiation in 1995. 3. History of liver cancer with lung metastases in 2000 status post surgical resection. A. Yearly oncology follow-ups have been clear since then. 4. Remote history of tobacco use, discontinued greater than 30 years ago. 5. Hypertension A. Echocardiogram, 07/2021, EF 55-60%, mild MR, RVSP 33 mmHg. 6. Family history of coronary artery disease in both parents. Her father having bypass surgery. 7. Hiatal Hernia 8. GERD 9. Hypothyroidism, on replacement. 10. Anemia, recurrent 11. Hyperlipidemia 12. History of SVT History of present illness: 81-year-old white female admitted after endoscopic procedure yesterday for recurrent anemia. No significant etiology found. Patient was transfused a unit of blood overnight. This a.m. she was noted to have tachycardic heart rate with EKG suggesting SVT. Reviewed with Dr. Cox who feels that it is atrial flutter with 2-1 block. IV Cardizem has been started but due to hypotension, Gregory-Synephrine has been added for blood pressure support. Patient is unable to give any adequate history at this time. [facility] [place] History Medical History: Reports:: Anxiety, Cancer, Cardiomyopathy, Congestive Heart Failure, Coronary Artery Disease, Gastroesophageal Reflux Disease(GERD), Hiatal Hernia, Hyperlipidemia, Hypertension, Kidney Stones, Myocardial Infarction, Supraventricular Tachycardia Denies:: Diabetes Mellitus Type 1, Diabetes Mellitus Type 2, Internal Pacemaker, Lung Disease, MRSA, Seizures *Have you ever received a pneumonia vaccine?: (unknown, pt confused) *Have you received a flu vaccine this season?: (unknown, pt confused) Other Medical History: Reports: Anemia, Arthritis, Cataracts, Hypothyroidism, Liver Disease, Thyroid Disease. Denies: Blood Transfusion Reaction Anesthesia experience/problems:: None Laterality Cases: Bilateral: Other Other Surgeries: Yes: Appendectomy, Cancer Surgery, Cardiac Catheterization, Cholecystectomy, Colonoscopy, Colon Resection, Hysterectomy-Total, Hysterectomy-Partial, Other. No: Pacemaker Amputation: No Fractures: No - *Social History Smoking Status: Former smoker Tobacco Type: cigarettes # Packs/Day (cigarettes): 1 #Yrs smoked (if former smoker): 20 Alcohol Intake: never Substance Use Type: denies use *Occupational Status:: retired Housing: house Household Members: spouse *Travel in the last 8 weeks: None - Psychiatric History Pschychiatric History:: Reports:: Anxiety Family Hx:: No significant family history Meds Home Medications Medication Instructions Recorded Confirmed Type Atorvastatin Calcium [Lipitor 40mg 40 mg PO HS 09/12/17 11/02/21 History Tablet*] Levothyroxine Sodium 50 mcg PO DAILY 09/12/17 11/03/21 History [Levothyroxine 50mcg (0.05mg) Tab] lisinopriL [Zestril 10mg Tab] 10 mg PO DAILY 07
[2021-11-04 09:50] LABS: Anisocytosis 1+; Monocytes % 2 % (2-9); Neutrophils % 98 % (42-76); Platelet Estimate Normal; Total Cells Counted 100
--- NOTE | 2021-11-04 14:58 | PC.NURSE ---
patient resting in bed. call light within reach.
[2021-11-04 16:24] LABS: Occult Blood,Stool Positive (Negative)
[2021-11-04 16:46] LABS: POC Glucose,Bedside 67 (70-110)
[2021-11-04 21:21] LABS: POC Glucose,Bedside 118 (70-110)
[2021-11-04 22:26] LABS: Lactic Acid 3.6 mmol/L (0.7-2.1)
[2021-11-05] VITALS (38 sets, daily range): BP systolic 60–157; BP diastolic 20–112; PULSE 61–130; RESP 10–30; TEMP 34.7–37.6; O2SAT 88–100; BMI 16.2
--- NOTE | 2021-11-05 01:00 | PC.NURSE ---
notified early in shift. Pt was febrile. Temp 101.5 R. Not on any antibiotics. New orders received. Obtain lactic. Start Ceftriaxone 1 gm daily and clindamycin 900 mg IV Q8. Orders carried out. also notified of pt meeting criteria for sepsis. Sepsis bolus ordered and carried out.
[2021-11-05 01:54] LABS: Reflex Lactic Add Lactic Reflex
--- NOTE | 2021-11-05 02:20 | PC.NURSE ---
MD Cox consulted due to pt continuing to remain hypotensive. Pt is currently on 140 mcg/min. Cardizem placed on standby. updated on previous pt status of triggering sepsis and has received 1 L bolus. Antibiotics started. Lactic was 3.6. New orders received to place pt on Levophed gtt and to give additional 2L NS bolus.
[2021-11-05 02:47] LABS: Lactic Acid Follow Up (RFLX 1) 2.8 mmol/L (0.7-2.1)
--- NOTE | 2021-11-05 03:04 | PC.NURSE ---
[facility] consulted for compatibility of Levophed and Gregory. Both medications ok to run together.
[2021-11-05 04:11] LABS: Reflex Lactic (2 hrs) Add Lactic Reflex
[2021-11-05 05:05] LABS: Lactic Acid Follow up (RFLX 2) 2.8 mmol/L (0.7-2.1)
--- NOTE | 2021-11-05 05:30 | PC.NURSE ---
Pt is no longer febrile. BP has improved. She is responding better to staff. She remains on Gregory gtt. Currently infusing @ 140 mcg/min. Levophed @ 14 mcg/min. Diltiazem remains on stable. MD Cox aware. Pt has had 4 liquid stools this shift. Bottom has multiple pressure areas. She is excoriated on her buttocks and to her omar area. Pt turned Q2 hr. F/C draining to bedside with cloudy, alberto colored urine. VS currently stable. Will continue to monitor.
--- NOTE | 2021-11-05 06:32 | PC.NURSE ---
titration for infusions as follows: DESIRE 2245 - 60 mcg/min 2300 - 70 mcg/min 0000 - 80 mcg/min 0030 - 100 mcg/min 0100 - 120 mcg/min 0130 - 140 mcg/min Levophed 0235 - 8 mcg/min 0300 - 10 mcg/min 0320 - 14 mcg/min
[2021-11-05 07:31] LABS: Basophils # 0.1 K/mm3 (0-0.2); Basophils % 0.4 % (0.1-2.0); Eosinophils % 0.1 % (0.1-12.0); Hematocrit 32.3 % (37.0-47.0); Hemoglobin 10.4 g/dL (12.2-16.2); Lymphocytes # 1.2 K/mm3 (0.7-4.5); Lymphocytes % 4.9 % (10-50); Mean Corpuscular Hemoglobin 27.8 pg (27.0-31.2); Mean Corpuscular Volume 86.7 fl (81-99); Mean Platelet Volume 9.5 fl (7.4-10.4); Monocytes # 0.5 K/mm3 (0.1-1.0); Neutrophils # 21.2 K/mm3 (1.8-7.8); Neutrophils % 92.5 % (37.0-80.0); Platelet Count 122 K/mm3 (142-424); Red Blood Count 3.73 M/mm3 (4.20-5.40); Red Cell Distribution Width 17.7 % (11.5-17.5)
[2021-11-05 07:39] LABS: Anion Gap 8.1 mEq/L (5-15); Blood Urea Nitrogen 29 mg/dl (7-17); Carbon Dioxide 19 mmol/L (22.0-30.0); Chloride 115 mmol/L (98-107); Creatinine Clearance Estimated 30 mL/min (50-200); Estimated Glomerular Filt Rate 53 ml/min (>60); GFR (African American) 65 ML/MIN (>60); Glucose 125 mg/dl (74-100); Potassium 3.1 mmoL/L (3.5-5.1); Sodium 139 mmol/L (136-145)
[2021-11-05 08:28] LABS: Calcium 6.5 mg/dl (8.4-10.2)
[2021-11-05 08:42] LABS: MANUAL DIFFERENTIAL MANUAL DIFFERENTIAL (MANUAL DIFF)
--- NOTE | 2021-11-05 08:48 | HMH.PNCARD ---
Subjective Date: 11/05/21 Time: 08:48 Principal diagnosis: SVT, sepsis Interval history: 81-year-old white female in bed no acute distress. Nurse relates patient became septic last evening requiring additional pressure support in the form of Levophed. She remains on both Levophed and Gregory-Synephrine. Cardizem has been discontinued. Patient did convert back from atrial flutter to sinus rhythm after Cardizem drip started yesterday. Exam Vital signs and Labs for Last 24 Hours: Temp Pulse Resp BP Pulse Ox 97.7 F 90 22 122/71 97 11/05/21 08:00 11/05/21 06:00 11/05/21 06:00 11/05/21 08:00 11/05/21 06:00 Laboratory Results - last 24 hr 11/03/21 15:52: Stool Occult Blood Positive A 11/04/21 07:55: POC Glucose 67 L 11/04/21 08:38: WBC 15.3 H D, RBC 3.77 L D, Hgb 10.4 L, Hct 32.4 L, MCV 85.9, MCH 27.5, MCHC 32.0, RDW 17.2, Plt Count 276, MPV 8.0, Neut % (Auto) 94.5 H, Lymph % (Auto) 3.1 L, Turner % (Auto) 1.9, Eos % (Auto) 0.0 L, Baso % (Auto) 0.4, Neut # (Auto) 14.4 H, Lymph # (Auto) 0.5 L, Turner # (Auto) 0.3, Eos # (Auto) 0.0, Baso # (Auto) 0.1, Total Counted 100, Neutrophils % (Manual) 98 H, Monocytes % (Manual) 2, Platelet Estimate Normal, RBC Morphology Not Reportable, Anisocytosis 1+ 11/04/21 08:38: Sodium 138, Potassium 4.5 D, Chloride 108 H, Carbon Dioxide 24, Anion Gap 10.5, BUN 30 H, Creatinine 0.90, Estimated Creat Clear 30, Estimated GFR 60, Est GFR ( Amer) 73, Glucose 141 H D, Calcium 6.9 L, Total Bilirubin 2.1 H, AST 47 H D, ALT 20 D, Alkaline Phosphatase 101, Total Protein 5.2 L, Albumin 2.1 L, Globulin 3.1, Albumin/Globulin Ratio 0.7 L 11/04/21 20:25: POC Glucose 118 H 11/04/21 21:57: Lactate 3.6 H 11/05/21 02:15: Lactate 2.8 H 11/05/21 04:45: Lactate 2.8 H 11/05/21 07:08: WBC 23.0 H* D, RBC 3.73 L, Hgb 10.4 L, Hct 32.3 L, MCV 86.7, MCH 27.8, MCHC 32.0, RDW 17.7 H, Plt Count 122 L D, MPV 9.5, Neut % (Auto) 92.5 H, Lymph % (Auto) 4.9 L, Turner % (Auto) 2.0, Eos % (Auto) 0.1, Baso % (Auto) 0.4, Neut # (Auto) 21.2 H, Lymph # (Auto) 1.2, Turner # (Auto) 0.5, Eos # (Auto) 0.0, Baso # (Auto) 0.1 11/05/21 07:08: Sodium 139, Potassium 3.1 L D, Chloride 115 H, Carbon Dioxide 19 L, Anion Gap 8.1, BUN 29 H, Creatinine 1.00, Estimated Creat Clear 30, Estimated GFR 53 L, Est GFR ( Amer) 65, Glucose 125 H, Calcium 6.5 L I & O for Last 24 hours: Intake & Output 11/02/21 11/03/21 11/04/21 11/05/21 11:59 11:59 11:59 11:59 Intake Total 2472 / 2472 7137 / 7137 Output Total 600 / 600 650 / 650 275 / 275 Balance -600 / -600 1822 / 1822 6862 / 6862 Weight 91 lb 12.808 oz 92 lb 4 oz 92 lb 0.688 oz - Constitutional no acute distress - *Routine Respiratory Exam Present: rhonchi, diminished air movement - *Routine Cardiovascular Exam Present: RRR Progress Note: A&P (1) Anemia Status: Chronic (2) Duodenal ulcer Status: Acute (3) Atrial flutter Status: Acute (4) C. difficile colitis Status: Acute (5) Decubitus ulcer of coccyx, stage 2 Status: Acute (6) Cachectic Status: Acute Assessment and Plan for All Diagnoses:: 1. SVT/atrial flutter with 2-1 block, resolved after Cardizem given. Off cardizem now due to hypotension/sepsis. 2. Anemia, work-up and treatment per PCP. Transfuse 1 unit of blood. Stool positive for blood. 3. Mild coronary artery disease by cardiac catheterization 2016. Echocardiogram 07/2021 showed normal ejection fraction. 4. Sepsis/Hypotension-on Levophed and Gregory-Synephrine along with ceftriaxone and clindamycin. 5. Hypokalemia, replacement ordered and hold torsemide.
[2021-11-05 09:11] LABS: Lymphocytes % 6 % (10-50); Monocytes % 3 % (2-9); Neutrophils % 91 % (42-76); Total Cells Counted 100
[2021-11-05 09:18] LABS: Platelet Estimate Slight Decrease
[2021-11-05 09:19] LABS: Acanthocytes 1+; Anisocytosis 1+; Hypochromasia 1+
--- NOTE | 2021-11-05 09:19 | PC.NURSE ---
Levo gtt off at this time. SBP 130. Gregory gtt decreased to 100mcg/min
--- NOTE | 2021-11-05 09:24 | HMH.ACPN2 ---
Internal Medicine - PN: Subj *Date: 11/05/21 *Time: 13:00 Interval history: 11-year-old female patient resting quietly in bed with eyes open. She is a lot more alert today and answering questions able to carry on simple conversation. Gregory-Synephrine was added during the night for low blood pressure, Levophed was also added on and both are currently being titrated down as tolerated. Current oxygenation 96% on 3 L. Family updated on patient's status, son Hilario was contacted all questions answered. Exam Vital signs and Labs for Last 24 Hours: Temp Pulse Resp BP Pulse Ox 96.4 F L 90 22 113/63 97 11/05/21 08:00 11/05/21 06:00 11/05/21 06:00 11/05/21 06:00 11/05/21 06:00 Laboratory Results - last 24 hr 11/03/21 15:52: Stool Occult Blood Positive A 11/04/21 07:55: POC Glucose 67 L 11/04/21 08:38: WBC 15.3 H D, RBC 3.77 L D, Hgb 10.4 L, Hct 32.4 L, MCV 85.9, MCH 27.5, MCHC 32.0, RDW 17.2, Plt Count 276, MPV 8.0, Neut % (Auto) 94.5 H, Lymph % (Auto) 3.1 L, Lasalle % (Auto) 1.9, Eos % (Auto) 0.0 L, Baso % (Auto) 0.4, Neut # (Auto) 14.4 H, Lymph # (Auto) 0.5 L, Lasalle # (Auto) 0.3, Eos # (Auto) 0.0, Baso # (Auto) 0.1, Total Counted 100, Neutrophils % (Manual) 98 H, Monocytes % (Manual) 2, Platelet Estimate Normal, RBC Morphology Not Reportable, Anisocytosis 1+ 11/04/21 20:25: POC Glucose 118 H 11/04/21 21:57: Lactate 3.6 H 11/05/21 02:15: Lactate 2.8 H 11/05/21 04:45: Lactate 2.8 H 11/05/21 07:08: WBC 23.0 H* D, RBC 3.73 L, Hgb 10.4 L, Hct 32.3 L, MCV 86.7, MCH 27.8, MCHC 32.0, RDW 17.7 H, Plt Count 122 L D, MPV 9.5, Neut % (Auto) 92.5 H, Lymph % (Auto) 4.9 L, Lasalle % (Auto) 2.0, Eos % (Auto) 0.1, Baso % (Auto) 0.4, Neut # (Auto) 21.2 H, Lymph # (Auto) 1.2, Lasalle # (Auto) 0.5, Eos # (Auto) 0.0, Baso # (Auto) 0.1, Total Counted 100, Neutrophils % (Manual) 91 H, Lymphocytes % (Manual) 6 L, Monocytes % (Manual) 3, Platelet Estimate Slight decrease, Hypochromasia 1+, Anisocytosis 1+, Acanthocytes (Spur) 1+ 11/05/21 07:08: Sodium 139, Potassium 3.1 L D, Chloride 115 H, Carbon Dioxide 19 L, Anion Gap 8.1, BUN 29 H, Creatinine 1.00, Estimated Creat Clear 30, Estimated GFR 53 L, Est GFR ( Amer) 65, Glucose 125 H, Calcium 6.5 L I & O for Last 24 hours: Intake & Output 11/02/21 11/03/21 11/04/21 11/05/21 23:59 23:59 23:59 23:59 Intake Total 1173 / 1173 2919 / 2919 5517 / 5517 Output Total 600 / 600 725 / 725 200 / 200 Balance 573 / 573 2194 / 2194 5317 / 5317 Weight 91 lb 12.8 oz 91 lb 12.808 oz 92 lb 4 oz 92 lb 0.688 oz - Constitutional no acute distress, cachectic, chronically ill appearing - *Routine HEENT Exam Head: Present: normocephalic Eye: Present: EOMI ENT: Present: mucous membranes moist - *Routine Neck Exam Present: trachea midline. Absent: tracheal deviation - *Routine Respiratory Exam Present: decreased breath sounds. Absent: accessory muscle use - *Routine Cardiovascular Exam Present: RRR - *Routine Abdominal Exam Present: soft, normoactive bowel sounds. Absent: tenderness, firm - *Routine Extremities Exam Present: full ROM, pulses intact. Absent: cyanosis, clubbing - *Routine Skin Exam Present: dry, wounds. Absent: intact, cyanosis Comments: Stage II to coccyx with drsg C/D/I - *Routine Neurological Exam Present: alert. Absent: motor deficit - Routine Psychiatric Exam Present: cooperative, unable to assess Assessment and Plan (1) Anemia Status: Chronic Qualifiers: Anemia type: unspecified type Qualified Code(s): D64.9 - Anemia, unspecified Category: Medical Code(s): D64.9 - Anemia, unspecified (2) Duodenal ulcer Status: Acute Category: Medical Code(s): K26.9 - Duodenal ulcer, unspecified as acute or chronic, without hemorrhage or perforation (3) Atrial flutter Status: Acute Category: Medical Code(s): I48.92 - Unspecified atrial flutter (4) C. difficile colitis Status: Acute Category: Medical Code(s): A04.72 - Enterocolitis due to Clostrid
--- NOTE | 2021-11-05 09:43 | CT_ITS ---
FINAL REPORT TECHNIQUE: Axial images through the abdomen and pelvis were performed without contrast.This study was performed with techniques to keep radiation doses as low as reasonably achievable, (ALARA). Individualized dose reduction techniques using automated exposure control or adjustment of mA and/or kV according to the patient's size were employed. CLINICAL HISTORY: Abd pain, blood in stool COMPARISON: 06/06/2021 FINDINGS: ABDOMEN: The lung bases demonstrates small to moderate pleural effusions and bibasilar atelectasis. There is moderate anasarca. A small pericardial effusion is seen. The heart size is normal. There are postoperative changes of presumed partial hepatic resection and cholecystectomy. The spleen is normal. No adrenal mass is identified. The aorta is normal in caliber. There is no significant adenopathy. There is no nephrolithiasis. There is no hydronephrosis. There are diffuse vascular calcifications. A small amount of ascites is present. Multiple air and fluid-filled bowel loops are seen, favor ileus. PELVIS: The appendix is not identified. There are postoperative changes of the rectum and of presumed hysterectomy. There is wall thickening of the urinary bladder with a Ghotra catheter present, likely inflammatory. There is no significant adenopathy. IMPRESSION: Postoperative changes to the abdomen and pelvis. Small amount of free fluid and anasarca. Abnormal bowel gas pattern, favor ileus over distal obstruction. Reviewed, Interpreted and Dictated by Karan Christensen III, MD Transcribed by Mouna Zepeda Authenticated by Karan Christensen III, MD on 11/05/2021 12:31:44 PM [facility][1]
--- NOTE | 2021-11-05 09:44 | XR_ITS ---
FINAL REPORT TECHNIQUE: Single view chest CLINICAL HISTORY: SOA COMPARISON: 11/02/2021 FINDINGS: A single view of the chest was obtained. The heart and mediastinum are within normal limits. There are worsening bibasilar opacities consistent with atelectasis or pneumonia. There is no pneumothorax. Osseous structures are unremarkable. IMPRESSION: Worsening atelectasis or pneumonia. Reviewed, Interpreted and Dictated by Karan Christensen III, MD Transcribed by Mouna Zepeda Authenticated by Karan Christensen III, MD on 11/05/2021 01:26:[address] [facility]
--- NOTE | 2021-11-05 09:51 | PC.NURSE ---
Gregory gtt decreased to 80mcg/min. SBP 115.
--- NOTE | 2021-11-05 10:04 | PC.NURSE ---
SBP 73. Increased Gregory gtt to 100mcg/min
--- NOTE | 2021-11-05 10:35 | PC.NURSE ---
SBP continues to be labile and is requiring Gregory gtt to be titrated up and down frequently. SBP 157 now and Gregory gtt is @ 80mcg/min
--- NOTE | 2021-11-05 12:00 | PC.NURSE ---
Amio bolus started
--- NOTE | 2021-11-05 12:17 | PC.NURSE ---
Amio bolus completed and maintenance started.
[2021-11-05 12:40] LABS: Microscopic, Urine URINE MICROSCOPIC (MICROSCOPIC)
[2021-11-05 12:47] LABS: Appearance,Urine SL CLOUDY (Clear); Bilirubin,Urine Negative (Negative); Blood, Urine 3+ (Negative); Color,Urine YELLOW (Yellow); Glucose,Urine (UA) Negative (Negative); Ketones,Urine Negative (Negative); Leukocyte Esterase,Urine TRACE (Negative); Nitrate,Urine Negative (Negative); Protein,Urine 2+ (Negative); Urobilinogen,Urine 0.2 EU/dl (0.2)
--- NOTE | 2021-11-05 12:54 | DIET.NUTRFU ---
During rounds today patient more alert, able to provide some information. NPO with CT scan and chest X-ray ordered. IVF continue to met needs. Low BS of 44 this AM, switched to dextrose. Nursing reported some aspiration yesterday when lethargic, will continue to monitor tolerance of oral diet. Will start supplements when oral diet is started.
[2021-11-05 13:02] LABS: Bacteria,Urine 1+ /lpf
--- NOTE | 2021-11-05 13:13 | PC.NURSE ---
Addendum entered by Lakeisha Varela, SRNA 11/05/21 13:16: Back time to 11:45 Original Note: MC Mcgill notifed of rectal temp. Steph Iniguez applied
--- NOTE | 2021-11-05 17:25 | PC.NURSE ---
BP 60/32 with Gregory gtt @ 170mcg/min. Levo gtt turned back on a 4mcg/min
--- NOTE | 2021-11-05 18:30 | PC.NURSE ---
Amio gtt decreased to 0.5mg/min
[2021-11-06] VITALS (33 sets, daily range): BP systolic 57–139; BP diastolic 24–76; PULSE 65–98; RESP 18–24; TEMP 36.3–37.2; O2SAT 100; BMI 19.7
--- NOTE | 2021-11-06 03:08 | PC.NURSE ---
Pt alert to self. Communicating better with staff this shift. She is currently on Levophed gtt @ 22 mcg/min. BP is currently stable. Amiodarone is also infusing @ 0.5 mg/min. NS @ 75 ml/hr. Pt has had 2 soft stools thus far. F/C draining to bedside. Pt noted to have bilateral edema with weeping to upper extremities. Scattered bruising also noted. Pt has ulcers to buttocks with excoriation. Pt turned Q2 hr. Safety measures in place. Will continue to monitor.
[2021-11-06 11:36] LABS: Chloride 116 mmol/L (98-107); Potassium 3.9 mmoL/L (3.5-5.1); Sodium 135 mmol/L (136-145)
[2021-11-06 11:39] LABS: Anion Gap 11.9 mEq/L (5-15); Calcium 5.6 mg/dl (8.4-10.2); Carbon Dioxide 11 mmol/L (22.0-30.0); Glucose 91 mg/dl (74-100)
[2021-11-06 11:44] LABS: Blood Urea Nitrogen 24 mg/dl (7-17)
[2021-11-06 12:32] LABS: NT Pro Brain Natriuretic Pep. 52700 pg/mL (0-450)
[2021-11-06 12:41] LABS: Creatinine Clearance Estimated 36 mL/min (50-200); Estimated Glomerular Filt Rate 60 ml/min (>60); GFR (African American) 73 ML/MIN (>60)
--- NOTE | 2021-11-06 12:42 | HMH.PNCARD ---
Subjective Date: 11/06/21 Time: 12:42 Principal diagnosis: SVT, sepsis Interval history: 81-year-old white female in bed in no acute distress. Keeps her eyes closed unless startled. She will look at me but attempts to answer are unintelligible. Patient has visible edema of the upper extremities. She is not demonstrating any significant shortness of breath. She is on Levophed for blood pressure support. Telemetry shows sinus rhythm. IV amiodarone is finishing up. Exam Vital signs and Labs for Last 24 Hours: Temp Pulse Resp BP Pulse Ox 98.9 F 92 H 20 99/75 L 100 11/06/21 08:05 11/06/21 11:00 11/06/21 11:00 11/06/21 11:00 11/06/21 11:00 Laboratory Results - last 24 hr 11/05/21 12:30: Urine Color Yellow, Urine Appearance Sl cloudy, Urine pH 6.0, Ur Specific [place] 1.020, Urine Protein 2+, Urine Glucose (UA) Negative, Urine Ketones Negative, Urine Blood 3+, Urine Nitrate Negative, Urine Bilirubin Negative, Urine Urobilinogen 0.2, Ur Leukocyte Esterase Trace, Urine RBC 10-20, Urine WBC 3-5, Ur Squamous Epith Cells 3-5, Urine Bacteria 1+ 11/06/21 11:05: Sodium 135 L, Potassium 3.9 D, Chloride 116 H, Carbon Dioxide 11 L, Anion Gap 11.9, BUN 24 H, Glucose 91, Calcium 5.6 L 11/06/21 11:05: NT-Pro-B Natriuret Pep 95040 H I & O for Last 24 hours: Intake & Output 11/04/21 11/05/21 11/06/21 11/07/21 11:59 11:59 11:59 11:59 Intake Total 2472 / 2472 7137 / 7137 5026.133 / 5026.133 Output Total 650 / 650 275 / 275 300 / 300 Balance 1822 / 1822 6862 / 6862 4726.133 / 4726.133 Weight 92 lb 4 oz 92 lb 0.688 oz 111 lb 4.8 oz Microbiology Reports for the Last 24 Hours: Microbiology 11/04/21 09:51 Blood Blood Culture - Preliminary NO GROWTH AFTER 48 HOURS 11/04/21 09:51 Blood Blood Culture - Preliminary NO GROWTH AFTER 48 HOURS - Constitutional no acute distress - *Routine Respiratory Exam Present: CTA bilaterally, diminished air movement - *Routine Cardiovascular Exam Present: RRR Progress Note: A&P (1) Anemia Status: Chronic (2) Duodenal ulcer Status: Acute (3) Atrial flutter Status: Acute (4) C. difficile colitis Status: Acute (5) Decubitus ulcer of coccyx, stage 2 Status: Acute (6) Cachectic Status: Acute Assessment and Plan for All Diagnoses:: 1. SVT/atrial flutter with 2-1 block, resolved after Cardizem given. Off cardizem now due to hypotension/sepsis. Patient has received IV amiodarone loading and will switch to oral amiodarone to maintain sinus rhythm. Patient is not an anticoagulation candidate due to recurrent anemia requiring blood transfusion and high risk for fall. 2. Anemia, work-up and treatment per PCP. Transfuse 1 unit of blood. Stool positive for blood. 3. Mild coronary artery disease by cardiac catheterization 2016. Echocardiogram 07/2021 showed normal ejection fraction. 4. Sepsis/Hypotension-on Levophed along with ertapenem. Will discontinue lisinopril and metoprolol due to low BP. 5. Hypokalemia, resolved 6. Edema, patient will be given a dose of diuretic today. Nothing further to add. Please call if needed. Pt will need follow up in 1-2 wks.
--- NOTE | 2021-11-06 13:04 | HMH.ACPN2 ---
Internal Medicine - PN: Subj *Date: 11/06/21 *Time: 18:53 Interval history: generally weakened/deconditioned low albumin diminished uop wagner/levo hgb 10.4 Exam Vital signs and Labs for Last 24 Hours: Temp Pulse Resp BP Pulse Ox 98.9 F 92 H 20 99/75 L 100 11/06/21 08:05 11/06/21 11:00 11/06/21 11:00 11/06/21 11:00 11/06/21 11:00 Laboratory Results - last 24 hr 11/06/21 11:05: Sodium 135 L, Potassium 3.9 D, Chloride 116 H, Carbon Dioxide 11 L, Anion Gap 11.9, BUN 24 H, Creatinine 0.90, Estimated Creat Clear 36, Estimated GFR 60, Est GFR ( Amer) 73, Glucose 91, Calcium 5.6 L 11/06/21 11:05: NT-Pro-B Natriuret Pep 66864 H I & O for Last 24 hours: Intake & Output 11/03/21 11/04/21 11/05/21 11/06/21 23:59 23:59 23:59 23:59 Intake Total 1173 / 1173 2919 / 2919 8891.5 / 8891.5 1651.633 / 1651.633 Output Total 600 / 600 725 / 725 300 / 300 200 / 200 Balance 573 / 573 2194 / 2194 8591.5 / 8591.5 1451.633 / 1451.633 Weight 91 lb 12.808 oz 92 lb 4 oz 92 lb 0.688 oz 111 lb 4.8 oz Microbiology Reports for the Last 24 Hours: Microbiology 11/04/21 09:51 Blood Blood Culture - Preliminary NO GROWTH AFTER 48 HOURS 11/04/21 09:51 Blood Blood Culture - Preliminary NO GROWTH AFTER 48 HOURS - Constitutional thin, chronically ill appearing - *Routine HEENT Exam Head: Present: normocephalic Eye: Present: EOMI, PERRL ENT: Present: mucous membranes moist - *Routine Neck Exam Present: supple. Absent: lymphadenopathy - *Routine Respiratory Exam Present: CTA bilaterally - *Routine Cardiovascular Exam Present: RRR - *Routine Abdominal Exam Present: soft, normoactive bowel sounds. Absent: tenderness - *Routine Extremities Exam Absent: cyanosis, clubbing, edema - *Routine Skin Exam Absent: jaundice - *Routine Neurological Exam Present: alert, vision grossly intact, hearing grossly intact. Absent: oriented X3 Assessment and Plan (1) Anemia Status: Chronic Qualifiers: Anemia type: unspecified type Qualified Code(s): D64.9 - Anemia, unspecified Category: Medical Code(s): D64.9 - Anemia, unspecified (2) Duodenal ulcer Status: Acute Category: Medical Code(s): K26.9 - Duodenal ulcer, unspecified as acute or chronic, without hemorrhage or perforation (3) Atrial flutter Status: Acute Category: Medical Code(s): I48.92 - Unspecified atrial flutter (4) C. difficile colitis Status: Acute Category: Medical Code(s): A04.72 - Enterocolitis due to Clostridium difficile, not specified as recurrent (5) Decubitus ulcer of coccyx, stage 2 Status: Acute Category: Medical Code(s): L89.152 - Pressure ulcer of sacral region, stage 2 (6) Cachectic Status: Acute Category: Medical Code(s): R64 - Cachexia - Assessment and plan all Dx Assessment and Plan for all problems:: nsr on monitor cardiol notes revd bumex challenge follow uop protein deficit underlies all co-morbids as reflected by low albumin
--- NOTE | 2021-11-06 13:23 | DIET.NUTRFU ---
RD rounded with provider today, upon visit visually observed edema to upper extremities, weeping to left arm. Diuretic tx provided. She was more alert, seemed aware of her condition expressed concerned about her low BP. Continues to be NPO, still running dx tests. She continues on IVF for hydration. Meds: protonix, thyroid, carafate, amiodarne. Labs: BNP [id number] today, this AM was waiting for PICC line for labs. Pt has ulcers to buttocks with excoriation, tx in place. When oral diet is medically feasible when add appropriate supplements to help meet needs. At this time plan to return to [facility] when time for discharge.
[2021-11-06 13:48] LABS: Adenovirus F 40/41, stool Not Detected (NotDetected); Astrovirus Not Detected (NotDetected); Campylobacter Not Detected (NotDetected); Clostridium Difficile A/B, PCR Not Detected (NotDetected); Cryptosporidium Not Detected (NotDetected); Cyclospora Cayetanesis Not Detected (NotDetected); Entamoeba histolytica Not Detected (NotDetected); Enteroaggregative E coli Not Detected (NotDetected); Enteropathogenic E coli Not Detected (NotDetected); Enterotoxigenic E coli Not Detected (NotDetected); Giardia lamblia Not Detected (NotDetected); Norovirus Not Detected (NotDetected); Plesimonas Shigalloides, PCR Not Detected (NotDetected); Rotavirus A Not Detected (NotDetected); Salmonella, PCR Not Detected (NotDetected); Sapovirus Not Detected (NotDetected); Shiga-like toxin E coli Not Detected (NotDetected); Shigella Enterovasive E coli Not Detected (NotDetected); Vibrio Cholerae Not Detected (NotDetected); Vibrio, PCR Not Detected (NotDetected); Yersinia Entercolitica, PCR Not Detected (NotDetected)
--- NOTE | 2021-11-06 15:06 | XR_ITS ---
FINAL REPORT CLINICAL HISTORY: central line placement COMPARISON: November 05, 2021 FINDINGS: A right jugular central line terminates in the mid SVC. The heart size is normal. The mediastinum is normal. There are persistent bilateral pulmonary opacities, right greater than left. There are small bilateral pleural effusions. There is no pneumothorax. There is no osseous abnormality. IMPRESSION: Right jugular central line terminates in the mid SVC. No pneumothorax. Persistent bilateral pulmonary opacities, right greater than left. Reviewed, Interpreted and Dictated by Karan Christensen III, MD Transcribed by Hood High Authenticated by Karan Christensen III, MD on 11/06/2021 04:54:30 PM [facility]
--- NOTE | 2021-11-06 15:24 | HMH.OPNOTE ---
Date of procedure: 11/06/21 Pre-op Diagnosis:: Inadequate venous access Post-op Diagnosis:: Same Procedure performed:: Central venous catheter placement (7 Beninese triple-lumen catheter placed via right internal jugular vein) Surgeon:: Valdez Zhang MD Anesthesia: local Estimated blood loss (mL): 5 Operative findings:: Catheter anchored at 16 cm All ports flushed without difficulty Operative note:: After informed consent was obtained the patient was maintained in a supine position. Her right neck/chest was prepped and draped in a sterile fashion. She was then transferred to a Trendelenburg position. After infiltration local anesthetic a 7 Beninese triple-lumen catheter was placed in the right internal jugular vein utilizing a modified Seldinger technique. The catheter was secured at 16 cm. All ports flushed without difficulty. Dressings were applied. Chest x-ray pending. Condition: other (Guarded) Disposition: no change Specimens:: None Complications:: No immediate. Chest x-ray pending.
--- NOTE | 2021-11-06 15:49 | PC.NURSE ---
Ok to use Central line per Dr Zhang at 1522
--- NOTE | 2021-11-06 16:23 | PC.WOUNDNOTE ---
From AM assessment
[2021-11-06 17:31] LABS: Basophils % 0.2 % (0.1-2.0); Hematocrit 31.8 % (37.0-47.0); Hemoglobin 10.5 g/dL (12.2-16.2); Lymphocytes # 1.5 K/mm3 (0.7-4.5); Lymphocytes % 8.1 % (10-50); Mean Corpuscular HGB Conc 33.1 g/dL (31.8-35.4); Mean Corpuscular Hemoglobin 27.9 pg (27.0-31.2); Mean Corpuscular Volume 84.3 fl (81-99); Mean Platelet Volume 9.8 fl (7.4-10.4); Monocytes # 0.3 K/mm3 (0.1-1.0); Monocytes % 1.6 % (1.7-9.3); Neutrophils # 16.1 K/mm3 (1.8-7.8); Platelet Count 123 K/mm3 (142-424); Red Blood Count 3.77 M/mm3 (4.20-5.40); Red Cell Distribution Width 17.9 % (11.5-17.5); White Blood Count 17.8 K/mm3 (4.8-10.8)
[2021-11-06 17:36] LABS: MANUAL DIFFERENTIAL MANUAL DIFFERENTIAL (MANUAL DIFF)
[2021-11-06 18:45] LABS: Eosinophils % 1 % (0-3); Lymphocytes % 8 % (10-50); Neutrophils % 83 % (42-76); Platelet Estimate Slight Decrease; RBC Morphology Normal; Total Cells Counted 100; Toxic Granulation 1+
[2021-11-07] VITALS (22 sets, daily range): BP systolic 97–144; BP diastolic 36–114; PULSE 24–133; RESP 18–26; TEMP 36.2–37.6; O2SAT 96–100; BMI 20.5
[2021-11-07 06:56] LABS: Basophils % 0.2 % (0.1-2.0); Eosinophils % 0.1 % (0.1-12.0); Hematocrit 30.3 % (37.0-47.0); Hemoglobin 9.7 g/dL (12.2-16.2); Lymphocytes % 8.4 % (10-50); Mean Corpuscular HGB Conc 31.9 g/dL (31.8-35.4); Mean Corpuscular Hemoglobin 27.6 pg (27.0-31.2); Mean Corpuscular Volume 86.4 fl (81-99); Mean Platelet Volume 10.8 fl (7.4-10.4); Monocytes # 0.2 K/mm3 (0.1-1.0); Monocytes % 1.8 % (1.7-9.3); Neutrophils # 10.4 K/mm3 (1.8-7.8); Neutrophils % 89.4 % (37.0-80.0); Platelet Count 93 K/mm3 (142-424); Red Cell Distribution Width 18.2 % (11.5-17.5); White Blood Count 11.6 K/mm3 (4.8-10.8)
[2021-11-07 07:06] LABS: Anion Gap 6.8 mEq/L (5-15); Blood Urea Nitrogen 20 mg/dl (7-17); Calcium 6.1 mg/dl (8.4-10.2); Carbon Dioxide 16 mmol/L (22.0-30.0); Chloride 116 mmol/L (98-107); Creatinine Clearance Estimated 38 mL/min (50-200); Estimated Glomerular Filt Rate 81 ml/min (>60); GFR (African American) 98 ML/MIN (>60); Glucose 128 mg/dl (74-100); Sodium 136 mmol/L (136-145)
[2021-11-07 07:09] LABS: MANUAL DIFFERENTIAL MANUAL DIFFERENTIAL (MANUAL DIFF)
[2021-11-07 07:12] LABS: Potassium 2.8 mmoL/L (3.5-5.1)
--- NOTE | 2021-11-07 09:13 | PC.NURSE ---
Notified Dr. Villaseñor of critical potassium this am. NNO given.
[2021-11-07 10:32] LABS: Lymphocytes % 4 % (10-50); Monocytes % 2 % (2-9); Neutrophils % 94 % (42-76); Total Cells Counted 100
[2021-11-07 10:33] LABS: Anisocytosis 1+; Hypochromasia 1+; Microcytosis 1+; Platelet Estimate Normal
--- NOTE | 2021-11-07 10:40 | PC.NURSE ---
Levo currently at 20 mcg/min
--- NOTE | 2021-11-07 11:05 | PC.NURSE ---
increased gtt back to 22 mcg/min. BP 83/33, rechecked at this time and it is 111/36.
--- NOTE | 2021-11-07 15:03 | HMH.ACPN2 ---
Internal Medicine - PN: Subj *Date: 11/07/21 *Time: 15:07 Interval history: Patient remains on Levophed. She remains generally weakened. She has a low potassium this morning at 2.8, hemoglobin 9.7 and a white count that is trending downward. Stool studies were negative. Sacral decubitus is present and documented. Patient currently on Invanz. Exam Vital signs and Labs for Last 24 Hours: Temp Pulse Resp BP Pulse Ox 99.4 F 24 L 18 97/40 L 100 11/07/21 12:00 11/07/21 12:00 11/07/21 12:00 11/07/21 12:00 11/07/21 12:00 Laboratory Results - last 24 hr 11/06/21 12:55: Stl Aeromonas (PCR) Not detected, Stl C. cayetanensis PCR Not detected, Stool Rotavirus (PCR) Not detected, Stl Adenov F 40/41 PCR Not detected, Stool Astrovirus (PCR) Not detected, Stool Campylobacter PCR Not detected, Stl C.difficile Tox PCR Not detected, Stool Cryptosporidium PCR Not detected, Stl E.coli Shiga Tox PCR Not detected, Stool E coli O157 PCR Not detected, Stl Enterotoxigenic E PCR Not detected, Stool EPEC (PCR) Not detected, Stool EAEC (PCR) Not detected, Stl E. histolytica PCR Not detected, Stool Giardia Lamblia PCR Not detected, Stool Salmonella PCR Not detected, Stool Sapovirus (PCR) Not detected, Stl P. shigelloides PCR Not detected, Stl Shigella/EIEC PCR Not detected, St Y.enterocolitica PCR Not detected, Stool Vibrio (PCR) Not detected, Stl Vibrio cholerae PCR Not detected, Stl Norovirus GI/GII PCR Not detected 11/06/21 17:15: WBC 17.8 H, RBC 3.77 L, Hgb 10.5 L, Hct 31.8 L, MCV 84.3, MCH 27.9, MCHC 33.1, RDW 17.9 H, Plt Count 123 L, MPV 9.8, Neut % (Auto) 90.0 H, Lymph % (Auto) 8.1 L, [place] % (Auto) 1.6 L, Eos % (Auto) 0.0 L, Baso % (Auto) 0.2, Neut # (Auto) 16.1 H, Lymph # (Auto) 1.5, [place] # (Auto) 0.3, Eos # (Auto) 0.0, Baso # (Auto) 0.0, Total Counted 100, Neutrophils % (Manual) 83 H, Band Neutrophils % 8.0, Lymphocytes % (Manual) 8 L, Eosinophils % (Manual) 1, Toxic Granulation 1+, Platelet Estimate Slight decrease, RBC Morphology Normal 11/07/21 06:40: WBC 11.6 H D, RBC 3.50 L, Hgb 9.7 L, Hct 30.3 L, MCV 86.4, MCH 27.6, MCHC 31.9, RDW 18.2 H, Plt Count 93 L, MPV 10.8 H, Neut % (Auto) 89.4 H, Lymph % (Auto) 8.4 L, [place] % (Auto) 1.8, Eos % (Auto) 0.1, Baso % (Auto) 0.2, Neut # (Auto) 10.4 H, Lymph # (Auto) 1.0, [place] # (Auto) 0.2, Eos # (Auto) 0.0, Baso # (Auto) 0.0, Total Counted 100, Neutrophils % (Manual) 94 H, Lymphocytes % (Manual) 4 L, Monocytes % (Manual) 2, Platelet Estimate Normal, Hypochromasia 1+, Anisocytosis 1+, Microcytosis 1+ 11/07/21 06:40: Sodium 136, Potassium 2.8 L* D, Chloride 116 H, Carbon Dioxide 16 L, Anion Gap 6.8, BUN 20 H, Creatinine 0.70 D, Estimated Creat Clear 38, Estimated GFR 81, Est GFR ( Amer) 98 D, Glucose 128 H D, Calcium 6.1 L I & O for Last 24 hours: Intake & Output 11/04/21 11/05/21 11/06/21 11/07/21 23:59 23:59 23:59 23:59 Intake Total 2919 / 2919 8891.5 / 8891.5 2989.460 / 2989.460 47.086 / 47.086 Output Total 725 / 725 300 / 300 650 / 650 300 / 300 Balance 2194 / 2194 8591.5 / 8591.5 2339.460 / 2339.460 -252.914 / -252.914 Weight 92 lb 4 oz 92 lb 0.688 oz 111 lb 4.8 oz 115 lb 9.6 oz - Constitutional thin, chronically ill appearing, somnolent - *Routine HEENT Exam Head: Present: normocephalic Eye: Present: EOMI, PERRL ENT: Present: mucous membranes moist - *Routine Neck Exam Present: supple. Absent: lymphadenopathy - *Routine Respiratory Exam Present: CTA bilaterally. Absent: accessory muscle use, respiratory distress, wheezes - *Routine Cardiovascular Exam Present: RRR - *Routine Abdominal Exam Present: soft, normoactive bowel sounds. Absent: tenderness - *Routine Extremities Exam Absent: cyanosis, clubbing, edema - *Routine Skin Exam Present: wounds. Absent: jaundice - *Routine Neurological Exam Present: altered mental status. Absent: alert, oriented X3, normal speech, tremors Assessment and Plan (1) Anemia Status: Chronic Qualifiers: Anemia type: uns
--- NOTE | 2021-11-07 22:10 | PC.NURSE ---
Levo gtt on 24 MCG/MIN at 1900. Report given to Becky Inman RN.
[2021-11-08] VITALS (27 sets, daily range): BP systolic 89–123; BP diastolic 40–65; PULSE 80–110; RESP 16–24; TEMP 36.4–37.2; O2SAT 99–100; BMI 20.4; BMI 21.7
[2021-11-08 07:29] LABS: Anion Gap 5.1 mEq/L (5-15); Blood Urea Nitrogen 14 mg/dl (7-17); Calcium 6.1 mg/dl (8.4-10.2); Carbon Dioxide 16 mmol/L (22.0-30.0); Chloride 117 mmol/L (98-107); Creatinine Clearance Estimated 40 mL/min (50-200); Estimated Glomerular Filt Rate 96 ml/min (>60); GFR (African American) 117 ML/MIN (>60); Glucose 106 mg/dl (74-100); Potassium 3.1 mmoL/L (3.5-5.1); Sodium 135 mmol/L (136-145)
[2021-11-08 07:43] LABS: Basophils % 0.2 % (0.1-2.0); Eosinophils % 0.2 % (0.1-12.0); Hematocrit 29.9 % (37.0-47.0); Hemoglobin 9.6 g/dL (12.2-16.2); Lymphocytes # 0.9 K/mm3 (0.7-4.5); Lymphocytes % 8.9 % (10-50); Mean Corpuscular Hemoglobin 27.5 pg (27.0-31.2); Mean Corpuscular Volume 85.8 fl (81-99); Mean Platelet Volume 10.5 fl (7.4-10.4); Monocytes # 0.5 K/mm3 (0.1-1.0); Monocytes % 4.5 % (1.7-9.3); Neutrophils % 86.3 % (37.0-80.0); Platelet Count 68 K/mm3 (142-424); Red Blood Count 3.49 M/mm3 (4.20-5.40); Red Cell Distribution Width 18.2 % (11.5-17.5); White Blood Count 10.4 K/mm3 (4.8-10.8)
[2021-11-08 07:47] LABS: MANUAL DIFFERENTIAL MANUAL DIFFERENTIAL (MANUAL DIFF)
[2021-11-08 08:33] LABS: Eosinophils % 1 % (0-3); Lymphocytes % 16 % (10-50); Monocytes % 6 % (2-9); Neutrophils % 77 % (42-76); Total Cells Counted 100
[2021-11-08 08:34] LABS: Hypochromasia 1+; Nucleated Red Blood Cells 2; Platelet Estimate Normal
--- NOTE | 2021-11-08 09:08 | PC.NURSE ---
Levo currently @ 18 MCG/MIN
--- NOTE | 2021-11-08 13:31 | PC.NURSE ---
Gregory gtt at 16 MCG/MIN
--- NOTE | 2021-11-08 14:00 | HMH.ACPN2 ---
Internal Medicine - PN: Subj *Date: 11/08/21 *Time: 14:00 Interval history: looks a little brighter daughter in law present when examined no cp/sob wagner/levo good sats on ra bc=0 cxr=infilt vs atel r>l plt diminished Exam Vital signs and Labs for Last 24 Hours: Temp Pulse Resp BP Pulse Ox 97.9 F 102 H 22 103/64 L 100 11/08/21 12:03 11/08/21 12:03 11/08/21 12:03 11/08/21 12:03 11/08/21 10:00 Laboratory Results - last 24 hr 11/08/21 06:16: WBC 10.4, RBC 3.49 L, Hgb 9.6 L, Hct 29.9 L, MCV 85.8, MCH 27.5, MCHC 32.0, RDW 18.2 H, Plt Count 68 L D, MPV 10.5 H, Neut % (Auto) 86.3 H, Lymph % (Auto) 8.9 L, [place] % (Auto) 4.5, Eos % (Auto) 0.2, Baso % (Auto) 0.2, Neut # (Auto) 9.0 H, Lymph # (Auto) 0.9, [place] # (Auto) 0.5, Eos # (Auto) 0.0, Baso # (Auto) 0.0, Total Counted 100, Neutrophils % (Manual) 77 H, Lymphocytes % (Manual) 16, Monocytes % (Manual) 6, Eosinophils % (Manual) 1, Nucleated RBCs 2, Platelet Estimate Normal, Hypochromasia 1+ 11/08/21 06:16: Sodium 135 L, Potassium 3.1 L, Chloride 117 H, Carbon Dioxide 16 L, Anion Gap 5.1, BUN 14 D, Creatinine 0.60, Estimated Creat Clear 40, Estimated GFR 96, Est GFR ( Amer) 117, Glucose 106 H, Calcium 6.1 L I & O for Last 24 hours: Intake & Output 11/05/21 11/06/21 11/07/21 11/09/21 23:59 23:59 23:59 00:59 Intake Total 8891.5 / 8891.5 2989.460 / 2989.460 72.112 / 72.112 1193.148 / 1193.148 Output Total 300 / 300 650 / 650 650 / 650 350 / 350 Balance 8591.5 / 8591.5 2339.460 / 2339.460 -577.888 / -577.888 843.148 / 843.148 Weight 92 lb 0.688 oz 111 lb 4.8 oz 115 lb 9.6 oz 122 lb 12.8 oz - Constitutional no acute distress, thin, cachectic, chronically ill appearing - *Routine HEENT Exam Head: Present: normocephalic Eye: Present: EOMI, PERRL ENT: Present: mucous membranes moist - *Routine Neck Exam Present: supple. Absent: lymphadenopathy - *Routine Respiratory Exam Present: CTA bilaterally - *Routine Cardiovascular Exam Present: RRR - *Routine Abdominal Exam Present: soft, normoactive bowel sounds. Absent: tenderness - *Routine Extremities Exam Absent: cyanosis, clubbing, edema - *Routine Skin Exam Present: lesions - *Routine Neurological Exam Present: alert, moving all extremities, vision grossly intact, hearing grossly intact Assessment and Plan (1) Anemia Status: Chronic Qualifiers: Anemia type: unspecified type Qualified Code(s): D64.9 - Anemia, unspecified Category: Medical Code(s): D64.9 - Anemia, unspecified (2) Duodenal ulcer Status: Acute Category: Medical Code(s): K26.9 - Duodenal ulcer, unspecified as acute or chronic, without hemorrhage or perforation (3) Atrial flutter Status: Acute Category: Medical Code(s): I48.92 - Unspecified atrial flutter (4) C. difficile colitis Status: Acute Category: Medical Code(s): A04.72 - Enterocolitis due to Clostridium difficile, not specified as recurrent (5) Decubitus ulcer of coccyx, stage 2 Status: Acute Category: Medical Code(s): L89.152 - Pressure ulcer of sacral region, stage 2 (6) Cachectic Status: Acute Category: Medical Code(s): R64 - Cachexia (7) Hypokalemia Status: Acute Category: Medical Code(s): E87.6 - Hypokalemia - Assessment and plan all Dx Assessment and Plan for all problems:: will change abx coverage invanz to roceph/azith discussed w/family member present
--- NOTE | 2021-11-08 16:12 | PC.NURSE ---
Levo decreased to 14 mcg/min. BP 110/63.
--- NOTE | 2021-11-08 18:31 | PC.NURSE ---
Pt is currently on levo at 8 MCG/MIN.
--- NOTE | 2021-11-08 20:05 | PC.NURSE ---
Levophed titrated down to 6mcg, pt turned to R side at this time
[2021-11-09] VITALS (23 sets, daily range): BP systolic 72–130; BP diastolic 29–71; PULSE 59–130; RESP 10–22; TEMP 36.5–36.8; O2SAT 96–100; BMI 21.3
--- NOTE | 2021-11-09 02:00 | PC.WOUNDNOTE ---
titrated Levophed down to 4mcg/min
--- NOTE | 2021-11-09 04:18 | PC.NURSE ---
Pt slept intermittently t/o shift. Turned q2 by staff and pt tolerated well. BUE continue to weep serous fluid, changed chux pads 2x thus far. Heels floated on pillow and placed heel protectors bilat. Dressing to coccyx is CDI. Levophed continues to infuse and titrated PRN per order. Central line to R IJ in place and dressing is CDI. Lungs CTA. Ghotra cath remains in place and is patent with bright ylw urine. Bed alarm active. Call light within reach.
[2021-11-09 05:41] LABS: Basophils % 0.2 % (0.1-2.0); Eosinophils % 0.5 % (0.1-12.0); Hematocrit 25.4 % (37.0-47.0); Lymphocytes # 0.4 K/mm3 (0.7-4.5); Lymphocytes % 7.3 % (10-50); Mean Corpuscular HGB Conc 32.4 g/dL (31.8-35.4); Mean Corpuscular Hemoglobin 27.8 pg (27.0-31.2); Mean Corpuscular Volume 85.9 fl (81-99); Mean Platelet Volume 10.3 fl (7.4-10.4); Monocytes # 0.3 K/mm3 (0.1-1.0); Monocytes % 4.7 % (1.7-9.3); Neutrophils # 4.9 K/mm3 (1.8-7.8); Neutrophils % 87.4 % (37.0-80.0); Red Blood Count 2.96 M/mm3 (4.20-5.40); Red Cell Distribution Width 18.8 % (11.5-17.5); White Blood Count 5.6 K/mm3 (4.8-10.8)
--- NOTE | 2021-11-09 05:44 | PC.NURSE ---
Titrated Levophed down to 2 mcg/min.
[2021-11-09 05:46] LABS: Platelet Count 45 K/mm3 (142-424)
[2021-11-09 05:49] LABS: Hemoglobin 8.2 g/dL (12.2-16.2); MANUAL DIFFERENTIAL MANUAL DIFFERENTIAL (MANUAL DIFF)
[2021-11-09 05:54] LABS: Chloride 115 mmol/L (98-107); Potassium 3.1 mmoL/L (3.5-5.1); Sodium 132 mmol/L (136-145)
[2021-11-09 05:57] LABS: Anion Gap 3.1 mEq/L (5-15); Blood Urea Nitrogen 11 mg/dl (7-17); Carbon Dioxide 17 mmol/L (22.0-30.0); Creatinine Clearance Estimated 39 mL/min (50-200); Estimated Glomerular Filt Rate 96 ml/min (>60); GFR (African American) 117 ML/MIN (>60)
[2021-11-09 05:59] LABS: Calcium 5.4 mg/dl (8.4-10.2); Glucose 55 mg/dl (74-100)
--- NOTE | 2021-11-09 06:32 | PC.NURSE ---
Addendum entered by Graciela Sultana RN 11/09/21 07:46: @ 0600 Lab notified of blood glucose of 55, pt drank partial OJ & partial Apple juice. @ 0632 repeat FS was 74 Original Note: paged Dr. Villaseñor, on-call Dr. Medina
--- NOTE | 2021-11-09 06:50 | PC.NURSE ---
Dr. Villaseñor on floor, states to notify Dr. Medina @ 4023 of lab values.
[2021-11-09 06:51] LABS: POC Glucose,Bedside 74 (70-110)
--- NOTE | 2021-11-09 07:00 | PC.NURSE ---
Titrated Levophed down to 1mcg/min
--- NOTE | 2021-11-09 07:02 | PC.NURSE ---
Dr. Medina notified of critical platelet
--- NOTE | 2021-11-09 07:47 | PC.NURSE ---
Report given to Gonzales Carrasquillo RN
--- NOTE | 2021-11-09 09:25 | PC.NURSE ---
turned offl levophed gtt at this time
--- NOTE | 2021-11-09 09:39 | HMH.ACPN2 ---
Internal Medicine - PN: Subj *Date: 11/09/21 *Time: 08:45 Interval history: pt awake laying in bed, peck at bedside Exam Vital signs and Labs for Last 24 Hours: Temp Pulse Resp BP Pulse Ox 98.3 F 109 H 10 L 114/47 L 100 11/09/21 08:00 11/09/21 08:00 11/09/21 08:00 11/09/21 08:00 11/09/21 08:00 Laboratory Results - last 24 hr 11/09/21 05:26: WBC 5.6 D, RBC 2.96 L, Hgb 8.2 L D, Hct 25.4 L, MCV 85.9, MCH 27.8, MCHC 32.4, RDW 18.8 H, Plt Count 45 L* D, MPV 10.3, Neut % (Auto) 87.4 H, Lymph % (Auto) 7.3 L, Marion % (Auto) 4.7, Eos % (Auto) 0.5, Baso % (Auto) 0.2, Neut # (Auto) 4.9, Lymph # (Auto) 0.4 L, Marion # (Auto) 0.3, Eos # (Auto) 0.0, Baso # (Auto) 0.0 11/09/21 05:26: Sodium 132 L, Potassium 3.1 L, Chloride 115 H, Carbon Dioxide 17 L, Anion Gap 3.1 L, BUN 11, Creatinine 0.60, Estimated Creat Clear 39, Estimated GFR 96, Est GFR ( Amer) 117, Glucose 55 L D, Calcium 5.4 L D 11/09/21 06:32: POC Glucose 74 I & O for Last 24 hours: Intake & Output 11/06/21 11/07/21 11/08/21 11/09/21 10:59 10:59 11:59 11:59 Intake Total 1570 / 1570 Output Total 475 / 475 Balance 1095 / 1095 Weight 120 lb 9.309 oz - Constitutional no acute distress, chronically ill appearing - *Routine HEENT Exam Head: Present: normocephalic Eye: Present: PERRL ENT: Present: mucous membranes moist - *Routine Neck Exam Present: supple. Absent: lymphadenopathy - *Routine Respiratory Exam Present: rhonchi - *Routine Cardiovascular Exam Present: murmur, irregular rhythm - *Routine Abdominal Exam Present: soft, normoactive bowel sounds. Absent: tenderness - *Routine Extremities Exam Present: normal capillary refill. Absent: cyanosis, clubbing, edema - *Routine Skin Exam Present: warm, wounds. Absent: rash Comments: stage 2 to coccyx - *Routine Neurological Exam Present: alert Assessment and Plan (1) Anemia Status: Chronic Qualifiers: Anemia type: unspecified type Qualified Code(s): D64.9 - Anemia, unspecified Category: Medical Code(s): D64.9 - Anemia, unspecified (2) Duodenal ulcer Status: Acute Category: Medical Code(s): K26.9 - Duodenal ulcer, unspecified as acute or chronic, without hemorrhage or perforation (3) Atrial flutter Status: Acute Category: Medical Code(s): I48.92 - Unspecified atrial flutter (4) C. difficile colitis Status: Acute Category: Medical Code(s): A04.72 - Enterocolitis due to Clostridium difficile, not specified as recurrent (5) Decubitus ulcer of coccyx, stage 2 Status: Acute Category: Medical Code(s): L89.152 - Pressure ulcer of sacral region, stage 2 (6) Cachectic Status: Acute Category: Medical Code(s): R64 - Cachexia (7) Hypokalemia Status: Acute Category: Medical Code(s): E87.6 - Hypokalemia - Assessment and plan all Dx Assessment and Plan for all problems:: rounded with dr harley all orders per dr harley continue plan pt/ot
--- NOTE | 2021-11-09 10:45 | PC.NURSE ---
turned levophed drip back on at 2mcg/min
--- NOTE | 2021-11-09 10:46 | HMH.PTEV ---
Physical Therapy Evaluation Rehab PT IP Evaluation Start: 11/09/21 09:41 Freq: ONCE Status: Active Protocol: Document 11/09/21 10:38 PWANASTACIO (Rec: 11/09/21 10:46 PWANASTACIO [id number]) Subjective/History History History This is the initial IP PT evaluation for Ruben Matamoros. Pt is a 81 y/o female admitted to [facility] for AMS and UTI. Pt currently is a resident of local SNF. Of note pt's HR never dropped below 120 w/ normal being 130- 150, and BP was 85/37 Subjective Subjective Pt in and out of confusion, states she would sit EOB, but c/o severe pain in buttocks wound once sitting Rehab PT IP Eval Objective Appearance Patient Behavior Passive,Fatigued,Confused Patient Orientation Name,Birthday,Year Difficulty following instructions moderate Speech Pattern Soft-Spoken Ambulation Patient Able to Ambulate No Balance Ability to Arise Unable Sitting Balance Leans or slides in chair Dynamic Sitting Balance Ability Zero Transfers Bed Transfer Ability Total/Dependent (100%) Rehab PT IP prob,goals,plan Problems Date of Evaluation: 11/09/21 PT IP Problems Bed Mobility,Transfers,Self care Rehab Potential Rehab Potential Innapropriate for Skilled Therapy Discharge Plan PT Discharge Plan Pt has significant difficulties w/ PT including HR and BP, need for dependent movement and significantly decline in function over the last few weeks. Pt is not medically stable for skilled therapy and would probably benefit from hospice consult. Pt will continue to need LTC once medically stable and dc'd from [facility]. If pt has improvement in cardiopulmonary stability and another consult is warranted please consult. G -code Required Yes Eval Complexity Eval Charge Codes 25903 - High Complexity G Codes PT Current Status Self Care PT Current Status Modifier CN-At least 100% impaired,
--- NOTE | 2021-11-09 10:53 | HMH.OTEV ---
OT Inpatient Evaluation Rehab OT IP Evaluation Start: 11/09/21 09:41 Freq: ONCE Status: Complete Protocol: [facility]21 10[facility] (Rec: 11/09/21 10:53 [facility] [id number]) Rehab OT IP Assessment Subjective History Initially pt was only oriented to person. However, throughout evaluation she was able to provide her birthday and place. Pt reports prior to being in the hosptial she lived at home with her and was independent with all ADLS. This information is not correct and prior to being in the hospital she lived at SNF . More than likely patient required assistance with ADLs. Pt was admitted to the hospital on 11/02/21 due to altered mental status. The following information was copied from history and physical report: 81-year-old female patient arrived to the [facility] emergency department via EMS for reports of ongoing UTI at residential. She currently has been treated with ertapenem and family wanted her evaluated for confusion. In the emergency department she denied any pain, nausea/ vomiting, bloody stools, fever /chills/body aches other or complaints. She recently finished vancomycin for C. difficile on 11/01. Pt has a past medical history of: Anxiety, Cancer, Cardiomyopathy, Congestive Heart Failure, Coronary Artery Disease, Gastroesophageal Reflux Disease(GERD), Hiatal Hernia, Hyperlipidemia, Hypertension, Kidney Stones, Myocardial Infarction Subjective YOu are trying to hurt me, stop it. Pt resting in bed
--- NOTE | 2021-11-09 10:57 | PC.NURSE ---
spoke with jack laird and dr roman about patient heart rate getting up into the 140s. levophed drip turned back on in relation to bp dropping. dr roman stated to stop the levophed drip and start patient on phenylephrine.
[2021-11-09 11:14] LABS: Lymphocytes % 11 % (10-50); Monocytes % 1 % (2-9); Neutrophils % 87 % (42-76); Total Cells Counted 100
[2021-11-09 11:16] LABS: Hypochromasia 1+
[2021-11-09 11:17] LABS: Platelet Estimate Marked Decrease
--- NOTE | 2021-11-09 11:41 | HMH.SLDYSPHA ---
Speech & Language Evaluation Speech/Language Dysphagia Evaluation Start: 11/09/21 11:32 Freq: ONCE Status: Active Protocol: Document 11/09/21 11:33 BETITO (Rec: 11/09/21 11:40 BETITO [id number]) Dysphagia Assess/Goals/Plan Assessment Date of Evaluation: 11/09/21 Evaluation Type Initial Certification Assessment/Problems Dysphagia Does Patient Qualify for Service No Qualify/Failure Comment No overt signs of dysphagia at this time. Recommendations PHYSICIAN CERTIFICATION: The specified therapy services are required, authorized, and reviewed every 30 days. Diet Recommendations Mechanical Soft Liquid Type Recommendations Normal/Thin SL Swallow Guidelines High aspiration risk Crush Meds Crush all meds Dysphagia Swallow Precautions/Strategies Sitting Upright (90 deg),Small Bites and Sips,Alternate Liquids/Solids Plan Pt/Guardian verbally ack understanding Yes: Pt and nurse notified of dx/prognosis/goals G -code Required No Speech & Language HPI Language Primary Language Sinhala General Information General Current Food Consistancy Mechanical Soft,Thin Liquids Dentition Upper Only Comment: Lower dentures unavailable Oxygen Status Nasal Cannula Facial Symmetry Symmetrical Patient Orientation Person,Place,Time Ability to Follow Directions Good Communication Ability Mild Impairment Dysphagia:Food Presentation Evaluation Food Type Pureed,Mechanical Soft,Liquid, Pudding Dysphagia Evaluation Summary Ms. Matamoros was given the following consistencies; thins via open cup and straw, pudding, puree, and mech soft. Ms. Matamoros is not displaying any signs of dyphagia at this time. Thin liquids and mech soft diet is recommended due to lack of dentition. Stroke Dysphagia Assessment PHYSICIAN CERTIFICATION: I certify the specified therapy services for Doug Matamoros are required, authorized, and reviewed every 30 days.
--- NOTE | 2021-11-09 12:21 | PC.NURSE ---
1150 SPOT CHECKED FSBS AND NOTED TO BE 41 RECHECKED PER PROTOCOL AND IT WAS 28. STAT GLUCOSE DRAWN AND PATIENT GIVEN SOME CRANBERRY JUICE WITH SUGAR. NOTIFIED DEMETRIUS ALONZO WHO REQUESTED PATIENT FSBS BE CHECKED BID AND TO GIVE A 1/2 AMP OF D50. PATIENT GIVEN D50 AT 1215 WENT AHEAD AND CHECKED FSBS AT 1217 AFTER DRINKING AND FSBS HAD ALREADY CAME UP TO 85
--- NOTE | 2021-11-09 12:24 | HMH.PNCARD ---
Subjective Date: 11/09/21 Time: 12:00 Principal diagnosis: SVT, sepsis Interval history: This is a 81-year-old white female who was admitted to the hospital and found to have SVT/atrial flutter. The patient appears to be in no distress this morning. She denies any chest pain or pressure. She denies any shortness of breath. She is trying to talk to me but I am having a really difficult time understanding what she is saying and sometimes her speech is not very congruent. She does have edema noted in her bilateral upper and lower extremities although she denies having any edema. She was restarted on Levophed for blood pressure support this morning because her blood pressure was in the 70s over 30s. She is tachycardic this morning with a heart rate anywhere in the 120s to 140s. Exam Vital signs and Labs for Last 24 Hours: Temp Pulse Resp BP Pulse Ox 98.3 F 109 H 10 L 114/47 L 100 11/09/21 08:00 11/09/21 08:00 11/09/21 08:00 11/09/21 08:00 11/09/21 08:00 Laboratory Results - last 24 hr 11/09/21 05:26: WBC 5.6 D, RBC 2.96 L, Hgb 8.2 L D, Hct 25.4 L, MCV 85.9, MCH 27.8, MCHC 32.4, RDW 18.8 H, Plt Count 45 L* D, MPV 10.3, Neut % (Auto) 87.4 H, Lymph % (Auto) 7.3 L, Larue % (Auto) 4.7, Eos % (Auto) 0.5, Baso % (Auto) 0.2, Neut # (Auto) 4.9, Lymph # (Auto) 0.4 L, Larue # (Auto) 0.3, Eos # (Auto) 0.0, Baso # (Auto) 0.0, Total Counted 100, Neutrophils % (Manual) 87 H, Band Neutrophils % 1.0, Lymphocytes % (Manual) 11, Monocytes % (Manual) 1 L, Platelet Estimate Marked decrease, RBC Morphology Not Reportable, Hypochromasia 1+ 11/09/21 05:26: Sodium 132 L, Potassium 3.1 L, Chloride 115 H, Carbon Dioxide 17 L, Anion Gap 3.1 L, BUN 11, Creatinine 0.60, Estimated Creat Clear 39, Estimated GFR 96, Est GFR ( Amer) 117, Glucose 55 L D, Calcium 5.4 L D 11/09/21 06:32: POC Glucose 74 I & O for Last 24 hours: Intake & Output 11/06/21 11/07/21 11/08/21 11/09/21 22:59 22:59 23:59 23:59 Intake Total 1210 / 1210 Output Total 225 / 225 Balance 985 / 985 Weight 120 lb 9.309 oz Microbiology Reports for the Last 24 Hours: Microbiology 11/04/21 09:51 Blood Blood Culture - Final NO GROWTH AFTER 5 DAYS 11/04/21 09:51 Blood Blood Culture - Final NO GROWTH AFTER 5 DAYS - Constitutional no acute distress, average body habitus - *Routine HEENT Exam Head: Present: normocephalic, atraumatic Eye: Present: EOMI, PERRL ENT: Present: mucous membranes moist - *Routine Neck Exam Present: supple, full ROM, normal carotid upstroke. Absent: JVD, carotid bruit, lymphadenopathy - *Routine Respiratory Exam Present: CTA bilaterally - *Routine Cardiovascular Exam Present: RRR, Normal S1, Normal S2. Absent: murmur - *Routine Abdominal Exam Present: soft, normoactive bowel sounds. Absent: tenderness, distended - *Routine Extremities Exam Present: edema (Bilateral upper and lower extremities), full ROM, pulses intact. Absent: cyanosis, clubbing - *Routine Skin Exam Present: intact, warm. Absent: erythema, rash - *Routine Neurological Exam Present: alert, CN II-XII intact, altered mental status. Absent: sensory deficit, motor deficit Progress Note: A&P (1) Hypotension Status: Acute (2) Tachycardia Status: Acute (3) Atrial flutter Status: Acute (4) Anemia Status: Chronic (5) Duodenal ulcer Status: Acute (6) C. difficile colitis Status: Acute (7) Decubitus ulcer of coccyx, stage 2 Status: Acute (8) Cachectic Status: Acute (9) Hyperlipidemia Status: Chronic (10) Coronary arteriosclerosis Status: Chronic Assessment and Plan for All Diagnoses:: Plan: 1. The patient was in SVT/atrial flutter with 2-1 block. It resolved after being given Cardizem. The patient did get hypotensive so the Cardizem was stopped. The patient did receive IV amiodarone loading dose and then was switched over to oral amiod
[2021-11-09 12:36] LABS: Glucose,Random 56 mg/dL (74-100)
[2021-11-09 13:37] LABS: POC Glucose,Bedside 85 (70-110)
[2021-11-09 15:30] LABS: Glucose,Random 55 mg/dL (74-100)
--- NOTE | 2021-11-09 15:55 | DIET.NUTRFU ---
RD tried to interview patient about meal intake and she did not answer questions today. She appeared alert had her eyes open but did not answer when asked if she was hungry or what would she like to eat. She was seen by [facility]- MSOFT/chopped with thin liquids. Intake is poor, same as past admits. In the past this RD has tried supplements/fortified food/ homemade shakes and remeron was added. Spoke to NH at time of admit and meal intake has been poor. Ensure is ordered with all meals and yogurt with breakfast. If meal intake starts to improve with restart fortified foods. Patient noted to have some low BS, dextrose IV in place. Multiple ABT tx in place along with carafrate and protonix. Patient continues to trigger for malnutrition and high risk for wt loss during stay d/t lack of intake. Labs on 11/09 Na and K slightly depleted. May need to consider TF vs quality of life if meal intake does not start improving.
[2021-11-09 17:14] LABS: POC Glucose,Bedside 92 (70-110)
--- NOTE | 2021-11-09 17:58 | PC.NURSE ---
PATIENT HAS BEEN ALERT AND ORIENTED. HAS NOT APPEARED TO BE IN ANY DISTRESS. ABLE TO VOICE DISCOMFORT. HAS BEEN INCONTINENT OF BOWELS SEVERAL TIMES. BP HAS REMAINED ON LOWER END, BUT PATIENT MENTATION HAS REMAINED WITHIN NORMAL LIMITS. DID INCREASE DESIRE UP TO 60MCG/MIN. PATIENT BP AND BS HAVE BEEN LABILE. FSBS HAS REMAINED IN 40S THROUGH OUT THE DAY. DEMETRIUS CHANGED FLUIDS TO DEXTROSE. DID ALSO PUSH ONE AND A HALF AMPS OF DEXTROSE TOTAL
--- NOTE | 2021-11-09 18:10 | PC.NURSE ---
ALL BPS ON 11/09 DAYSHIFT WERE TAKEN VIA THE L ARM NOT THE CALF
[2021-11-10] VITALS (13 sets, daily range): BP systolic 96–141; BP diastolic 36–68; PULSE 88–122; RESP 16–28; TEMP 36.5–37.1; O2SAT 100; BMI 22.1
[2021-11-10 00:52] LABS: POC Glucose,Bedside 65 (70-110)
[2021-11-10 00:52] LABS: POC Glucose,Bedside 71 (70-110)
[2021-11-10 05:51] LABS: POC Glucose,Bedside 61 (70-110)
[2021-11-10 06:26] LABS: Basophils % 0.4 % (0.1-2.0); Eosinophils # 0.1 K/mm3 (0.0-0.4); Eosinophils % 0.6 % (0.1-12.0); Hematocrit 27.6 % (37.0-47.0); Hemoglobin 8.6 g/dL (12.2-16.2); Lymphocytes # 0.8 K/mm3 (0.7-4.5); Lymphocytes % 8.3 % (10-50); Mean Corpuscular HGB Conc 31.1 g/dL (31.8-35.4); Mean Corpuscular Hemoglobin 27.7 pg (27.0-31.2); Mean Corpuscular Volume 89.1 fl (81-99); Mean Platelet Volume 10.3 fl (7.4-10.4); Monocytes # 0.4 K/mm3 (0.1-1.0); Monocytes % 3.8 % (1.7-9.3); Neutrophils # 8.4 K/mm3 (1.8-7.8); Platelet Count 83 K/mm3 (142-424); Red Cell Distribution Width 19.4 % (11.5-17.5); White Blood Count 9.7 K/mm3 (4.8-10.8)
[2021-11-10 06:30] LABS: MANUAL DIFFERENTIAL MANUAL DIFFERENTIAL (MANUAL DIFF)
[2021-11-10 06:31] LABS: Anion Gap 2.8 mEq/L (5-15); Blood Urea Nitrogen 9 mg/dl (7-17); Carbon Dioxide 13 mmol/L (22.0-30.0); Chloride 122 mmol/L (98-107); Creatinine Clearance Estimated 41 mL/min (50-200); Estimated Glomerular Filt Rate 119 ml/min (>60); GFR (African American) 144 ML/MIN (>60); Glucose 63 mg/dl (74-100); Sodium 135 mmol/L (136-145)
--- NOTE | 2021-11-10 06:51 | PC.NURSE ---
Patient has slept at intervals this shift. Remains A/O x3. Phenylephrine remains infusing at 60 mcg/min. with all SBP >90. Pt has voiced no c/o of pain. Patient has had x3 loose BM's. Ghotra draining at bedside.
[2021-11-10 06:56] LABS: Calcium 5.5 mg/dl (8.4-10.2); Potassium 2.8 mmoL/L (3.5-5.1)
--- NOTE | 2021-11-10 10:14 | HMH.ACPN2 ---
Internal Medicine - PN: Subj *Date: 11/10/21 *Time: 19:45 Interval history: 81-year-old female patient resting in bed quietly she denies any shortness of breath or chest pain during the night. Gregory still infusing blood pressure currently 99/36. Call placed to son Hilario, discussed patient's current medical situation including lack of nutrition due to not eating and blood pressure continuing to be hypotensive and possible feeding tube, hospice and or alf placement. He reports he is out of town but he will contact all family members and they will discuss mother's current situation. Exam Vital signs and Labs for Last 24 Hours: Temp Pulse Resp BP Pulse Ox 97.9 F 94 H 20 99/36 L 100 11/10/21 08:00 11/10/21 08:00 11/10/21 08:00 11/10/21 08:00 11/10/21 08:00 Laboratory Results - last 24 hr 11/09/21 05:26: Total Counted 100, Neutrophils % (Manual) 87 H, Band Neutrophils % 1.0, Lymphocytes % (Manual) 11, Monocytes % (Manual) 1 L, Platelet Estimate Marked decrease, RBC Morphology Not Reportable, Hypochromasia 1+ 11/09/21 12:00: Random Glucose 56 L 11/09/21 12:17: POC Glucose 85 11/09/21 15:00: Random Glucose 55 L 11/09/21 16:44: POC Glucose 92 11/09/21 19:32: POC Glucose 71 11/09/21 21:56: POC Glucose 65 L 11/10/21 05:09: POC Glucose 61 L 11/10/21 05:30: WBC 9.7 D, RBC 3.10 L, Hgb 8.6 L, Hct 27.6 L, MCV 89.1, MCH 27.7, MCHC 31.1 L, RDW 19.4 H, Plt Count 83 L D, MPV 10.3, Neut % (Auto) 87.0 H, Lymph % (Auto) 8.3 L, Loup % (Auto) 3.8, Eos % (Auto) 0.6, Baso % (Auto) 0.4, Neut # (Auto) 8.4 H, Lymph # (Auto) 0.8, Loup # (Auto) 0.4, Eos # (Auto) 0.1, Baso # (Auto) 0.0 11/10/21 05:30: Sodium 135 L, Potassium 2.8 L*, Chloride 122 H, Carbon Dioxide 13 L, Anion Gap 2.8 L, BUN 9, Creatinine 0.50 L, Estimated Creat Clear 41, Estimated GFR 119, Est GFR ( Amer) 144 D, Glucose 63 L, Calcium 5.5 L I & O for Last 24 hours: Intake & Output 11/07/21 11/08/21 11/09/21 11/10/21 22:59 23:59 23:59 23:59 Intake Total 1966 / 1966 500 / 500 Output Total 375 / 375 320 / 320 Balance 1592 / 1592 180 / 180 Weight 120 lb 9.309 oz 125 lb 6 oz Microbiology Reports for the Last 24 Hours: Microbiology 11/04/21 09:51 Blood Blood Culture - Final NO GROWTH AFTER 5 DAYS 11/04/21 09:51 Blood Blood Culture - Final NO GROWTH AFTER 5 DAYS - Constitutional no acute distress, chronically ill appearing - *Routine HEENT Exam Head: Present: normocephalic Eye: Present: EOMI ENT: Present: mucous membranes moist - *Routine Neck Exam Present: trachea midline. Absent: tracheal deviation - *Routine Respiratory Exam Present: CTA bilaterally. Absent: accessory muscle use - *Routine Cardiovascular Exam Present: RRR - *Routine Abdominal Exam Present: soft, normoactive bowel sounds. Absent: tenderness - *Routine Extremities Exam Present: edema, full ROM, pulses intact. Absent: cyanosis, clubbing, calf tenderness Comments: Bilateral upper extremities with edema - *Routine Skin Exam Present: wounds Comments: Wound to coccyx with dressing - *Routine Neurological Exam Present: alert. Absent: motor deficit - Routine Psychiatric Exam Present: normal affect Assessment and Plan (1) Hypotension Status: Acute Category: Medical Code(s): I95.9 - Hypotension, unspecified (2) Tachycardia Status: Acute Category: Medical Code(s): R00.0 - Tachycardia, unspecified (3) Atrial flutter Status: Acute Category: Medical Code(s): I48.92 - Unspecified atrial flutter (4) Anemia Status: Chronic Qualifiers: Anemia type: unspecified type Qualified Code(s): D64.9 - Anemia, unspecified Category: Medical Code(s): D64.9 - Anemia, unspecified (5) Duodenal ulcer Status: Acute Category: Medical Code(s): K26.9 - Duodenal ulcer, unspecified as acute or chronic, without hemorrhage or perforation (6) C. difficile colitis
--- NOTE | 2021-11-10 10:37 | DIET.NUTRFU ---
Addendum entered by Daylin Avendaño RD, LD 11/10/21 13:38: saw patient during lunch offered to assist with meal and patient declined. Reviewed tray content and food preferences and she reported she did not want anything to eat. Encouraged her to drink a ensure and she stated she doesn't like them. Denied any GI distress at time of visit. Original Note: RD saw resident during rounds this AM, patient is ordered a MSOFT diet consuming 25% at best during meals. She has a long hx of poor intake. Spoke to Vincent earlier in the admit and they also reported poor intake. Have tried multiple different supplements in the past, fortified foods and homemade shakes. Based on her meal intake she is at risk for further skin breakdown and weight loss. Provider will review TF wishes to determine POC. Will continue ensure with all meals, yogurt with breakfast and fortified mashed potatoes with dinner. Staff to assist with meals as needed.
--- NOTE | 2021-11-10 11:33 | HMH.PNCARD ---
Subjective Date: 11/10/21 Time: 10:30 Principal diagnosis: SVT, sepsis Interval history: This is a 81-year-old female who was admitted to the hospital and found to be in SVT/atrial flutter. She is now rate controlled in the 90s today. She denies any chest pain or pressure. She denies any shortness of breath. Other than that I am unable to complete a full review of systems. She appears to be in no distress this morning. She remains on the Gregory-Synephrine drip. Exam Vital signs and Labs for Last 24 Hours: Temp Pulse Resp BP Pulse Ox 97.9 F 90 20 107/39 L 100 11/10/21 08:00 11/10/21 10:00 11/10/21 10:00 11/10/21 10:00 11/10/21 10:00 Laboratory Results - last 24 hr 11/09/21 12:00: Random Glucose 56 L 11/09/21 12:17: POC Glucose 85 11/09/21 15:00: Random Glucose 55 L 11/09/21 16:44: POC Glucose 92 11/09/21 19:32: POC Glucose 71 11/09/21 21:56: POC Glucose 65 L 11/10/21 05:09: POC Glucose 61 L 11/10/21 05:30: WBC 9.7 D, RBC 3.10 L, Hgb 8.6 L, Hct 27.6 L, MCV 89.1, MCH 27.7, MCHC 31.1 L, RDW 19.4 H, Plt Count 83 L D, MPV 10.3, Neut % (Auto) 87.0 H, Lymph % (Auto) 8.3 L, Coos % (Auto) 3.8, Eos % (Auto) 0.6, Baso % (Auto) 0.4, Neut # (Auto) 8.4 H, Lymph # (Auto) 0.8, Coos # (Auto) 0.4, Eos # (Auto) 0.1, Baso # (Auto) 0.0 11/10/21 05:30: Sodium 135 L, Potassium 2.8 L*, Chloride 122 H, Carbon Dioxide 13 L, Anion Gap 2.8 L, BUN 9, Creatinine 0.50 L, Estimated Creat Clear 41, Estimated GFR 119, Est GFR ( Amer) 144 D, Glucose 63 L, Calcium 5.5 L I & O for Last 24 hours: Intake & Output 11/07/21 11/08/21 11/09/21 11/10/21 22:59 23:59 23:59 23:59 Intake Total 1966 / 1966 500 / 500 Output Total 375 / 375 320 / 320 Balance 1592 / 1592 180 / 180 Weight 120 lb 9.309 oz 125 lb 6 oz Microbiology Reports for the Last 24 Hours: Microbiology 11/04/21 09:51 Blood Blood Culture - Final NO GROWTH AFTER 5 DAYS 11/04/21 09:51 Blood Blood Culture - Final NO GROWTH AFTER 5 DAYS - Constitutional no acute distress, average body habitus - *Routine HEENT Exam Head: Present: normocephalic, atraumatic Eye: Present: EOMI, PERRL ENT: Present: mucous membranes moist - *Routine Neck Exam Present: supple, full ROM. Absent: JVD, carotid bruit, lymphadenopathy - *Routine Respiratory Exam Present: CTA bilaterally - *Routine Cardiovascular Exam Present: RRR, Normal S1, Normal S2. Absent: murmur - *Routine Abdominal Exam Present: soft, normoactive bowel sounds. Absent: tenderness, distended - *Routine Extremities Exam Present: edema (Trace edema in her lower extremities. Bilateral upper extremity edema), pulses intact, normal capillary refill. Absent: cyanosis, clubbing - *Routine Skin Exam Present: warm. Absent: rash - *Routine Neurological Exam Present: altered mental status Progress Note: A&P (1) Hypotension Status: Acute (2) Tachycardia Status: Acute (3) Atrial flutter Status: Acute (4) Anemia Status: Chronic (5) Duodenal ulcer Status: Acute (6) C. difficile colitis Status: Acute (7) Decubitus ulcer of coccyx, stage 2 Status: Acute (8) Cachectic Status: Acute (9) Hyperlipidemia Status: Chronic (10) Coronary arteriosclerosis Status: Chronic (11) Hypokalemia Status: Acute Assessment and Plan for All Diagnoses:: Plan: 1. The patient was in SVT/atrial flutter and it resolved after being given Cardizem. This was stopped and she was started on oral amiodarone. She did get tachycardic again yesterday while on a Levophed drip. The Levophed drip was stopped and switched over to Gregory-Synephrine and her heart rate is now well controlled. 2. The patient will remain on amiodarone for heart rate control. We will continue her dose at 200 mg twice daily as long as her heart rate remains under 100 bpm. 3. The patient's blood pressure has been low. She was started on Gregory-Synephrine
[2021-11-10 11:39] LABS: Eosinophils % 1 % (0-3); Hypochromasia 1+; Lymphocytes % 4 % (10-50); Monocytes % 2 % (2-9); Neutrophils % 93 % (42-76); Platelet Estimate Normal; Total Cells Counted 100
[2021-11-10 11:54] LABS: POC Glucose,Bedside 44 (70-110)
[2021-11-10 11:54] LABS: POC Glucose,Bedside 28 (70-110)
[2021-11-10 11:54] LABS: POC Glucose,Bedside 45 (70-110)
[2021-11-10 11:54] LABS: POC Glucose,Bedside 41 (70-110)
[2021-11-10 11:54] LABS: POC Glucose,Bedside 45 (70-110)
[2021-11-10 11:54] LABS: POC Glucose,Bedside 43 (70-110)
[2021-11-10 11:54] LABS: POC Glucose,Bedside 36 (70-110)
--- NOTE | 2021-11-10 20:16 | PC.NURSE ---
pt's fsbs 20, 1 amp D50 given per protocol and stat lab glucose ordered, drawn, and sent to lab
--- NOTE | 2021-11-10 20:23 | PC.NURSE ---
pt's lab glucose 227 after amp of dextrose given
--- NOTE | 2021-11-10 21:03 | PC.NURSE ---
rechecked pt's fsbs 69, will continue to monitor
[2021-11-10 21:09] LABS: POC Glucose,Bedside 69 (70-110)
[2021-11-10 21:40] LABS: Glucose,Random 227 mg/dL (74-100)
[2021-11-11] VITALS (20 sets, daily range): BP systolic 88–140; BP diastolic 37–92; PULSE 57–129; RESP 15–30; TEMP 36.4–37.1; O2SAT 95–100; BMI 24.1
--- NOTE | 2021-11-11 05:29 | PC.NURSE ---
pt's fsbs 28, 1 amp D 50 given per protocol, andi stat lab glucose from central line after amp given and sent down to lab
[2021-11-11 05:34] LABS: Basophils % 0.3 % (0.1-2.0); Eosinophils % 0.5 % (0.1-12.0); Hematocrit 23.9 % (37.0-47.0); Lymphocytes # 0.5 K/mm3 (0.7-4.5); Lymphocytes % 6.3 % (10-50); Mean Corpuscular HGB Conc 31.6 g/dL (31.8-35.4); Mean Corpuscular Hemoglobin 28.2 pg (27.0-31.2); Mean Corpuscular Volume 89.1 fl (81-99); Mean Platelet Volume 10.8 fl (7.4-10.4); Monocytes # 0.2 K/mm3 (0.1-1.0); Monocytes % 2.5 % (1.7-9.3); Neutrophils # 7.8 K/mm3 (1.8-7.8); Neutrophils % 90.4 % (37.0-80.0); Platelet Count 68 K/mm3 (142-424); Red Blood Count 2.68 M/mm3 (4.20-5.40); Red Cell Distribution Width 19.7 % (11.5-17.5); White Blood Count 8.6 K/mm3 (4.8-10.8)
[2021-11-11 05:36] LABS: Blood Urea Nitrogen 10 mg/dl (7-17); Carbon Dioxide 13 mmol/L (22.0-30.0); Chloride 121 mmol/L (98-107); Creatinine Clearance Estimated 44 mL/min (50-200); Estimated Glomerular Filt Rate 119 ml/min (>60); GFR (African American) 144 ML/MIN (>60); Glucose 316 mg/dl (74-100); MANUAL DIFFERENTIAL MANUAL DIFFERENTIAL (MANUAL DIFF); Sodium 134 mmol/L (136-145)
[2021-11-11 05:42] LABS: Hemoglobin 7.7 g/dL (12.2-16.2)
[2021-11-11 05:44] LABS: Calcium 5.4 mg/dl (8.4-10.2)
--- NOTE | 2021-11-11 05:52 | PC.NURSE ---
notified MD Null telephone claims representative of pt's critical potassium of 3.0 and calcium of 5.4 and that pt has needed d50 twice this shift for low blood sugars in the 20's, ordered 60mEq potassium
[2021-11-11 06:10] LABS: POC Glucose,Bedside 88 (70-110)
[2021-11-11 08:23] LABS: POC Glucose,Bedside 87 (70-110)
--- NOTE | 2021-11-11 09:09 | ECG_ITS ---
APPROVED REPORT Exam: Resting ECG HR:110 bpm ECG Measurements Heart Rate 110 AXES TX 170 P 90 QRSd 95 QRS 10 QT 367 T 196 QTc 432 Conclusion SINUS TACHYCARDIA WITH OCCASIONAL VENTRICULAR PREMATURE COMPLEXES MODERATE T-WAVE ABNORMALITY, CONSIDER ANTEROLATERAL ISCHEMIA [-0.1+ mV T-WAVE IN V3-V6] MODERATE T-WAVE ABNORMALITY, CONSIDER INFERIOR ISCHEMIA [-0.1+ mV T-WAVE IN II/aVF] ABNORMAL ECG UNCONFIRMED REPORT Electronically signed by : Adonay Kaur MD 11/11/2021 18:02:20
--- NOTE | 2021-11-11 09:48 | DIET.NUTRFU ---
Addendum entered by Daylin Avendaño RD, LD 11/11/21 15:48: Visited after lunch, she had a unsuccessful Electrical cardioversion before lunch therefore could not eat. She was very sleeping upon visit and nurse said she has been very lethargic since procedure and almost not alert enough for pills. Original Note: Provider spoke to family yesterday about POC and TF wishes and son said it was up to his mom to determine if she wanted a PEG placed. Her meal intake is very poor, needs assistance to eat but turns her head. She declines when offered meals and supplements. She is ordered MSOFT chopped meals with ensure at all meals/yogurt at breakfast and fortified mashed potatoes at dinner. Today during rounds when asked about a feeding tube her response was no, she made multiple food requests. She requested chocolate cake, chicken noodle soup, pimento cheese in a bowl- kitchen was notified and will provide for lunch. Weight is up since admit from 41kg to 61kg possibly d/t IVF- dextrose in place. BS have been running low d/t poor intake. BS elevated at 316 today, hydration WNL. BM noted on 11/09 was 5 with only 1 yesterday. She has hx of C-diff, her baseline seems to be loose stools. Continues to have breakdown to bottom, at increased risk d/t poor nutrition. During rounds social service coordinator was notified that family plans to meet with hospice today and wants to discharge back to [facility] when ready.
--- NOTE | 2021-11-11 09:55 | HMH.PNCARD ---
Subjective Date: 11/11/21 Time: 09:30 Principal diagnosis: SVT, sepsis Interval history: This is a 81-year-old white female who was admitted to the hospital and found to be in SVT/atrial flutter. The patient was rate controlled in atrial flutter. Today she is tachycardic again with a heart rate anywhere from 112-120s. She denies any chest pain or pressure. She denies any shortness of breath. Those are the questions that she only really answers during my review of systems. The patient is confused this morning and not really answering any my questions appropriately and she does not have congruent speech. Her Gregory-Synephrine drip was stopped yesterday and she was started on midodrine for blood pressure support. Her blood pressure is well controlled this morning. She appears to be in no distress. Exam Vital signs and Labs for Last 24 Hours: Temp Pulse Resp BP Pulse Ox 97.7 F 112 H 22 107/41 L 100 11/11/21 04:05 11/11/21 08:00 11/11/21 08:00 11/11/21 08:00 11/11/21 08:00 Laboratory Results - last 24 hr 11/09/21 11:51: POC Glucose 41 L* 11/09/21 11:52: POC Glucose 28 L* 11/09/21 14:56: POC Glucose 45 L* 11/09/21 14:57: POC Glucose 44 L* 11/09/21 15:39: POC Glucose 36 L* 11/09/21 15:42: POC Glucose 43 L* 11/09/21 16:27: POC Glucose 45 L* 11/10/21 05:30: Total Counted 100, Neutrophils % (Manual) 93 H, Lymphocytes % (Manual) 4 L, Monocytes % (Manual) 2, Eosinophils % (Manual) 1, Platelet Estimate Normal, Hypochromasia 1+ 11/10/21 20:23: Random Glucose 227 H 11/10/21 21:02: POC Glucose 69 L 11/11/21 05:17: WBC 8.6, RBC 2.68 L, Hgb 7.7 L D, Hct 23.9 L, MCV 89.1, MCH 28.2, MCHC 31.6 L, RDW 19.7 H, Plt Count 68 L, MPV 10.8 H, Neut % (Auto) 90.4 H, Lymph % (Auto) 6.3 L, [place] % (Auto) 2.5, Eos % (Auto) 0.5, Baso % (Auto) 0.3, Neut # (Auto) 7.8, Lymph # (Auto) 0.5 L, [place] # (Auto) 0.2, Eos # (Auto) 0.0, Baso # (Auto) 0.0 11/11/21 05:17: Sodium 134 L, Potassium 3.0 L, Chloride 121 H, Carbon Dioxide 13 L, Anion Gap 3.0 L, BUN 10, Creatinine 0.50 L, Estimated Creat Clear 44, Estimated GFR 119, Est GFR ( Amer) 144, Glucose 316 H D, Calcium 5.4 L 11/11/21 05:55: POC Glucose 88 11/11/21 08:03: POC Glucose 87 I & O for Last 24 hours: Intake & Output 11/08/21 11/09/21 11/10/21 11/11/21 23:59 23:59 23:59 23:59 Intake Total 1966 / 1966 2191 / 2191 240 / 240 Output Total 375 / 375 320 / 520 240 / 240 Balance 1592 / 1592 1871 / 1671 0 / 0 Weight 120 lb 9.309 oz 125 lb 6 oz 136 lb 2 oz Microbiology Reports for the Last 24 Hours: Microbiology 11/09/21 20:37 Urine,Random Urine Culture - Preliminary - Constitutional no acute distress, average body habitus - *Routine HEENT Exam Head: Present: normocephalic, atraumatic Eye: Present: EOMI, PERRL ENT: Present: mucous membranes moist - *Routine Neck Exam Present: supple, full ROM, normal carotid upstroke. Absent: JVD, carotid bruit, lymphadenopathy - *Routine Respiratory Exam Present: CTA bilaterally - *Routine Cardiovascular Exam Present: Normal S1, Normal S2, tachycardia, irregular rhythm, ectopic. Absent: murmur Comments: Telemetry strip shows atrial flutter with PVCs. - *Routine Abdominal Exam Present: soft, normoactive bowel sounds. Absent: tenderness, distended - *Routine Extremities Exam Present: full ROM, pulses intact, normal capillary refill. Absent: cyanosis, clubbing, edema - *Routine Skin Exam Present: warm. Absent: erythema, rash - *Routine Neurological Exam Present: altered mental status Progress Note: A&P (1) Atrial flutter Status: Acute (2) Hypotension Status: Resolved (3) Tachycardia Status: Acute (4) Anemia Status: Chronic (5) Duodenal ulcer Status: Acute (6) C. difficile colitis Status: Acute (7) Decubitus ulcer of coccyx, stage 2 Status: Acute (8) Cachectic Status: Acute (9) Hyperlipidemia Status: Chronic (10) Coronary arteriosclerosis Status: Chronic Assessment a
[2021-11-11 11:19] LABS: POC Glucose,Bedside 90 (70-110)
[2021-11-11 11:22] LABS: Lymphocytes % 4 % (10-50); Neutrophils % 96 % (42-76); Total Cells Counted 100
[2021-11-11 11:23] LABS: Platelet Estimate Normal
--- NOTE | 2021-11-11 11:54 | HMH.ACPN2 ---
Internal Medicine - PN: Subj *Date: 11/11/21 *Time: 08:30 Interval history: pt alert and answers all questions, states she does not want a feeding tube. asking for lópez soup, chicken noodle, and cruz cake. Exam Vital signs and Labs for Last 24 Hours: Temp Pulse Resp BP Pulse Ox 98.8 F 110 H 30 H 106/37 L 100 11/11/21 11:22 11/11/21 10:00 11/11/21 10:00 11/11/21 10:00 11/11/21 10:00 Laboratory Results - last 24 hr 11/09/21 11:51: POC Glucose 41 L* 11/09/21 11:52: POC Glucose 28 L* 11/09/21 14:56: POC Glucose 45 L* 11/09/21 14:57: POC Glucose 44 L* 11/09/21 15:39: POC Glucose 36 L* 11/09/21 15:42: POC Glucose 43 L* 11/09/21 16:27: POC Glucose 45 L* 11/10/21 20:23: Random Glucose 227 H 11/10/21 21:02: POC Glucose 69 L 11/11/21 05:17: WBC 8.6, RBC 2.68 L, Hgb 7.7 L D, Hct 23.9 L, MCV 89.1, MCH 28.2, MCHC 31.6 L, RDW 19.7 H, Plt Count 68 L, MPV 10.8 H, Neut % (Auto) 90.4 H, Lymph % (Auto) 6.3 L, [place] % (Auto) 2.5, Eos % (Auto) 0.5, Baso % (Auto) 0.3, Neut # (Auto) 7.8, Lymph # (Auto) 0.5 L, [place] # (Auto) 0.2, Eos # (Auto) 0.0, Baso # (Auto) 0.0, Total Counted 100, Neutrophils % (Manual) 96 H, Lymphocytes % (Manual) 4 L, Platelet Estimate Normal, RBC Morphology Not Reportable 11/11/21 05:17: Sodium 134 L, Potassium 3.0 L, Chloride 121 H, Carbon Dioxide 13 L, Anion Gap 3.0 L, BUN 10, Creatinine 0.50 L, Estimated Creat Clear 44, Estimated GFR 119, Est GFR ( Amer) 144, Glucose 316 H D, Calcium 5.4 L 11/11/21 05:55: POC Glucose 88 11/11/21 08:03: POC Glucose 87 11/11/21 11:02: POC Glucose 90 I & O for Last 24 hours: Intake & Output 11/08/21 11/09/21 11/10/21 11/11/21 11:59 11:59 11:59 11:59 Intake Total 1570 / 1570 1257 / 1257 1931 / 193 Output Total 475 / 475 470 / 470 240 / 240 Balance 1095 / 1095 787 / 787 1691 / 1691 Weight 120 lb 9.309 oz 125 lb 6 oz 136 lb 2 oz Microbiology Reports for the Last 24 Hours: Microbiology 11/09/21 20:37 Urine,Random Urine Culture - Preliminary - Constitutional no acute distress, chronically ill appearing - *Routine HEENT Exam Head: Present: normocephalic Eye: Present: PERRL ENT: Present: mucous membranes moist - *Routine Neck Exam Present: supple. Absent: lymphadenopathy - *Routine Respiratory Exam Present: CTA bilaterally - *Routine Cardiovascular Exam Present: RRR - *Routine Abdominal Exam Present: soft, normoactive bowel sounds. Absent: tenderness - *Routine Extremities Exam Absent: cyanosis, clubbing, edema - *Routine Skin Exam Present: warm, wounds. Absent: rash Comments: stage 2 to coccyx - *Routine Neurological Exam Present: alert Assessment and Plan (1) Atrial flutter Status: Acute Category: Medical Code(s): I48.92 - Unspecified atrial flutter (2) Hypotension Status: Resolved Category: Medical Code(s): I95.9 - Hypotension, unspecified (3) Tachycardia Status: Acute Category: Medical Code(s): R00.0 - Tachycardia, unspecified (4) Anemia Status: Chronic Qualifiers: Anemia type: unspecified type Qualified Code(s): D64.9 - Anemia, unspecified Category: Medical Code(s): D64.9 - Anemia, unspecified (5) Duodenal ulcer Status: Acute Category: Medical Code(s): K26.9 - Duodenal ulcer, unspecified as acute or chronic, without hemorrhage or perforation (6) C. difficile colitis Status: Acute Category: Medical Code(s): A04.72 - Enterocolitis due to Clostridium difficile, not specified as recurrent (7) Decubitus ulcer of coccyx, stage 2 Status: Acute Category: Medical Code(s): L89.152 - Pressure ulcer of sacral region, stage 2 (8) Cachectic Status: Acute Category: Medical Code(s): R64 - Cachexia (9) Hyperlipidemia Status: Chronic Qualifiers: Hyperlipidemia type: other hyperlipidemia Qualified Code(s): E78.49 - Other hyperlipidemia Category: Medical Code(s): E78.5 - Hyperlipidemia, unspecified (10) Coronary arteriosclerosis Status:
--- NOTE | 2021-11-11 12:47 | ECG_ITS ---
APPROVED REPORT Exam: Resting ECG HR:103 bpm ECG Measurements Heart Rate 103 AXES QRSd 97 QRS 9 QT 383 T 201 QTc 443 Conclusion ATRIAL FLUTTER/TACHYCARDIA WITH RAPID VENTRICULAR RESPONSE LOW QRS VOLTAGE IN PRECORDIAL LEADS [QRS DEFLECTION < 1.0 mV IN CHEST LEADS] MODERATE T-WAVE ABNORMALITY, CONSIDER ANTEROLATERAL ISCHEMIA [-0.1+ mV T-WAVE IN V3-V6] MODERATE T-WAVE ABNORMALITY, CONSIDER INFERIOR ISCHEMIA [-0.1+ mV T-WAVE IN II/aVF] ABNORMAL ECG UNCONFIRMED REPORT Electronically signed by : Adonay Kaur MD 11/14/2021 12:34:03
--- NOTE | 2021-11-11 14:08 | HMH.CARDIO ---
[facility] Cardioversion Date: 11/11/21 (0218) Provider:: Jay Cox MD, [facility], [facility] This note is being dictated by Balbina Meredith for Dr. Cox. Procedure Performed:: Electrical cardioversion Diagnosis:: Atrial flutter with RVR Procedure Summary:: Patient was brought to the cardiac Recreation Coordinator. Patient was placed on continuous cardiac monitoring and continuous pulse oximetry. Supplemental oxygen was administered via nasal cannula. Electrodes were placed in the anterior and posterior fashion. After informed consent was obtained, sedation was achieved with Fentanyl and Versed The patient received a 50 J synchronized shock which was unsuccessful. She then received a 120 J synchronized shock which was unsuccessful. Followed by 3 additional synchronized shocks at 200 J each which were also unsuccessful in cardioverting the patient. The patient tolerated the procedure well with no complications. Complications:: No apparent complications at the end of the procedure. Conculsion:: Unuccessful electrical cardioversion. Patient remains in atrial flutter with a heart rate in the low 100s.
--- NOTE | 2021-11-11 14:55 | PC.NURSE ---
called admissions to relay patient was now medr
--- NOTE | 2021-11-11 15:48 | PC.NURSE ---
Spoke to Humza Patel who is representing [facility] regarding blood transfusion order. Pt's family and POA have refused for pt to have blood transfusion, even after risks and benefits explained. Blood refusal sheet signed by Joshua Patel. Lab notified and message was left for MD Medina's office as well.
[2021-11-11 16:27] LABS: POC Glucose,Bedside 93 (70-110)
[2021-11-11 20:44] LABS: Glucose,Random 83 mg/dL (74-100)
[2021-11-12] VITALS: BP 133/59; PULSE 120; PULSE 124; RESP 30; TEMP 36.1; O2SAT 100
[2021-11-12 03:49] VITALS: BP 107/55; PULSE 109; RESP 30; TEMP 36.2; O2SAT 100
[2021-11-12 04:00] VITALS: PULSE 115
[2021-11-12 05:00] VITALS: BMI 24.3
[2021-11-12 05:58] LABS: Basophils % 0.1 % (0.1-2.0); Eosinophils # 0.1 K/mm3 (0.0-0.4); Eosinophils % 0.6 % (0.1-12.0); Hematocrit 24.6 % (37.0-47.0); Hemoglobin 7.9 g/dL (12.2-16.2); Lymphocytes # 0.9 K/mm3 (0.7-4.5); Lymphocytes % 8.2 % (10-50); Mean Corpuscular Hemoglobin 27.8 pg (27.0-31.2); Mean Corpuscular Volume 86.8 fl (81-99); Mean Platelet Volume 10.7 fl (7.4-10.4); Monocytes # 0.4 K/mm3 (0.1-1.0); Monocytes % 3.5 % (1.7-9.3); Neutrophils # 9.1 K/mm3 (1.8-7.8); Neutrophils % 87.5 % (37.0-80.0); Platelet Count 88 K/mm3 (142-424); Red Blood Count 2.83 M/mm3 (4.20-5.40); Red Cell Distribution Width 19.5 % (11.5-17.5); White Blood Count 10.3 K/mm3 (4.8-10.8)
[2021-11-12 06:05] LABS: Anion Gap 3.6 mEq/L (5-15); Blood Urea Nitrogen 11 mg/dl (7-17); Calcium 5.8 mg/dl (8.4-10.2); Carbon Dioxide 13 mmol/L (22.0-30.0); Creatinine Clearance Estimated 45 mL/min (50-200); Estimated Glomerular Filt Rate 81 ml/min (>60); GFR (African American) 98 ML/MIN (>60); Glucose 94 mg/dl (74-100); Potassium 3.6 mmoL/L (3.5-5.1); Sodium 139 mmol/L (136-145)
--- NOTE | 2021-11-12 06:07 | PC.NURSE ---
pt has rested intermittently t/o shift, has remained on 1L NC with O2 sats 95-100%, dressing to coccyx changed this shift, pt has been repositioned Q2, peck remains in place with 200 mL out this shift
[2021-11-12 06:08] LABS: Chloride 126 mmol/L (98-107); MANUAL DIFFERENTIAL MANUAL DIFFERENTIAL (MANUAL DIFF)
[2021-11-12 08:00] VITALS: BP 114/68; PULSE 105; PULSE 108; RESP 21; TEMP 36.9; O2SAT 100
[2021-11-12 08:44] LABS: Lymphocytes % 5 % (10-50); Monocytes % 1 % (2-9); Neutrophils % 94 % (42-76); Total Cells Counted 100
[2021-11-12 08:45] LABS: Platelet Estimate Normal
[2021-11-12 08:46] LABS: Anisocytosis 1+; Hypochromasia 1+
--- NOTE | 2021-11-12 09:37 | HMH.DCSUM ---
General - General Admission date:: 11/04/21 Discharge date: 11/12/21 HPI HPI: 81-year-old female patient arrived to the [facility] emergency department via EMS for reports of ongoing UTI at custodial. She currently has been treated with ertapenem and family wanted her evaluated for confusion. In the emergency department she denied any pain, nausea/vomiting, bloody stools, fever/chills/body aches other or complaints. She recently finished vancomycin for C. difficile on 11/01. 11/02/21 CXR: FINDINGS: A single view of the chest was obtained. The heart and mediastinum are within normal limits. There is posterior to change the right lower thorax. Mild scarring is seen in the right lung. Lungs are otherwise clear. There is no pneumothorax. Osseous structures are unremarkable. IMPRESSION: No acute cardiopulmonary process. Reviewed, Interpreted and Dictated by Karan Christensen III, MD 81-year-old female patient resting quietly in bed she is alert and oriented to person and place she denies any shortness of breath or pain during the night. She does have a stage II wound to her coccyx area with dressing intact and reddened in her knees with skin intact Hospital Course Hospital Course: Abnormal Lab Results 11/11/21 05:17: Neutrophils % (Manual) 96 H, Lymphocytes % (Manual) 4 L 11/11/21 13:43: Crossmatch (AHG) See Detail 11/12/21 05:50: RBC 2.83 L, Hgb 7.9 L, Hct 24.6 L, RDW 19.5 H, Plt Count 88 L D, MPV 10.7 H, Neut % (Auto) 87.5 H, Lymph % (Auto) 8.2 L, Neut # (Auto) 9.1 H, Neutrophils % (Manual) 94 H, Lymphocytes % (Manual) 5 L, Monocytes % (Manual) 1 L 11/12/21 05:50: Chloride 126 H, Carbon Dioxide 13 L, Anion Gap 3.6 L, Calcium 5.8 L Microbiology 11/09/21 20:37 Urine,Random Urine Culture - Preliminary 11/04/21 09:51 Blood Blood Culture - Final NO GROWTH AFTER 5 DAYS 11/04/21 09:51 Blood Blood Culture - Final NO GROWTH AFTER 5 DAYS Ordering Physician: Shereen Kingsley MD Date of Service: 11/02/21 Procedure(s): XR chest portable Accession Number(s): [id number] cc: Matthew Medina MD; Karan Christensen MD~ FINAL REPORT TECHNIQUE: Single view chest CLINICAL HISTORY: hyptension COMPARISON: 09/16/2021 FINDINGS: A single view of the chest was obtained. The heart and mediastinum are within normal limits. There is posterior to change the right lower thorax. Mild scarring is seen in the right lung. Lungs are otherwise clear. There is no pneumothorax. Osseous structures are unremarkable. IMPRESSION: No acute cardiopulmonary process. Ordering Physician: Matthew Oshea APRN Date of Service: 11/05/21 Procedure(s): CT abdomen pelvis wo con Accession Number(s): [id number] cc: Matthew Medina MD; Karan Christensen MD; Matthew Oshea APRN~ FINAL REPORT TECHNIQUE: Axial images through the abdomen and pelvis were performed without contrast.This study was performed with techniques to keep radiation doses as low as reasonably achievable, (ALARA). Individualized dose reduction techniques using automated exposure control or adjustment of mA and/or kV according to the patient's size were employed. CLINICAL HISTORY: Abd pain, blood in stool COMPARISON: 06/06/2021 FINDINGS: ABDOMEN: The lung bases demonstrates small to moderate pleural effusions and bibasilar atelectasis. There is moderate anasarca. A small pericardial effusion is seen. The heart size is normal. There are postoperative changes of presumed partial hepatic resection and cholecystectomy. The spleen is normal. No adrenal mass is identified. The aorta is normal in caliber. There is no significant adenopathy. There is no nephrolithiasis. There is no hydronephrosis. There are diffuse vascular calcifications. A small amount of ascites is present. Multiple air and fluid-filled bowel loops are seen, favor ileus. PELVIS: The appendix i
--- NOTE | 2021-11-12 10:35 | HMH.PNCARD ---
Subjective Date: 11/12/21 Time: 09:30 Principal diagnosis: SVT, sepsis Interval history: This is a 81-year-old white female who was admitted to the hospital and found to be in atrial flutter/SVT. The patient was rate controlled after being treated with diltiazem which ended up having to be stopped due to hypotension and she was switched to oral amiodarone. The patient got tachycardic again yesterday and underwent unsuccessful cardioversion. She remains in atrial flutter with a heart rate in the low 100s at this time. She appears to be in no distress this morning. The patient really does not answer any of my questions or have any meaningful speech with me this morning. She has been referred for hospice care when she is discharged from the hospital. Exam Vital signs and Labs for Last 24 Hours: Temp Pulse Resp BP Pulse Ox 98.4 F 108 H 21 114/68 100 11/12/21 08:00 11/12/21 08:00 11/12/21 08:00 11/12/21 08:00 11/12/21 08:00 Laboratory Results - last 24 hr 11/11/21 05:17: Total Counted 100, Neutrophils % (Manual) 96 H, Lymphocytes % (Manual) 4 L, Platelet Estimate Normal, RBC Morphology Not Reportable 11/11/21 11:02: POC Glucose 90 11/11/21 13:43: Blood Type O Positive, Antibody Screen Positive, Crossmatch (AHG) See Detail 11/11/21 16:11: POC Glucose 93 11/11/21 20:16: Random Glucose 83 11/12/21 05:50: WBC 10.3, RBC 2.83 L, Hgb 7.9 L, Hct 24.6 L, MCV 86.8, MCH 27.8, MCHC 32.0, RDW 19.5 H, Plt Count 88 L D, MPV 10.7 H, Neut % (Auto) 87.5 H, Lymph % (Auto) 8.2 L, [place] % (Auto) 3.5, Eos % (Auto) 0.6, Baso % (Auto) 0.1, Neut # (Auto) 9.1 H, Lymph # (Auto) 0.9, [place] # (Auto) 0.4, Eos # (Auto) 0.1, Baso # (Auto) 0.0, Total Counted 100, Neutrophils % (Manual) 94 H, Lymphocytes % (Manual) 5 L, Monocytes % (Manual) 1 L, Platelet Estimate Normal, Hypochromasia 1+, Anisocytosis 1+ 11/12/21 05:50: Sodium 139, Potassium 3.6, Chloride 126 H, Carbon Dioxide 13 L, Anion Gap 3.6 L, BUN 11, Creatinine 0.70 D, Estimated Creat Clear 45, Estimated GFR 81, Est GFR ( Amer) 98 D, Glucose 94, Calcium 5.8 L I & O for Last 24 hours: Intake & Output 11/09/21 11/10/21 11/11/21 11/12/21 23:59 23:59 23:59 23:59 Intake Total 1967 / 1966 2191 / 2191 240 / 240 885 / 885 Output Total 375 / 375 320 / 520 340 / 340 200 / 200 Balance 1592 / 1592 1871 / 1671 -100 / -100 685 / 685 Weight 120 lb 9.309 oz 125 lb 6 oz 136 lb 2 oz 137 lb 8 oz Microbiology Reports for the Last 24 Hours: Microbiology 11/09/21 20:37 Urine,Random Urine Culture - Preliminary Narrative: Atrial flutter with a rate of 102. - Constitutional no acute distress, average body habitus - *Routine HEENT Exam Head: Present: normocephalic, atraumatic Eye: Present: EOMI, PERRL ENT: Present: mucous membranes moist - *Routine Neck Exam Present: supple, full ROM, normal carotid upstroke. Absent: JVD, carotid bruit, lymphadenopathy - *Routine Respiratory Exam Present: CTA bilaterally - *Routine Cardiovascular Exam Present: RRR, Normal S1, Normal S2. Absent: murmur - *Routine Abdominal Exam Present: soft, normoactive bowel sounds. Absent: tenderness, distended - *Routine Extremities Exam Present: edema (Trace to 1+ bilateral lower extremity edema), full ROM, pulses intact, normal capillary refill. Absent: cyanosis, clubbing - *Routine Skin Exam Present: warm. Absent: rash - *Routine Neurological Exam Present: altered mental status Progress Note: A&P (1) Atrial flutter Status: Acute (2) Hypotension Status: Resolved (3) Tachycardia Status: Acute (4) Anemia Status: Chronic (5) Duodenal ulcer Status: Acute (6) C. difficile colitis Status: Acute (7) Decubitus ulcer of coccyx, stage 2 Status: Acute (8) Cachectic Status: Acute (9) Hyperlipidemia Status: Chronic (10) Coronary arteriosclerosis Status: Chronic Assessment and Plan for All Diagnoses:: Plan: 1. Patient was admitted to the hospital and [facility]
--- NOTE | 2021-11-12 11:16 | PC.NURSE ---
1053 report called to nereida at [facility] central line removed at 1100. no issues noted. rakesh called
--- NOTE | 2021-11-12 11:31 | PC.NURSE ---
bre picked up patient at this time. her teeth given to them.
--- NOTE | 2021-11-12 12:26 | PC.WOUNDNOTE ---
Discharged back to [facility] today. dressing replaced on area
[2021-11-12 13:18] LABS: POC Glucose,Bedside 83 (70-110)
--- NOTE | 2021-11-13 14:26 | CARE MANAGER ---
Spoke with Renu from [facility] and she states that patient is ok. She is now a [facility] patient. Her family has been in and she is comfort care. No needs at this time.
== END 2021-11-12 11:34 | disposition home or self-care (01) | DRG 871 ==
LOC: ER 15:57 → 2ND 18:51
PROVIDERS: Internal Medicine; Internal Medicine Adolescent Medicine; Nurse Practitioner Family; Physician Assistant; Surgery; Admitting Provider Family Medicine; Emergency Provider Student in an Organized Health Care Education/Training Program; PCP Emergency Medicine; Visit Provider Emergency Medicine
PROC: 0DJ08ZZ Inspection of Upper Intestinal Tract, Via Natural or Artificial Opening Endoscopic (ICD-10-PCS; CPT 43235; principal; 2021-11-03 13:00)
PROC: 5A2204Z Restoration of Cardiac Rhythm, Single (ICD-10-PCS; principal; 2021-11-11 11:30)
DX: A41.9 Sepsis, unspecified organism (principal); E43 Unspecified severe protein-calorie malnutrition; I47.1 Supraventricular tachycardia; N39.0 Urinary tract infection, site not specified; I42.9 Cardiomyopathy, unspecified; N17.9 Acute kidney failure, unspecified; E87.1 Hypo-osmolality and hyponatremia; I48.92 Unspecified atrial flutter; D64.9 Anemia, unspecified; Z87.891 Personal history of nicotine dependence; F41.9 Anxiety disorder, unspecified; I11.0 Hypertensive heart disease with heart failure; I50.9 Heart failure, unspecified; Z51.5 Encounter for palliative care; I25.10 Atherosclerotic heart disease of native coronary artery without angina pectoris; K21.9 Gastro-esophageal reflux disease without esophagitis; I25.2 Old myocardial infarction; E78.5 Hyperlipidemia, unspecified; I25.118 Atherosclerotic heart disease of native coronary artery with other forms of angina pectoris; E03.9 Hypothyroidism, unspecified; E87.6 Hypokalemia; L89.152 Pressure ulcer of sacral region, stage 2; Z68.24 Body mass index [BMI] 24.0-24.9, adult; I95.9 Hypotension, unspecified; K26.9 Duodenal ulcer, unspecified as acute or chronic, without hemorrhage or perforation; Z20.822 Contact with and (suspected) exposure to COVID-19; Z85.038 Personal history of other malignant neoplasm of large intestine; Z85.05 Personal history of malignant neoplasm of liver; Z85.118 Personal history of other malignant neoplasm of bronchus and lung; Z86.010 Personal history of colon polyps; D64.89 Other specified anemias; K44.9 Diaphragmatic hernia without obstruction or gangrene; R60.9 Edema, unspecified
CPT/HCPCS: 36556; 43239; 36415; 71045; 74176; 80048; 80053; 81001; 82272; 82947; 82962; 83605; 83880; 84484; 85007; 85025; 86850; 86870; 87040; 87086; 87506; 88305; 88342; 92610; 92960; 93005; 96365; 97163; 97166; 99152; 99285; C1751; C9803; G0328; G0378; J0282; J0696; J1335; J2790; J7060; P9016; U0003; U0005